=== PATIENT | male | born 1945 | race Caucasian/White ===

== ENCOUNTER 2018-10-30 06:17 | Day surgery (SDC) | payer OTHER ==
[~2018-10-30] VITALS: Ht 170.2 cm; Wt 93.9 kg
--- NOTE | ~2018-10-30 | OR ---
[facility] [address], [place] [address] Draft DATE OF OPERATION: 10/30/2018 SURGEON: Madhu Santiago MD PREOPERATIVE DIAGNOSES: 1. Diverticulosis. 2. Screening. POSTOPERATIVE DIAGNOSES: 1. Moderate diverticulosis in transverse colon, left colon, and sigmoid colon. 2. 5 mm polyp at 35 cm. 3. 8 mm polyp distal right colon/hepatic flexure (tattoo). 4. 4 mm polyp ileocecal valve. 5. 4 mm polyps x2 hepatic flexure. 6. 4 mm polyps x2 proximal transverse colon. 7. Moderate internal and external hemorrhoids. PROCEDURE PERFORMED: Colonoscopy with snare at hepatic flexure and proximal transverse colon and hot biopsies, and injection of tattoo at the distal right colon/hepatic flexure. ESTIMATED BLOOD LOSS: None. INDICATIONS: Maxime is a 72-year-old gentleman who came to us for basically a followup screening colonoscopy. He said his last colonoscopy was back in 2002. He remembers having sigmoid diverticulosis at that time. Currently, he has no lower GI complaints. There was no family history of colon cancer or polyps. I gave him a pamphlet in the office on colonoscopy. We looked at that together along with the risks and benefits. He understands there is risk including, but not limited to gas, bloating, crampy abdominal pain, bleeding, perforation, requiring surgery, and missed diagnosis. He also understands the need for IV conscious sedation. He had expressed understanding and wished to proceed. DESCRIPTION OF PROCEDURE: Maxime was taken into our endoscopy suite and placed in the left lateral decubitus position. He was given 4 mg of Versed and 100 mcg of fentanyl to cover the case. A digital rectal exam was performed. He does have moderate external hemorrhoids. He had good sphincter tone. His prostate is mildly enlarged and indurated. No dominant PATIENT NAME: MAXIME LYNN JR OPERATIVE REPORT DATE OF : 41 REPORT #: [id number] PHYSICIAN: MADHU SANTIAGO MD PCP: MADHU SANTIAGO MD REPORT IS CONFIDENTIAL AND NOT TO BE RELEASED WITHOUT AUTHORIZATION [facility] [address], [place] [address] Draft nodules. The adult colonoscope was introduced and advanced all around into the cecum under direct visualization of camera without difficulty. The scope was slowly withdrawn. We took pictures throughout for photodocumentation. We could easily see the appendiceal orifice, the Crohn's foot, and ileocecal valve. The above-mentioned polyps were removed mostly with hot biopsy forceps. We did use our snare in the distal right colon/hyperplastic flexure in the proximal transverse colon. We did place a tattoo in the distal right colon/hepatic flexure to rei that particular polyp. He does have moderate diverticulosis from the transverse colon, left colon, and the sigmoid colon. The rectum was unremarkable. Upon retroflexion of scope he does have moderate internal hemorrhoids. After this, the gas was suctioned out. The colonoscope removed. Maxime tolerated the procedure quite well. RECOMMENDATIONS: I will see Maxime back in my office in 7 to 14 days to review his results. Madhu Santiago MD ALB/MODL /[id number] cc: Patient Chart Mati Pri[facility] Madhu Santiago MD Copies: MADHU SANTIAGO MD ~ PATIENT NAME: SHANE MAXIME SMITH OPERATIVE REPORT DATE OF : 41 REPORT #: [id number] PHYSICIAN: MADHU SANTIAGO MD PCP: MADHU SANTIAGO MD REPORT IS CONFIDENTIAL AND NOT TO BE RELEASED WITHOUT AUTHORIZATION
[~2018-10-30 06:17] MED LIST: ADULT ASPIRIN R81 MG PO; COZAAR25 MG PO; FLONASE ALLERG9.9 ML NAS; HYDROCHLOROTHIA25 MG PO; ZOCOR10 MG PO
--- NOTE | 2018-10-30 08:14 | NUR ---
10/30/18 0814 Viji Jett 0811-PATIENT ARRIVED TO PACU ON 2L NC REACTIVE TO VOICE OPENING EYES DROWSY. DENIES PAIN OR NAUSEA. PASSING GAS. LAYING LEFT LATERAL. IVF INFUSING.
== END 2018-10-30 08:58 | disposition home or self-care (01) ==
LOC: OPS 06:17 → DS 06:17 → OPS 06:45
PROVIDERS: Colon & Rectal Surgery
PROC: 0DBE8ZX Excision of Large Intestine, Via Natural or Artificial Opening Endoscopic, Diagnostic (ICD-10-PCS; 2018-10-30)
PROC: 0DBL8ZX Excision of Transverse Colon, Via Natural or Artificial Opening Endoscopic, Diagnostic (ICD-10-PCS; 2018-10-30)
PROC: 0DBF8ZX Excision of Right Large Intestine, Via Natural or Artificial Opening Endoscopic, Diagnostic (ICD-10-PCS; 2018-10-30)
PROC: 3E0H8GC Introduction of Other Therapeutic Substance into Lower GI, Via Natural or Artificial Opening Endoscopic (ICD-10-PCS; 2018-10-30)
PROC: 0DBC8ZX Excision of Ileocecal Valve, Via Natural or Artificial Opening Endoscopic, Diagnostic (ICD-10-PCS; principal; 2018-10-30 06:45)
DX: Z12.11 Encounter for screening for malignant neoplasm of colon (principal); D12.0 Benign neoplasm of cecum; D12.2 Benign neoplasm of ascending colon; D12.3 Benign neoplasm of transverse colon; K51.40 Inflammatory polyps of colon without complications; K64.4 Residual hemorrhoidal skin tags; K57.30 Diverticulosis of large intestine without perforation or abscess without bleeding; I10 Essential (primary) hypertension; J45.909 Unspecified asthma, uncomplicated; Z79.899 Other long term (current) drug therapy; Z79.82 Long term (current) use of aspirin; Z87.891 Personal history of nicotine dependence
CPT/HCPCS: 99153; G0500; J2250; J3010; J7120

== ENCOUNTER 2019-08-17 13:41 | Inpatient (IN) | payer MEDICARE, OTHER ==
[~2019-08-17] VITALS: Ht 170.2 cm; Wt 65.7 kg
--- OUTSIDE RECORDS SUMMARY | ~2019-08-17 | XMS | Encounter Summary ---
Demographics + + + | Address | [address] | | | [place] [address] | + + + | Home Phone | | + + + | Preferred Language | Unknown | + + + | Marital Status | | + + + | Orthodoxy Affiliation | 1077 | + + + | Race | Unknown | + + + | Ethnic Group | Unknown | + + + Author + + + | Author | [facility] | | | and [place] | + + + | Organization | [facility] | | | and [place] | + + + | Address | Unknown | + + + | Phone | Unavailable | + + + Support + + + + + | Name | Relationship | Address | Phone | + + + + + | Amina Stewart | ECON | [address] | | | | | [facility], [place] | | | | | [address] | | + + + + + Care Team Providers + +------+ + | Care Colors Custodian Name | Role | Phone | + +------+ + | No, Physician | PCP | Unavailable | + +------+ + Reason for Visit +--------+ + | Reason | Comments | +--------+ + | Other | Labs and Imaging | +--------+ + Encounter Details +--------+ + + + + | Date | Type | Department | Care Team | Description | +--------+ + + + + | 06/02/ | Telephone | [facility] | Paul Arias MD | Other (Labs and | | 2018 | | VASCULAR SURGERY | [address] | Imaging) | | | | [address] [place] | [address] [place], [place] | | | | | [place], [place] | [address] | | | | | [address] | [phone] | | | | | [phone] | | | +--------+ + + + + Social History + +-------+ +--------+------+ | Tobacco Use | Types | Packs/Day | Years | Date | | | | | Used | | + +-------+ +--------+------+ | Former Smoker | | | | | + +-------+ +--------+------+ + +---+---+---+ | Smokeless Tobacco: | | | | | Former User | | | | + +---+---+---+ + + | Comments: quit 50 years ago | + + + + +---------+ + | Alcohol Use | Drinks/Week | oz/Week | Comments | + + +---------+ + | Not Currently | | | 90m days | + + +---------+ + + + + | Sex Assigned at | Date Recorded | | | | + + + | Not on file | | + + + + + + + | Job Start Date | Occupation | Industry | + + + + | Not on file | Not on file | Not on file | + + + + + + + + | Travel History | Travel Start | Travel End | + + + + + + | No recent travel history available. | + + documented as of this encounter Functional Status + + + + | Functional Status | Response | Date of Assessment | + + + + | Are you deaf or do you have serious | No | 05/04/2019 | | difficulty hearing? | | | + + + + | Are you blind or do you have serious | No | 05/04/2019 | | difficulty seeing, even when wearing | | | | glasses? | | | + + + + | Do you have serious difficulty walking or | No | 05/04/2019 | | climbing stairs? (5 years old or older) | | | + + + + | Do you have difficulty dressing or bathing? | No | 05/04/2019 | | (5 years old or older) | | | + + + + | Because of a physical, mental, or emotional | No | 05/04/2019 | | condition, do you have difficulty doing | | | | errands alone such as visiting a doctor's | | | | office or shopping? [15 years old or | | | | older)] | | | + + + + + + + + | Cognitive Status | Response | Date of Assessment | + + + + | Because of a physical, mental, or emotional | No | 05/04/2019 | | condition, do you have serious difficulty | | | | concentrating, remembering, or making | | | | decisions? (5 years old or older) | | | + + + + documented as of this encounter Plan of Treatment +--------+ + + + + | Date | Type | Specialty | Care Team | Description | +--------+ + + + + | 11/04/ | Appointment | Radiology | Suzi Powell DNP | | | 2019 | | | [address] | | | | | | [place] | | | | | | [address] | | | | | | | | +--------+ + + + + | 11/04/ | Office | Vascular Surgery | Suzi Powell DNP | | | 2019 | Visit | | [address] | | | | | | [place] | | | | | | [address] | | | | | | | | +--------+ + + + + documented as of this encounter Visit Diagnoses Not on filedocumented in this encounter"
--- OUTSIDE RECORDS SUMMARY | ~2019-08-17 | XMS | Encounter Summary ---
Demographics + + + | Address | [address] | | | [place] [address] | + + + | Home Phone | | + + + | Preferred Language | Unknown | + + + | Marital Status | | + + + | [employer] Affiliation | [id number] | + + + | Race | Unknown | + + + | Ethnic Group | Unknown | + + + Author + + + | Author | [facility] | | | and [place] | + + + | Organization | [facility] | | | and [place] | + + + | Address | Unknown | + + + | Phone | Unavailable | + + + Support + + + + + | Name | Relationship | Address | Phone | + + + + + | Amina Stewart | ECON | [address] | | | | | [address] [place] [address], [place] | | | | | [address] | | + + + + + Care Team Providers + +------+ + | Care Brake Repair Supervisor Name | Role | Phone | + +------+ + | No, Physician | PCP | Unavailable | + +------+ + Reason for Visit Auth/Cert +--------+--------+ + + + + | Status | Reason | Specialty | Diagnoses / | Referred By | Referred To | | | | | Procedures | Contact | Contact | +--------+--------+ + + + + | | | | Diagnoses | | | | | | | Mesenteric | | | | | | | ischemia, | | | | | | | chronic | | | | | | | ([facility]) | | | | | | | Procedures | | | | | | | REVASCULARIZ | | | | | | | ATION | | | | | | | MESENTERIC | | | +--------+--------+ + + + + Encounter Details +--------+---------+ + + + | Date | Type | Department | Care Team | Description | +--------+---------+ + + + | 04/28/ | Surgery | [facility] | Paul Arias MD | REVASCULARIZATION | | 2019 | | [facility] | [address] | MESENTERIC | | | | OPER[address] | [address] [place], [place] | | | | | [place] | [address] | | | | | [place], [place] | [phone] | | | | | [address] | | | | | | [phone] | | | +--------+---------+ + + + Social History + +-------+ [...] + + documented as of this encounter Last Filed Vital Signs + + + + + | Vital Sign | Reading | Time Taken | Comments | + + + + + | Blood Pressure | 141/66 | 05/04/2019 10:42 AM | | | | | PDT | | + + + + + | Pulse | 76 | 05/04/2019 7:57 AM | | | | | PDT | | + + + + + | Temperature | 36.9 C (98.5 F) | 05/04/2019 7:57 AM | | | | | PDT | | + + + + + | Respiratory Rate | 18 | 05/04/2019 7:57 AM | | | | | PDT | | + + + + + | Oxygen Saturation | 98% | 05/04/2019 7:57 AM | | | | | PDT | | + + + + + | Inhaled Oxygen | - | - | | | Concentration | | | | + + + + + | Weight | 78.3 kg (172 lb 9.9 | 05/04/2019 3:50 AM | | | | oz) | PDT | | + + + + + | Height | 168.9 cm (5' 6.5") | 04/28/2019 10:43 AM | | | | | PDT | | + + + + + | Body Mass Index | 27.44 | 04/28/2019 10:43 AM | | | | | PDT | | + + + + + documented in this encounter Functional Status + + + [...] + + documented as of this encounter Discharge Summaries Toney Sherman PA-C - 05/04/2019 8:36 AM PDTFormatting of this note might be different f rom the original. Physician Discharge Summary Patient ID: Zane Stewart [id number] y.o. 1945 Admit date: 04/28/2019 Discharge date and time: 05/04/2019 Admitting Physician: Paul Arias MD Discharge Physician: Toney Sherman PA-C Admission Diagnoses: Mesenteric ischemia, chronic (HCC) [K55.1] Discharge Diagnoses: Same; Status post mesenteric artery revascularization Admission Condition: poor Discharged Condition: stable Indication for Admission: Symptomatic SMA stenosis Hospital Course: Patient was admitted on 04/28/2019 and underwent open SMA endarterectomy an d patch angioplasty. Post operative course has been uneventful. Began passing flatus two day s ago and diet has been advanced. Stable for discharge home. Consults: none Treatments: surgery: SMA endart and patch angioplasty Discharge Exam: Vitals:reviewed CONSTITUTIONAL: Conversant, well developed, NAD EYES: Anicteric sclerae, no lid drag, no proptosis RESP: Normal effort, regular, even, unlabored rate CV: No peripheral edema, rate regular ABD: Appropriate tenderness. Hypoactive bowel tones SKIN: Jardine, warm, dry without rash/lesion MS: ROM not limited, no digital cyanosis, normal gait NEURO: Conversant, A&O times 3 PSYCH: appropriate affect, speech and tone, judgement and insight intact Vascular: Palpable brachial pulses bilaterally. Abdominal binder in place. [place] intact. Disposition: home Patient Instructions: Keep wound clean and dry, ice to area for comfort and remove dressing in two days. Leave open to air. Monitor for signs of infection. Discharge Medications New Medications Details docusate sodium 100 mg capsule Take 1 capsule by mouth 2 times daily. aka: COLACE HYDROcodone-acetaminophen 5-325 mg per tablet Take 1 tablet by mouth every 4 hours as needed for Pain. aka: NORCO Unchanged Medications Details ASPIRIN 81 PO Take 81 mg by mouth. CENTRUM SILVER 50+MEN PO Take by mouth. hydroCHLOROthiazide 25 mg tablet Take 25 mg by mouth Daily. losartan 50 mg tablet Take 50 mg by mouth Daily. aka: COZAAR simvastatin 10 mg tablet Take 10 mg by mouth nightly. aka: ZOCOR Plan: POD 6. Stable for discharge. Continue aspirin and statin therapy. Continue ambulation and pain management. Getting more aggressive with constipation. Patient understands to come back in with worsening abdominal pain and failure of bowel movement. Activity: activity as tolerated, ambulate in house and no lifting, Driving, or Strenuous ex ercise for 6 weeks Diet: cardiac diet Wound Care: keep wound clean and dry, ice to area for comfort and remove dressing in two da ys. Leave open to air. Monitor for signs of infection. Follow-up with Vascular clinic in 2 weeks. Signed: Toney Sherman PA-C 05/04/2019 8:36 documented in this encounter Discharge Instructions Instructions Pascale Ross RN - 05/04/2019Formatting of this note might be different fro m the original. Constipation (Adult) Constipation means that you have bowel movements that are less frequent than usual. Stools often become very hard and difficult to pass. Constipation is very common. At some point in life, it affects almost everyone. Since every one's bowel habits are different, what is constipation to one person may not be to another. Your healthcare provider may do tests to diagnose constipation. It depends on whathe or sh efinds when evaluating you. Symptoms of constipation include: Abdominal pain Bloating Vomiting Painful bowel movements Itching, swelling, bleeding, or pain around the anus Causes Constipation can have many causes. These include: Diet low in fiber Too much dairy Not drinking enough liquids Lack of exercise or physical activity (especially true for older adults) Changes in lifestyle or daily routine, including , aging, work, and travel Frequent use or misuse of laxatives Ignoring the urge to have a bowel movement or delaying it until later Medicines, such as certain prescription pain medicines, iron supplements, antacids, cert ain antidepressants, and calcium supplements Diseases like irritable bowel syndrome, bowel obstructions, stroke, diabetes, thyroid di sease, Parkinson disease, hemorrhoids, and colon cancer Complications Potential complications of constipation can include: Hemorrhoids Rectal bleeding from hemorrhoids or anal fissures(skin tears) Hernias Dependency on laxatives Chronic constipation Fecal impaction, a severe form of constipation in which a large amount of hard stool is in your rectum that you can't pass Bowel obstruction or perforation Home care All treatment should be done after talking with your healthcare provider. This is especiall y true if you have another medical problems, are taking prescription medicines, or are an ol louie adult. Treatment most often involves lifestyle changes. You may also need medicines. You r healthcare provider will tell you which will work best for you. Follow the advice below to help avoid this problem in the future. Lifestyle changes These lifestyle changes can help prevent constipation: Diet. Eat a high-fiber diet, with fresh fruit and vegetables, and reduce dairy intake, m eats, and processed foods Fluids. It's important to get enough fluids each day. Drink plenty of water when you eat more fiber. If you are on diet that limits the amount of fluid you can have, talk about thi s with your healthcare provider. Regular exercise. Check with your healthcare provider first. Medicines Take any medicines as directed. Some laxatives are safe to use only every now and then. Oth ers can be taken on a regular basis. While laxatives don't cause bowel dependence, they are treating the symptoms. So your constipation may return if you don't make other changes. Talk with your healthcare provider or pharmacist if you have questions. Prescription pain medicines can cause constipation. If you are taking this kind of medicine , ask your healthcare provider if you should also take a stool softener. Medicines you may take to treat constipation include: Fiber supplements Stool softeners Laxatives Enemas Rectal suppositories Follow-up care Follow up with your healthcare provider if symptoms don't get better in the next few days. You may need to have more tests or see a specialist. Call 911 Call 911 if any of these occur: Trouble breathing Stiff, rigid abdomen that is severely painful to touch Confusion Fainting or loss of consciousness Rapid heart rate Chest pain When to seek medical advice Call your healthcare provider right away if any of these occur: Fever of 100.4F (38C) or higher, or as directed by your healthcare provider Failure to resume normal bowel movements Pain in your abdomen or back gets worse Nausea or vomiting Swelling in your abdomen Blood in the stool Black, tarry stool Involuntary weight loss Weakness Date Last Reviewed: 01/03/[address] [employer] [place] [id number]. All righ ts reserved. This information is not intended as a substitute for professional medical care. Always follow your healthcare professional's instructions. After Open Abdominal Superior Mesenteric Artery Surgery You have hadsurgery to repair SMA stenosis. Home care Recommendations for taking care of yourself at home include the following: Avoid strenuous activity for 4 to 6 weeks after your surgery. Ask your healthcare provider how long it will be before you can return to work. Gradually increase your activity. It may take some time for you to return to your normal activity level. Don t drive for 2 weeks after surgery or while you are taking opioid pain medicine. As k someone to take you to any appointments. Check your incision every day for signs of infection (swelling, redness, drainage, or wa rmth). Keep your incision clean. Wash it gently with soap and water when you shower. Don t lift anything heavier than 5 pounds for 2 weeks after surgery. Avoid sitting or standing for long periods without moving your legs and feet. Keep your feet up when you sit in a chair. Take your medicines exactly as directed. When to call your healthcare provider Call your healthcare provider right away if you have any of the following: Redness, pain, swelling, or drainage from your incision Fever of 100.4F (38C) or higher, or as directed by your healthcare provider Sudden coldness, pain, or paleness in your leg Loss of feeling in your legs Severe or sudden pain in your stomach Fail to pass gas Bloody bowel movements Prolonged constipation Nausea or vomiting Trouble breathing Pain or heaviness in your chest or arms Date Last Reviewed: 12/04/2015 [employer]. [address] [place] [id number]. All righ ts reserved. This information is not intended as a substitute for professional medical care. Always follow your healthcare professional's instructions. documented in this encounter Medications at Time of Discharge + + + +---------+ + + | Medication | Sig | Dispensed | Refills | Start | End Date | | | | | | Date | | + + + +---------+ + + | ASPIRIN 81 PO | Take 81 mg by mouth. | | 0 | | | + + + +---------+ + + | docusate sodium | Take 1 capsule by | 30 | 0 | 05/04/ | | | (COLACE) 100 mg | mouth 2 times daily. | capsule | | 19 | | | capsule | | | | | | + + + +---------+ + + | | Take 25 mg by mouth | | 0 | | | | hydroCHLOROthiazide | Daily. | | | | | | 25 mg tablet | | | | | | + + + +---------+ + + | | Take 1 tablet by | 30 | 0 | 05/04/20 | | | HYDROcodone-acetamin | mouth every 4 hours | tablet | | 19 | | | ophen (NORCO) 5-325 | as needed for Pain. | | | | | | mg per tablet | | | | | | + + + +---------+ + + | losartan (COZAAR) | Take 50 mg by mouth | | 0 | | | | 50 mg tablet | Daily. | | | | | + + + +---------+ + + | Multiple | Take by mouth. | | 0 | | | | Vitamins-Minerals | | | | | | | (CENTRUM SILVER | | | | | | | 50+MEN PO) | | | | | | + + + +---------+ + + | simvastatin | Take 10 mg by mouth | | 0 | | | | (ZOCOR) 10 mg tablet | nightly. | | | | | + + + +---------+ + + documented as of this encounter Progress Notes Pascale Ross RN - 05/04/2019 11:37 AM PDTPatient discharged to home via private car. Ve rbal and written instructions provided to patient, all questions addressed. Rx and all belon gings gathered. IVs removed and bandages applied. Patient wheeled to car and discharged in s table condition with family. Anuj Newberry RN - 05/04/2019 6:58 AM PDTPt passing gas but still no BM. Bowel tones: normoactive to hypoact heather in upper quadrants, hypoactive in both lower quadrants. Pt declined suppository twice, stating, "If I still haven't had a BM by the morning, I might do the suppository around 8." Pt set to dc home with @ 11 (lives in [place]). Abdominal hydrocolloid dressing C/D/I, with no new drainage. Pt splints appropriately when coughing. End of shift review complete. 8: 04 AM Theresa Reynoso RN - 05/03/2019 6:31 PM PDTPt advanced to full liquids, continues to pass gas but no BM yet. Bowel tones present. Will continue to monitor. Theresa Rosales RN David Courtney MD - 05/03/2019 12:46 PM PDTVascular Surgery still with no BM. Just took 1 tab of [place]. Seems to be controlling the pain. He wants to wait till tomorrow. Discussed his care with his by phone. Questions answered about diet, climbing 13 stairs to get into one level home. will arrive by 11am with friend to help him home and into house. Wants a walker for home as well. Ok to shower. David Oreilly MD - 05/03/2019 8:46 AM PDT [facility] Service: Vascular Surgery Progress Note Hospital Day: LOS: 5 days Post-Op Day: #5 SUBJECTIVE Patient Summary: S/p SMA endarterectomy for chronic mesenteric ischemia Events Overnight: Abdominal binder in place. Passing gas, no stool. No N/V. Thirst y. Scheduled Medications aspirin 81 mg Oral Daily hydroCHLOROthiazide 25 mg Oral Daily losartan 50 mg Oral Daily pantoprazole 40 mg Intravenous Daily Continuous Infusions niCARdipine Stopped (04/28/19 1628) PRN Medications acetaminophen, bisacodyl, HYDROcodone-acetaminophen, HYDROmorphone, insulin lispro, morphin e, sodium chloride 0.9% OBJECTIVE Vital Signs: Vitals: 05/03/19 0715 BP: 155/74 Pulse: 71 Resp: 18 Temp: 36.7 C (98 F) Physical Exam Vitals:reviewed CONSTITUTIONAL: Alert/appropriate CV: No peripheral edema, rate regular ABD: Incisional tenderness only. normal bowel tones DRSNG: dry, spotty strikethru. SKIN: Jardine, warm, well hydrated LE: w/out calf tenderness. No edema. DATA Recent Results (from the past 24 hour(s)) Basic Metabolic Panel Collection Time: 05/03/19 4:17 Result Value Ref Range Na 135 135 - 145 mmol/L K 3.8 3.5 - 4.9 mmol/L Cl 102 99 - 109 mmol/L CO2 26 23 - 32 mmol/L Anion Gap 11 5 - 20 mmol/L Glucose 140 (H) 65 - 99 mg/dL BUN 8 8 - 25 mg/dL Creatinine 0.9 0.70 - 1.30 mg/dL BUN/Creatinine Ratio 9 Calcium 8.5 8.5 - 10.5 mg/dL Estimated GFR >60 >60 mL/min/1.73m2 CBC with Differential Collection Time: 05/03/19 4:17 Result Value Ref Range WBC 5.40 3.80 - 11.00 K/uL RBC 3.57 (L) 4.20 - 5.70 M/uL Hemoglobin 12.1 (L) 13.2 - 17.0 g/dL Hematocrit 34.5 (L) 39.0 - 50.0 % MCV 96.7 80.0 - 100.0 fl MCH 33.8 27.0 - 34.0 pg MCHC 35.0 32.0 - 35.5 g/dL RDW-SD 45.5 37 - 53 fl Platelet Count 158 150 - 400 K/uL MPV 7.5 fl Diff Type AUTOMATED % Neutrophils 55.42 % % Lymphocytes 36.41 % Monocyte % 6.61 % Eosinophils % 1.23 % Basophils % 0.33 % Neutrophils, Absolute 3.00 1.90 - 7.40 K/uL Absolute Lymphocytes 1.97 1.00 - 3.90 K/uL Absolute Monocytes 0.36 0.00 - 0.80 K/uL Eosinophils, Absolute 0.07 0.00 - 0.50 K/uL Basophils, Absolute 0.02 0.00 - 0.10 K/uL PROBLEM LIST Principal Problem: Mesenteric ischemia, chronic Active Problems: Hypertension Hyperlipidemia ASSESSMENT & PLAN S/p SMA endarterectomy for chronic mesenteric ischemia. POD5- ileus resolving. Will begin advance diet. Continue ambulation. Oral pain med, hold IV dilaudid. Home afternoon if tole rates diet and pain controlled. Disposition: Mata care Code Status: Full Code David Luo MD 05/03/2019 [id number] signed by Ga javier Luo MD at 05/03/2019 12:46 PM Anuj Newberry RN - 05/03/2019 6:54 AM PDTHourly rounding performed. Pt passing gas but has not had BM yet. Ambulated 1 lap ar ound unit. Cares & concerns will be passed on to dayshift RN. End of shift review complete. 7: 58 AM Pedrito Mg Driver RN - 05/02/2019 6:28 PM PDTA/O, up with supervision, passing gas t his shift, still no BM, requesting dilaudid q2, plan to transition to PO pain meds tomorrow, advanced to clear liquids today, tolerating well Chart check complete Electronically signed by: Mg Lopez RN 05/02/2019 18:30 David Oreilly MD - 05/02/2019 9:46 AM PDTFormatting of this note might be different from the [facility] Service: Vascular Surgery Progress Note Hospital Day: LOS: 4 days Post-Op Day: 3 SUBJECTIVE Patient Summary: S/p SMA endarterectomy for chronic mesenteric ischemia Events Overnight: Transferred from ICU to floor. Abdominal binder in place. Passing g as, no stool. No N/V. Thirsty. Scheduled Medications pantoprazole 40 mg Intravenous Daily Continuous Infusions dextrose 5% and sodium chloride 0.45% with KCl 20 mEq/L 125 mL/hr at 05/02/19 0219 niCARdipine Stopped (04/28/19 1628) PRN Medications acetaminophen, bisacodyl, HYDROmorphone, insulin lispro, morphine, sodium chloride 0.9% OBJECTIVE Vital Signs: Vitals: 05/02/19 0807 BP: 174/85 Pulse: 83 Resp: 18 Temp: 37.9 C (100.2 F) Physical Exam Vitals:reviewed CONSTITUTIONAL: Alert/appropriate CV: No peripheral edema, rate regular ABD: Incisional tenderness only. normal bowel tones DRSNG: dry, spotty strikethru. SKIN: Jardine, warm, well hydrated LE: w/out calf tenderness. No edema. DATA Recent Results (from the past 24 hour(s)) Basic Metabolic Panel Collection Time: 05/02/19 4:29 Result Value Ref Range Na 135 135 - 145 mmol/L K 4.0 3.5 - 4.9 mmol/L Cl 103 99 - 109 mmol/L CO2 25 23 - 32 mmol/L Anion Gap 11 5 - 20 mmol/L Glucose 140 (H) 65 - 99 mg/dL BUN 9 8 - 25 mg/dL Creatinine 0.8 0.70 - 1.30 mg/dL BUN/Creatinine Ratio 11 Calcium 8.7 8.5 - 10.5 mg/dL Estimated GFR >60 >60 mL/min/1.73m2 CBC with Differential Collection Time: 05/02/19 4:29 Result Value Ref Range WBC 5.54 3.80 - 11.00 K/uL RBC 3.72 (L) 4.20 - 5.70 M/uL Hemoglobin 12.3 (L) 13.2 - 17.0 g/dL Hematocrit 36.0 (L) 39.0 - 50.0 % MCV 96.8 80.0 - 100.0 fl MCH 33.1 27.0 - 34.0 pg MCHC 34.2 32.0 - 35.5 g/dL RDW-SD 46.8 37 - 53 fl Platelet Count 140 (L) 150 - 400 K/uL MPV 7.4 fl Diff Type AUTOMATED % Neutrophils 57.00 % % Lymphocytes 36.25 % Monocyte % 5.29 % Eosinophils % 1.03 % Basophils % 0.43 % Neutrophils, Absolute 3.16 1.90 - 7.40 K/uL Absolute Lymphocytes 2.01 1.00 - 3.90 K/uL Absolute Monocytes 0.29 0.00 - 0.80 K/uL Eosinophils, Absolute 0.06 0.00 - 0.50 K/uL Basophils, Absolute 0.02 0.00 - 0.10 K/uL PROBLEM LIST Principal Problem: Mesenteric ischemia, chronic Active Problems: Hypertension Hyperlipidemia ASSESSMENT & PLAN S/p SMA endarterectomy for chronic mesenteric ischemia. POD4- ileus resolving. Will begin clear liquids. Continue ambulation. Resume po BP meds for sBP climbing. Wait on po pain me d. Disposition: Mata care Code Status: Full Code David Luo MD 05/02/2019 [id number] signed by Ga javier Luo MD at 05/02/2019 9:52 AM Estefany Mcdonald RN - 05/01/2019 5:57 PM PDTPt transferred to [id number], report received from YULI Lott. Medicated for pain, see MAR . Pt up walking this shift with FWW. Bowel tones hypoactive, but gurgling. Chart check complete. Estefany Rizvi RN Toney Madrigal PA- C - 05/01/2019 3:56 PM PDT [facility] Service: Vascular Surgery Progress Note Hospital Day: LOS: 3 days Post-Op Day: 3 SUBJECTIVE Patient Summary: S/p SMA endarterectomy for chronic mesenteric ischemia Events Overnight: No events overnight. Abdominal binder in place. Scheduled Medications pantoprazole 40 mg Intravenous Daily Continuous Infusions dextrose 5% and sodium chloride 0.45% with KCl 20 mEq/L 125 mL/hr at 05/01/19 0819 niCARdipine Stopped (04/28/19 1628) PRN Medications acetaminophen, bisacodyl, HYDROmorphone, insulin lispro, morphine, sodium chloride 0.9% OBJECTIVE Vital Signs: Vitals: 05/01/19 1456 BP: (!) 166/91 Pulse: 81 Resp: 16 Temp: 36.8 C (98.2 F) Physical Exam Vitals:reviewed CONSTITUTIONAL: Conversant, well developed, NAD EYES: Anicteric sclerae, no lid drag, no proptosis RESP: Normal effort, regular, even, unlabored rate CV: No peripheral edema, rate regular ABD: Appropriate tenderness. Hypoactive bowel tones SKIN: Jardine, warm, dry without rash/lesion MS: ROM not limited, no digital cyanosis, normal gait NEURO: Conversant, A&O times 3 PSYCH: appropriate affect, speech and tone, judgement and insight intact Vascular: Palpable brachial pulses bilaterally. Abdominal binder in place. [place] intact. DATA Recent Results (from the past 24 hour(s)) Basic Metabolic Panel Collection Time: 05/01/19 4:23 Result Value Ref Range Na 137 135 - 145 mmol/L K 4.0 3.5 - 4.9 mmol/L Cl 104 99 - 109 mmol/L CO2 26 23 - 32 mmol/L Anion Gap 11 5 - 20 mmol/L Glucose 140 (H) 65 - 99 mg/dL BUN 8 8 - 25 mg/dL Creatinine 0.9 0.70 - 1.30 mg/dL BUN/Creatinine Ratio 9 Calcium 8.4 (L) 8.5 - 10.5 mg/dL Estimated GFR >60 >60 mL/min/1.73m2 CBC with Differential Collection Time: 05/01/19 4:23 Result Value Ref Range WBC 9.31 3.80 - 11.00 K/uL RBC 3.81 (L) 4.20 - 5.70 M/uL Hemoglobin 12.7 (L) 13.2 - 17.0 g/dL Hematocrit 37.1 (L) 39.0 - 50.0 % MCV 97.5 80.0 - 100.0 fl MCH 33.5 27.0 - 34.0 pg MCHC 34.3 32.0 - 35.5 g/dL RDW-SD 46.8 37 - 53 fl Platelet Count 162 150 - 400 K/uL MPV 7.5 fl Diff Type AUTOMATED % Neutrophils 54.94 % % Lymphocytes 39.44 % Monocyte % 4.62 % Eosinophils % 0.69 % Basophils % 0.31 % Neutrophils, Absolute 5.12 1.90 - 7.40 K/uL Absolute Lymphocytes 3.67 1.00 - 3.90 K/uL Absolute Monocytes 0.43 0.00 - 0.80 K/uL Eosinophils, Absolute 0.06 0.00 - 0.50 K/uL Basophils, Absolute 0.03 0.00 - 0.10 K/uL PROBLEM LIST Principal Problem: Mesenteric ischemia, chronic Active Problems: Hypertension Hyperlipidemia ASSESSMENT & PLAN S/p SMA endarterectomy for chronic mesenteric ischemia. POD3. Denies flatus still. Contin ue strict NPO with swabs for comfort until return of bowel function. Continue ambulation wi th PT. Disposition: Mata care Code Status: Full Code Toney Sherman PA-C 05/01/2019 Kaylie Ribeiro RN - 05/01/2019 2:51 PM PDTPt transferred to 9RP. Kaylie Ribeiro RN - 05/01/2019 2:33 PM PD TReport called to Sabina on 9RP. Will transfer pt at this time. Ariana Boyce RN - 04/30/2019 7:31 PM PDT Patient worked with PT this morning and has sat in chair the remainder of the shift. Pt c/o occasional pain, worse with ambulation, coughing, or laughing. Medicated with 1mg Dilaudid x 3 with relief. Patient made several trips to bathroom with use of 2WW and CGA. Abdominal bi nder in place per DANIA Evangelista. Pt denies passing flatus this shift, continues to be NPO. Ariana Mitchell RN Paul Connolly MD - 6:56 AM PDT [facility] Service: Vascular Surgery Progress Note Hospital Day: LOS: 2 days Post-Op Day: 2 Days Post-Op SUBJECTIVE Patient Summary: S/p SMA endarterectomy for chronic mesenteric ischemia Events Overnight: No events overnight. Pain well controlled with pain meds. Ambulat ed yesterday with assistance. Scheduled Medications pantoprazole 40 mg Intravenous Daily Continuous Infusions dextrose 5% and sodium chloride 0.45% with KCl 20 mEq/L 125 mL/hr at 04/29/19 2228 niCARdipine Stopped (04/28/19 1628) PRN Medications acetaminophen, bisacodyl, HYDROmorphone, insulin lispro, morphine, sodium chloride 0.9% OBJECTIVE Vital Signs: Vitals: 04/30/19 0421 BP: 149/80 Pulse: 63 Resp: 16 Temp: 37.2 C (99 F) Physical Exam Vitals:reviewed CONSTITUTIONAL: Conversant, well developed, NAD EYES: Anicteric sclerae, no lid drag, no proptosis RESP: Normal effort, regular, even, unlabored rate CV: No peripheral edema, rate regular ABD: Appropriate tenderness. Hypoactive bowel tones SKIN: [place], warm, dry without rash/lesion MS: ROM not limited, no digital cyanosis, normal gait NEURO: Conversant, A&O times 3 PSYCH: appropriate affect, speech and tone, judgement and insight intact Vascular: Palpable brachial pulses bilaterally. DATA Recent Results (from the past 24 hour(s)) Lactic Acid Collection Time: 04/29/19 9:09 Result Value Ref Range Lactate, Serum 1.6 0.4 - 2.0 mmol/L Basic Metabolic Panel Collection Time: 04/30/19 4:06 Result Value Ref Range Na 138 135 - 145 mmol/L K 4.4 3.5 - 4.9 mmol/L Cl 106 99 - 109 mmol/L CO2 25 23 - 32 mmol/L Anion Gap 11 5 - 20 mmol/L Glucose 144 (H) 65 - 99 mg/dL BUN 16 8 - 25 mg/dL Creatinine 0.9 0.70 - 1.30 mg/dL BUN/Creatinine Ratio 18 Calcium 8.6 8.5 - 10.5 mg/dL Estimated GFR >60 >60 mL/min/1.73m2 CBC with Differential Collection Time: 04/30/19 4:06 Result Value Ref Range WBC 10.14 3.80 - 11.00 K/uL RBC 3.79 (L) 4.20 - 5.70 M/uL Hemoglobin 12.6 (L) 13.2 - 17.0 g/dL Hematocrit 37.1 (L) 39.0 - 50.0 % MCV 97.8 80.0 - 100.0 fl MCH 33.3 27.0 - 34.0 pg MCHC 34.1 32.0 - 35.5 g/dL RDW-SD 47.3 37 - 53 fl Platelet Count 149 (L) 150 - 400 K/uL MPV 7.4 fl Diff Type AUTOMATED % Neutrophils 63.73 % % Lymphocytes 31.45 % Monocyte % 4.45 % Eosinophils % 0.24 % Basophils % 0.13 % Neutrophils, Absolute 6.46 1.90 - 7.40 K/uL Absolute Lymphocytes 3.19 1.00 - 3.90 K/uL Absolute Monocytes 0.45 0.00 - 0.80 K/uL Eosinophils, Absolute 0.02 0.00 - 0.50 K/uL Basophils, Absolute 0.01 0.00 - 0.10 K/uL PROBLEM LIST Principal Problem: Mesenteric ischemia, chronic Active Problems: Hypertension Hyperlipidemia ASSESSMENT & PLAN S/p SMA endarterectomy for chronic mesenteric ischemia. Doing well. Denies flatus. Contin ue strict NPO with swabs for comfort until return of bowel function. Continue ambulation wi th PT. Disposition: Mata care Code Status: Full Code Paul Arias MD 04/30/2019 Paul Connolly MD - 04/29/2019 9:10 AM PDT [facility] Service: Vascular Surgery Progress Note Hospital Day: LOS: 1 day Post-Op Day: 1 Day Post-Op SUBJECTIVE Patient Summary: S/p SMA endarterectomy for chronic mesenteric ischemia Events Overnight: No events overnight. Pain well controlled with pain meds. Scheduled Medications Continuous Infusions dextrose 5% and sodium chloride 0.45% with KCl 20 mEq/L 125 mL/hr at 04/29/19 0724 niCARdipine Stopped (04/28/19 1628) PRN Medications acetaminophen, aluminum & magnesium hydroxide-simethicone, bisacodyl, calcium carbonate, do cusate sodium, HYDROmorphone, insulin lispro, morphine, sodium chloride 0.9% OBJECTIVE Vital Signs: Vitals: 04/29/19 0800 BP: 128/68 Pulse: 78 Resp: 12 Temp: 37 C (98.6 F) Physical Exam Vitals:reviewed CONSTITUTIONAL: Conversant, well developed, NAD EYES: Anicteric sclerae, no lid drag, no proptosis RESP: Normal effort, regular, even, unlabored rate CV: No peripheral edema, rate regular SKIN: [place], warm, dry without rash/lesion ABD: Soft, appropriate tenderness, hypoactive bowel tones MS: ROM not limited, no digital cyanosis NEURO: Conversant, A&O times 3 PSYCH: appropriate affect, speech and tone, judgement and insight intact DATA Recent Results (from the past 24 hour(s)) Type and Screen Collection Time: 04/28/19 11:03 Result Value Ref Range ABO Rh O POSITIVE Antibody Screen NEGATIVE BB BAND [id number] BB BAND Testing performed at [facility];[address] [place] [address];[place] [address] Basic Metabolic Panel Collection Time: 04/29/19 4:40 Result Value Ref Range Na 140 135 - 145 mmol/L K 4.5 3.5 - 4.9 mmol/L Cl 107 99 - 109 mmol/L CO2 23 23 - 32 mmol/L Anion Gap 15 5 - 20 mmol/L Glucose 192 (H) 65 - 99 mg/dL BUN 17 8 - 25 mg/dL Creatinine 1.02 0.70 - 1.30 mg/dL BUN/Creatinine Ratio 17 Calcium 8.6 8.5 - 10.5 mg/dL Estimated GFR >60 >60 mL/min/1.73m2 CBC with Differential Collection Time: 04/29/19 4:40 Result Value Ref Range WBC 13.98 (H) 3.80 - 11.00 K/uL RBC 4.07 (L) 4.20 - 5.70 M/uL Hemoglobin 13.3 13.2 - 17.0 g/dL Hematocrit 39.6 39.0 - 50.0 % MCV 97.4 80.0 - 100.0 fl MCH 32.8 27.0 - 34.0 pg MCHC 33.7 32.0 - 35.5 g/dL RDW-SD 47.3 37 - 53 fl Platelet Count 185 150 - 400 K/uL MPV 7.3 fl Diff Type AUTOMATED % Neutrophils 55.68 % % Lymphocytes 39.54 % Monocyte % 4.55 % Eosinophils % 0.05 % Basophils % 0.18 % Neutrophils, Absolute 7.79 (H) 1.90 - 7.40 K/uL Absolute Lymphocytes 5.53 (H) 1.00 - 3.90 K/uL Absolute Monocytes 0.64 0.00 - 0.80 K/uL Eosinophils, Absolute 0.01 0.00 - 0.50 K/uL Basophils, Absolute 0.03 0.00 - 0.10 K/uL RBC Morphology RBC AND PLT MORPHOLOGY APPEAR NORMAL Platelet Estimate ADEQUATE Comment SLIDE SCANNED, AGREES WITH AUTOMATED RESULTS. ECG 12 lead Collection Time: 04/29/19 6:38 Result Value Ref Range INTERPRETATION TEXT Not Confirmed PROBLEM LIST Principal Problem: Mesenteric ischemia, chronic Active Problems: Hypertension Hyperlipidemia ASSESSMENT & PLAN S/p SMA endarterectomy for chronic mesenteric ischemia. Doing well. Transfer to cardiac u nit today. Up out of bed with PT and ambulate with assist. Keep NPO until return of bowel f unction. Discontinue sparks catheter today. Disposition: Mata care Code Status: Full Code Paul Arias MD 04/29/2019 Ariana Elizabeth RN - 04/28/2019 6:30 PM PDTPt received after OR procedure with Dr Arias. His main complaint wa s of abdominal pain. He was also hypertensive. Goal BP <160. Once pain was better control led, he no longer met the criteria for the nicardipene gtt. He will be NPO until he passes gas which is anticipated to be 3-4 days. No blood, restraints, protocols, or signed and held orders. Morphine given x1 per parameters with no effect. Dilaudid given x3 per parameters with moderate effect. End of shift review complete. documented in this encounter Plan of Treatment +--------+ + + + + | Date | Type | Specialty | Care Team | Description | +--------+ + + + + | 11/04/ | Appointment | Radiology | Suzi Powell DNP | | | 2019 | | | [address] | | | | | | [place] | | | | | | [phone] | | | | | | | | +--------+ + + + + | 11/04/ | Office | Vascular Surgery | Suzi Powell DNP | | | 2019 | Visit | | [address] | | | | | | [place] | | | | | | [address] | | | | | | | | +--------+ + + + + documented as of this encounter Procedures + +--------+ + + + | Procedure Name | Priori | Date/Time | Associated Diagnosis | Comments | | | ty | | | | + +--------+ + + + | CBC WITH | Routin | 05/03/2019 | | Results for this | | DIFFERENTIAL | e | 4:17 AM | | procedure are in the | | | | PDT | | results section. | + +--------+ + + + | BASIC METABOLIC | Routin | 05/03/2019 | | Results for this | | PANEL | e | 4:17 AM | | procedure are in the | | | | PDT | | results section. | + +--------+ + + + | CBC WITH | Routin | 05/02/2019 | | Results for this | | DIFFERENTIAL | e | 4:29 AM | | procedure are in the | | | | PDT | | results section. | + +--------+ + + + | BASIC METABOLIC | Routin | 05/02/2019 | | Results for this | | PANEL | e | 4:29 AM | | procedure are in the | | | | PDT | | results section. | + +--------+ + + + | CBC WITH | Routin | 05/01/2019 | | Results for this | | DIFFERENTIAL | e | 4:23 AM | | procedure are in the | | | | PDT | | results section. | + +--------+ + + + | BASIC METABOLIC | Routin | 05/01/2019 | | Results for this | | PANEL | e | 4:23 AM | | procedure are in the | | | | PDT | | results section. | + +--------+ + + + | CBC WITH | Routin | 04/30/2019 | | Results for this | | DIFFERENTIAL | e | 4:06 AM | | procedure are in the | | | | PDT | | results section. | + +--------+ + + + | BASIC METABOLIC | Routin | 04/30/2019 | | Results for this | | PANEL | e | 4:06 AM | | procedure are in the | | | | PDT | | results section. | + +--------+ + + + | LACTIC ACID | STAT | 04/29/2019 | | Results for this | | | | 9:09 AM | | procedure are in the | | | | PDT | | results section. | + +--------+ + + + | ECG 12 LEAD | Routin | 04/29/2019 | | Results for this | | | e | 5:37 AM | | procedure are in the | | | | PDT | | results section. | + +--------+ + + + | CBC WITH | Routin | 04/29/2019 | | Results for this | | DIFFERENTIAL | e | 4:40 AM | | procedure are in the | | | | PDT | | results section. | + +--------+ + + + | BASIC METABOLIC | Routin | 04/29/2019 | | Results for this | | PANEL | e | 4:40 AM | | procedure are in the | | | | PDT | | results section. | + +--------+ + + + | SURGICAL PATHOLOGY | Routin | 04/28/2019 | Mesenteric | Results for this | | EXAM | e | 1:50 PM | ischemia, chronic | procedure are in the | | | | PDT | ([facility]) | results section. | + +--------+ + + + | REVASCULARIZATION | | 04/28/2019 | Mesenteric | | | MESENTERIC | | 11:12 AM | ischemia, chronic | | | | | PDT | ([facility]) | | + +--------+ + + + | TYPE AND SCREEN | STAT | 04/28/2019 | | Results for this | | | | 11:03 AM | | procedure are in the | | | | PDT | | results section. | + +--------+ + + + documented in this encounter Results CBC with Differential (05/03/2019 4:17 AM PDT) + + + + + + | Component | Value | Ref Range | Performed | Pathologist | | | | | At | Signature | + + + + + + | WBC | 5.40 | 3.80 - 11.00 | [facility] | | | | | K/uL | LABORATORY | | + + + + + + | RBC | 3.57 (L) | 4.20 - 5.70 | [facility] | | | | | M/uL | LABORATORY | | + + + + + + | Hemoglobin | 12.1 (L) | 13.2 - 17.0 | [facility] | | | | | g/dL | LABORATORY | | + + + + + + | Hematocrit | 34.5 (L) | 39.0 - 50.0 % | [facility] | | | | | | LABORATORY | | + + + + + + | MCV | 96.7 | 80.0 - 100.0 fl | [facility] | | | | | | LABORATORY | | + + + + + + | MCH | 33.8 | 27.0 - 34.0 pg | [facility] | | | | | | LABORATORY | | + + + + + + | MCHC | 35.0 | 32.0 - 35.5 | [facility] | | | | | g/dL | LABORATORY | | + + + + + + | RDW-SD | 45.5 | 37 - 53 fl | [facility] | | | | | | LABORATORY | | + + + + + + | Platelet | 158 | 150 - 400 K/uL | [facility] | | | Count | | | LABORATORY | | + + + + + + | MPV | 7.5 | fl | [facility] | | | | | | LABORATORY | | + + + + + + | Diff Type | AUTOMATED | | [facility] | | | | | | LABORATORY | | + + + + + + | % | 55.42 | % | [facility] | | | Neutrophils | | | LABORATORY | | + + + + + + | % | 36.41 | % | [facility] | | | Lymphocytes | | | LABORATORY | | + + + + + + | Monocyte % | 6.61 | % | [facility] | | | | | | LABORATORY | | + + + + + + | Eosinophils | 1.23 | % | [facility] | | | % | | | LABORATORY | | + + + + + + | Basophils % | 0.33 | % | [facility] | | | | | | LABORATORY | | + + + + + + | Neutrophils | 3.00 | 1.90 - 7.40 | [facility] | | | , Absolute | | K/uL | LABORATORY | | + + + + + + | Absolute | 1.97 | 1.00 - 3.90 | [facility] | | | Lymphocytes | | K/uL | LABORATORY | | + + + + + + | Absolute | 0.36 | 0.00 - 0.80 | [facility] | | | Monocytes | | K/uL | LABORATORY | | + + + + + + | Eosinophils | 0.07 | 0.00 - 0.50 | [facility] | | | , Absolute | | K/uL | LABORATORY | | + + + + + + | Basophils, | 0.02Comment: Testing | 0.00 - 0.10 | [facility] | | | Absolute | performed at [facility], [address] | K/uL | LABORATORY | | | | [place], | | | | | | [place] [address] | | | | + + + + + + + + | Specimen | + + | Blood | + + + + + + + | Performing | Address | City/State/Zipcode | Phone Number | | Organization | | | | + + + + + | [facility] | [address] | [place] [address] | [phone] | + + + + + Basic Metabolic Panel (05/03/2019 4:17 AM PDT) + + + + + + | Component | Value | Ref Range | Performed | Pathologist | | | | | At | Signature | + + + + + + | Na | 135 | 135 - 145 | [facility] | | | | | mmol/L | LABORATORY | | + + + + + + | K | 3.8 | 3.5 - 4.9 | [facility] | | | | | mmol/L | LABORATORY | | + + + + + + | Cl | 102 | 99 - 109 mmol/L | [facility] | | | | | | LABORATORY | | + + + + + + | CO2 | 26 | 23 - 32 mmol/L | [facility] | | | | | | LABORATORY | | + + + + + + | Anion Gap | 11 | 5 - 20 mmol/L | [facility] | | | | | | LABORATORY | | + + + + + + | Glucose | 140 (H) | 65 - 99 mg/dL | [facility] | | | | | | LABORATORY | | + + + + + + | BUN | 8 | 8 - 25 mg/dL | [facility] | | | | | | LABORATORY | | + + + + + + | Creatinine | 0.9 | 0.70 - 1.30 | [facility] | | | | | mg/dL | LABORATORY | | + + + + + + | BUN/Creatin | 9 | | [facility] | | | ine Ratio | | | LABORATORY | | + + + + + + | Calcium | 8.5 | 8.5 - 10.5 | [facility] | | | | mg/dL | LABORATORY | | + + + + + + | Estimated | >60Comment: GFR <60: | >60 | [facility] | | | GFR | CHRONIC KIDNEY DISEASE, | mL/min/1.73m2 | LABORATORY | | | | IF FOUND OVER A 3 MONTH | | | | | | PERIOD.GFR <15: KIDNEY | | | | | | FAILURE.FOR | | | | | | AMERICANS, MULTIPLY THE | | | | | | CALCULATED GFR BY | | | | | | 1.210.This eGFR is | | | | | | calculated using the | | | | | | MDRD IDGA traceable | | | | | | equation.Testing | | | | | | performed at [facility], [address] | | | | | | [facility], | | | | | | [place] [address] | | | | + + + + + + + + | Specimen | + + | Blood | + + + + + + + | Performing | Address | City/State/Zipcode | Phone Number | | Organization | | | | + + + + + | [facility] | [address] | [place] [address] | [phone] | + + + + + CBC with Differential (05/02/2019 4:29 AM PDT) + + + + + + | Component | Value | Ref Range | Performed | Pathologist | | | | | At | Signature | + + + + + + | WBC | 5.54 | 3.80 - 11.00 | [facility] | | | | | K/uL | LABORATORY | | + + + + + + | RBC | 3.72 (L) | 4.20 - 5.70 | [facility] | | | | | M/uL | LABORATORY | | + + + + + + | Hemoglobin | 12.3 (L) | 13.2 - 17.0 | [facility] | | | | | g/dL | LABORATORY | | + + + + + + | Hematocrit | 36.0 (L) | 39.0 - 50.0 % | [facility] | | | | | | LABORATORY | | + + + + + + | MCV | 96.8 | 80.0 - 100.0 fl | [facility] | | | | | | LABORATORY | | + + + + + + | MCH | 33.1 | 27.0 - 34.0 pg | [facility] | | | | | | LABORATORY | | + + + + + + | MCHC | 34.2 | 32.0 - 35.5 | [facility] | | | | | g/dL | LABORATORY | | + + + + + + | RDW-SD | 46.8 | 37 - 53 fl | [facility] | | | | | | LABORATORY | | + + + + + + | Platelet | 140 (L) | 150 - 400 K/uL | [facility] | | | Count | | | LABORATORY | | + + + + + + | MPV | 7.4 | fl | [facility] | | | | | | LABORATORY | | + + + + + + | Diff Type | AUTOMATED | | [facility] | | | | | | LABORATORY | | + + + + + + | % | 57.00 | % | [facility] | | | Neutrophils | | | LABORATORY | | + + + + + + | % | 36.25 | % | [facility] | | | Lymphocytes | | | LABORATORY | | + + + + + + | Monocyte % | 5.29 | % | [facility] | | | | | | LABORATORY | | + + + + + + | Eosinophils | 1.03 | % | [facility] | | | % | | | LABORATORY | | + + + + + + | Basophils % | 0.43 | % | [facility] | | | | | | LABORATORY | | + + + + + + | Neutrophils | 3.16 | 1.90 - 7.40 | [facility] | | | , Absolute | | K/uL | LABORATORY | | + + + + + + | Absolute | 2.01 | 1.00 - 3.90 | [facility] | | | Lymphocytes | | K/uL | LABORATORY | | + + + + + + | Absolute | 0.29 | 0.00 - 0.80 | [facility] | | | Monocytes | | K/uL | LABORATORY | | + + + + + + | Eosinophils | 0.06 | 0.00 - 0.50 | [facility] | | | , Absolute | | K/uL | LABORATORY | | + + + + + + | Basophils, | 0.02Comment: Testing | 0.00 - 0.10 | [facility] | | | Absolute | performed at [facility], [address] | [address] | LABORATORY | | | | [facility], | | | | | | [place] [address] | | | | + + + + + + + + | Specimen | + + | Blood | + + + + + + + | Performing | Address | City/State/Zipcode | Phone Number | | Organization | | | | + + + + + | [facility] | [address] | [place] [address] | [phone] | + + + + + Basic Metabolic Panel (05/02/2019 4:29 AM PDT) + + + + + + | Component | Value | Ref Range | Performed | Pathologist | | | | | At | Signature | + + + + + + | Na | 135 | 135 - 145 | [facility] | | | | | mmol/L | LABORATORY | | + + + + + + | K | 4.0 | 3.5 - 4.9 | [facility] | | | | | mmol/L | LABORATORY | | + + + + + + | Cl | 103 | 99 - 109 mmol/L | [facility] | | | | | | LABORATORY | | + + + + + + | CO2 | 25 | 23 - 32 mmol/L | [facility] | | | | | | LABORATORY | | + + + + + + | Anion Gap | 11 | 5 - 20 mmol/L | [facility] | | | | | | LABORATORY | | + + + + + + | Glucose | 140 (H) | 65 - 99 mg/dL | [facility] | | | | | | LABORATORY | | + + + + + + | BUN | 9 | 8 - 25 mg/dL | [facility] | | | | | | LABORATORY | | + + + + + + | Creatinine | 0.8 | 0.70 - 1.30 | [facility] | | | | | mg/dL | LABORATORY | | + + + + + + | BUN/Creatin | 11 | | [facility] | | | ine Ratio | | | LABORATORY | | + + + + + + | Calcium | 8.7 | 8.5 - 10.5 | [facility] | | | | | mg/dL | LABORATORY | | + + + + + + | Estimated | >60Comment: GFR <60: | >60 | [facility] | | | GFR | CHRONIC KIDNEY DISEASE, | mL/min/1.73m2 | LABORATORY | | | | IF FOUND OVER A 3 MONTH | | | | | | PERIOD.GFR <15: KIDNEY | | | | | | FAILURE.FOR | | | | | | AMERICANS, MULTIPLY THE | | | | | | CALCULATED GFR BY | | | | | | 1.210.This eGFR is | | | | | | calculated using the | | | | | | MDRD IDMS traceable | | | | | | equation.Testing | | | | | | performed at [facility], [address] | | | | | | [facility], | | | | | | [place] [address] | | | | + + + + + + + + | Specimen | + + | Blood | + + + + + + + | Performing | Address | City/State/Zipcode | Phone Number | | Organization | | | | + + + + + | [facility] | [address] | [place] [address] | [phone] | + + + + + CBC with Differential (05/01/2019 4:23 AM PDT) + + + + + + | Component | Value | Ref Range | Performed | Pathologist | | | | | At | Signature | + + + + + + | WBC | 9.31 | 3.80 - 11.00 | [facility] | | | | | K/uL | LABORATORY | | + + + + + + | RBC | 3.81 (L) | 4.20 - 5.70 | [facility] | | | | | M/uL | LABORATORY | | + + + + + + | Hemoglobin | 12.7 (L) | 13.2 - 17.0 | [facility] | | | | | g/dL | LABORATORY | | + + + + + + | Hematocrit | 37.1 (L) | 39.0 - 50.0 % | [facility] | | | | | | LABORATORY | | + + + + + + | MCV | 97.5 | 80.0 - 100.0 fl | [facility] | | | | | | LABORATORY | | + + + + + + | MCH | 33.5 | 27.0 - 34.0 pg | [facility] | | | | | | LABORATORY | | + + + + + + | MCHC | 34.3 | 32.0 - 35.5 | [facility] | | | | | g/dL | LABORATORY | | + + + + + + | RDW-SD | 46.8 | 37 - 53 fl | [facility] | | | | | | LABORATORY | | + + + + + + | Platelet | 162 | 150 - 400 K/uL | [facility] | | | Count | | | LABORATORY | | + + + + + + | MPV | 7.5 | fl | [facility] | | | | | | LABORATORY | | + + + + + + | Diff Type | AUTOMATED | | [facility] | | | | | | LABORATORY | | + + + + + + | % | 54.94 | % | [facility] | | | Neutrophils | | | LABORATORY | | + + + + + + | % | 39.44 | % | [facility] | | | Lymphocytes | | | LABORATORY | | + + + + + + | Monocyte % | 4.62 | % | [facility] | | | | | | LABORATORY | | + + + + + + | Eosinophils | 0.69 | % | [facility] | | | % | | | LABORATORY | | + + + + + + | Basophils % | 0.31 | % | [facility] | | | | | | LABORATORY | | + + + + + + | Neutrophils | 5.12 | 1.90 - 7.40 | [facility] | | | , Absolute | | K/uL | LABORATORY | | + + + + + + | Absolute | 3.67 | 1.00 - 3.90 | [facility] | | | Lymphocytes | | K/uL | LABORATORY | | + + + + + + | Absolute | 0.43 | 0.00 - 0.80 | [facility] | | | Monocytes | | K/uL | LABORATORY | | + + + + + + | Eosinophils | 0.06 | 0.00 - 0.50 | [facility] | | | , Absolute | | K/uL | LABORATORY | | + + + + + + | Basophils, | 0.03Comment: Testing | 0.00 - 0.10 | [facility] | | | Absolute | performed at [facility], [address] | K/u[address] | LABORATORY | | | | [place], | | | | | | [place] [address] | | | | + + + + + + + + | Specimen | + + | Blood | + + + + + + + | Performing | Address | City/State/Zipcode | Phone Number | | Organization | | | | + + + + + | [facility] | [address] | [place] [address] | [phone] | + + + + + Basic Metabolic Panel (05/01/2019 4:23 AM PDT) + + + + + + | Component | Value | Ref Range | Performed | Pathologist | | | | | At | Signature | + + + + + + | Na | 137 | 135 - 145 | [facility] | | | | | mmol/L | LABORATORY | | + + + + + + | K | 4.0 | 3.5 - 4.9 | [facility] | | | | | mmol/L | LABORATORY | | + + + + + + | Cl | 104 | 99 - 109 mmol/L | [facility] | | | | | | LABORATORY | | + + + + + + | CO2 | 26 | 23 - 32 mmol/L | [facility] | | | | | | LABORATORY | | + + + + + + | Anion Gap | 11 | 5 - 20 mmol/L | [facility] | | | | | | LABORATORY | | + + + + + + | Glucose | 140 (H) | 65 - 99 mg/dL | [facility] | | | | | | LABORATORY | | + + + + + + | BUN | 8 | 8 - 25 mg/dL | [facility] | | | | | | LABORATORY | | + + + + + + | Creatinine | 0.9 | 0.70 - 1.30 | [facility] | | | | | mg/dL | LABORATORY | | + + + + + + | BUN/Creatin | 9 | | [facility] | | | ine Ratio | | | LABORATORY | | + + + + + + | Calcium | 8.4 (L) | 8.5 - 10.5 | [facility] | | | | | mg/dL | LABORATORY | | + + + + + + | Estimated | >60Comment: GFR <60: | >60 | [facility] | | | GFR | CHRONIC KIDNEY DISEASE, | mL/min/1.73m2 | LABORATORY | | | | IF FOUND OVER A 3 MONTH | | | | | | PERIOD.GFR <15: KIDNEY | | | | | | FAILURE.FOR | | | | | | AMERICANS, MULTIPLY THE | | | | | | CALCULATED GFR BY | | | | | | 1.210.This eGFR is | | | | | | calculated using the | | | | | | MDRD IDGA traceable | | | | | | equation.Testing | | | | | | performed at [facility], [address] | | | | | | [facility], | | | | | | [place] [address] | | | | + + + + + + + + | Specimen | + + | Blood | + + + + + + + | Performing | Address | City/State/Zipcode | Phone Number | | Organization | | | | + + + + + | [facility] | [address] | [place] [address] | [phone] | + + + + + CBC with Differential (04/30/2019 4:06 AM PDT) + + + + + + | Component | Value | Ref Range | Performed | Pathologist | | | | | At | Signature | + + + + + + | WBC | 10.14 | 3.80 - 11.00 | [facility] | | | | | K/uL | LABORATORY | | + + + + + + | RBC | 3.79 (L) | 4.20 - 5.70 | [facility] | | | | | M/uL | LABORATORY | | + + + + + + | Hemoglobin | 12.6 (L) | 13.2 - 17.0 | [facility] | | | | | g/dL | LABORATORY | | + + + + + + | Hematocrit | 37.1 (L) | 39.0 - 50.0 % | [facility] | | | | | | LABORATORY | | + + + + + + | MCV | 97.8 | 80.0 - 100.0 fl | [facility] | | | | | | LABORATORY | | + + + + + + | MCH | 33.3 | 27.0 - 34.0 pg | [facility] | | | | | | LABORATORY | | + + + + + + | MCHC | 34.1 | 32.0 - 35.5 | [facility] | | | | | g/dL | LABORATORY | | + + + + + + | RDW-SD | 47.3 | 37 - 53 fl | [facility] | | | | | | LABORATORY | | + + + + + + | Platelet | 149 (L) | 150 - 400 K/uL | [facility] | | | Count | | | LABORATORY | | + + + + + + | MPV | 7.4 | fl | [facility] | | | | | | LABORATORY | | + + + + + + | Diff Type | AUTOMATED | | [facility] | | | | | | LABORATORY | | + + + + + + | % | 63.73 | % | [facility] | | | Neutrophils | | | LABORATORY | | + + + + + + | % | 31.45 | % | [facility] | | | Lymphocytes | | | LABORATORY | | + + + + + + | Monocyte % | 4.45 | % | [facility] | | | | | | LABORATORY | | + + + + + + | Eosinophils | 0.24 | % | [facility] | | | % | | | LABORATORY | | + + + + + + | Basophils % | 0.13 | % | [facility] | | | | | | LABORATORY | | + + + + + + | Neutrophils | 6.46 | 1.90 - 7.40 | [facility] | | | , Absolute | | K/uL | LABORATORY | | + + + + + + | Absolute | 3.19 | 1.00 - 3.90 | [facility] | | | Lymphocytes | | K/uL | LABORATORY | | + + + + + + | Absolute | 0.45 | 0.00 - 0.80 | [facility] | | | Monocytes | | K/uL | LABORATORY | | + + + + + + | Eosinophils | 0.02 | 0.00 - 0.50 | [facility] | | | , Absolute | | K/uL | LABORATORY | | + + + + + + | Basophils, | 0.01Comment: Testing | 0.00 - 0.10 | [facility] | | | Absolute | performed at [facility], [address] | K/uL | LABORATORY | | | | [place] [address], | | | | | | [place] [address] | | | | + + + + + + + + | Specimen | + + | Blood | + + + + + + + | Performing | Address | City/State/Zipcode | Phone Number | | Organization | | | | + + + + + | [facility] | [address] | [place] [address] | [phone] | + + + + + Basic Metabolic Panel (04/30/2019 4:06 AM PDT) + + + + + + | Component | Value | Ref Range | Performed | Pathologist | | | | | At | Signature | + + + + + + | Na | 138 | 135 - 145 | [facility] | | | | | mmol/L | LABORATORY | | + + + + + + | K | 4.4 | 3.5 - 4.9 | [facility] | | | | | mmol/L | LABORATORY | | + + + + + + | Cl | 106 | 99 - 109 mmol/L | [facility] | | | | | | LABORATORY | | + + + + + + | CO2 | 25 | 23 - 32 mmol/L | [facility] | | | | | | LABORATORY | | + + + + + + | Anion Gap | 11 | 5 - 20 mmol/L | [facility] | | | | | | LABORATORY | | + + + + + + | Glucose | 144 (H) | 65 - 99 mg/dL | [facility] | | | | | | LABORATORY | | + + + + + + | BUN | 16 | 8 - 25 mg/dL | [facility] | | | | | | LABORATORY | | + + + + + + | Creatinine | 0.9 | 0.70 - 1.30 | [facility] | | | | | mg/dL | LABORATORY | | + + + + + + | BUN/Creatin | 18 | | [facility] | | | ine Ratio | | | LABORATORY | | + + + + + + | Calcium | 8.6 | 8.5 - 10.5 | [facility] | | | | | mg/dL | LABORATORY | | + + + + + + | Estimated | >60Comment: GFR <60: | >60 | [facility] | | | GFR | CHRONIC KIDNEY DISEASE, | mL/min/1.73m2 | LABORATORY | | | | IF FOUND OVER A 3 MONTH | | | | | | PERIOD.GFR <15: KIDNEY | | | | | | FAILURE.FOR | | | | | | AMERICANS, MULTIPLY THE | | | | | | CALCULATED GFR BY | | | | | | 1.210.This eGFR is | | | | | | calculated using the | | | | | | MDRD IDMS traceable | | | | | | equation.Testing | | | | | | performed at [facility], [address] | | | | | [address], | | | | | | [place] [address] | | | | + + + + + + + + | Specimen | + + | Blood | + + + + + + + | Performing | Address | City/State/Zipcode | Phone Number | | Organization | | | | + + + + + | [facility] | [address] | [place] [address] | [phone] | + + + + + Lactic Acid (04/29/2019 9:09 AM PDT) + + + + + + | Component | Value | Ref Range | Performed | Pathologist | | | | | At | Signature | + + + + + + | Lactate, | 1.6Comment: Testing | 0.4 - 2.0 | [facility] | | | Serum | performed at [facility];888 | mmol/L | LABORATORY | | | | [address];[place], [place] | | | | | | [address] | | | | + + + + + + + + | Specimen | + + | Blood | + + + + + + + | Performing | Address | City/State/Zipcode | Phone Number | | Organization | | | | + + + + + | [facility] | [address] | [place] [address] | [phone] | + + + + + ECG 12 lead (04/29/2019 5:37 AM PDT) + + + + + + | Component | Value | Ref Range | Performed | Pathologist | | | | | At | Signature | + + + + + + | VENTRICULAR | 74 | BPM | [facility] | | | RATE EKG | | | | | + + + + + + | ATRIAL RATE | 74 | BPM | [facility] | | + + + + + + | P-R | 214 | ms | [facility] | | | INTERVAL | | | | | + + + + + + | QRS | 90 | ms | [facility] | | | DURATION | | | | | + + + + + + | Q-T | 412 | ms | [facility] | | | INTERVAL | | | | | + + + + + + | Q-T | 458 | ms | [facility] | | | INTERVAL | | | | | | (CORRECTED) | | | | | + + + + + + | P WAVE AXIS | 38 | degrees | [facility] | | + + + + + + | QRS AXIS | -8 | degrees | [facility] | | + + + + + + | T AXIS | 5 | degrees | [facility] | | + + + + + + | INTERPRETAT | Sinus rhythm with 1st | | [facility] | | | ION TEXT | degree A-V blockAbnormal | | | | | | ECGWhen compared with | | | | | | ECG of 21-APR-2019 | | | | | | 09:12,No significant | | | | | | change was | | | | | | foundConfirmed by | | | | | | Cristian Shook MD | | | | | | (127) on 04/29/2019 | | | | | | 5:46:12 PM | | | | + + + + + + + + | Specimen | + + | | + + + + + | Narrative | Performed At | + + + | | | + + + + +---------+ + + | Performing | Address | City/State/Zipcode | Phone Number | | Organization | | | | + +---------+ + + | [facility] | | | | + +---------+ + + CBC with Differential (04/29/2019 4:40 AM PDT) + + + + + + | Component | Value | Ref Range | Performed | Pathologist | | | | | At | Signature | + + + + + + | WBC | 13.98 (H) | 3.80 - 11.00 | [facility] | | | | | K/uL | LABORATORY | | + + + + + + | RBC | 4.07 (L) | 4.20 - 5.70 | [facility] | | | | | M/uL | LABORATORY | | + + + + + + | Hemoglobin | 13.3 | 13.2 - 17.0 | [facility] | | | | | g/dL | LABORATORY | | + + + + + + | Hematocrit | 39.6 | 39.0 - 50.0 % | [facility] | | | | | | LABORATORY | | + + + + + + | MCV | 97.4 | 80.0 - 100.0 fl | [facility] | | | | | | LABORATORY | | + + + + + + | MCH | 32.8 | 27.0 - 34.0 pg | [facility] | | | | | | LABORATORY | | + + + + + + | MCHC | 33.7 | 32.0 - 35.5 | [facility] | | | | | g/dL | LABORATORY | | + + + + + + | RDW-SD | 47.3 | 37 - 53 fl | [facility] | | | | | | LABORATORY | | + + + + + + | Platelet | 185 | 150 - 400 K/uL | [facility] | | | Count | | | LABORATORY | | + + + + + + | MPV | 7.3 | fl | [facility] | | | | | | LABORATORY | | + + + + + + | Diff Type | AUTOMATED | | [facility] | | | | | | LABORATORY | | + + + + + + | % | 55.68 | % | [facility] | | | Neutrophils | | | LABORATORY | | + + + + + + | % | 39.54 | % | [facility] | | | Lymphocytes | | | LABORATORY | | + + + + + + | Monocyte % | 4.55 | % | [facility] | | | | | | LABORATORY | | + + + + + + | Eosinophils | 0.05 | % | [facility] | | | % | | | LABORATORY | | + + + + + + | Basophils % | 0.18 | % | [facility] | | | | | | LABORATORY | | + + + + + + | Neutrophils | 7.79 (H) | 1.90 - 7.40 | [facility] | | | , Absolute | | K/uL | LABORATORY | | + + + + + + | Absolute | 5.53 (H) | 1.00 - 3.90 | [facility] | | | Lymphocytes | | K/uL | LABORATORY | | + + + + + + | Absolute | 0.64 | 0.00 - 0.80 | [facility] | | | Monocytes | | K/uL | LABORATORY | | + + + + + + | Eosinophils | 0.01 | 0.00 - 0.50 | [facility] | | | , Absolute | | K/uL | LABORATORY | | + + + + + + | Basophils, | 0.03 | 0.00 - 0.10 | [facility] | | | Absolute | | K/uL | LABORATORY | | + + + + + + | RBC | RBC AND PLT MORPHOLOGY | | [facility] | | | Morphology | APPEAR NORMAL | | LABORATORY | | + + + + + + | Platelet | ADEQUATE | | [facility] | | | Estimate | | | LABORATORY | | + + + + + + | Comment | SLIDE SCANNED, AGREES | | [facility] | | | | WITH AUTOMATED | | LABORATORY | | | | RESULTS.Comment: Testing | | | | | | performed at [facility] | | | | | | [facility];[place], [place] | | | | | | [address] | | | | + + + + + + + + | Specimen | + + | Blood | + + + + + + + | Performing | Address | City/State/Zipcode | Phone Number | | Organization | | | | + + + + + | [facility] | [address] | [place] [address] | [phone] | + + + + + Basic Metabolic Panel (04/29/2019 4:40 AM PDT) + + + + + + | Component | Value | Ref Range | Performed | Pathologist | | | | | At | Signature | + + + + + + | Na | 140 | 135 - 145 | [facility] | | | | | mmol/L | LABORATORY | | + + + + + + | K | 4.5 | 3.5 - 4.9 | [facility] | | | | | mmol/L | LABORATORY | | + + + + + + | Cl | 107 | 99 - 109 mmol/L | [facility] | | | | | | LABORATORY | | + + + + + + | CO2 | 23 | 23 - 32 mmol/L | [facility] | | | | | | LABORATORY | | + + + + + + | Anion Gap | 15 | 5 - 20 mmol/L | [facility] | | | | | | LABORATORY | | + + + + + + | Glucose | 192 (H) | 65 - 99 mg/dL | [facility] | | | | | | LABORATORY | | + + + + + + | BUN | 17 | 8 - 25 mg/dL | [facility] | | | | | | LABORATORY | | + + + + + + | Creatinine | 1.02 | 0.70 - 1.30 | [facility] | | | | | mg/dL | LABORATORY | | + + + + + + | BUN/Creatin | 17 | | [facility] | | | ine Ratio | | | LABORATORY | | + + + + + + | Calcium | 8.6 | 8.5 - 10.5 | [facility] | | | | | mg/dL | LABORATORY | | + + + + + + | Estimated | >60Comment: GFR <60: | >60 | [facility] | | | GFR | CHRONIC KIDNEY DISEASE, | mL/min/1.73m2 | LABORATORY | | | | IF FOUND OVER A 3 MONTH | | | | | | PERIOD.GFR <15: KIDNEY | | | | | | FAILURE.FOR | | | | | | AMERICANS, MULTIPLY THE | | | | | | CALCULATED GFR BY | | | | | | 1.210.This eGFR is | | | | | | calculated using the | | | | | | MDRD [facility] traceable | | | | | | equation.Testing | | | | | | performed at [facility] | | | | | | [facility];[place], [place] | | | | | | [address] | | | | + + + + + + + + | Specimen | + + | Blood | + + + + + + + | Performing | Address | City/State/Zipcode | Phone Number | | Organization | | | | + + + + + | [facility] | [address] | [place] [address] | [phone] | + + + + + Surgical Pathology Exam (04/28/2019 1:50 PM PDT) + + | Specimen | + + | Tissue - Arterial | | part (body | | structure) | + + + + + | Narrative | Performed At | + + + | SPECIMEN(S): A | [facility] | | SUPERIOR MESENTERIC ARTERY PLAQUE SPECIMEN SOURCE:A. SUPERIOR | [facility] | | MESENTERIC ARTERY PLAQUE CLINICAL HISTORY:K55.1 (mesenteric ischemia, | | | chronic). 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 J[facility] MICROSCOPIC | | | EXAMINATION:Histologic sections of all submitted blocks are examined | | | by light microscopy. These findings, together with the gross | | | examination, support the pathologic diagnosis. GROSS DESCRIPTION:The | | | specimen, labeled "JH, superior mesenteric artery plaque," is received | | | in formalin and consists of three matthews-pink and focally calcified | | | portions of tissue ranging from 1.0-2.5 cm in greatestdimension. | | | Sectioning shows matthews-pink matthews-yellow and calcified cut surfaces with | | | no discrete lesions identified. Shrimp Trawler Captain sections are | | | submitted in cassette (A1), following decalcification inDecal Stat.AR | | | (under the direct supervision of a pathologist) The Gross Description | | | was prepared using a voice recognition system. The report was | | | reviewed for accuracy; however, sound-alike word errors, addition | | | and/or deletions may occur. If there is anyquestion about this | | | report, please contact Client Services. PERFORMING LABORATORY:The | | | technical component was performed by [facility], [address] [place] [address] | | | [place] [address] (Systems Software Specialist: Dede Bundy MD; CLIA# | | | [id number]). Professional interpretation was performed by[facility] | | | [facility], [facility] [address] | | [place] [address] (Systems Software Specialist: Destin Angel | | | Rebecca Hardy; CLIA#: [id number]). Diagnostician: Roger Richards | | | MDPathologistElectronically Signed 04/29/2019 | | |The technical component was performed by [facility], [address] [place] [address] (Systems Software Specialist: Dede Bundy MD; CLIA# [id number]). Professional interpretation w as performed by | | |[facility], [facility], [facility] [place] [address] (Systems Software Specialist: Destin Hardy M.D.; CLIA#: [id number]). | | | | | |Diagnostician: Roger Richards MD | | |Pathologist | | |Electronically Signed 04/29/2019 | | | | | | | | + + + + +---------+ + + | Performing | Address | City/State/Zipcode | Phone Number | | Organization | | | | + +---------+ + + | [facility] | | | | | [facility] | | | | + +---------+ + + Type and Screen (04/28/2019 11:03 AM PDT) + + + + + + | Component | Value | Ref Range | Performed | Pathologist | | | | | At | Signature | + + + + + + | ABO Rh | O POSITIVE | | [facility] | | | | | | LABORATORY | | + + + + + + | Antibody | NEGATIVE | | [facility] | | | Screen | | | LABORATORY | | + + + + + + | BB BAND | [id number] | | [facility] | | | | | | LABORATORY | | + + + + + + | BB BAND | Testing performed at | | [facility] | | | | [facility];[address] LABORATORY | [address];[place] [address] | | | | + + + + + + + + | Specimen | + + | Blood | + + + + + + + | Performing | Address | City/State/Zipcode | Phone Number | | Organization | | | | + + + + + | [facility] | [address] | [place] [address] | [phone] | + + + + + documented in this encounter Visit Diagnoses + + | Diagnosis | + + | Mesenteric ischemia, chronic (HCC) Chronic vascular insufficiency of intestine | + + documented in this encounter Admitting Diagnoses + + | Diagnosis | + + | Mesenteric ischemia, chronic (HCC) Chronic vascular insufficiency of intestine | + + documented in this encounter Administered Medications + +--------+ +-------+------+------+ | Medication Order | MAR | Action | Dose | Rate | Site | | | Action | Date | | | | + +--------+ +-------+------+------+ | aspirin EC tablet 81 mg 81 mg, | Given | 05/04/20 | 81 mg | | | | Oral, DAILY, First dose on Sat | | 19 8:09 | | | | | 05/02/19 at 1100 | | AM PDT | | | | + +--------+ +-------+------+------+ +-------+ +-------+---+---+ | Given | 05/03/20 | 81 mg | | | | | 19 8:29 | | | | | | AM PDT | | | | +-------+ +-------+---+---+ | Given | 05/02/20 | 81 mg | | | | | 19 10:23 | | | | | | AM PDT | | | | +-------+ +-------+---+---+ +---+---+ | | | +---+---+ + +-------+ +-------+---+---+ | bisacodyl (DULCOLAX) | Given | 05/04/20 | 10 mg | | | | suppository 10 mg 10 mg, Rectal, | | 19 8:11 | | | | | DAILY PRN, Constipation, | | AM PDT | | | | | Starting 04/28/19 at 1507, If | | | | | | | all other bowel medications | | | | | | | ineffective x 24 hours or not | | | | | | | ordered, | | | | | | + +-------+ +-------+---+---+ +---+---+ | | | +---+---+ + +-------+ +---------+---+---+ | heparin 5,000 units/mL | Given | 04/28/20 | 10,000 | | | | injection PRN, Starting Tue | | 19 12:00 | Units | | | | 04/28/19 at 1200, Intra-op | | PM PDT | | | | + +-------+ +---------+---+---+ +---+---+ | | | +---+---+ + +-------+ +-------+---+---+ | hydroCHLOROthiazide tablet 25 | Given | 05/04/20 | 25 mg | | | | mg 25 mg, Oral, DAILY, First | | 19 8:10 | | | | | dose on 05/02/19 at 1100 | | AM PDT | | | | + +-------+ +-------+---+---+ +-------+ +-------+---+---+ | Given | 05/03/20 | 25 mg | | | | | 19 8:30 | | | | | | AM PDT | | | | +-------+ +-------+---+---+ | Given | 05/02/20 | 25 mg | | | | | 19 10:23 | | | | | | AM PDT | | | | +-------+ +-------+---+---+ +---+---+ | | | +---+---+ + +-------+ +---------+---+---+ | HYDROcodone-acetaminophen | Given | 05/04/20 | 2 | | | | (NORCO) 5-325 mg per tablet 1-2 | | 19 11:14 | tablets | | | | tablet 1-2 tablet, Oral, EVERY 4 | | AM PDT | | | | | HOURS PRN, Pain, Starting Sun | | | | | | | 05/03/19 at 0843 | | | | | | + +-------+ +---------+---+---+ +-------+ +---------+---+---+ | Given | 05/04/20 | 2 | | | | | 19 7:30 | tablets | | | | | AM PDT | | | | +-------+ +---------+---+---+ | Given | 05/03/20 | 2 | | | | | 19 10:22 | tablets | | | | | PM PDT | | | | +-------+ +---------+---+---+ +---+---+ | | | +---+---+ + +-------+ +------+---+---+ | HYDROmorphone (DILAUDID) | Given | 05/03/20 | 1 mg | | | | injection 0.5-1 mg 0.5-1 mg, | | 19 8:30 | | | | | Intravenous, EVERY 1 HOUR PRN, | | AM PDT | | | | | Pain, Starting 04/28/19 at | | | | | | | 1535 | | | | | | + +-------+ +------+---+---+ +-------+ +------+---+---+ | Given | 05/03/20 | 1 mg | | | | | 19 3:35 | | | | | | AM PDT | | | | +-------+ +------+---+---+ | Given | 05/02/20 | 1 mg | | | | | 19 10:05 | | | | | | PM PDT | | | | +-------+ +------+---+---+ +---+---+ | | | +---+---+ + +-------+ +-------+---+---+ | losartan (COZAAR) tablet 50 mg | Given | 05/04/20 | 50 mg | | | | 50 mg, Oral, DAILY, First dose | | 19 8:09 | | | | | on 05/02/19 at 1100 | | AM PDT | | | | + +-------+ +-------+---+---+ +-------+ +-------+---+---+ | Given | 05/03/20 | 50 mg | | | | | 19 8:30 | | | | | | AM PDT | | | | +-------+ +-------+---+---+ | Given | 05/02/20 | 50 mg | | | | | 19 10:23 | | | | | | AM PDT | | | | +-------+ +-------+---+---+ +---+---+ | | | +---+---+ + +-------+ +------+---+---+ | morphine injection 1-2 mg 1-2 | Given | 04/28/20 | 2 mg | | | | mg, Intravenous, EVERY 1 HOUR | | 19 3:14 | | | | | PRN, Pain, Starting 04/28/19 | | PM PDT | | | | | at 1507, If oral route not an | | | | | | | option. Slow IV push, not faster | | | | | | | than 2mg/minute. First dose must | | | | | | | be lowest dose, titrate to | | | | | | | effective dose by repeat of | | | | | | | lowest dose every 30 minutes prn | | | | | | | pain, may not exceed maximum dose | | | | | | | ordered per interval. Use | | | | | | | Pasero Sedation Scale., | | | | | | + +-------+ +------+---+---+ +---+---+ | | | +---+---+ + +-------+ +-------+---+---+ | pantoprazole (PROTONIX) | Given | 05/04/20 | 40 mg | | | | injection 40 mg 40 mg, | | 19 8:10 | | | | | Intravenous, DAILY, First dose on | | AM PDT | | | | | 04/29/19 at 1100, If | | | | | | | reconstituting, mix each 40 mg | | | | | | | vial with 10 mL NS to make 4 | | | | | | | mg/mL., Indication: GERD | | | | | | + +-------+ +-------+---+---+ +-------+ +-------+---+---+ | Given | 05/03/20 | 40 mg | | | | | 19 8:30 | | | | | | AM PDT | | | | +-------+ +-------+---+---+ | Given | 05/02/20 | 40 mg | | | | | 19 8:00 | | | | | | AM PDT | | | | +-------+ +-------+---+---+ +---+---+ | | | +---+---+ + +-------+ +--------+---+ + | thrombin (recombinant) | Given | 04/28/20 | 5,000 | | Surgical | | (RECOTHROM) solution PRN, | | 19 12:00 | Units | | Site | | Starting 04/28/19 at 1200, | | PM PDT | | | | | Intra-op | | | | | | + +-------+ +--------+---+ + +---+---+ | | | +---+---+ documented in this encounter
--- OUTSIDE RECORDS SUMMARY | ~2019-08-17 | XMS | Clinical Summary ---
Demographics + + + | Address | [address] | | | [place] [address] | + + + | Home Phone | | + + + | Preferred Language | Unknown | + + + | Marital Status | Unknown | + + + | Catholic Affiliation | Unknown | + + + | Race | Unknown | + + + | Ethnic Group | Unknown | + + + Author + + + | Author | [facility] (Historical as of | | | 03-21-19) | + + + | Organization | [facility] (Historical as of | | | 03-21-19) | + + + | Address | Unknown | + + + | Phone | Unavailable | + + + Care Team Providers + +------+ + | Care Blow Mold Technician Name | Role | Phone | + +------+ + PP | Unavailable | + +------+ + Allergies Not on File Current Medications Not on file Active Problems Not on file Social History + +-------+ +--------+------+ | Tobacco Use | Types | Packs/Day | Years | Date | | | | | Used | | + +-------+ +--------+------+ | Never Assessed | | | | | + +-------+ +--------+------+ + + + | Sex Assigned at | Date Recorded | | | | + + + | Not on file | | + + + Plan of Treatment + + + + + | Health Maintenance | Due Date | Last Done | Comments | + + + + + | Vaccine: | | | | | Dtap/Tdap/Td (1 - | 3 | | | | Tdap) | | | | + + + + + | Colon Cancer | | | | | Screening | 4 | | | | (Colonoscopy) | | | | + + + + + | Vaccine: Zoster (1 | | | | | of 2) | 4 | | | + + + + + | Vaccine: | | | | | Pneumococcal 65+ | 9 | | | | Low/Medium Risk (1 | | | | | of 2 - PCV13) | | | | + + + + + | Vaccine: Influenza | | | | | (#1) | 9 | | | + + + + + Results Not on filefrom Last 3 Months Insurance + +--------+ +------+ + + | Payer | Benefi | Subscriber | Type | Phone | Address | | | t Plan | ID | | | | | | / | | | | | | | Group | | | | | + +--------+ +------+ + + | [employer] | [employer] | [id number] | | [phone] [employer] [id number] | | ADMINISTRATION | [place] | | [phone] | | | [address] | | | | [address] [place] | | | [place] | | | | [phone] | | | ON | | | | | | | GENERI | | | | | | | C | | | | | + +--------+ +------+ + + + +--------+ +--------+ + + | Guarantor Name | Accoun | Relation to | Date | Phone | Billing Address | | | t Type | Patient | of | | | | | | | | | | + +--------+ +--------+ + + | MAXIME LYNN | 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
--- OUTSIDE RECORDS SUMMARY | ~2019-08-17 | XMS | Encounter Summary ---
Demographics + + + | Address | [address] | | | [place] [address] | + + + | Home Phone | | + + + | Preferred Language | Unknown | + + + | Marital Status | | + + + | Quaker Affiliation | 1077 | + + + | Race | Unknown | + + + | Ethnic Group | Unknown | + + + Author + + + | Author | [facility] | | | and [place] | + + + | Organization | [facility] | | | and [place] | + + + | Address | Unknown | + + + | Phone | Unavailable | + + + Support + + + + + | Name | Relationship | Address | Phone | + + + + + | Amina Stewart | ECON | [address] | | | | | [place], [place] | | | | | [address] | | + + + + + Care Team Providers + +------+ + | Care Quilter Fixer Name | Role | Phone | + +------+ + PCP | Unavailable | + +------+ + Reason for Visit +---------+ + | Reason | Comments | +---------+ + | Consult | abd pain | +---------+ + Evaluate & Treat (Routine) +--------+--------+ + + + + | Status | Reason | Specialty | Diagnoses / | Referred By | Referred To | | | | | Procedures | Contact | Contact | +--------+--------+ + + + + | Closed | | | Diagnoses | [place], | Paul Arias, | | | | | Lower | Rashaun Hobbs, | [address] | | | | | abdominal | [employer] [address] | | | | | pain, | [address] | [place] [address] | | | | | unspecified | [address] | [place], [place] | | | | | | [place] | [address] | | | | | | [address] | Phone: | | | | | | Phone: | [phone] | | | | | | [phone] | Fax: | | | | | | Fax: | [phone] | | | | | | [phone] | | +--------+--------+ + + + + Encounter Details +--------+---------+ + + + | Date | Type | Department | Care Team | Description | +--------+---------+ + + + | 03/26/ | Office | [facility] | Paul Arias MD | Mesenteric ischemia, | | 2019 | Visit | VASCULAR SURGERY | [address] | chronic (HCC) | | | | [address] | [place] [facility] [place] [place] | (Primary Dx) | | | | [facility] [place] [place] | [address] | | | | | [address] | [phone] | | | | | [phone] | | | +--------+---------+ + + + Social History + +-------+ +--------+------+ | Tobacco Use | Types | Packs/Day | Years | Date | | | | | Used | | + +-------+ +--------+------+ | Former Smoker | | | | | + +-------+ +--------+------+ + +---+---+---+ | Smokeless Tobacco: | | | | | Never Used | | | | + +---+---+---+ + + | Comments: quit 50 years ago | + + + + + | Sex Assigned [...] this encounter Last Filed Vital Signs + +---------+ + + | Vital Sign | Reading | Time Taken | Comments | + +---------+ + + | Blood Pressure | 133/71 | 03/26/2019 8:53 AM | | | | | PDT | | + +---------+ + + | Pulse | 66 | 03/26/2019 8:53 AM | | | | | PDT | | + +---------+ + + | Temperature | - | - | | + +---------+ + + | Respiratory Rate | - | - | | + +---------+ + + | Oxygen Saturation | 97% | 03/26/2019 8:53 AM | | | | | PDT | | + +---------+ + + | Inhaled Oxygen | - | - | | | Concentration | | | | + +---------+ + + | Weight | - | - | | + +---------+ + + | Height | - | - | | + +---------+ + + | Body Mass Index | - | - | | + +---------+ + + documented in this encounter Progress Notes Paul Arias MD - 03/26/2019 9:00 AM PDT Subjective Subjective Mr. Stewart is a pleasant 73 y.o. male with no significant PMH who is referred to me for abd ominal pain. Patient has been describing intermittent abdominal pain that radiates across hi s abdomen to his back. Patient does not endorse any specific worsening pain associated with eating, however he does state that he has not been eating a lot. Patient has been watching h is diet and has been trying to decrease his carbohydrates. Patient has lost 24 lbs over the last 2 months. The patient had a recent CT and MRI abdomen from [facility]. [facility] ent denies any surgical intervention for this abdominal pain, however has had past abdominal surgeries. The patient indicates that his heart function is good. History reviewed. No pertinent past medical history. History reviewed. No pertinent surgical history. Social History Tobacco Use Smoking status: Former Smoker Smokeless tobacco: Never Used Tobacco comment: quit 50 years ago Substance Use Topics Alcohol use: Not on file Drug use: Not on file History reviewed. No pertinent family history. Current Outpatient Medications on File Prior to Visit Medication Sig Dispense Refill ASPIRIN 81 PO Take 81 mg by mouth. hydroCHLOROthiazide 25 mg tablet Take 25 mg by mouth Daily. losartan (COZAAR) 50 mg tablet Take 50 mg by mouth Daily. Multiple Vitamins-Minerals (CENTRUM SILVER 50+MEN PO) Take by mouth. simvastatin (ZOCOR) 10 mg tablet Take 10 mg by mouth nightly. No current facility-administered medications on file prior to visit. No Known Allergies Comprehensive ROS performed and pertinent items described in the HPI. Objective Objective Vitals:reviewed CONSTITUTIONAL: Conversant, well developed, NAD EYES: Anicteric sclerae, no lid drag, no proptosis RESP: Normal effort, regular, even, unlabored rate CV: No peripheral edema, rate regular SKIN: [place], warm, dry without rash/lesion MS: ROM not limited, no digital cyanosis, normal gait NEURO: Cranial nerves II-XII grossly intact, A&O times 3 PSYCH: appropriate affect, speech and tone, judgement and insight intact Vascular: Palpable femoral pulses Assessment Assessment and Plan CT and MRI abdomen results from [facility] reviewed and discussed with the [facility]. 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 The patient does not have classic symptoms for mesenteric ischemia, however he does have concerning symptoms nonetheless of significant jeanmarie ght loss and intermittent abdominal pain. Surgical options for treatment of the patient's me senteric artery disease have been discussed with the patient and I have discussed my recomme ndation of pursuing surgery to prevent worsening symptoms. Patient understands that this is a major surgery requiring extended hospital stay afterwards and he will be placed under gene ral anesthesia. Discussed surgical option and mechanism of superior mesenteric artery endart erectomy with the patient. We have discussed benefits and risks of this procedure, including bleeding, infection, heart attack, stroke, . Patient is understanding and agreeable to superior mesenteric artery endarterectomy, and has signed consent for surgery on 04/28/19. Mackenzie cruz was instructed not to eat or drink fluids after 11:59 PM on 04/27/19. All questions an d concerns addressed. Patient will follow up after surgery. Patient understands and is agree able. Attending Note: Documentation assistance provided by Tyler Bolaños (Scribe). Information rolf rded by the scribe has been reviewed and validated by me. I agree with its contents. Signed by: Tyler Bolaños, Saraiibe 03/26/19, 16:57 Paul Arias MD documented in this encounter Plan of Treatment +--------+ + + + + | Date | Type | Specialty | Care Team | Description | +--------+ + + + + | 11/04/ | Appointment | Radiology | Suzi Powell DNP | | | 2019 | | | [address] | | | | | | [place] | | | | | | [id number] | | | | | | | | +--------+ + + + + | 11/04/ | Office | Vascular Surgery | Suzi Powell DNP | | | 2019 | Visit | | [address] | | | | | | [place] | | | | | | [address] | | | | | | | | +--------+ + + + + + +------+--------+ + + | Name | Type | Priori | Associated Diagnoses | Order Schedule | | | | ty | | | + +------+--------+ + + | ECG 12 lead | ECG | Routin | Mesenteric | 1 Occurrences | | | | e | ischemia, chronic | starting 03/26/2019 | | | | | (HCC) | until 03/26/2020 | + +------+--------+ + + documented as of this encounter Results XR Chest PA and Lateral (04/21/2019 10:15 AM PDT) + + | Specimen | + + | | + + + + + | Narrative | Performed At | + + + | CHEST PA AND LATERAL CLINICAL INFORMATION: Pre operative | [facility] | | evaluation COMPARISON: CT ANGIOGRAPHY ABDOMEN AND PELVIS | | | (01/27/2019); FINDINGS: There is a BB in the posteromedial right | | | lower lobe, better defined on CT abdomen 01/27/2019. the lungs are | | | clear. The heart size is normal c.. Mild to moderate degenerative | | | changes of the thoracic spine IMPRESSION: No active | | | intrathoracic disease. Signed by: Rebecca Kelsey Shawn Sign | | | Date/Time: 04/21/2019 10:27 AM | | + + + + + | Procedure Note | + + | Dontae, Rad Results In - 04/21/2019 10:31 AM PDT | | CHEST PA AND LATERAL | | | | CLINICAL INFORMATION: | | Pre operative evaluation | | | | COMPARISON: | | CT ANGIOGRAPHY ABDOMEN AND PELVIS (01/27/2019); | | | | FINDINGS: | | There is a BB in the posteromedial right lower lobe, better defined on | | CT abdomen 01/27/2019. the lungs are clear. The heart size is normal | | c.. Mild to moderate degenerative changes of the thoracic spine | | | | IMPRESSION: | | No active intrathoracic disease. | | | | | | | | Signed by: Rebecca Kelsey Shawn | | Sign Date/Time: 04/21/2019 10:27 AM | + + + +---------+ + + | Performing | Address | City/State/Zipcode | Phone Number | | Organization | | | | + +---------+ + + | [facility] | | | | + +---------+ + + documented in this encounter Visit Diagnoses + + | Diagnosis | + + | Mesenteric ischemia, chronic (HCC) - Primary Chronic vascular insufficiency of | | intestine | + + documented in this encounter"
--- OUTSIDE RECORDS SUMMARY | ~2019-08-17 | XMS | Encounter Summary ---
Demographics + + + | Address | [address] | | | [place] [address] | + + + | Home Phone | | + + + | Preferred Language | Unknown | + + + | Marital Status | | + + + | Restorationist Affiliation | 1077 | + + + | Race | Unknown | + + + | Ethnic Group | Unknown | + + + Author + + + | Author | [facility] | | | and [place] | + + + | Organization | [facility] | | | and [place] | + + + | Address | Unknown | + + + | Phone | Unavailable | + + + Support + + + + + | Name | Relationship | Address | Phone | + + + + + | Amina Stewart | ECON | [address] | | | | | [place] | | | | | [address] | | + + + + + Care Team Providers + +------+ + | Care Pesticide Applicator Name | Role | Phone | + +------+ + | No, Physician | PCP | Unavailable | + +------+ + Reason for Visit + + + | Reason | Comments | + + + | Medication Refill | | + + + Encounter Details +--------+--------+ + + + | Date | Type | Department | Care Team | Description | +--------+--------+ + + + | 05/13/ | Refill | [facility] | Gisela Walsh, | Medication Refill | | 2018 | | VASCULAR SURGERY | 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
--- OUTSIDE RECORDS SUMMARY | ~2019-08-17 | XMS | Encounter Summary ---
Demographics + + + | Address | [address] | | | [place] [address] | + + + | Home Phone | | + + + | Preferred Language | Unknown | + + + | Marital Status | | + + + | Faith Affiliation | 1077 | + + + | Race | Unknown | + + + | Ethnic Group | Unknown | + + + Author + + + | Author | [facility] | | | and [place] | + + + | Organization | [facility] | | | and [place] [...] [place] | | | | | [address] | | + + + + + Care Team Providers + +------+ + | Care Service Rig Operator Name | Role | Phone | + +------+ + | No, Physician | PCP | Unavailable | + +------+ + Reason for Visit + + + | Reason | Comments | + + + | Appointment | | + + + Encounter Details +--------+ + + + + | Date | Type | Department | Care Team | Description | +--------+ + + + + | 07/20/ | Telephone | [facility] | Bethany Ramirez [place], | Appointment | | 2019 | | VASCULAR SURGERY | RN | | | | | [address] | | | | | | [place] | | | | | | [address] | | | | | | [phone] | | | +--------+ + + + [...] [place] | | | | | | [address] | | | | | | | | +--------+ + + + + | 11/04/ | Office | Vascular Surgery | Suzi Powell DNP | | | 2020 | Visit | | [address] | | | | | | [place] | | | | | | [address] | | | | | | | | +--------+ + + + + documented as of this encounter Visit Diagnoses Not on filedocumented in this encounter"
--- OUTSIDE RECORDS SUMMARY | ~2019-08-17 | XMS | Encounter Summary ---
Demographics + + + | Address | [address] | | | [place] [address] | + + + | Home Phone | | + + + | Preferred Language | Unknown | + + + | Marital Status | | + + + | Buddhism Affiliation | 1077 | + + + | Race | Unknown | + + + | Ethnic Group | Unknown | + + + Author + + + | Author | [facility] | | | and [place] | + + + | Organization | [facility] | | | and [place] [...] [place] | | | | | [address] | | + + + + + Care Team Providers + +------+ + | Care Instantizer Operator Name | Role | Phone | [...] + + | 07/20/ | Telephone | [facility] | Bethany Ramirez [place], | Appointment | | 2019 | | VASCULAR SURGERY | RN | | | | | [address] | | | | | | [place] | | | | | | [address] | | | | | | [phone] | | | +--------+ + + + [...] [place] | | | | | | [address] | | | | | | | | +--------+ + + + + | 11/04/ | Office | Vascular Surgery | Suzi Powell DNP | | | 2020 | Visit | | [address] | | | | | | [place] | | | | | | [address] | | | | | | | | +--------+ + + + + documented as of this encounter Visit Diagnoses Not on filedocumented in this encounter"
--- OUTSIDE RECORDS SUMMARY | ~2019-08-17 | XMS | Encounter Summary ---
Demographics + + + | Address | [address] | | | [place] [address] | + + + | Home Phone | | + + + | Preferred Language | Unknown | + + + | Marital Status | | + + + | Sikhism Affiliation | 1077 | + + + | Race | Unknown | + + + | Ethnic Group | Unknown | + + + Author + + + | Author | [facility] | | | and [place] | + + + | Organization | [facility] | | | and [place] | + + + | Address | Unknown | + + + | Phone | Unavailable | + + + Support + + + + + | Name | Relationship | Address | Phone | + + + + + | Amina Stewart | ECON | [address] | | | | | [facility] [place] | | | | | [address] | | + + + + + Care Team Providers + +------+ + | Care Plastics And Composites Inspector Name | Role | Phone | + +------+ + | No, Physician | PCP | Unavailable | + +------+ + Encounter Details +--------+ + + + + | Date | Type | Department | Care Team | Description | +--------+ + + + + | 07/07/ | Telephone | [facility] | Paul Arias MD | | | 2019 | | CENTER CV INTRA OP | [address] | | | | | [address] | [place] | | | | | [place] | [address] | | | | | [address] | [phone] | | | | | [phone] | | | +--------+ + + + [...] [place] | | | | | | [address] | | | | | | | | +--------+ + + + + | 11/04/ | Office | Vascular Surgery | Suzi Powell DNP | | | 2019 | Visit | | [address] | | | | | | [place] | | | | | | [address] | | | | | | | | +--------+ + + + + documented as of this encounter Visit Diagnoses Not on filedocumented in this encounter"
--- OUTSIDE RECORDS SUMMARY | ~2019-08-17 | XMS | Encounter Summary ---
Demographics + + + | Address | [address] | | | [place] [address] | + + + | Home Phone | | + + + | Preferred Language | Unknown | + + + | Marital Status | | + + + | Taoist Affiliation | 1077 | + + + | Race | Unknown | + + + | Ethnic Group | Unknown | + + + Author + + + | Author | [facility] | | | and [place] | + + + | Organization | [facility] | | | and [place] | + + + | Address | Unknown | + + + | Phone | Unavailable | + + + Support + + + + + | Name | Relationship | Address | Phone | + + + + + | Amina Stewart | ECON | [address] | | | | | [facility] [place] | | | | | [address] | | + + + + + Care Team Providers + +------+ + | Care Glass Unloading Equipment Tender Name | Role | Phone | + +------+ + | No, Physician | PCP | Unavailable | + +------+ + Reason for Visit + + + | Reason | Comments | + + + | Follow-up | | + + + | Other | speak with nurse | + + + Encounter Details +--------+ + + + + | Date | Type | Department | Care Team | Description | +--------+ + + + + | 07/13/ | Telephone | [facility] | Bethany Ramirez, | Follow-up; Other | | 2019 | | VASCULAR SURGERY | RN | (speak with nurse) | | | | [address] | | | | | | [place] | | | | | | [address] | | | | | | [phone] | | | +--------+ + + + [...] [place] | | | | | | [address] | | | | | | | | +--------+ + + + + | 11/04/ | Office | Vascular Surgery | Suzi Powell DNP | | | 2019 | Visit | | [address] | | | | | | [place] | | | | | | [address] | | | | | | | | +--------+ + + + + documented as of this encounter Visit Diagnoses Not on filedocumented in this encounter"
--- OUTSIDE RECORDS SUMMARY | ~2019-08-17 | XMS | Encounter Summary ---
Demographics + + + | Address | [address] | | | [place] [address] | + + + | Home Phone | | + + + | Preferred Language | Unknown | + + + | Marital Status | | + + + | Congregation Affiliation | 1077 | + + + | Race | Unknown | + + + | Ethnic Group | Unknown | + + + Author + + + | Author | [facility] | | | and [place] | + + + | Organization | [facility] | | | and [place] | + + + | Address | Unknown | + + + | Phone | Unavailable | + + + Support + + + + + | Name | Relationship | Address | Phone | + + + + + | Amina Stewart | ECON | [address] | | | | | [place], [place] | | | | | [address] | | + + + + + Care Team Providers + +------+ + | Care Road Boss Name | Role | Phone | + +------+ + PCP | Unavailable | + +------+ + Reason for Visit + + + | Reason | Comments | + + + | Advice Only | | + + + Encounter Details +--------+ + + + + | Date | Type | Department | Care Team | Description | +--------+ + + + + | 03/27/ | Telephone | [facility] | Paul Arias MD | Advice Only | | 2019 | | VASCULAR SURGERY | [address] | | | | | [address] [place] | [place], [place] | | | | | [place], [place] | [address] | | | | | [address] | [phone] | | | | | [phone] | | | +--------+ + + + [...] [place] | | | | | | [address] | | | | | | | | +--------+ + + + + | 11/04/ | Office | Vascular Surgery | Suzi Powell DNP | | | 2019 | Visit | | [address] | | | | | | [place] | | | | | | [address] | | | | | | | | +--------+ + + + + documented as of this encounter Visit Diagnoses Not on filedocumented in this encounter"
--- OUTSIDE RECORDS SUMMARY | ~2019-08-17 | XMS | Encounter Summary ---
Demographics + + + | Address | [address] | | | [place] [address] | + + + | Home Phone | | + + + | Preferred Language | Unknown | + + + | Marital Status | | + + + | Hindu Affiliation | 1077 | + + + | Race | Unknown | + + + | Ethnic Group | Unknown | + + + Author + + + | Author | [facility] | | | and [place] | + + + | Organization | [facility] | | | and [...] [place] | | | | | [address] | | + + + + + Care Team Providers + +------+ + | Care Multi Punch Operator Name | Role | Phone | + +------+ + | No, Physician | PCP | Unavailable | + +------+ + Reason for Visit +--------+ + | Reason | Comments | +--------+ + | Other | instructions | +--------+ + Encounter Details +--------+ + + + + | Date | Type | Department | Care Team | Description | +--------+ + + + + | 05/26/ | Telephone | [facility] | Suzi Powell DNP | Other (instructions) | | 2019 | | VASCULAR SURGERY | [address] | | | | | [address] [place] | [place], [place] | | | | | [place], [place] | [address] | | | | | [address] | | | | | | [phone] | | | +--------+ + + + [...] [place] | | | | | | [address] | | | | | | | | +--------+ + + + + | 11/04/ | Office | Vascular Surgery | Suzi Powell DNP | | | 2019 | Visit | | [address] | | | | | | [place] | | | | | | [id number] | | | | | | | | +--------+ + + + + documented as of this encounter Visit Diagnoses Not on filedocumented in this encounter"
--- OUTSIDE RECORDS SUMMARY | ~2019-08-17 | XMS | Encounter Summary ---
Demographics + + + | Address | [address] | | | [place] [address] | + + + | Home Phone | | + + + | Preferred Language | Unknown | + + + | Marital Status | | + + + | Catholic Affiliation | 1077 | + + + | Race | Unknown | + + + | Ethnic Group | Unknown | + + + Author + + + | Author | [facility] | | | and [place] | + + + | Organization | [facility] | | | and [place] | + + + | Address | Unknown | + + + | Phone | Unavailable | + + + Support + + + + + | Name | Relationship | Address | Phone | + + + + + | Amina Stewart | ECON | [address] | | | | | [facility] [place] | | | | | [address] | | + + + + + Care Team Providers + +------+ + | Care Automobile Upholsterer Name | Role | Phone | + +------+ + | No, Physician | PCP | Unavailable | + +------+ + Encounter Details +--------+ + + + + | Date | Type | Department | Care Team | Description | +--------+ + + + + | 07/07/ | Telephone | [facility] | Paul Arias MD | | | 2019 | | CENTER CV INTRA OP | [address] | | | | | [address] | [place] | | | | | [place] | [address] | | | | | [address] | [phone] | | | | | [phone] | | | +--------+ + + + [...] [place] | | | | | | [address] | | | | | | | | +--------+ + + + + | 11/04/ | Office | Vascular Surgery | Suzi Powell DNP | | | 2019 | Visit | | [address] | | | | | | [place] | | | | | | [address] | | | | | | | | +--------+ + + + + documented as of this encounter Visit Diagnoses Not on filedocumented in this encounter"
--- OUTSIDE RECORDS SUMMARY | ~2019-08-17 | XMS | Encounter Summary ---
Demographics + + + | Address | [address] | | | [place] [address] | + + + | Home Phone | | + + + | Preferred Language | Unknown | + + + | Marital Status | | + + + | Gnosticism Affiliation | 1077 | + + + | Race | Unknown | + + + | Ethnic Group | Unknown | + + + Author + + + | Author | [facility] | | | and [place] | + + + | Organization | [facility] | | | and [place] | + + + | Address | Unknown | + + + | Phone | Unavailable | + + + Support + + + + + | Name | Relationship | Address | Phone | + + + + + | Amina Stewart | ECON | [address] | | | | | [facility] [place] | | | | | [address] | | + + + + + Care Team Providers + +------+ + | Care Brim Rounder Name | Role | Phone | + [...] + + | 06/02/ | Telephone | [facility] | Paul Arias MD | Other (Labs and | | 2018 | | VASCULAR SURGERY | [address] | Imaging) | | | | [address] [place] | [place], [place] | | | | | [place], [place] | [address] | | | | | [address] | [phone] | | | | | [phone] | | | +--------+ + + + [...] [place] | | | | | | [address] | | | | | | | | +--------+ + + + + | 11/04/ | Office | Vascular Surgery | Suzi Powell DNP | | | 2019 | Visit | | [address] | | | | | | [place] | | | | | | [address] | | | | | | | | +--------+ + + + + documented as of this encounter Visit Diagnoses Not on filedocumented in this encounter"
--- OUTSIDE RECORDS SUMMARY | ~2019-08-17 | XMS | Encounter Summary ---
Demographics + + + | Address | [address] | | | [place] [address] | + + + | Home Phone | | + + + | Preferred Language | Unknown | + + + | Marital Status | | + + + | Mormon Affiliation | 1077 | + + + | Race | Unknown | + + + | Ethnic Group | Unknown | + + + Author + + + | Author | [facility] | | | and [place] | + + + | Organization | [facility] | | | and [place] [...] [place], [place] | | | | | [address] | | + + + + + Care Team Providers + +------+ + | Care Dog Breeder Name | Role | Phone | + [...] | | | | | abdominal | ONSITE CASE MANAGER [address] | | | | | pain, | [address] | [place] [address] | | | | | unspecified | [address] | [place], [place] | | | | | | [place] | [address] | | | | | | [address] | Phone: | | | | | | Phone: | [phone] | | | | | | [phone] | Fax: | | | | | | Fax: | [phone] | | | | | | [phone] | | +--------+--------+ + + + + Encounter Details +--------+---------+ + + + | Date | Type | Department | Care Team | Description | +--------+---------+ + + + | 03/26/ | Office | [facility] | Paul Arias MD | Mesenteric ischemia, | | 2019 | Visit | VASCULAR SURGERY | [address] | chronic (HCC) | | | | [address] | [place] [facility] | (Primary Dx) | | | | [facility] [place] [place] | [address] | | | | | [address] | [phone] | | | | | [phone] | | | +--------+---------+ + + + [...] a recent CT and MRI abdomen from [facility]. [facility] ent denies any surgical intervention for this [...] CV: No peripheral edema, rate regular SKIN: [place], warm, dry without rash/lesion MS: ROM not limited, no digital cyanosis, normal gait NEURO: Cranial nerves II-XII grossly intact, A&O times 3 PSYCH: appropriate affect, speech and tone, judgement and insight intact Vascular: Palpable femoral pulses Assessment Assessment and Plan CT and MRI abdomen results from [facility] reviewed and discussed with the [facility] ent. The patient's imaging is is concerning [...] [place] | | | | | | [id number] | | | | | | | | +--------+ + + + + | 11/04/ | Office | Vascular Surgery | Suzi Powell DNP | | | 2019 | Visit | | [address] | | | | | | [place] | | | | | | [address] | | | | | | | [...]
--- OUTSIDE RECORDS SUMMARY | ~2019-08-17 | XMS | Encounter Summary ---
Demographics + + + | Address | [address] | | | [place] [address] | + + + | Home Phone | | + + + | Preferred Language | Unknown | + + + | Marital Status | | + + + | Anabaptism Affiliation | 1077 | + + + | Race | Unknown | + + + | Ethnic Group | Unknown | + + + Author + + + | Author | [facility] | | | and [place] | + + + | Organization | [facility] | | | and [place] | + + + | Address | Unknown | + + + | Phone | Unavailable | + + + Support + + + + + | Name | Relationship | Address | Phone | + + + + + | Amina Stewart | ECON | [address] | | | | | [place], [place] | | | | | [address] | | + + + + + Care Team Providers + +------+ + | Care Transportation Modeler Name | Role | Phone | + +------+ + | No, Physician | PCP | Unavailable | + +------+ + Reason for Referral Diagnostic/Screening (Routine) +--------+--------+ + + + + | Status | Reason | Specialty | Diagnoses / | Referred By | Referred To | | | | | Procedures | Contact | Contact | +--------+--------+ + + + + | Closed | | Radiology | Diagnoses | Suzi Powell, | | | | | | Mesenteric | DNP [address] | | | | | | ischemia, | [address] | | | | | | chronic | [place] [address] | | | | | | ([facility] H/O | [place] | | | | | | endarterecto | [address] | | | | | | my | Phone: | | | | | | Procedures | [phone] | | | | | | VAS | Fax: | | | | | | Mesenteric | [phone] | | | | | | Arterial | | | | | | | Duplex | | | +--------+--------+ + + + + Reason for Visit + + + | Reason | Comments | + + + | Follow-up | | + + + Encounter Details +--------+---------+ + + + | Date | Type | Department | Care Team | Description | +--------+---------+ + + + | 08/06/ | Office | [facility] | Suzi Powell DNP | Mesenteric ischemia, | | 2019 | Visit | VASCULAR SURGERY | [address] | chronic (HCC) | | | | [address] [place] | [place] | (Primary Dx); H/O | | | | [place], [place] | [address] | endarterectomy; S/P | | | | [address] | | angioplasty | | | | [phone] | | | +--------+---------+ + + + [...] +---------+ + + | Blood Pressure | 126/79 | 08/06/2019 10:14 AM | | | | | PST | | + +---------+ + + | Pulse | 64 | 08/06/2019 10:14 AM | | | | | PST | | + +---------+ + + | Temperature | - | - | | + +---------+ + + | Respiratory Rate | - | - | | + +---------+ + + | Oxygen Saturation | 100% | 08/06/2019 10:14 AM | | | | | PST | | + +---------+ + + | [...] +---------+ + + documented in this encounter Functional [...] documented as of this encounter Progress Notes Suzi Powell DNP - 08/06/2019 10:30 AM [facility] [address] [place] [address] Office: [phone] DATE OF VISIT: 08/06/2019 PATIENT NAME: Zane Stewart : 1945; AGE: 73 y.o.; Sex:M PHONE NUMBER: ; PROVIDER: Suzi Powell DNP PRIMARY CARE / REFERRING PHYSICIAN: No ref. provider found / No Physician on file / p REASON FOR EVALUATION / CHIEF COMPLAINT: Vascular Surgery Postoperative Visit for SMA endarterectomy and balloon angioplasty The patient presents today for a Vascular Surgery Postoperative Visit. Mr. Stewart is a pleasant 73 y.o. [...] a recent CT and MRI abdomen from [facility]. [place] ent denies any surgical intervention for this abdominal pain, however has had past abdominal surgeries. Due to chronic mesenteric ischemia, he is status post SMA endarterectomy with zaki vine pericardial patch on 04/28/2019. Due to SMA occlusion on follow up CTA, the patient had balloon angioplasty of SMA on 07/08/2019. After angioplasty, there was still a focal area of stenosis but this was not in a good place to stent due to multiple large branches around crystal nosis. However, there was improved flow throughout SMA at end of case.The patient reports hi s weight has been stable around 150 Ibs, appetite is fair. He reports he has been feeling ga ssy and has frequent BM's. He eats cereal in the morning with added fiber. He also has hemor rhoids, which he has been applying OTC cream. His reports he is not drinking enough jade er and has been sedentary after surgery. He denies abdominal pain during or after meals. Phy sical examination revealed surgical incision is healed, right groin access site is healed. Sofiya summers has been able to ambulate without difficulty. He has chronic back pain. He is taking aspir in, plavix and statin daily. VITAL SIGNS: BP 126/79 | Pulse 64 | SpO2 100% PHYSICAL EXAM: Constitutional: Well nourished, no signs of distress Cardiovascular: Normal rate, regular rhythm. Pulmonary/Chest: No respiratory distress. No adventitious sounds. Abdominal: Soft. No abdominal distension or tenderness. Musculoskeletal: Normal range of motion. Extremities: No edema, cyanosis or clubbing. Neurological: He is alert and oriented. No muscle weakness and normal gait. VASCULAR: Palpable femoralpulses were present bilaterally with palpable bilateral popli teal pulses. Palpable pulses were present in bilateral dorsalis pedis and road contractor ior tibial artery arteries. Palpable bilateral carotid, radial, brachial pulses. Assessment & Plan: Chronic mesenteric ischemia with status post SMA endarterectomy and balloon angioplasty - C ontinue aspirin and plavix daily. I've explained to the patient that in the event he experie nces mesenteric ischemia as evidenced by post-prandial abdominal pain, appetite change, or u nintentional weight loss, the patient should contact me immediately to return to my clinic o r go to nearby emergency room right away. Recommend the patient to stop taking added fiber a nd drink more water. RN will call in 1 month to check on the patient. Follow up with me in 3 months with mesenteric arterial ultrasound. Hypertension - The patient is advised to maintain his antihypertensive medication to keep s ystolic blood pressure target level of 130-140 mm Hg and diastolic blood pressure level of 7 0-80 mm Hg. The patient is advised that uncontrolled hypertension can accelerate atheroscler otic disease progression. Dyslipidemia - The patient is advised to undergo lipid level evaluation with fasting blood test every 6 months with target LDL level of less than 70 mg/dL. The patient is advised to c ontinue taking antiplatelet daily for life to reduce the risk of myocardial infarction and p eripheral arterial disease ( He is currently on aspirin). Additionally, the patient is infor med that hyperlipidemia can accelerate atherosclerotic disease progression and negatively af fect the outcome of lower leg vascular interventions. Suzi Powell DNP documented in t his encounter Plan of Treatment +--------+ + + + + | Date | Type | Specialty | Care Team | Description | +--------+ + + + + | 11/04/ | Appointment | Radiology | Suzi Powell DNP | | 2019 | | | [address] | | | | | | [place] | | | | | | [id number] | | | | | | | | +--------+ + + + + | 11/04/ | Office | Vascular Surgery | Suzi Powell DNP | | 2019 | Visit | | [address] | | | | | | [place] | | | | | | [address] | | | | | | | | +--------+ + + + + + +---------+--------+ + + | Name | Type | Priori | Associated Diagnoses | Order Schedule | | | | ty | | | + +---------+--------+ + + | VAS Mesenteric | Imaging | Routin | Mesenteric | Expected: 11/05/2019 | | Arterial Duplex | | e | ischemia, chronic | (Approximate), | | | | | (HCC) H/O | Expires: 08/06/2020 | | | | | endarterectomy | | + +---------+--------+ + + documented as of this encounter Visit Diagnoses + + | Diagnosis | + + | Mesenteric ischemia, chronic (HCC) - Primary Chronic vascular insufficiency of | | intestine | + + | H/O endarterectomy Personal history of surgery to other organs | + + | S/P angioplasty Postsurgical percutaneous transluminal coronary angioplasty status | + + documented in this encounter"
--- OUTSIDE RECORDS SUMMARY | ~2019-08-17 | XMS | Encounter Summary ---
Demographics + + + | Address | [address] | | | [place] [address] | + + + | Home Phone | | + + + | Preferred Language | Unknown | + + + | Marital Status | | + + + | Confucianism Affiliation | 1077 | + + + | Race | Unknown | + + + | Ethnic Group | Unknown | + + + Author + + + | Author | [facility] | | | and [place] | + + + | Organization | [facility] | | | and [...] [place] | | | | | [address] | | + + + + + Care Team Providers + +------+ + | Care Director Of Agronomy Name | Role | Phone | + [...] + + | 05/13/ | Refill | [facility] | Gisela Walsh, | Medication Refill | | 2018 | | VASCULAR SURGERY | Manager Grant | | | | | [address] | | | | | | [place] | | | | | | [address] | | | | | | [phone] | | | +--------+--------+ + + + [...] [place] | | | | | | [address] | | | | | | | [...]
--- OUTSIDE RECORDS SUMMARY | ~2019-08-17 | XMS | Encounter Summary ---
Demographics + + + | Address | [address] | | | [place] [address] | + + + | Home Phone | | + + + | Preferred Language | Unknown | + + + | Marital Status | | + + + | Oriental Orthodox Affiliation | 1077 | + + + | Race | Unknown | + + + | Ethnic Group | Unknown | + + + Author + + + | Author | [facility] | | | and [place] | + + + | Organization | [facility] | | | and [place] | [...] [place], [place] | | | | | [address] | | + + + + + Care Team Providers + +------+ + | Care Remote Sensing Technician Name | Role | Phone | [...] | +--------+ + + + + | 07/09/ | Telephone | [facility] | Gisela Walsh, | Follow-up | | 2019 | | VASCULAR SURGERY | Fresh Foods Technician | | | | | [address] | | | | | | [place], [place] | | | | | | [address] | | | | | | [phone] | | | +--------+ + + + [...] [place] | | | | | | [address] | | | | | | | | +--------+ + + + + | 11/04/ | Office | Vascular Surgery | Suzi Powell DNP | | | 2020 | Visit | | [address] | | | | | | [place] | | | | | | [address] | | | | | | | | +--------+ + + + + documented as of this encounter Visit Diagnoses Not on filedocumented in this encounter"
--- OUTSIDE RECORDS SUMMARY | ~2019-08-17 | XMS | Encounter Summary ---
Demographics + + + | Address | [address] | | | [place] [address] | + + + | Home Phone | | + + + | Preferred Language | Unknown | + + + | Marital Status | | + + + | Faith Affiliation | 1077 | + + + | Race | Unknown | + + + | Ethnic Group | Unknown | + + + Author + + + | Author | [facility] | | | and [place] | + + + | Organization | [facility] | | | and [place] | + + + | Address | Unknown | + + + | Phone | Unavailable | + + + Support + + + + + | Name | Relationship | Address | Phone | + + + + + | Amina Stewart | ECON | [address] | | | | | [address] [place] [address], [place] | | | | | [address] | | + + + + + Care Team Providers + +------+ + | Care Ict Programmer Name | Role | Phone | + [...] | | | | | | | ([facility]) | | | | | | | Procedures | | | | | | | REVASCULARIZ | | | | | | | ATION | | | | | | | MESENTERIC | | | +--------+--------+ + + + + Encounter Details +--------+ + + + + | Date | Type | Department | Care Team | Description | +--------+ + + + + | 04/28/ | Anesthesia | [facility] | Prosper Woods MD | | | 2019 | [facility] | [address] | | | | | OPER[address] | [place] [address] | | | | | [address] | [phone] | | | | | [place], [place] | | | | | | [address] | Alexis Dawn MD [address] | | | | | [phone] | [address] | | | | | | [place] [address] | | +--------+ + + + + Anesthesia Record + + + + + | Procedure Name | Responsible | Anesthesia Start | Anesthesia Stop Time | | | Anesthesiologist | Time | | + + + + + | REVASCULARIZATION | Prosper Woods MD | 04/28/19 1127 | 04/28/19 1508 | | MESENTERIC (N/A | | | | | Abdomen) | | | | + + + + + +----+---+ + + | Da | T | Event | Comment | | te | i | | | | | m | | | | | e | | | +----+---+ + + | 09 | 1 | An Start | Reassessment prior to anesthesia induction/procedure. | | /2 | 1 | | | | 4/ | 2 | | | | 20 | 7 | | | | 19 | | | | +----+---+ + + | | 1 | An | | | | 1 | Induction | | | | 3 | | | | | 2 | | | +----+---+ + + | | 1 | An | | | | 1 | Intubation | | | | 3 | | | | | 5 | | | +----+---+ + + | | 1 | Anesthesia | | | | 1 | Ready | | | | 4 | | | | | 3 | | | +----+---+ + + | | 1 | First | | | | 1 | Inc/Proc St | | | | 5 | | | | | 1 | | | +----+---+ + + | | 1 | Quick Note | incision | | | 1 | | | | | 5 | | | | | 3 | | | +----+---+ + + | | 1 | [place] | | | | 1 | 43-degrees | | | | 5 | | | | | 8 | | | +----+---+ + + | | 1 | Quick Note | Surgical stop | | | 4 | | | | | 3 | | | | | 4 | | | +----+---+ + + | | 1 | Extubation/ | | | | 4 | Airway LDA | | | | 4 | Removal | | | | 6 | | | +----+---+ + + | | 1 | Quick Note | SBP 190s right now-->pressure transducer fell on floor falsely | | | 4 | | elevating pressure | | | 4 | | | | | 7 | | | +----+---+ + + | | 1 | an stop | | | | 4 | data | | | | 5 | | | | | 2 | | | +----+---+ + + | | 1 | An Stop | Patient handed off to recovery nurse. | | | 0 | | | | | 8 | | | +----+---+ + + +------+ | Meds | +------+ + + + | Name | Total | + + + | fentaNYL | 200 mcg | + + + | lidocaine 2% | 50 mg | + + + | propofol | 140 mg | + + + | rocuronium | 50 mg | + + + | dexamethasone | 4 mg | + + + | ondansetron | 4 mg | + + + | neostigmine | 4 mg | + + + | glycopyrrolate | 0.4 mg | + + + | HYDROmorphone | 2 mg | + + + | hydrALAZINE | 30 mg | + + + | remifentanil | 602.18 mcg | + + + | heparin | 6,000 Units | + + + | protamine | 30 mg | + + + | labetalol (TRANDATE) injection | 10 mg | + + + | Plasmalyte | 1,750 mL | + + + | sodium chloride 0.9% (NS) | 1,000 mL | | infusion | | + + + + + | Name | + + | N2O Flow Rate (L/Min) | + + | O2 Flow Rate (L/Min) | + + | Insp O2 | + + | Exp N2O | + + | Exp NEAL | + + | Air Flow Rate (L/Min) | + + + + | No blood administrations on file. | + + +--------+ + + + | Type | Details | Placement | Removal | +--------+ + + + | Periph | 04/28/19; 1107; Left; Anterior | 04/28/19 1107 by | 05/04/19 0821 by | | eral | (palmar), Distal; Forearm; | Linh Darling RN | Pascale Ross RN | | IV | hwrb-[id number] catheter system; | | | | | 18 gauge; site care per | | | | | policy/procedure; 05/04/19; 0821 | | | +--------+ + + + | Airway | Placement Date: 04/28/19; | 04/28/19 1135 by Alexis | 04/28/19 1446 by | | | Placement Time: 1135; Mask | Villa Dawn MD | Prosper Woods MD | | | Ventilation: EZ; Airway Grade: 4; | | | | | Successful Technique: video | | | | | scope; Laryngoscope Blade Size: | | | | | 3; Airway Type: endotracheal; | | | | | Size: 7.5; Position: Right; | | | | | Airway Tube Secured At: 23; Tube | | | | | Reference Point: lip; Removal | | | | | Date: 04/28/19; Removal Time: | | | | | 1446 | | | +--------+ + + + | Arteri | 04/28/19; 1139; Alcohol; No; | 04/28/19 1139 by Alexis | 04/29/19 0420 by | | al | Left; radial artery; 20 gauge; | Villa Dawn MD | Eduardo Clement, | | Line | continuous blood pressure | | RN | | | monitoring, frequent blood gas | | | | | measurement; catheter not patent; | | | | | 04/29/19; 0420 | | | +--------+ + + + | Urethr | 04/28/19; 1140; indicated due to | 04/28/19 1140 by | 04/29/19 1545 by | | al | specific surgical procedure; All | Vandana Tovar RN | Emeli Stephen V, | | Cathet | elements; All elements; All | | RN | | er | elements; indwelling single lumen | | | | | catheter; latex; 16; None; 1; 5; | | | | | 10; other (see comments) (Under | | | | | general anesthesia); drainage bag | | | | | to dependent drainage; 04/29/19; | | | | | 1545 | | | +--------+ + + + | Periph | 04/28/19; 1148; Right; Proximal; | 04/28/19 1148 by Alexis | 05/01/19 220 by | | eral | Forearm; [id number] catheter | Villa Dawn MD | Prasanna Cr RN | | IV | system; 18 gauge; 1; other (see | | | | | comments); infiltrated; 05/01/19; | | | | | 2200 | | | +--------+ + + + | Wound | 04/28/19; 1512; Incision; | 04/28/19 1512 by | 05/04/19 1124 by | | | abdomen; 05/04/19; 1124 | Vincent Mckeon RN | Pascale Ross RN | +--------+ + + + documented in this encounter Social History + +-------+ +--------+------+ | Tobacco [...] [place] | | | | | | [address] | | | | | | | | +--------+ + + + + | 11/04/ | Office | Vascular Surgery | Suzi Powell DNP | | | 2019 | Visit | | [address] | | | | | | [place] | | | | | | [address] | | | | | | | | +--------+ + + + + documented as of this encounter Visit Diagnoses Not on filedocumented in this encounter Administered Medications + +---------+ +------+------+------+ | Medication Order | MAR | Action | Dose | Rate | Site | | | Action | Date | | | | + +---------+ +------+------+------+ | balanced electrolytes in water | New Bag | 04/28/20 | | | | | (PLASMALYTE-148/NORMOSOL-R) | | 19 11:32 | | | | | infusion Intravenous, CONTINUOUS | | AM PDT | | | | | PRN, Starting Sat04/28/19 at | | | | | | | 1132, Anesthesia Intra-op | | | | | | + +---------+ +------+------+------+ +---+---+ | | | +---+---+ + +-------+ +------+---+---+ | dexamethasone (DECADRON) 4 | Given | 04/28/20 | 4 mg | | | | mg/mL injection Intravenous, | | 19 11:32 | | | | | PRN, Starting Sat04/28/19 at | | AM PDT | | | | | 1132, Anesthesia Intra-op | | | | | | + +-------+ +------+---+---+ +---+---+ | | | +---+---+ + +-------+ +---------+---+---+ | fentaNYL (PF) injection | Given | 04/28/20 | 100 mcg | | | | Intravenous, PRN, Starting Sat | | 19 12:02 | | | | | 04/28/19 at 1132, Anesthesia | | PM PDT | | | | | Intra-op | | | | | | + +-------+ +---------+---+---+ +-------+ +---------+---+---+ | Given | 04/28/20 | 100 mcg | | | | | 19 11:32 | | | | | | AM PDT | | | | +-------+ +---------+---+---+ +---+---+ | | | +---+---+ + +-------+ +--------+---+---+ | glycopyrrolate (ROBINUL) | Given | 04/28/20 | 0.4 mg | | | | injection Intravenous, PRN, | | 19 2:33 | | | | | Starting 04/28/19 at 1433, | | PM PDT | | | | | Anesthesia Intra-op | | | | | | + +-------+ +--------+---+---+ +---+---+ | | | +---+---+ + +-------+ +--------+---+---+ | heparin 1,000 units/mL | Given | 04/28/20 | 6,000 | | | | injection Intravenous, PRN, | | 19 1:32 | Units | | | | Starting 04/28/19 at 1332, | | PM PDT | | | | | Anesthesia Intra-op | | | | | | + +-------+ +--------+---+---+ +---+---+ | | | +---+---+ + +-------+ +-------+---+---+ | hydrALAZINE (APRESOLINE) | Given | 04/28/20 | 10 mg | | | | injection Intravenous, PRN, | | 19 2:48 | | | | | Starting 04/28/19 at 1210, | | PM PDT | | | | | Anesthesia Intra-op | | | | | | + +-------+ +-------+---+---+ +-------+ +-------+---+---+ | Given | 04/28/20 | 10 mg | | | | | 19 2:43 | | | | | | PM PDT | | | | +-------+ +-------+---+---+ | Given | 04/28/20 | 10 mg | | | | | 19 12:10 | | | | | | PM PDT | | | | +-------+ +-------+---+---+ +---+---+ | | | +---+---+ + +-------+ +------+---+---+ | HYDROmorphone (DILAUDID) 2 | Given | 04/28/20 | 1 mg | | | | mg/mL injection Intravenous, | | 19 12:07 | | | | | WINGN, Starting e 04/28/19 at | | PM PDT | | | | | 1158, Anesthesia Intra-op | | | | | | + +-------+ +------+---+---+ +-------+ +------+---+---+ | Given | 04/28/20 | 1 mg | | | | | 19 11:58 | | | | | | AM PDT | | | | +-------+ +------+---+---+ +---+---+ | | | +---+---+ + +-------+ +------+---+---+ | labetalol (TRANDATE) 5 mg/mL | Given | 04/28/20 | 5 mg | | | | injection PRN, Starting Tue | | 19 3:12 | | | | | 04/28/19 at 1502, Anesthesia | | PM PDT | | | | | Intra-op | | | | | | + +-------+ +------+---+---+ +-------+ +------+---+---+ | Given | 04/28/20 | 5 mg | | | | | 19 3:02 | | | | | | PM PDT | | | | +-------+ +------+---+---+ +---+---+ | | | +---+---+ + +-------+ +-------+---+---+ | lidocaine (PF) 2% injection | Given | 04/28/20 | 50 mg | | | | Intravenous, PRN, Starting Tue | | 19 11:32 | | | | | 04/28/19 at 1132, Anesthesia | | AM PDT | | | | | Intra-op | | | | | | + +-------+ +-------+---+---+ +---+---+ | | | +---+---+ + +-------+ +------+---+---+ | neostigmine 1 mg/mL injection | Given | 04/28/20 | 4 mg | | | | Intravenous, PRN, Starting Tue | | 19 2:33 | | | | | 04/28/19 at 1433, Anesthesia | | PM PDT | | | | | Intra-op | | | | | | + +-------+ +------+---+---+ +---+---+ | | | +---+---+ + +-------+ +------+---+---+ | ondansetron (ZOFRAN) injection | Given | 04/28/20 | 4 mg | | | | Intravenous, PRN, Starting Tue | | 19 11:32 | | | | | 04/28/19 at 1132, Anesthesia | | AM PDT | | | | | Intra-op | | | | | | + +-------+ +------+---+---+ +---+---+ | | | +---+---+ + +-------+ +--------+---+---+ | propofol (DIPRIVAN) injection | Given | 04/28/20 | 140 mg | | | | Intravenous, PRN, Starting Tue | | 19 11:32 | | | | | 04/28/19 at 1132, Anesthesia | | AM PDT | | | | | Intra-op | | | | | | + +-------+ +--------+---+---+ +---+---+ | | | +---+---+ + +-------+ +-------+---+---+ | protamine injection | Given | 04/28/20 | 30 mg | | | | Intravenous, PRN, Starting Tue | | 19 2:09 | | | | | 04/28/19 at 1409, Anesthesia | | PM PDT | | | | | Intra-op | | | | | | + +-------+ +-------+---+---+ +---+---+ | | | +---+---+ + + + + +-------+---+ | remifentanil (ULTIVA) injection | Rate/Dos | 04/28/20 | 0.075 | 0.3 | | | Intravenous, CONTINUOUS PRN, | e Change | 19 1:19 | mcg/kg/m | mL/hr | | | Starting 04/28/19 at 1229, | | PM PDT | in | | | | Anesthesia Intra-op | | | | | | + + + + +-------+---+ +---------+ + +-------+---+ | New Bag | 04/28/20 | 0.05 | 0.2 | | | | 19 12:29 | mcg/kg/m | mL/hr | | | | PM PDT | in | | | +---------+ + +-------+---+ +---+---+ | | | +---+---+ + +-------+ +-------+---+---+ | rocuronium (ZEMURON) injection | Given | 04/28/20 | 10 mg | | | | Intravenous, PRN, Starting Tue | | 19 2:17 | | | | | 04/28/19 at 1132, Anesthesia | | PM PDT | | | | | Intra-op | | | | | | + +-------+ +-------+---+---+ +-------+ +-------+---+---+ | Given | 04/28/20 | 40 mg | | | | | 19 11:32 | | | | | | AM PDT | | | | +-------+ +-------+---+---+ +---+---+ | | | +---+---+ + +---------+ +---+ +---+ | sodium chloride 0.9% (NS) | New Bag | 04/28/20 | | 30 mL/hr | | | infusion at 30 mL/hr, | | 19 11:34 | | | | | Intravenous, CONTINUOUS, Starting | | AM PDT | | | | | 04/28/19 at 1200, | | | | | | | Recovery/Phase I | | | | | | + +---------+ +---+ +---+ + + +---+---+---+ | Continued by Anesthesia | 04/28/20 | | | | | | 19 11:27 | | | | | | AM PDT | | | | + + +---+---+---+ +---+---+ | | | +---+---+ documented in this encounter"
--- OUTSIDE RECORDS SUMMARY | ~2019-08-17 | XMS | Clinical Summary ---
Demographics + + + | Address | [address] | | | [place] [address] | + + + | Home Phone | | + + + | Preferred Language | Unknown | + + + | Marital Status | | + + + | Orthodox Affiliation | 1077 | + + + | Race | Unknown | + + + | Ethnic Group | Unknown | + + + Author + + + | Author | [facility] | | | and [place] | + + + | Organization | [facility] | | | and [place] | + + + | Address | Unknown | + + + | Phone | Unavailable | + + + Support + + + + + | Name | Relationship | Address | Phone | + + + + + | Amina Stewart | ECON | [address] | | | | | [facility] [place] | | | | | [address] | | + + + + + Care Team Providers + +------+ + | Care Substance Abuse Services Director Name | Role | Phone | + +------+ + | No, Physician | PCP | Unavailable | + +------+ + Allergies No Known Allergies Medications + + + +---------+------+------+-------+ | Medication | Sig | Dispensed | Refills | Star | End | Statu | | | | | | t | Date | s | | | | | | Date | | | + + + +---------+------+------+-------+ | simvastatin | Take 10 mg by mouth | | 0 | | | Activ | | (ZOCOR) 10 mg tablet | nightly. | | | | | e | + + + +---------+------+------+-------+ | | Take 25 mg by mouth | | 0 | | | Activ | | hydroCHLOROthiazide | Daily. | | | | | e | | 25 mg tablet | | | | | | | + + + +---------+------+------+-------+ | Multiple | Take by mouth. | | 0 | | | Activ | | Vitamins-Minerals | | | | | | e | | (CENTRUM SILVER | | | | | | | | 50+MEN PO) | | | | | | | + + + +---------+------+------+-------+ | ASPIRIN 81 PO | Take 81 mg by mouth. | | 0 | | | Activ | | | | | | | | e | + + + +---------+------+------+-------+ | losartan (COZAAR) | Take 50 mg by mouth | | 0 | | | Activ | | 50 mg tablet | Daily. | | | | | e | + + + +---------+------+------+-------+ | | Take 1 tablet by | 30 | 0 | 09/3 | | Activ | | HYDROcodone-acetamin | mouth every 4 hours | tablet | | 0/20 | | e | | ophen (NORCO) 5-325 | as needed for Pain. | | | 19 | | | | mg per tablet | | | | | | | + + + +---------+------+------+-------+ | docusate sodium | Take 1 capsule by | 30 | 0 | 09/3 | | Activ | | (COLACE) 100 mg | mouth 2 times daily. | capsule | | 0/20 | | e | | capsule | | | | 19 | | | + + + +---------+------+------+-------+ | clopidogrel | Take 1 tablet by | 30 | 11 | 12/0 | | Activ | | (PLAVIX) 75 mg | mouth Daily. | tablet | | 4/20 | | e | | tablet | | | | 19 | | | + + + +---------+------+------+-------+ Active Problems + + + | Problem | Noted Date | + + + | H/O endarterectomy | 08/06/2019 | + + + | S/P angioplasty | 08/06/2019 | + + + | Hypertension | 04/28/2019 | + + + | Hyperlipidemia | 04/28/2019 | + + + | Mesenteric ischemia, chronic | 03/26/2019 | + + + + + | Overview: Added automatically from request for surgery | | [id number] | + + Resolved Problems + + + + | Problem | Noted | Resolved | | | Date | Date | + + + + | Diabetes mellitus | 04/28/20 | | | | 19 | 9 | + + + + Encounters +--------+ + + + + | Date | Type | Specialty | Care Team | Description | +--------+ + + + + | 08/17/ | Telephone | Vascular Surgery | Bethany Ramirez, | Appointment Question | | 2020 | | | RN | | +--------+ + + + + | 08/06/ | Office | Vascular Surgery | Suzi Powell DNP | Mesenteric ischemia, | | 2019 | Visit | | | chronic (HCC) | | | | | | (Primary Dx); H/O | | | | | | endarterectomy; S/P | | | | | | angioplasty | +--------+ + + + + | 07/20/ | Telephone | Vascular Surgery | Bethany Ramirez, | Appointment | | 2018 | | | RN | | +--------+ + + + + | 07/13/ | Telephone | Vascular Surgery | Bethany Ramirez, | Follow-up; Other | | 2018 | | | RN | (speak with nurse) | +--------+ + + + + | 07/09/ | Telephone | Vascular Surgery | Gisela Walsh, | Follow-up | 2018 | | | Animal Damage Control Agent | | +--------+ + + + + | 07/08/ | Hospital | | Paul Arias MD | Mesenteric ischemia, | | 2018 | Encounter | | | chronic (HCC) | +--------+ + + + + | 07/07/ | Telephone | Radiology | Paul Arias MD | | | 2018 | | | | | +--------+ + + + + | 06/22/ | Telephone | Vascular Surgery | Bethany Ramirez, | Results | | 2018 | | | RN | | +--------+ + + + + | 06/16/ | Telephone | Vascular Surgery | Suyapa Castellanos, | Diagnostic Order | | 2018 | | | RN | | +--------+ + + + + | 06/12/ | Telephone | Vascular Surgery | Suzi Powell DNP | Imaging (CT order) | | 2018 | | | | | +--------+ + + + + | 06/02/ | Telephone | Vascular Surgery | Paul Arias MD | Other (Labs and | | 2018 | | | | Imaging) | +--------+ + + + + | 05/27/ | Office | Vascular Surgery | Suzi Powell DNP | Mesenteric ischemia, | | 2018 | Visit | | | chronic (HCC) | | | | | | (Primary Dx); H/O | | | | | | endarterectomy | +--------+ + + + + | 05/27/ | Hospital | Radiology | Suzi Powell DNP | Mesenteric ischemia, | | 2018 | Encounter | | | chronic (HCC) | +--------+ + + + + | 05/26/ | Telephone | Vascular Surgery | Suzi Powell DNP | Other (instructions) | | 2018 | | | | | +--------+ + + + + from Last 3 Months Family History + + +------+ + | Medical History | Relation | Name | Comments | + + +------+ + | Lennie hyperten | Neg Hx | | | + + +------+ + Social History + +-------+ +--------+------+ | [...] recent travel history available. | + + Last Filed Vital Signs + + + + + | Vital Sign | Reading | Time Taken | Comments | + + + + + | Blood Pressure | 126/79 | 08/06/2019 10:14 AM | | | | | PST | | + + + + + | Pulse | 64 | 08/06/2019 10:14 AM | | | | | PST | | + + + + + | Temperature | 36.6 C (97.9 F) | 07/08/2019 11:27 AM | | | | | PST | | + + + + + | Respiratory Rate | 18 | 07/08/2019 11:27 AM | | | | | PST | | + + + + + | Oxygen Saturation | 100% | 08/06/2019 10:14 AM | | | | | PST | | + + + + + | Inhaled Oxygen | - | - | | | Concentration | | | | + + + + + | Weight | 79.3 kg (174 lb 13.2 | 07/08/2019 8:01 AM | | | | oz) | PST | | + + + + + | Height | 167.6 cm (5' 6") | 07/08/2019 8:01 AM | | | | | PST | | + + + + + | Body Mass Index | 28.22 | 07/08/2019 8:01 AM | | | | | PST | | + + + + + Plan of Treatment +--------+ + + + + | Date | Type | Specialty | Care Team | Description | +--------+ + + + + | 11/04/ | Appointment | Radiology | Suzi Powell DNP | | | 2019 | | | [address] | | | | | | [place] | | | | | | [address] | | | | | | | | +--------+ + + + + | 11/04/ | Office | Vascular Surgery | Suzi Powell DNP | | | 2019 | Visit | | [address] | | | | | | [place] | | | | | | [address] | | | | | | | | +--------+ + + + + + + + + + | Health Maintenance | Due Date | Last Done | Comments | + + + + + | Vaccine: | | | | | Dtap/Tdap/Td (1 - | 5 | | | | Tdap) | | | | + + + + + | Colorectal Cancer | | | | | Screening | 4 | | | | (Colonoscopy) | | | | + + + + + | AAA Screening | | | | | | 9 | | | + + + + + | Vaccine: | | | | | Pneumococcal 65+ (1 | 9 | | | | of 2 - PCV13) | | | | + + + + + | Vaccine: Zoster (2 | | 09/22/2008 | | | of 3) | 9 | | | + + + + + | Adult Annual | | | | | Wellness Visit | 9 | | | + + + + + | Vaccine: Influenza | | 06/22/2016 | | | (#1) | 9 | | | + + + + + Implants + +-------+------+ +--------+--------+--------+ | Implanted | Type | Area | Manufacture | Device | Shelf | Model | | | | | r | | Expira | / | | | | | | Identi | tion | Serial | | | | | | fier | Date | / Lot | + +-------+------+ +--------+--------+--------+ | Xgrft Vascu-Guard [facility] 0.8x8 | Graft | | VIDAL | | 10/02/ | VG-[id number] | | - SnaImplanted: Qty: 1 on | | | BIOSCIENCE | | 2023 | 8N /NA | | 04/28/2019 by Paul Arias MD | | | - JOSE ALEJANDRO | | | | | at [facility] | | | | | | /[id number] | | [facility] | | | | | | [phone] | | | | | | | | [address]20 | + +-------+------+ +--------+--------+--------+ Procedures + +--------+ + + + | Procedure Name | Priori | Date/Time | Associated Diagnosis | Comments | | | ty | | | | + +--------+ + + + | IR ANGIOGRAM | Routin | 07/08/2019 | Mesenteric | Results for this | | MESENTERIC VISCERAL | e | 10:03 AM | ischemia, chronic | procedure are in the | | | | PST | ([facility]) | results section. | + +--------+ + + + | IMAGING REPORT - | | 06/19/2019 | | Results for this | | EXTERNAL SCAN | | 12:00 AM | | procedure are in the | | | | PST | | results section. | + +--------+ + + + from Last 3 Months Results IR Angiogram Mesenteric Visceral (07/08/2019 10:03 AM PST) + + | Specimen | + + | | + + + + + | Impressions | Performed At | + + + | 1. 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 2. After angioplasty, moderate | | | angiographic results. 3. Not a good place for stent placement due | | | to multiple large branches. | | + + + + + -+ | Narrative | Performed At | + + -+ | ABDOMINAL | [facility] | | AORTOGRAM PREOPERATIVE DIAGNOSIS: Chronic mesenteric ischemia | | | POSTOPERATIVE DIAGNOSIS: Same PROCEDURE: 1. Moderate conscious | | | sedation2. Ultrasound guided access of the right common femoral | | | artery3. Aortogram4. Selective catheterization of superior mesenteric | | | artery with mesenteric arteriogram5. Superior mesenteric artery | | | angioplasty using 7 x 40 mm angioplasty balloon SURGEON: Paul Arias MD | | | STRAIGHTENING PRESS OPERATOR: None ANESTHESIA: Moderate sedation and local anesthesia | | | Informed consent was obtained from the patient. Continuous | | | cardiac monitoring was performed throughout the procedure. Conscious | | | sedation was provided by the nursing staff during the procedure under | | | my supervision. Sedation time: 60 minutes | | | Medications: 1 mg Versed IV, 50 Mcg Fentanyl IV ESTIMATED BLOOD | | | LOSS: Minimal CONTRAST: 89 mL of Omnipaque 240 INDICATIONS: See | | | preoperative history and physical FINDINGS: SMA was nearly occluded at | | | origin. After angioplasty, there was still a focal area of stenosis | | | but this was not in a good place to stent due to multiple large | | | branches around stenosis. However, there was improved flow | | | throughout SMA at end of case. DESCRIPTION OF PROCEDURE: The patient | | | was properly identified and brought to the Forest Examiner. The patient was | | | placed supine on the catheter table and patient was given moderate | | | sedation by nursing staff under my supervision. Patient's bilateral | | | groins were then prepped and draped in the usual sterile fashion. | | | Local anesthetic was given to the right groin and the right common | | | femoral artery was accessed under ultrasound guidance using a | | | micropuncture needle. A micropuncture sheath was inserted over a wire | | | and up sized to a 4 Thai sheath. A Omni flush catheter was then | | | inserted into the aorta and aortogram was then performed with the | | | findings as described above. Next, an Amplatzer wire was then inserted | | | over the catheter and the 4 Thai sheath was removed. A 6.5 Thai | | | durable sheath was then inserted over the wire with the tip of the | | | sheath being placed into the proximal SMA. A vertebral catheter was | | | inserted over the wire and the wire was then removed. A Glidewire was | | | then placed into the vertebral catheter and used to cross through the | | | SMA occlusion. Next, a 260 fix core wire was then inserted over the | | | catheter. The SMA was then angioplastied using 7 x 40 mm angioplasty | | | balloon. A final arteriogram was then performed through the sheath. | | | The steerable sheath was then removed and a Mynx closure device was | | | then used on the right common femoral artery and hemostasis was | | | ensured. The patient was then taken to the observation unit for | | | further monitoring. | | |patient was given moderate sedation by nursing staff under my supervision. | | |Patient's bilateral groins were then prepped and draped in the usual | | |sterile fashion. Local anesthetic was given to the right groin and the | | |right common femoral artery was accessed under ultrasound guidance using a | | |micropuncture needle. A micropuncture sheath was inserted over a wire and | | |up sized to a 4 Thai sheath. A Omni flush catheter was then inserted | | |into the aorta and aortogram was then performed with the findings as | | |described above. Next, an Amplatzer wire was then inserted over the | | |catheter and the 4 Thai sheath was removed. A 6.5 Thai durable sheath | | |was then inserted over the wire with the tip of the sheath being placed | | |into the proximal SMA. A vertebral catheter was inserted over the wire and | | |the wire was then removed. A Glidewire was then placed into the vertebral | | |catheter and used to cross through the SMA occlusion. Next, a 260 fix | | |core wire was then inserted over the catheter. The SMA was then | | |angioplastied using 7 x 40 mm angioplasty balloon. A final arteriogram | | |was then performed through the sheath. The steerable sheath was then | | |removed and a Mynx closure device was then used on the right common | | |femoral artery and hemostasis was ensured. The patient was then taken to | | |the observation unit for further monitoring. | | | | | + + -+ + +---------+ + + | Performing | Address | City/State/Zipcode | Phone Number | | Organization | | | | + +---------+ + + | [facility] | | | | + +---------+ + + IMAGING REPORT - EXTERNAL SCAN (06/19/2019 12:00 AM PST) + + + | Narrative | Performed At | + + + | Ordered by an | | | unspecified provider. | | + + + from Last 3 Months Insurance + +--------+ +--------+-------+---------+--------+ | Payer | Benefi | Subscriber | Effect | Phone | Address | Type | | | t Plan | ID | heather | | | | | | / | | Dates | | | | | | Group | | | | | | + +--------+ +--------+-------+---------+--------+ | [employer] [place] | [id number] | 08/05/19 | | | Indemn | | | CHOICE | | 18-Pre | | | ity | | | PC3 | | sent | | | | + +--------+ +--------+-------+---------+--------+ + +--------+ +--------+ + + | Guarantor Name | Accoun | Relation to | Date | Phone | Billing Address | | | t Type | Patient | of | | | | | | | | | | + +--------+ +--------+ + + | Zane Stewart | Person | Self | [birth year] | [address] | | | al/Johan | | 1946 | [phone] | [place] [address] | | | almas | | | 4 (Home) | | + +--------+ +--------+ + + Advance Directives + + + + + | Type | Date Recorded | Patient | Explanation | | | | Parachute Officer | | + + + + + | Power of | | | | | Supervisor Multifocal Lens | | | | + + + + + | Advance | 04/03/2019 8:41 | | no | | Directive | AM | | | + + + + + + + + + + | Code Status | Date | Date | Comments | | | Activated | Inactivated | | + + + + + | Full Code | 04/28/2019 | 05/04/2019 | | | | 3:07 PM | 1:49 PM | | + + + + +
--- OUTSIDE RECORDS SUMMARY | ~2019-08-17 | XMS | Encounter Summary ---
Demographics + + + | Address | [address] | | | [place] [address] | + + + | Home Phone | | + + + | Preferred Language | Unknown | + + + | Marital Status | | + + + | Church Affiliation | 1077 | + + + | Race | Unknown | + + + | Ethnic Group | Unknown | + + + Author + + + | Author | [facility] | | | and [place] | + + + | Organization | [facility] | | | and [place] | + + + | Address | Unknown | + + + | Phone | Unavailable | + + + Support + + + + + | Name | Relationship | Address | Phone | + + + + + | Amina Stewart | ECON | [address] | | | | | [facility] [place] | | | | | [address] | | + + + + + Care Team Providers + +------+ + | Care Nuclear Plant Construction Worker Name | Role | Phone | + +------+ + | No, Physician | PCP | Unavailable | + +------+ + Reason for Referral Diagnostic/Screening (Routine) + +--------+ + + + + | Status | Reason | Specialty | Diagnoses / | Referred By | Referred To | | | | | Procedures | Contact | Contact | + +--------+ + + + + | Authorized | | | Diagnoses | Suzi Powell, | [facility] | | | | | Mesenteric | DNP [address] | HOSPITAL | | | | | ischemia, | [address] | [address] | | | | | chronic | [place] | [address] | | | | | ([facility]) H/O | [place] | [place] | | | | | endarterecto | [address] | [address] | | | | | my | Phone: | Phone: | | | | | Procedures | [phone] | [phone] | | | | | CT Angiogram | Fax: | Fax: | | | | | Abdomen | [phone] | [phone] | | | | | Pelvis w | | | | | | | Contrast | | | + +--------+ + + + + Reason for Visit + + + | Reason | Comments | + + + | Follow-up | | + + + Encounter Details +--------+---------+ + + + | Date | Type | Department | Care Team | Description | +--------+---------+ + + + | 05/27/ | Office | [facility] | Suzi Powell, KEEGAN | Mesenteric ischemia, | | 2019 | Visit | VASCULAR SURGERY | [address] | chronic (HCC) | | | | [address] [place] | [place], [place] | (Primary Dx); H/O | | | | [place] | [address] | endarterectomy | | | | [address] | | | | | | [phone] | | | +--------+---------+ + + + [...] + + + | Blood Pressure | 141/87 | 05/27/2019 9:22 AM | | | | | PDT | | + + + + + | Pulse | 69 | 05/27/2019 9:22 AM | | | | | PDT | | + + + + + | Temperature | - | - | | + + + + + | Respiratory Rate | - | - | | + + + + + | Oxygen Saturation | 100% | 05/27/2019 9:22 AM | | | | | PDT | | + + + + + | Inhaled Oxygen | - | - | | | Concentration | | | | + + + + + | Weight | 73.5 kg (162 lb 1.6 | 05/27/2019 9:22 AM | | | | oz) | PDT | | + + + + + | Height | - | - | | + + + + + | Body Mass Index | 25.77 | 04/28/2019 10:43 AM | | | [...] encounter Progress Notes Suzi Powell DNP - 05/27/2019 10:30 AM [facility] [address] [place] [address] Office: [phone] DATE OF VISIT: 05/27/2019 PATIENT NAME: Zane Stewart : 1945; AGE: 73 y.o.; Sex:M PHONE NUMBER: ; PROVIDER: Suzi Powell DNP PRIMARY CARE / REFERRING PHYSICIAN: No ref. provider found / No Physician on file / p REASON FOR EVALUATION / CHIEF COMPLAINT: Vascular Surgery Postoperative Visit for SMA endarterectomy The patient presents today for a Vascular [...] a recent CT and MRI abdomen from [facility]. Vanessa ent denies any surgical intervention for this abdominal pain, however has had past abdominal surgeries. Due to chronic mesenteric ischemia, he is status post SMA endarterectomy with zaki vine pericardial patch on 04/28/2019. The patient reports his weight has been stable, appetit e is fair, eating more, slightly constipated. Pain is controlled with current analgesics. Me dications being used: acetaminophen. The patient denies fever, wound drainage, increasing r edness, pus, increasing pain, increasing swelling. reports he is not drinking enough wa ter and has been sedentary after surgery. Physical examination revealed surgical incision wh ich is healing well without signs of infection. He has been able to ambulate without difficu lty. He has chronic back pain. VITAL SIGNS: BP 141/87 | Pulse 69 | Wt 73.5 kg (162 lb 1.6 oz) | SpO2 100% | BMI 25.77 kg/m PHYSICAL EXAM: Constitutional: Well nourished, no signs [...] were present in bilateral dorsalis pedis and certified novell engineer ior tibial artery arteries. Palpable bilateral carotid, radial, brachial pulses. Surgical i ncision wounds are healing well without signs of infection. Assessment & Plan: Chronic mesenteric ischemia with status post SMA endarterectomy - The patient is doing well . All lázaro removed today. Wound care discussed with patient, monitor for signs of infecti on. Patient unable to tolerate abdominal ultrasound today. We will need to obtain a CTA for postop evaluation, order sent to [facility]. Continue aspirin daily. I've explained to th e patient that in the event he experiences mesenteric ischemia as evidenced by post-prandial abdominal pain, appetite change, or unintentional weight loss, the patient should contact marifer summers immediately to return to my clinic or go to nearby emergency room right away. Hypertension - The patient is advised to [...] vascular interventions. Suzi Powell DNP documented in this encounte r Plan of Treatment +--------+ + + + + | Date | Type | Specialty | Care Team | Description | +--------+ + + + + | 11/04/ | Appointment | Radiology | Suzi Powell DNP | | | 2019 | | | [address] | | | | | | [place] [facility] | | | | | | [address] | | | | | | | | +--------+ + + + + | 11/04/ | Office | Vascular Surgery | Suzi Powell DNP | | | 2019 | Visit | | [address] | | | | | | [place] | | | | | | [address] | | | | | | | | +--------+ + + + + + +---------+--------+ + + | Name | Type | Priori | Associated Diagnoses | Order Schedule | | | | ty | | | + +---------+--------+ + + | CT Angiogram Abdomen | Imaging | Routin | Mesenteric | Expected: 05/27/2019 | | Pelvis w Contrast | | e | ischemia, chronic | (Approximate), | | | | | (HCC) H/O | Expires: 05/27/2020 | | | | | endarterectomy | | + +---------+--------+ + + | Creatinine | Lab | Routin | Mesenteric | Expected: 05/27/2019 | | | | e | ischemia, chronic | (Approximate), | | | | | (HCC) H/O | Expires: 05/27/2020 | | | | | endarterectomy | | + +---------+--------+ + + documented as of this encounter Visit Diagnoses + + | Diagnosis | + + | Mesenteric ischemia, chronic (HCC) - Primary Chronic vascular insufficiency of | | intestine | + + | H/O endarterectomy Personal history of surgery to other organs | + + documented in this encounter"
--- OUTSIDE RECORDS SUMMARY | ~2019-08-17 | XMS | Encounter Summary ---
Demographics + + + | Address | [address] | | | [place] [address] | + + + | Home Phone | | + + + | Preferred Language | Unknown | + + + | Marital Status | | + + + | Uatsdin Affiliation | 1077 | + + + | Race | Unknown | + + + | Ethnic Group | Unknown | + + + Author + + + | Author | [facility] | | | and [place] | + + + | Organization | [facility] | | | and [place] [...] [place], [place] | | | | | [address] | | + + + + + Care Team Providers + +------+ + | Care Front Clerk Name | Role | Phone | + [...] E | | | | | | ([facility]) H/O | [place] | | | | | | endarterecto | [address] | | | | | | my | Phone: | | | | | | Procedures | [phone] | | | | | | VAS | Fax: | | | | | | Mesenteric | [phone] | | | | | | Arterial [...] + + | 08/06/ | Office | [facility] | Suzi Powell DNP | Mesenteric ischemia, | | 2019 | Visit | VASCULAR SURGERY | [address] | chronic (HCC) | | | | [address] [place] | [place] | (Primary Dx); H/O | | | | [place], [place] | [address] | endarterectomy; S/P | | | | [address] | | angioplasty | | | | [phone] | | | +--------+---------+ + + + [...] Suzi Powell DNP - 08/06/2019 10:30 AM [facility] Surgery [facility] [address] [place] [address] Office: [phone] DATE OF VISIT: 08/06/2019 PATIENT NAME: Zane [...] a recent CT and MRI abdomen from [facility]. Vanessa ent denies any surgical intervention for [...] were present in bilateral dorsalis pedis and traverse rod assembler ior tibial artery arteries. Palpable bilateral carotid, [...] [place] | | | | | | [id number] | | | | | | | | +--------+ + + + + | 11/04/ | Office | Vascular Surgery | Suzi Powell DNP | | 2019 | Visit | | [address] | | | | | | [place] | | | | | | [address] | | | | | | | [...]
--- OUTSIDE RECORDS SUMMARY | ~2019-08-17 | XMS | Encounter Summary ---
Demographics + + + | Address | [address] | | | [place] [address] | + + + | Home Phone | | + + + | Preferred Language | Unknown | + + + | Marital Status | | + + + | Scientologist Affiliation | 1077 | + + + | Race | Unknown | + + + | Ethnic Group | Unknown | + + + Author + + + | Author | [facility] | | | and [place] | + + + | Organization | [facility] | | | and [place] [...] [place] | | | | | [address] | | + + + + + Care Team Providers + +------+ + | Care Audio Visual Secretary Name | Role | Phone | + +------+ + | No, Physician | PCP | Unavailable | + +------+ + Reason for Visit +---------+ + | Reason | Comments | +---------+ + | Imaging | CT order | +---------+ + Encounter Details +--------+ + + + + | Date | Type | Department | Care Team | Description | +--------+ + + + + | 06/12/ | Telephone | [facility] | Suzi Powell DNP | Imaging (CT order) | | 2019 | | VASCULAR SURGERY | [address] | | | | | [address] [place] | [place], [place] | | | | | [place], [place] | [address] | | | | | [address] | | | | | | [phone] | | | +--------+ + + + [...] [place] | | | | | | [address] | | | | | | | [...]
--- OUTSIDE RECORDS SUMMARY | ~2019-08-17 | XMS | Encounter Summary ---
Demographics + + + | Address | [address] | | | [place] [address] | + + + | Home Phone | | + + + | Preferred Language | Unknown | + + + | Marital Status | | + + + | Muslim Affiliation | 1077 | + + + | Race | Unknown | + + + | Ethnic Group | Unknown | + + + Author + + + | Author | [facility] | | | and [place] | + + + | Organization | [facility] | | | and [place] | + + + | Address | Unknown | + + + | Phone | Unavailable | + + + Support + + + + + | Name | Relationship | Address | Phone | + + + + + | Amina Stewart | ECON | [address] | | | | | [place] [place] [place] | | | | | [address] | | + + + + + Care Team Providers + +------+ + | Care Quality Systems Technician Name | Role | Phone | [...] + + | 07/13/ | Telephone | [facility] | Bethany Ramirez, | Follow-up; Other | | 2019 | | VASCULAR SURGERY | RN | (speak with nurse) | | | | [address] | | | | | | [place] | | | | | | [address] | | | | | | [phone] | | | +--------+ + + + [...] [place] | | | | | | [address] | | | | | | | | +--------+ + + + + | 11/04/ | Office | Vascular Surgery | Suzi Powell DNP | | | 2019 | Visit | | [address] | | | | | | [place] | | | | | | [address] | | | | | | | | +--------+ + + + + documented as of this encounter Visit Diagnoses Not on filedocumented in this encounter"
--- OUTSIDE RECORDS SUMMARY | ~2019-08-17 | XMS | Encounter Summary ---
Demographics + + + | Address | [address] | | | [place] [address] | + + + | Home Phone | | + + + | Preferred Language | Unknown | + + + | Marital Status | | + + + | Christianity Affiliation | 1077 | + + + | Race | Unknown | + + + | Ethnic Group | Unknown | + + + Author + + + | Author | [facility] | | | and [place] | + + + | Organization | [facility] | | | and [place] [...] [place], [place] | | | | | [address] | | + + + + + Care Team Providers + +------+ + | Care Change Management Name | Role | Phone | + [...] + + | 03/27/ | Telephone | [facility] | Paul Arias MD | Advice Only | | 2019 | | VASCULAR SURGERY | [address] | | | | | [address] [place] | [place], [place] | | | | | [place], [place] | [address] | | | | | [address] | [phone] | | | | | [phone] | | | +--------+ + + + [...] [place] | | | | | | [address] | | | | | | | | +--------+ + + + + | 11/04/ | Office | Vascular Surgery | Suzi Powell DNP | | | 2019 | Visit | | [address] | | | | | | [place] | | | | | | [address] | | | | | | | | +--------+ + + + + documented as of this encounter Visit Diagnoses Not on filedocumented in this encounter"
--- OUTSIDE RECORDS SUMMARY | ~2019-08-17 | XMS | Encounter Summary ---
Demographics + + + | Address | [address] | | | [place] [address] | + + + | Home Phone [...] Organization | [facility] | | | and [place] | + + + | Address | Unknown | + + + | Phone | Unavailable | + + + Support + + + + + | Name | Relationship | Address | Phone | + + + + + | Amina Stewart | ECON | [address] | | | | | [facility] [place] | | | | | [address] | | + + + + + Care Team Providers + +------+ + | Care Top Flavor Attendant Name | Role | Phone | + [...] Closed | | Radiology | Diagnoses | Gabe | | | | | | Mesenteric | Vascular | | | | | | ischemia, | Surgery | | | | | | chronic | [address] | | | | | | ([facility]) | [address] | | | | | | Procedures | [place] | | | | | | IR Angiogram | [place], [place] | | | | | | Mesenteric | [address] | | | | | | Visceral | Phone: | | | | | | | [phone] | | | | | | | Fax: | | | | | | | [phone] | | +--------+--------+ + + + + Reason for Visit Auth/Cert +--------+--------+ + [...] | | | | | | | ([facility]) | | | | | | | Procedures | | | | | | | IR ANGIOGRAM | | | | | | | VISCERAL | | | | | | | SELECTIVE | | | +--------+--------+ + + + + Encounter Details +--------+ + + + + | Date | Type | Department | Care Team | Description | +--------+ + + + + | 07/08/ | Hospital | [facility] | Paul Arias MD | Mesenteric ischemia, | | 2019 | Encounter [facility] | [address] | chronic (HCC) | | | | CLINICAL DECISION | [place] [facility] [place] | | | | | [address] | [address] | | | | | [place] | [phone] | | | | | [address] | | | | | | [phone] | | | +--------+ + + + [...] + + + | Blood Pressure | 150/90 | 07/08/2019 1:25 PM | | | | | PST | | + + + + + | Pulse | 80 | 07/08/2019 1:25 PM | | | | | PST | | + + + + + | Temperature | 36.6 C (97.9 F) | 07/08/2019 11:27 AM | | | | | PST | | + + + + + | Respiratory Rate | 18 | 07/08/2019 11:27 AM | | | | | PST | | + + + + + | Oxygen Saturation | 97% | 07/08/2019 1:25 PM | | | | | PST | [...] + documented as of this encounter Discharge Instructions Instructions Sonia Hernandez RN - 07/08/2019Formatting of this note might be different fro m the original. Peripheral Angioplasty Peripheral angioplasty is a procedure that helps open blockages in peripheral arteries. The se vessels carry blood to your lower body, legs, and arms. Talk with your healthcare provider about the risks and complications of angioplasty. Balloon is inserted Balloon is inflated Blood flow is improved Before the procedure Recommendations of what to do include: Tell your healthcare provider about all medicines you take including gkwq-xwo-luiedon me dicines, herbal supplements, and any allergies you may have, especially to iodine. Follow any directions you re given for not eating or drinking before the procedure. Arrange for a family member or friend to drive you home. During the procedure You may get medicine through an IV (intravenous) line to relax you. An injection will nu mb the site your healthcare provider will use to perform the procedure. The site used is gen erally an artery in the groin although the wrist or arm may be used. The healthcare provider makes a tiny skin cut (incision) near an artery in your groin. Your healthcare provider puts a thin, flexible tube (catheter) through the incision. He or she then threads the catheter into the affected artery while using X-ray monitoring. Contrast dye is injected into the catheter. X-rays (angiography) are taken. A tiny balloon is pushed through the catheter to the blockage. Your healthcare provider inflates and deflates the balloon a few times. This compresses the plaque. A small metal or mesh tube (stent) may be put in the artery to help keep it open. The balloon and catheter ar e then taken out. After the procedure You ll be taken to a recovery area. Pressure is put on the insertion site for about 30 to 45 minutes. Your healthcare provider will tell you how long to lie down and keep the insert ion site still.You will go home that day or spend the night in the facility. You will be g anuj aftercare instructions for when you go home. Call your healthcare provider Call your healthcare provider right away or get immediate medical attentionif: You notice a lump or bleeding at the site where the catheter was inserted You feel increasing pain at the insertion site You become lightheaded or dizzy You have leg pain or numbness You have a leg that turns blue or feels cold You develop a fever greater than 101.5F (38.6C). You develop a skin rash You cannot urinate after the procedure You have chest pain or shortness of breath Date Last Reviewed: 12/04/201519996029-1806 [employer] [place], [place] [address]. All [facility] reserved. This information is not intended [...] + + + +---------+ + + | clopidogrel | Take 1 tablet by | 30 | 11 | 07/08/20 | | | (PLAVIX) 75 mg | mouth Daily. | tablet | | 19 | | | tablet | | | | | | + + + +---------+ + + | docusate sodium | Take 1 capsule by | 30 | 0 | 05/04/20 | | | (COLACE) 100 mg | [...] [place] | | | | | | [address] | | | | | | | | +--------+ + + + + | 11/04/ | Office | Vascular Surgery | Suzi Powell DNP | | | 2019 | Visit | | [address] | | | | | | [place] | | | | | | [address] | | | | | | | [...] the | | | | PST | ([facility]) | results section. | + +--------+ + + + documented in this encounter Results IR Angiogram Mesenteric Visceral (07/08/2019 10:03 [...] SURGEON: Paul Arias MD | | | CREOSOTING ENGINEER: None ANESTHESIA: Moderate sedation and local anesthesia [...] was properly identified and brought to the Workday Manager. The patient was | | | placed [...] | and up sized to a 4 Vatican Citizen sheath. A Omni flush catheter was then | | | inserted into the aorta and aortogram was then performed with the | | | findings as described above. Next, an Amplatzer wire was then inserted | | | over the catheter and the 4 [place] Citizen sheath was removed. A 6.5 [place] Citizen | | | durable sheath was then [...] | | |up sized to a 4 [place] Citizen sheath. A Omni flush catheter was then inserted | | |into the aorta and aortogram was then performed with the findings as | | |described above. Next, an Amplatzer wire was then inserted over the | | |catheter and the 4 [place] Citizen sheath was removed. A 6.5 [place] Citizen durable sheath | | |was then inserted [...] in this encounter Administered Medications + +--------+ +--------+------+------+ | Medication Order | MAR | Action | Dose | Rate | Site | | | Action | Date | | | | + +--------+ +--------+------+------+ | clopidogrel (PLAVIX) tablet | Given | 07/08/20 | 300 mg | | | | Oral, PRN, Starting Sat07/08/19 | | 19 9:45 | | | | | at 0945 | | AM PST | | | | + +--------+ +--------+------+------+ + +---+ | | | + +---+ | fentaNYL (PF) injection 25-100 | | | mcg 25-100 mcg, Intravenous, | | | EVERY 2 HOURS PRN, Pain, Starting | | | Sat07/08/19 at 1028 | | + +---+ | | | + +---+ + +-------+ +--------+---+---+ | fentaNYL (PF) injection | Given | 07/08/20 | 50 mcg | | | | Intravenous, PRN, Starting Wed | | 19 8:46 | | | | | 07/08/19 at 0846 | | AM PST | | | | + +-------+ +--------+---+---+ +---+---+ | | | +---+---+ + +-------+ +--------+---+---+ | heparin 1,000 units/mL | Given | 07/08/20 | 7,000 | | | | injection Intravenous, PRN, | | 19 9:13 | Units | | | | Starting 07/08/19 at 0913 | | AM PST | | | | + +-------+ +--------+---+---+ +---+---+ | | | +---+---+ + +-------+ + +---+---+ | HYDROcodone-acetaminophen | Given | 07/08/20 | 1 tablet | | | | (NORCO) 5-325 mg per tablet 1-2 | | 19 10:51 | | | | | tablet 1-2 tablet, Oral, EVERY 4 | | AM PST | | | | | HOURS PRN, Pain, Starting Wed | | | | | | | 07/08/19 at 1028 | | | | | | + +-------+ + +---+---+ +---+---+ | | | +---+---+ + +-------+ +--------+---+---+ | iohexol (OMNIPAQUE 240) 240 | Given | 07/08/20 | 89 mLs | | | | mg/mL injection Intravenous, | | 19 9:47 | | | | | PRN, Starting 07/08/19 at 0945 | | AM PST | | | | + +-------+ +--------+---+---+ +-------+ +--------+---+---+ | Given | 07/08/20 | 30 mLs | | | | | 19 9:47 | | | | | | AM PST | | | | +-------+ +--------+---+---+ | Given | 07/08/20 | 59 mLs | | | | | 19 9:45 | | | | | | AM PST | | | | +-------+ +--------+---+---+ +---+---+ | | | +---+---+ + +-------+ +--------+---+---+ | lidocaine 1% injection PRN, | Given | 07/08/20 | 10 mLs | | | | Starting 07/08/19 at 0846 | | 19 8:46 | | | | | | | AM PST | | | | + +-------+ +--------+---+---+ + +---+ | | | + +---+ | metoclopramide (REGLAN) 5 mg/mL | | | injection 10 mg 10 mg, | | | Intravenous, EVERY 4 HOURS PRN, | | | Nausea, Vomiting, Starting Wed | | | 07/08/19 at 1021, Use if | | | ondansetron and prochlorperazine | | | ineffective after 30min or not | | | ordered. Use PO option unless NPO | | | status or unable to tolerate. | | | Protect from light., | | | Post-op/Phase II | | + +---+ | | | + +---+ | metoclopramide (REGLAN) tablet | | | 10 mg 10 mg, Oral, EVERY 4 HOURS | | | PRN, Nausea, Vomiting, Starting | | | 07/08/19 at 1021, Use if | | | ondansetron and prochlorperazine | | | ineffective after 30min or not | | | ordered, Post-op/Phase II | | + +---+ | | | + +---+ + +-------+ +------+---+---+ | midazolam (VERSED) 1 mg/mL | Given | 07/08/20 | 1 mg | | | | injection Intravenous, PRN, | | 19 8:46 | | | | | Starting 07/08/19 at 0846 | | AM PST | | | | + +-------+ +------+---+---+ +---+---+ | | | +---+---+ + +-------+ +---------+---+---+ | nitroglycerin injection | Given | 07/08/20 | 300 mcg | | | | Intravenous, PRN, Starting Sat | | 19 9:25 | | | | | 07/08/19 at 0925 | | AM PST | | | | + +-------+ +---------+---+---+ +---+---+ | | | +---+---+ + +-------+ +------+---+---+ | ondansetron (ZOFRAN ODT) | Given | 07/08/20 | 4 mg | | | | disintegrating tablet 4 mg 4 mg, | | 19 12:11 | | | | | Oral, EVERY 6 HOURS PRN, Nausea, | | PM PST | | | | | Vomiting, Starting Sat07/08/19 | | | | | | | at 1021, First line agent, | | | | | | | Post-op/Phase II | | | | | | + +-------+ +------+---+---+ + +---+ | | | + +---+ | ondansetron (ZOFRAN) injection | | | 4 mg 4 mg, Intravenous, EVERY 6 | | | HOURS PRN, Nausea, Vomiting, | | | Starting 07/08/19 at 1021, | | | First line agent. Use PO option | | | unless NPO status or unable to | | | tolerate., Post-op/Phase II | | + +---+ | | | + +---+ documented in this encounter
--- OUTSIDE RECORDS SUMMARY | ~2019-08-17 | XMS | Encounter Summary ---
Demographics + + + | Address | [address] | | | [place] [address] | + + + | Home Phone | | + + + | Preferred Language | Unknown | + + + | Marital Status | | + + + | Synagogue Affiliation | 1077 | + + + | Race | Unknown | + + + | Ethnic Group | Unknown | + + + Author + + + | Author | [facility] | | | and [place] | + + + | Organization | [facility] | | | and [...] [place], [place] | | | | | [address] | | + + + + + Care Team Providers + +------+ + | Care Tile Edger Name | Role | Phone | + [...] | +--------+ + + + + | 05/06/ | Telephone | [facility] | Suzi Powell DNP | Follow-up | | 2019 | | VASCULAR SURGERY | [address] | | | | | [address] [place] | [place], [place] | | | | | [place], [place] | [address] | | | | | [address] | | | | | | [phone] | | | +--------+ + + + [...] Powell DNP | | | 2020 | | | [address] | | | | | | [place] | | | | | | [address] | | | | | | | | +--------+ + + + + | 11/04/ | Office | Vascular Surgery | Suzi Powell DNP | | | 2019 | Visit | | [address] | | | | | | [place] | | | | | | [address] | | | | | | | | +--------+ + + + + documented as of this encounter Visit Diagnoses + + | Diagnosis | + + | Mesenteric ischemia, chronic (HCC) - Primary Chronic vascular insufficiency of | | intestine | + + documented in this encounter"
--- OUTSIDE RECORDS SUMMARY | ~2019-08-17 | XMS | Encounter Summary ---
Demographics + + + | Address | [address] | | | [place] [address] | + + + | Home Phone | | + + + | Preferred Language | Unknown | + + + | Marital Status | | + + + | Jewish Affiliation | 1077 | + + + | Race | Unknown | + + + | Ethnic Group | Unknown | + + + Author + + + | Author | [facility] | | | and [place] | + + + | Organization | [facility] | [...] [place] | | | | | [address] | | + + + + + Care Team Providers + +------+ + | Care Physical Science Teacher Name | Role | Phone | + +------+ + | No, Physician | PCP | Unavailable | + +------+ + Reason for Visit + + + | Reason | Comments | + + + | Appointment Question | | + + + Encounter Details +--------+ + + + + | Date | Type | Department | Care Team | Description | +--------+ + + + + | 08/17/ | Telephone | [facility] | Bethany Ramirez Bartlett, | Appointment Question | | 2020 | | VASCULAR SURGERY | RN | | | | | [address] | | | | | | [place] | | | | | | [address] | | | | | | [phone] | | | +--------+ + + + [...] [place] | | | | | | [address] | | | | | | | | +--------+ + + + + | 11/04/ | Office | Vascular Surgery | Suzi Powell DNP | | | 2019 | Visit | | [address] | | | | | | [place] | | | | | | [id number] | | | | | | | | +--------+ + + + + documented as of this encounter Visit Diagnoses Not on filedocumented in this encounter"
--- OUTSIDE RECORDS SUMMARY | ~2019-08-17 | XMS | Clinical Summary ---
Demographics + + + | Address | [address] | | | [place] [address] | + + + | Home Phone | | + + + | Preferred Language | Unknown | + + + | Marital Status | Unknown | + + + | Bahai Affiliation | Unknown | + + + | Race | Unknown | + + + | Ethnic Group | Unknown | + + + Author + + + | Author | [employer] (Historical as of | | | 03-21-19) | + + + | Organization | [facility] [facility] (Historical as of | | | 03-21-19) | + + + | Address | Unknown | + + + | Phone | Unavailable | + + + Care Team Providers + +------+ + | Care Grain Elevator Operator Name | Role | Phone | [...] + + | [place] | [place] | [phone] | | [phone] [employer] [address] | | ADMINISTRATION | [place] | | | [phone] | | | [address] | | | | [address] [place] | | | [place] | | | | [address] | | | [place] | | | [...] | 1946 | [phone] | [place] [address] | | | Admini | | | [...]
--- OUTSIDE RECORDS SUMMARY | ~2019-08-17 | XMS | Clinical Summary ---
Demographics + + + | Address | [address] | | | [place] [address] | + + + | Home Phone | | + + + | Preferred Language | Unknown | + + + | Marital Status | | + + + | Lutheran Affiliation | 1077 | + + + | Race | Unknown | + + + | Ethnic Group | Unknown | + + + Author + + + | Author | [facility] | | | and [place] | + + + | Organization | [facility] | | | and [place] | + + + | Address | Unknown | + + + | Phone | Unavailable | + + + Support + + + + + | Name | Relationship | Address | Phone | + + + + + | Amina Stewart | ECON | [address] | | | | | [facility] [place] | | | | | [address] | | + + + + + Care Team Providers + +------+ + | Care Sed Special Education Teacher Name | Role | Phone | [...] automatically from request for surgery | | [phone] | + + Resolved Problems + + [...] | Follow-up | 2018 | | | Paster Operator | | +--------+ + + + + [...] [place] | | | | | | [address] | | | | | | | | +--------+ + + + + | 11/04/ | Office | Vascular Surgery | Suzi Powell DNP | | | 2019 | Visit | | [address] | | | | | | [place] | | | | | | [address] | | | | | | | [...] | + +-------+------+ +--------+--------+--------+ | Xgrft Vascu-Guard [facility] 0.8x8 | Graft | | VIDAL | | 10/02/ | [id number] | | - SnaImplanted: Qty: 1 on | | | BIOSCIENCE | | 2023 | 8N /NA | | 04/28/2019 by Paul Arias MD | | | - JOSE ALEJANDRO | | | | | at [facility] | | | | | | /[id number] | | [facility] | | | | | | [...] the | | | | PST | ([facility]) | results section. | + +--------+ + [...] SURGEON: Paul Arias MD | | | ANIMATION ARTIST: None ANESTHESIA: Moderate sedation and local anesthesia [...] was properly identified and brought to the Securities Research Analyst. The patient was | | | placed [...] | and up sized to a 4 Burmese sheath. A Omni flush catheter was then | | | inserted into the aorta and aortogram was then performed with the | | | findings as described above. Next, an Amplatzer wire was then inserted | | | over the catheter and the 4 Burmese sheath was removed. A 6.5 Burmese | | | durable sheath was then [...] | | |up sized to a 4 Burmese sheath. A Omni flush catheter was then inserted | | |into the aorta and aortogram was then performed with the findings as | | |described above. Next, an Amplatzer wire was then inserted over the | | |catheter and the 4 Burmese sheath was removed. A 6.5 Burmese durable sheath | | |was then inserted [...] +--------+-------+---------+--------+ | [employer] | [place] | [phone] | 08/05/19 | | | Indemn | [...] | | al/Johan | | 1946 | [phone] | [place] [address] | | | almas | | | 4 (Home) | | + +--------+ +--------+ + + Advance Directives + + + + + | Type | Date Recorded | Patient | Explanation | | | | Administrative Liaison | | + + + + + | Power of | | | | | Contracting Executive | | | | + + + [...]
--- OUTSIDE RECORDS SUMMARY | ~2019-08-17 | XMS | Encounter Summary ---
Demographics + + + | Address | [address] | | | [place] [address] | + + + | Home Phone | | + + + | Preferred Language | Unknown | + + + | Marital Status | | + + + | Scientology Affiliation | 1077 | + + + | Race | Unknown | + + + | Ethnic Group | Unknown | + + + Author + + + | Author | [facility] | | | and [place] | + + + | Organization | [facility] | | | and [place] [...] [place] | | | | | [address] | | + + + + + Care Team Providers + +------+ + | Care Pantographer Name | Role | Phone | + +------+ + | No, Physician | PCP | Unavailable | + +------+ + Reason for Visit + + + | Reason | Comments | + + + | Diagnostic Order | | + + + Encounter Details +--------+ + + + + | Date | Type | Department | Care Team | Description | +--------+ + + + + | 06/16/ | Telephone | [facility] | Jaz Castellanosallen Cueva, | Diagnostic Order | | 2018 | | VASCULAR SURGERY | RN | | | | | [address] | | | | | | [place] | | | | | | [address] | | | | | | [phone] | | | +--------+ + + + [...] [place] | | | | | | [address] | | | | | | | | +--------+ + + + + | 11/04/ | Office | Vascular Surgery | Suzi Powell DNP | | | 2020 | Visit | | [address] | | | | | | [place] | | | | | | [phone] | | | | | | | | +--------+ + + + + documented as of this encounter Visit Diagnoses Not on filedocumented in this encounter"
--- OUTSIDE RECORDS SUMMARY | ~2019-08-17 | XMS | Encounter Summary ---
Demographics + + + | Address | [address] | | | [place] [address] | + + + | Home Phone | | + + + | Preferred Language | Unknown | + + + | Marital Status | | + + + | Church Affiliation | 1077 | + + + | Race | Unknown | + + + | Ethnic Group | Unknown | + + + Author + + + | Author | [facility] | | | and [place] | + + + | Organization | [facility] | | | and [place] | [...] [place], [place] | | | | | [address] | | + + + + + Care Team Providers + +------+ + | Care Senior Trainer Name | Role | Phone | + [...] + + | 07/09/ | Telephone | [facility] | Gisela Walsh, | Follow-up | | 2019 | | VASCULAR SURGERY | Fabric Coating Supervisor | | | | | [address] | | | | | | E [place], [place] | | | | | | [address] | | | | | | [phone] | | | +--------+ + + + [...] [place] | | | | | | [address] | | | | | | | | +--------+ + + + + | 11/04/ | Office | Vascular Surgery | Suzi Powell DNP | | | 2020 | Visit | | [address] | | | | | | [place] | | | | | | [address] | | | | | | | | +--------+ + + + + documented as of this encounter Visit Diagnoses Not on filedocumented in this encounter"
--- OUTSIDE RECORDS SUMMARY | ~2019-08-17 | XMS | Encounter Summary ---
Demographics + + + | Address | [address] | | | [place] [address] | + + + | Home Phone | | + + + | Preferred Language | Unknown | + + + | Marital Status | | + + + | Restoration Affiliation | 1077 | + + + | Race | Unknown | + + + | Ethnic Group | Unknown | + + + Author + + + | Author | [facility] | | | and [place] | + + + | Organization | [facility] | | | and [place] | + + + | Address | Unknown | + + + | Phone | Unavailable | + + + Support + + + + + | Name | Relationship | Address | Phone | + + + + + | Amina Stewart | ECON | [address] | | | | | [place], [place] | | | | | [address] | | + + + + + Care Team Providers + +------+ + | Care Wind Development Director Name | Role | Phone | [...] [address] | | | | | | ([facility]) | [address] | | | | | | Procedures | [place] | | | | | | IR Angiogram | [place], [place] | | | | | | Mesenteric | [address] | | | | | | Visceral | Phone: | | | | | | | [phone] | | | | | | | Fax: | | | | | | | [phone] | | +--------+--------+ + + + + [...] | | | | | | | ([facility]) | | | | | | | [...] + + | 07/08/ | Hospital | [facility] | Paul Arias MD | Mesenteric ischemia, | | 2019 | Encounter [facility] | [address] | chronic (HCC) | | | | CLINICAL DECISION | [place] [facility] | | | | | [address] | [address] | | | | | [place] | [phone] | | | | | [address] | | | | | | [phone] | | | +--------+ + + + [...] provider about all medicines you take including zaxl-xoo-eccical me dicines, herbal supplements, and any allergies [...] or shortness of breath Date Last Reviewed: 12/04/201519994830-[address] [employer] [place], [place] [address]. All mclaren thumb regionh ts reserved. This information is not intended [...] [place] | | | | | | [address] | | | | | | | | +--------+ + + + + | 11/04/ | Office | Vascular Surgery | Suzi Powell DNP | | | 2019 | Visit | | [address] | | | | | | [place] | | | | | | [address] | | | | | | | [...] the | | | | PST | ([facility]) | results section. | + +--------+ + [...] SURGEON: Paul Arias MD | | | ACCOUNTS PAYABLE CLERK: None ANESTHESIA: Moderate sedation and local anesthesia [...] was properly identified and brought to the Staffing Operations Manager. The patient was | | | [...] | and up sized to a 4 Finnish sheath. A Omni flush catheter was then | | | inserted into the aorta and aortogram was then performed with the | | | findings as described above. Next, an Amplatzer wire was then inserted | | | over the catheter and the 4 Finnish sheath was removed. A 6.5 Finnish | | | durable sheath was then [...] | | |up sized to a 4 Finnish sheath. A Omni flush catheter was then inserted | | |into the aorta and aortogram was then performed with the findings as | | |described above. Next, an Amplatzer wire was then inserted over the | | |catheter and the 4 Finnish sheath was removed. A 6.5 Finnish durable sheath | | |was then inserted [...]
--- OUTSIDE RECORDS SUMMARY | ~2019-08-17 | XMS | Encounter Summary ---
Demographics + + + | Address | [address] | | | [place] [address] | + + + | Home Phone | | + + + | Preferred Language | Unknown | + + + | Marital Status | | + + + | Yarsani Affiliation | 1077 | + + + | Race | Unknown | + + + | Ethnic Group | Unknown | + + + Author + + + | Author | [facility] | | | and [place] | + + + | Organization | [facility] | | | and [place] | + + + | Address | Unknown | + + + | Phone | Unavailable | + + + Support + + + + + | Name | Relationship | Address | Phone | + + + + + | Amina Stewart | ECON | [address] | | | | | [address] [place] [address], [place] | | | | | [address] | | + + + + + Care Team Providers + +------+ + | Care Management Associate Name | Role | Phone | + [...] | | | | | ([facility]) | | | | | | | [...] + + | 04/28/ | Surgery | [facility] | Paul Arias MD | REVASCULARIZATION | | 2019 | | [facility] | [address] | MESENTERIC | | | | OPERATING ROOM [address] | [place], [place] | | | | | [place] [address] | [address] | | | | | [place], [place] | [phone] | | | | | [address] | | | | | | [phone] | | | +--------+---------+ + + + [...] Physician Discharge Summary Patient ID: Zane Stewart [id number] y.o. 1945 Admit date: 04/28/2019 Discharge [...] ABD: Appropriate tenderness. Hypoactive bowel tones SKIN: [place], warm, dry without rash/lesion MS: ROM not [...] weight loss Weakness Date Last Reviewed: 01/03/2018 [employer]. [address] [place] [address]. All righ ts reserved. This information is [...] chest or arms Date Last Reviewed: 12/04/2015 [employer]. [address] [place] [address]. All righ ts reserved. This information is [...] dc home with @ 11 (lives in [place]). Abdominal hydrocolloid dressing C/D/I, with no new [...] no BM. Just took 1 tab of [place]. Seems to be controlling the pain. He wants to wait till tomorrow. Discussed his care with his by phone. Questions answered about diet, climbing 13 stairs to get into one level home. will arrive by 11am with friend to help him home and into house. Wants a walker for home as well. Ok to shower. David Oreilly MD - 05/03/2019 8:46 AM PDT [facility] Service: Vascular Surgery Progress Note Hospital [...] bowel tones DRSNG: dry, spotty strikethru. SKIN: [place], warm, well hydrated LE: w/out calf tenderness. [...] Status: Full Code David Luo MD 05/03/2019 [id number] signed by Md javier Luo MD at 05/03/2019 12:46 PM [...] this note might be different from the [facility] Service: Vascular Surgery Progress Note Hospital Day: [...] bowel tones DRSNG: dry, spotty strikethru. SKIN: [place], warm, well hydrated LE: w/out calf tenderness. [...] Status: Full Code David Luo MD 05/02/2019 [id number] signed by Md javier Luo MD at 05/02/2019 9:52 AM Estefany Mcdonald RN - 05/01/2019 5:57 PM PDTPt transferred to 9114, report received from YULI Lott. Medicated for pain, see MAR . Pt up walking this shift with FWW. Bowel tones hypoactive, but gurgling. Chart check complete. Estefany Rizvi RN Toney Madrigal PA- C - 05/01/2019 3:56 PM PDT [facility] Service: Vascular Surgery Progress Note Hospital [...] ABD: Appropriate tenderness. Hypoactive bowel tones SKIN: [place], warm, dry without rash/lesion MS: ROM not limited, no digital cyanosis, normal gait NEURO: Conversant, A&O times 3 PSYCH: appropriate affect, speech and tone, judgement and insight intact Vascular: Palpable brachial pulses bilaterally. Abdominal binder in place. [place] intact. DATA Recent Results (from the past [...] Paul Connolly MD - 6:56 AM PDT [facility] Service: Vascular Surgery Progress Note Hospital [...] ABD: Appropriate tenderness. Hypoactive bowel tones SKIN: [place], warm, dry without rash/lesion MS: ROM not [...] Connolly MD - 04/29/2019 9:10 AM PDT [facility] Service: Vascular Surgery Progress Note Hospital [...] CV: No peripheral edema, rate regular SKIN: [place], warm, dry without rash/lesion ABD: Soft, appropriate tenderness, hypoactive bowel tones MS: ROM not limited, no digital cyanosis NEURO: Conversant, A&O times 3 PSYCH: appropriate affect, speech and tone, judgement and insight intact DATA Recent Results (from the past 24 hour(s)) Type and Screen Collection Time: 04/28/19 11:03 Result Value Ref Range ABO Rh O POSITIVE Antibody Screen NEGATIVE BB BAND [id number] BB BAND Testing performed at [facility] [place];[address] [place] [address];[place] [address] Basic Metabolic Panel Collection Time: 04/29/19 4:40 [...] [place] | | | | | | [id number] | | | | | | | | +--------+ + + + + | 11/04/ | Office | Vascular Surgery | Suzi Powell DNP | | | 2019 | Visit | | [address] | | | | | | [place] | | | | | | [address] | | | | | | | [...] the | | | | PDT | ([facility]) | results section. | + +--------+ + + + | REVASCULARIZATION | | 04/28/2019 | Mesenteric | | | MESENTERIC | | 11:12 AM | ischemia, chronic | | | | | PDT | ([facility]) | | + +--------+ + + + [...] | | | Absolute | performed at [facility], [address] | [address] | LABORATORY | | | | [place], | | | | | | [place] [address] | | | | + + + + + + + + | Specimen | + + | Blood | + + + + + + + | Performing | Address | City/State/Zipcode | Phone Number | | Organization | | | | + + + + + | [facility] | [address] | [place] [address] | [phone] | + + + + + Basic [...] | | | | | | MDRD IDWV traceable | | | | | | equation.Testing | | | | | | performed at [facility], [address] | | | | | | [facility], | | | | | | [place] [address] | | | | + + + + + + + + | Specimen | + + | Blood | + + + + + + + | Performing | Address | City/State/Zipcode | Phone Number | | Organization | | | | + + + + + | [facility] | [address] | [place] [address] | [phone] | + + + + + CBC [...] | | | Absolute | performed at [facility], [address] | K/uL | LABORATORY | | | | [facility], | | | | | | [place] [address] | | | | + + + + + + + + | Specimen | + + | Blood | + + + + + + + | Performing | Address | City/State/Zipcode | Phone Number | | Organization | | | | + + + + + | [facility] | [address] | [place] [address] | [phone] | + + + + + Basic [...] | >60Comment: GFR <60: | >60 | [facility] | | | GFR | CHRONIC [...] | | | | | performed at [facility], [address] | | | | | | [facility], | | | | | | [place] [address] | | | | + + + + + + + + | Specimen | + + | Blood | + + + + + + + | Performing | Address | City/State/Zipcode | Phone Number | | Organization | | | | + + + + + | [facility] | [address] | [place] [address] | [phone] | + + + + + CBC [...] | | | Absolute | performed at [facility], [address] | K/uL | LABORATORY | | | | [place], | | | | | | [place] [address] | | | | + + + + + + + + | Specimen | + + | Blood | + + + + + + + | Performing | Address | City/State/Zipcode | Phone Number | | Organization | | | | + + + + + | [facility] | [address] | [place] [address] | [phone] | + + + + + Basic [...] | | | | | | MDRD IDWV traceable | | | | | | equation.Testing | | | | | | performed at [facility], [address] | | | | | | [facility], | | | | | | [place] [address] | | | | + + + + + + + + | Specimen | + + | Blood | + + + + + + + | Performing | Address | City/State/Zipcode | Phone Number | | Organization | | | | + + + + + | [facility] | [address] | [place] [address] | [phone] | + + + + + CBC [...] | | | Absolute | performed at [facility], [address] | K/uL | LABORATORY | | | | [place], | | | | | | [place] [address] | | | | + + + + + + + + | Specimen | + + | Blood | + + + + + + + | Performing | Address | City/State/Zipcode | Phone Number | | Organization | | | | + + + + + | [facility] | [address] | [place] [address] | [phone] | + + + + + Basic [...] | | | | | [place] [address] | | | | + + + + + + + + | Specimen | + + | Blood | + + + + + + + | Performing | Address | City/State/Zipcode | Phone Number | | Organization | | | | + + + + + | [facility] | [address] | [place] [address] | [phone] | + + + + + Lactic Acid (04/29/2019 9:09 AM PDT) + + + + + + | Component | Value | Ref Range | Performed | Pathologist | | | | | At | Signature | + + + + + + | Lactate, | 1.6Comment: Testing | 0.4 - 2.0 | [facility] | | | Serum | performed at [facility] [place];[address] | mmol/L | LABORATORY | | | | [address];[place], [place] | | | | | | [address] | | | | + + + + + + + + | Specimen | + + | Blood | + + + + + + + | Performing | Address | City/State/Zipcode | Phone Number | | Organization | | | | + + + + + | [facility] | [address] | [place] [address] | [phone] | + + + + + ECG [...] | | | | | performed at [facility] [place];[facility] | | | | | | [facility];[place], [place] | | | | | | [address] | | | | + + + + + + + + | Specimen | + + | Blood | + + + + + + + | Performing | Address | City/State/Zipcode | Phone Number | | Organization | | | | + + + + + | [facility] | [address] | [place] [address] | [phone] | + + + + + Basic [...] | >60Comment: GFR <60: | >60 | [facility] | | | GFR | CHRONIC [...] | | | | | | MDRD [facility] traceable | | | | | | equation.Testing | | | | | | performed at [facility] [place];[facility] | | | | | | [facility];[place], [place] | | | | | | [address] | | | | + + + + + + + + | Specimen | + + | Blood | + + + + + + + | Performing | Address | City/State/Zipcode | Phone Number | | Organization | | | | + + + + + | [facility] | [address] | [place] [address] | [phone] | + + + + + Surgical [...] | | fibrous tissue and smooth muscle. JVR:[facility]:C2NR MICROSCOPIC | | | EXAMINATION:Histologic sections of [...] | | | no discrete lesions identified. Copyman sections are | | | submitted in [...] | | technical component was performed by [facility], [address] [place] [address] | | | [place] [address] (Vocational Technical Education Director: Dede Bundy MD; CLIA# | | | [id number]). Professional interpretation was performed [facility] | | | [facility], [facility] [address] [place] | | [place] [address] (Vocational Technical Education Director: Destin Angel | | | Rebecca Hardy; CLIA#: [id number]). Diagnostician: Roger Richards | | | MDPathologistElectronically Signed 04/29/2019 | | |The technical component was performed by [facility], [address] [place] [address] (Vocational Technical Education Director: Dede Bundy MD; CLIA# [id number]). Professional interpretation w as performed by | | |[facility], [facility], [facility] [place] [address] (Vocational Technical Education Director: Destin Hardy M.D.; CLIA#: [id number]). | | | | | |Diagnostician: Roger [...] + + + | BB BAND | [id number] | | [facility] | | | | | | LABORATORY | | + + + + + + | BB BAND | Testing performed at | | [facility] | | | | [facility] [place];[address] | LABORATORY | | | | [address];[place] [address] | | | | + + + + + + + + | Specimen | + + | Blood | + + + + + + + | Performing | Address | City/State/Zipcode | Phone Number | | Organization | | | | + + + + + | [facility] | [address] | [place] [address] | [phone] | + + + + + documented [...]
--- OUTSIDE RECORDS SUMMARY | ~2019-08-17 | XMS | Encounter Summary ---
Demographics + + + | Address | [address] | | | [place] [address] | + + + | Home Phone | | + + + | Preferred Language | Unknown | + + + | Marital Status | | + + + | Tenriism Affiliation | 1077 | + + + | Race | Unknown | + + + | Ethnic Group | Unknown | + + + Author + + + | Author | [facility] | | | and [place] | + + + | Organization | [facility] | | | and [...] [place] | | | | | [address] | | + + + + + Care Team Providers + +------+ + | Care Pl Sql Developer Name | Role | Phone | + [...] + + | 06/12/ | Telephone | [facility] | Suzi Powell DNP | Imaging (CT order) | | 2019 | | VASCULAR SURGERY | [address] | | | | | [address] [place] | [place], [place] | | | | | [place], [place] | [address] | | | | | [address] | | | | | | [phone] | | | +--------+ + + + [...] [place] | | | | | | [address] | | | | | | | [...]
--- OUTSIDE RECORDS SUMMARY | ~2019-08-17 | XMS | Encounter Summary ---
Demographics + + + | Address | [address] | | | [place] [address] | + + + | Home Phone | | + + + | Preferred Language | Unknown | + + + | Marital Status | | + + + | Anabaptism Affiliation | 1077 | + + + | Race | Unknown | + + + | Ethnic Group | Unknown | + + + Author + + + | Author | [facility] | | | and [place] | + + + | Organization | [facility] | | | and [place] | + + + | Address | Unknown | + + + | Phone | Unavailable | + + + Support + + + + + | Name | Relationship | Address | Phone | + + + + + | Amina Stewart | ECON | [address] | | | | | [facility] [place] | | | | | [address] | | + + + + + Care Team Providers + +------+ + | Care Wine Pasteurizer Name | Role | Phone | + [...] | | ischemia, | [address] | [address] | | | | | chronic | [place] | [address] | | | | | ([facility]) H/O | [place] | [place] | | | | | endarterecto | [address] | [address] | | | | | my | Phone: | Phone: | | | | | Procedures | [phone] | [phone] | | | | | CT Angiogram | Fax: | Fax: | | | | | Abdomen | [phone] | [phone] | | | | | Pelvis w [...] + + | 05/27/ | Office | [facility] | Suzi Powell, KEEGAN | Mesenteric ischemia, | | 2019 | Visit | VASCULAR SURGERY | [address] | chronic (HCC) | | | | [address] [place] | [place], [place] | (Primary Dx); H/O | | | | [place], [place] | [address] | endarterectomy | | | | [address] | | | | | | [phone] | | | +--------+---------+ + + + [...] Suzi Powell DNP - 05/27/2019 10:30 AM [facility] [address] [facility] [place] [address] Office: [phone] DATE OF VISIT: 05/27/2019 PATIENT NAME: Zane [...] a recent CT and MRI abdomen from [facility]. Vanessa ent denies any surgical [...] were present in bilateral dorsalis pedis and writer producer ior tibial artery arteries. Palpable bilateral carotid, [...] | | | | | [place] [facility] | | | | | | [address] | | | | | | | | +--------+ + + + + | 11/04/ | Office | Vascular Surgery | Suzi Powell DNP | | | 2019 | Visit | | [address] | | | | | | [place] | | | | | | [address] | | | | | | | [...]
--- OUTSIDE RECORDS SUMMARY | ~2019-08-17 | XMS | Clinical Summary ---
Demographics + + + | Address | [address] | | | [place] [address] | + + + | Home Phone | | + + + | Preferred Language | Unknown | + + + | Marital Status | | + + + | Restoration Affiliation | 1077 | + + + | Race | Unknown | + + + | Ethnic Group | Unknown | + + + Author + + + | Author | [facility] | | | and [place] | + + + | Organization | [facility] | | | and [place] | + + + | Address | Unknown | + + + | Phone | Unavailable | + + + Support + + + + + | Name | Relationship | Address | Phone | + + + + + | Amina Stewart | ECON | [address] | | | | | [address] [place] | | | | | [address] | | + + + + + Care Team Providers + +------+ + | Care Saw Sharpener Name | Role | Phone | + [...] automatically from request for surgery | | [id number] | + + Resolved Problems + + [...] | Follow-up | 2018 | | | Marine Driller | | +--------+ + + + + [...] [place] | | | | | | [address] | | | | | | | | +--------+ + + + + | 11/04/ | Office | Vascular Surgery | Suzi Powell DNP | | | 2019 | Visit | | [address] | | | | | | [place] | | | | | | [address] | | | | | | | [...] | + +-------+------+ +--------+--------+--------+ | Xgrft Vascu-Guard [facility] 0.8x8 | Graft | | VIDAL | | 10/02/ | [id number] | | - SnaImplanted: Qty: 1 on | | | BIOSCIENCE | | 2023 | 8N /NA | | 04/28/2019 by Paul Arias MD | | | - JOSE ALEJANDRO | | | | | at [facility] | | | | | | /[id number] | | [facility] | | | | | | [...] the | | | | PST | ([facility]) | results section. | + [...] SURGEON: Paul Arias MD | | | TASSEL MAKER: None ANESTHESIA: Moderate sedation and local anesthesia [...] was properly identified and brought to the Theoretical Physics Teacher. The patient was | | | placed [...] | and up sized to a 4 Irish sheath. A Omni flush catheter was then | | | inserted into the aorta and aortogram was then performed with the | | | findings as described above. Next, an Amplatzer wire was then inserted | | | over the catheter and the 4 Irish sheath was removed. A 6.5 Irish | | | durable sheath was then [...] | | |up sized to a 4 Irish sheath. A Omni flush catheter was then inserted | | |into the aorta and aortogram was then performed with the findings as | | |described above. Next, an Amplatzer wire was then inserted over the | | |catheter and the 4 Irish sheath was removed. A 6.5 Irish durable sheath | | |was then inserted [...] +--------+-------+---------+--------+ | [employer] | [place] | [phone] | 08/05/19 | | | Indemn | [...] | | al/Johan | | 1946 | [phone] | [place] [address] | | | almas | | | 4 (Home) | | + +--------+ +--------+ + + Advance Directives + + + + + | Type | Date Recorded | Patient | Explanation | | | | Mine Wedge Sawyer | | + + + + + | Power of | | | | | Shield Cleaner | | | | + + + [...]
--- OUTSIDE RECORDS SUMMARY | ~2019-08-17 | XMS | Encounter Summary ---
Demographics + + + | Address | [address] | | | [place] [address] | + + + | Home Phone | | + + + | Preferred Language | Unknown | + + + | Marital Status | | + + + | Buddhist Affiliation | 1077 | + + + | Race | Unknown | + + + | Ethnic Group | Unknown | + + + Author + + + | Author | [facility] | | | and [place] | + + + | Organization | [facility] | | | and [place] | + + + | Address | Unknown | + + + | Phone | Unavailable | + + + Support + + + + + | Name | Relationship | Address | Phone | + + + + + | Amina Stewart | ECON | [address] | | | | | [facility] [place] | | | | | [address] | | + + + + + Care Team Providers + +------+ + | Care Rate Examiner Name | Role | Phone | + [...] + + | 06/02/ | Telephone | [facility] | Paul Arias MD | Other (Labs and | | 2018 | | VASCULAR SURGERY | [address] | Imaging) | | | | [address] [place] | [place], [place] | | | | | [place], [place] | [address] | | | | | [address] | [phone] | | | | | [phone] | | | +--------+ + + + [...] [place] | | | | | | [address] | | | | | | | | +--------+ + + + + | 11/04/ | Office | Vascular Surgery | Suzi Powell DNP | | | 2019 | Visit | | [address] | | | | | | [place] | | | | | | [address] | | | | | | | | +--------+ + + + + documented as of this encounter Visit Diagnoses Not on filedocumented in this encounter"
--- OUTSIDE RECORDS SUMMARY | ~2019-08-17 | XMS | Encounter Summary ---
Demographics + + + | Address | [address] | | | [place] [address] | + + + | Home Phone | | + + + | Preferred Language | Unknown | + + + | Marital Status | | + + + | Pentecostal Affiliation | 1077 | + + + | Race | Unknown | + + + | Ethnic Group | Unknown | + + + Author + + + | Author | [facility] | | | and [place] | + + + | Organization | [facility] | | | and [place] | + + + | Address | Unknown | + + + | Phone | Unavailable | + + + Support + + + + + | Name | Relationship | Address | Phone | + + + + + | Amina Stewart | ECON | [address] | | | | | [address] [place] [address], [place] | | | | | [address] | | + + + + + Care Team Providers + +------+ + | Care Geriatric Physical Therapist Name | Role | Phone | + [...] | | | | | | | ([facility]) | | | | | | | [...] + + + + | 04/28/ | Hospital | [facility] | Paul Arias MD | Mesenteric ischemia, | | 2019 - | Encounter | [facility] | [address] | chronic (HCC); | | | | CARE FLOOR [address] | [place] | Mesenteric ischemia, | | 05/04/ | | [place] | [address] | chronic ([facility]); | | 2018 | | [place] | [phone] | Hypertension, | | | | [address] | | unspecified type | | | | [phone] | | | +--------+ + + + [...] Physician Discharge Summary Patient ID: Zane Stewart [id number] y.o. 1945 Admit date: 04/28/2019 Discharge [...] ABD: Appropriate tenderness. Hypoactive bowel tones SKIN: Essig, warm, dry without rash/lesion MS: ROM not limited, no digital cyanosis, normal gait NEURO: Conversant, A&O times 3 PSYCH: appropriate affect, speech and tone, judgement and insight intact Vascular: Palpable brachial pulses bilaterally. Abdominal binder in place. Brentwood intact. Disposition: home Patient Instructions: Keep wound [...] Involuntary weight loss Weakness Date Last Reviewed: 01/03/201819991920-3744 [employer]. [address] [place] [address]. All righ ts reserved. This information is [...] your chest or arms Date Last Reviewed: 12/04/201519992562-0312 [employer]. [address] [place] [address], [place] [address]. All righ ts reserved. This information is [...] tablet by | 30 | 0 | 05/04/ | | | HYDROcodone-acetamin | mouth every [...] no BM. Bowel tones: normoactive to hypoact hetaher in upper quadrants, hypoactive in both lower quadrants. Pt declined suppository twice, stating, "If I still haven't had a BM by the morning, I might do the suppository around 8." Pt set to dc home with @ 11 (lives in [place]). Abdominal hydrocolloid dressing C/D/I, with no new [...] no BM. Just took 1 tab of Alleman. Seems to be controlling the pain. He wants to wait till tomorrow. Discussed his care with his by phone. Questions answered about diet, climbing 13 stairs to get into one level home. will arrive by 11am with friend to help him home and into house. Wants a walker for home as well. Ok to shower. David Oreilly MD - 05/03/2019 8:[address] [facility] Service: Vascular Surgery Progress Note Hospital [...] bowel tones DRSNG: dry, spotty strikethru. SKIN: Essig, warm, well hydrated LE: w/out calf tenderness. [...] Status: Full Code David Luo MD 05/03/2019 [id number] signed by Sumaya Luo MD at 05/03/2019 12:46 PM PDTAnuj Moya, RN - 05/03/2019 6:54 AM PDTHourly rounding performed. Pt passing gas but has not had BM yet. Ambulated 1 lap ar ound unit. Cares & concerns will be passed on to daysvee RN. End of shift review complete. 7: 58 AM Mg Major RN - 05/02/2019 6:28 PM PDTA/O, up with supervision, passing gas t his shift, still no BM, requesting dilaudid q2, plan to transition to PO pain meds tomorrow, advanced to clear liquids today, tolerating well Chart check complete Electronically signed by: Mg Lopez RN 05/02/2019 18:30 David Oreilly MD - 05/02/2019 9:46 AM PDTFormatting of this note might be different from the [facility] Service: Vascular Surgery Progress Note Hospital [...] bowel tones DRSNG: dry, spotty strikethru. SKIN: Essig, warm, well hydrated LE: w/out calf tenderness. [...] Status: Full Code David Luo MD 05/02/2019 [id number] signed by Sumaya Luo MD at 05/02/2019 9:52 AM Estefany Mcdonald RN - 05/01/2019 5:57 PM PDTPt transferred to 91, report received from YULI Lott. Medicated for pain, see MAR . Pt up walking this shift with FWW. Bowel tones hypoactive, but gurgling. Chart check complete. Estefany Rizvi RN Toney Madrigal PA- C - 05/01/2019 3:[address] [facility] Service: Vascular Surgery Progress Note Hospital [...] ABD: Appropriate tenderness. Hypoactive bowel tones SKIN: Essig, warm, dry without rash/lesion MS: ROM not limited, no digital cyanosis, normal gait NEURO: Conversant, A&O times 3 PSYCH: appropriate affect, speech and tone, judgement and insight intact Vascular: Palpable brachial pulses bilaterally. Abdominal binder in place. [place]wood intact. DATA Recent Results (from the past [...] 05/01/2019 2:33 PM PD TReport [facility]. Will transfer pt at this time. riana Mitchell RN - 04/30/2019 7:31 PM PDT Patient [...] Paul Connolly MD - 6:[address] [facility] Service: Vascular Surgery Progress Note Hospital [...] ABD: Appropriate tenderness. Hypoactive bowel tones SKIN: Essig, warm, dry without rash/lesion MS: ROM not [...] Connolly MD - 04/29/2019 9:[address] [facility] Service: Vascular Surgery Progress Note Hospital [...] CV: No peripheral edema, rate regular SKIN: Essig, warm, dry without rash/lesion ABD: Soft, appropriate tenderness, hypoactive bowel tones MS: ROM not limited, no digital cyanosis NEURO: Conversant, A&O times 3 PSYCH: appropriate affect, speech and tone, judgement and insight intact DATA Recent Results (from the past 24 hour(s)) Type and Screen Collection Time: 04/28/19 11:03 Result Value Ref Range ABO Rh O POSITIVE Antibody Screen NEGATIVE BB BAND [id number] BB BAND Testing performed at [facility];[address] [place] [address];[place] [address] Basic Metabolic Panel Collection Time: 04/29/19 4:40 [...] Status: Full Code Paul Arias MD 04/29/2019 tcurtis, Ariana Maldonado RN - 04/28/2019 6:30 PM PDTPt received [...] the | | | | PDT | (HCC) | results section. | + +--------+ + + + | REVASCULARIZATION | | 04/28/2019 | Mesenteric | | | MESENTERIC | | 11:12 AM | ischemia, chronic | | | | | PDT | (HCC) | | + +--------+ + + + [...] | | | Absolute | performed at [facility], [address] | K[address]uL | LABORATORY | | | | [place] [address], | | | | | | [place] [address] | | | | + + + + + + + + | Specimen | + + | Blood | + + + + + + + | Performing | Address | City/State/Zipcode | Phone Number | | Organization | | | | + + + + + | [facility] | [address] | [place] [address] | [phone] | + + + + + Basic [...] | 8.5 | 8.5 - 10.5 | [facility] | | | | | mg/dL | LABORATORY | | + + + + + + | Estimated | >60Comment: GFR <60: | >60 | [facility] | | | GFR | CHRONIC KIDNEY [...] | | | | | performed at [facility], [address] | | | | | | [facility], | | | | | | [place] [address] | | | | + + + + + + + + | Specimen | + + | Blood | + + + + + + + | Performing | Address | City/State/Zipcode | Phone Number | | Organization | | | | + + + + + | [facility] | [address] | [place] [address] | [phone] | + + + + + CBC [...] | | | Absolute | performed at [facility], [address] | K/uL | LABORATORY | | | | [address], | | | | | | [place] [address] | | | | + + + + + + + + | Specimen | + + | Blood | + + + + + + + | Performing | Address | City/State/Zipcode | Phone Number | | Organization | | | | + + + + + | [facility] | [address] | [place] [address] | [phone] | + + + + + Basic [...] | >60Comment: GFR <60: | >60 | [facility] | | | GFR | CHRONIC KIDNEY [...] | | | | | | MDRD IDMT traceable | | | | | | equation.Testing | | | | | | performed at [facility], [address] | | | | | | [facility], | | | | | | [place] [address] | | | | + + + + + + + + | Specimen | + + | Blood | + + + + + + + | Performing | Address | City/State/Zipcode | Phone Number | | Organization | | | | + + + + + | [facility] | [address] | [place] [address] | [phone] | + + + + + CBC [...] | | | Absolute | performed at [facility], [address] | K/uL | LABORATORY | | | | [address], | | | | | | [place] [address] | | | | + + + + + + + + | Specimen | + + | Blood | + + + + + + + | Performing | Address | City/State/Zipcode | Phone Number | | Organization | | | | + + + + + | [facility] | [address] | [place] [address] | [phone] | + + + + + Basic [...] | | | | | | MDRD [facility] traceable | | | | | | equation.Testing | | | | | | performed at [facility], [address] | | | | | | [facility], | | | | | | [place] [address] | | | | + + + + + + + + | Specimen | + + | Blood | + + + + + + + | Performing | Address | City/State/Zipcode | Phone Number | | Organization | | | | + + + + + | [facility] | [address] | [place] [address] | [phone] | + + + + + CBC [...] 0.01Comment: Testing | 0.00 - 0.10 | [facility] | | | Absolute | performed at [facility], [address] | K/uL | LABORATORY | | | | [address], | | | | | | [place] [address] | | | | + + + + + + + + | Specimen | + + | Blood | + + + + + + + | Performing | Address | City/State/Zipcode | Phone Number | | Organization | | | | + + + + + | [facility] | [address] | [place] [address] | [phone] | + + + + + Basic [...] | | | | | performed at [facility], [address] | | | | | | [place], | | | | | | [place] [address] | | | | + + + + + + + + | Specimen | + + | Blood | + + + + + + + | Performing | Address | City/State/Zipcode | Phone Number | | Organization | | | | + + + + + | [facility] | [address] | [place] [address] | [phone] | + + + + + Lactic Acid (04/29/2019 9:09 AM PDT) + + + + + + | Component | Value | Ref Range | Performed | Pathologist | | | | | At | Signature | + + + + + + | Lactate, | 1.6Comment: Testing | 0.4 - 2.0 | [facility] | | | Serum | performed at [facility];[address] | mmol/L | LABORATORY | | | | [address];[place], [place] | | | | | | [address] | | | | + + + + + + + + | Specimen | + + | Blood | + + + + + + + | Performing | Address | City/State/Zipcode | Phone Number | | Organization | | | | + + + + + | [facility] | [address] | [place] [address] | [phone] | + + + + + ECG [...] | | | | | performed at [facility] | | | | | | [facility], [place] | | | | | | [address] | | | | + + + + + + + + | Specimen | + + | Blood | + + + + + + + | Performing | Address | City/State/Zipcode | Phone Number | | Organization | | | | + + + + + | [facility] | [address] | [place] [address] | [phone] | + + + + + Basic [...] | 8.6 | 8.5 - 10.5 | [facility] | [...] | | | | | | MDRD [facility] traceable | | | | | | equation.Testing | | | | | | performed at [facility] | | | | | | [employer];[place], [place] | | | | | | [address] | | | | + + + + + + + + | Specimen | + + | Blood | + + + + + + + | Performing | Address | City/State/Zipcode | Phone Number | | Organization | | | | + + + + + | [facility] | [address] | [place] [address] | [phone] | + + + + + Surgical [...] | | fibrous tissue and smooth muscle. JVR:[facility]:C2NR MICROSCOPIC | | | EXAMINATION:Histologic sections [...] | | | no discrete lesions identified. Senior Environmental Engineer sections are | | | submitted in [...] | | technical component was performed by [facility], [address] [place] [address] | | | [place] [address] (Financial Advisor: Dede Bundy MD; CLIA# | | | [id number]). Professional interpretation was performed by[facility] | | | [facility], [facility] | | [place] [address] (Financial Advisor: Destin Angel | | | Rebecca Hardy; CLIA#: [id number]). Diagnostician: Roger Richards | | | MDPathologistElectronically Signed 04/29/2019 | | |The technical component was performed by [facility], [address] [place] [address] (Financial Advisor: Dede Bundy MD; CLIA# [id number]). Professional interpretation w as performed by | | |[facility], [address] [place] [address] (Financial Advisor: Destin Hardy M.D.; CLIA#: [id number]). | | | | | |Diagnostician: Roger [...] + + + | BB BAND | [id number] | | [facility] | | | | | | LABORATORY | | + + + + + + | BB BAND | Testing performed at | | [facility] | | | | [facility];[address] | LABORAT[address] | | | | [address];[place] [address] | | | | + + + + + + + + | Specimen | + + | Blood | + + + + + + + | Performing | Address | City/State/Zipcode | Phone Number | | Organization | | | | + + + + + | [facility] | [address] | [place] [address] | [phone] | + + + + + documented in this encounter Visit Diagnoses + + | Diagnosis | + + | Mesenteric ischemia, chronic (HCC) - Primary Chronic vascular insufficiency of | | intestine | + + | Hypertension, unspecified type | + + | Hyperlipidemia Other and unspecified hyperlipidemia | + + | Diabetes mellitus (HCC) Type II or unspecified type diabetes mellitus without mention | | of complication, not stated as uncontrolled | + + documented in this encounter [...] | +---+---+ + +---------+ +---+ +---+ | balanced electrolytes in water | New Bag | 04/28/20 | | 50 mL/hr | | | (PLASMALYTE-148/NORMOSOL-R) | | 19 11:07 | | | | | infusion at 50 mL/hr, | | AM PDT | | | | | Intravenous, CONTINUOUS, Starting | | | | | | | 04/28/19 at 1115, Pre-op | | | | | | + +---------+ +---+ +---+ +---+---+ | | | +---+---+ + +-------+ [...] +---+---+ | | | +---+---+ + +---------+ +---+-------+---+ | dextrose 5% and sodium chloride | New Bag | 05/02/20 | | 125 | | | 0.45% with KCl 20 mEq/L (D5 1/2 | | 19 7:35 | | mL/hr | | | NS + KCL 20) infusion at 125 | | PM PDT | | | | | mL/hr, Intravenous, CONTINUOUS, | | | | | | | Starting e 04/28/19 at 1600 | | | | | | + +---------+ +---+-------+---+ +---------+ +---+-------+---+ | New Bag | 05/02/20 | | 125 | | | | 19 12:07 | | mL/hr | | | | PM PDT | | | | +---------+ +---+-------+---+ | New Bag | 05/02/20 | | 125 | | | | 19 2:19 | | mL/hr | | | | AM PDT | | | | +---------+ +---+-------+---+ +---+---+ | | | +---+---+ + +-------+ [...] | | +---+---+ + +-------+ +-------+---+---+ | josr (SIMON) tablet 50 mg | Given | 05/04/20 [...]
--- OUTSIDE RECORDS SUMMARY | ~2019-08-17 | XMS | Encounter Summary ---
Demographics + + + | Address | [address] | | | [place] [address] | + + + | Home Phone | | + + + | Preferred Language | Unknown | + + + | Marital Status | | + + + | Shinto Affiliation | 1077 | + + + | Race | Unknown | + + + | Ethnic Group | Unknown | + + + Author + + + | Author | [facility] | | | and [place] | + + + | Organization | [facility] | | | and [place] | + + + | Address | Unknown | + + + | Phone | Unavailable | + + + Support + + + + + | Name | Relationship | Address | Phone | + + + + + | Amina Stewart | ECON | [address] | | | | | [address] [place] [address], [place] | | | | | [address] | | + + + + + Care Team Providers + +------+ + | Care Annealing Torch Operator Name | Role | Phone | [...] | | | | | | | ([facility]) | | | | | | [...] + + | 04/28/ | Anesthesia | [facility] | Prosper Woods MD | | | 2019 | [facility] | [address] | | | | | OPER[address] RO[address] | [place] [address] | | | | | [address] | [phone] | | | | | [place], [place] | | | | | | [address] | Alexis Dawn MD [address] | | | | | [phone] | [address] | | | | | | [place] [address] | | +--------+ + + + + [...] +----+---+ + + | | 1 | [place] | | | | 1 | 43-degrees [...] Pascale Ross RN | | IV | evjh-kaa-tclors catheter system; | | | | | [...] 220 by | | eral | Forearm; ltip-xsx-rueren catheter | Villa Dawn MD | Prasanna [...] [place] | | | | | | [address] | | | | | | | | +--------+ + + + + | 11/04/ | Office | Vascular Surgery | Suzi Powell DNP | | | 2019 | Visit | | [address] | | | | | | [place] | | | | | | [address] | | | | | | | [...]
--- OUTSIDE RECORDS SUMMARY | ~2019-08-17 | XMS | Encounter Summary ---
Demographics + + + | Address | [address] | | | [place] [address] | + + + | Home Phone | | + + + | Preferred Language | Unknown | + + + | Marital Status | | + + + | Gnosticist Affiliation | 1077 | + + + | Race | Unknown | + + + | Ethnic Group | Unknown | + + + Author + + + | Author | [facility] | | | and [place] | + + + | Organization | [facility] | | | and [place] | + + + | Address | Unknown | + + + | Phone | Unavailable | + + + Support + + + + + | Name | Relationship | Address | Phone | + + + + + | Amina Stewart | ECON | [address] | | | | | [facility] [place] | | | | | [address] | | + + + + + Care Team Providers + +------+ + | Care Truck Railroad And Bus Motor Mechanic Name | Role | Phone | + [...] [address] | | | | | | ([facility]) | [address] | | | | | | Procedures | [place] | | | | | | IR Angiogram | [place] | | | | | | Mesenteric | [address] | | | | | | Visceral | Phone: | | | | | | | [phone] | | | | | | | Fax: | | | | | | | [phone] | | +--------+--------+ + + + + Reason for Visit +---------+ + | Reason | Comments | +---------+ + | Results | | +---------+ + Encounter Details +--------+ + + + + | Date | Type | Department | Care Team | Description | +--------+ + + + + | 06/22/ | Telephone | [facility] | Bethany Ramirez, | Results | | 2019 | | VASCULAR SURGERY | RN | | | | | [address] | | | | | | [place] | | | | | | [address] | | | | | | [phone] | | | +--------+ + + + [...] [place] | | | | | | [address] | | | | | | | | +--------+ + + + + | 11/04/ | Office | Vascular Surgery | Suzi Powell DNP | | | 2019 | Visit | | [address] | | | | | | [place] | | | | | | [address] | | | | | | | | +--------+ + + + + documented as of this encounter Results IR Angiogram Mesenteric Visceral [...] SURGEON: Paul Arias MD | | | SAT TUTOR: None ANESTHESIA: Moderate sedation and local anesthesia [...] was properly identified and brought to the Fiscal Services Manager. The patient was | | | [...] | and up sized to a 4 Ethiopian sheath. A Omni flush catheter was then | | | inserted into the aorta and aortogram was then performed with the | | | findings as described above. Next, an Amplatzer wire was then inserted | | | over the catheter and the 4 Ethiopian sheath was removed. A 6.5 Ethiopian | | | durable sheath was then [...] | | |up sized to a 4 Ethiopian sheath. A Omni flush catheter was then inserted | | |into the aorta and aortogram was then performed with the findings as | | |described above. Next, an Amplatzer wire was then inserted over the | | |catheter and the 4 Ethiopian sheath was removed. A 6.5 Ethiopian durable sheath | | |was then inserted [...] + + | Performing | Address | City/State[facility] | Phone Number | | Organization | [...]
--- OUTSIDE RECORDS SUMMARY | ~2019-08-17 | XMS | Encounter Summary ---
Demographics + + + | Address | [address] | | | [place] [address] | + + + | Home Phone | | + + + | Preferred Language | Unknown | + + + | Marital Status | | + + + | Zoroastrianism Affiliation | 1077 | + + + | Race | Unknown | + + + | Ethnic Group | Unknown | + + + Author + + + | Author | [facility] | | | and [place] | + + + | Organization | [facility] | | | and [place] [...] [place], [place] | | | | | [address] | | + + + + + Care Team Providers + +------+ + | Care Casino Worker Name | Role | Phone | [...] + + | 05/06/ | Telephone | [facility] | Suzi Powell DNP | Follow-up | | 2019 | | VASCULAR SURGERY | [address] | | | | | [address] [place] | [place], [place] | | | | | [place], [place] | [address] | | | | | [address] | | | | | | [phone] | | | +--------+ + + + [...] [place] | | | | | | [address] | | | | | | | | +--------+ + + + + | 11/04/ | Office | Vascular Surgery | Suzi Powell DNP | | | 2019 | Visit | | [address] | | | | | | [place] | | | | | | [address] | | | | | | | | +--------+ + + + + documented as of this encounter Visit Diagnoses + + | Diagnosis | + + | Mesenteric ischemia, chronic (HCC) - Primary Chronic vascular insufficiency of | | intestine | + + documented in this encounter"
--- OUTSIDE RECORDS SUMMARY | ~2019-08-17 | XMS | Encounter Summary ---
Demographics + + + | Address | [address] | | | [place] [address] | + + + | Home Phone | | + + + | Preferred Language | Unknown | + + + | Marital Status | | + + + | Bahai Affiliation | 1077 | + + + | Race | Unknown | + + + | Ethnic Group | Unknown | + + + Author + + + | Author | [facility] | | | and [place] | + + + | Organization | [facility] | | | and [place] | + + + | Address | Unknown | + + + | Phone | Unavailable | + + + Support + + + + + | Name | Relationship | Address | Phone | + + + + + | Amina Stewart | ECON | [address] | | | | | [place], [place] | | | | | [address] | | + + + + + Care Team Providers + +------+ + | Care Client Services Assistant Name | Role | Phone | + +------+ + | No, Physician | PCP | Unavailable | + +------+ + Encounter Details +--------+ + + + + | Date | Type | Department | Care Team | Description | +--------+ + + + + | 04/21/ | Preadmit | [facility] | Paul Arias MD | Mesenteric ischemia, | | 2019 | Visit | CENTER PREADMIT | [address] | chronic (HCC) | | | | CLINIC [address] | [place], [place] | | | | | [address] [place], [place] | [address] | | | | | [address] | [phone] | | | | | [phone] | | | +--------+ + + + [...] + + + | Blood Pressure | 122/56 | 04/21/2019 9:24 AM | | | | | PDT | | + + + + + | Pulse | 62 | 04/21/2019 9:24 AM | | | | | PDT | | + + + + + | Temperature | - | - | | + + + + + | Respiratory Rate | - | - | | + + + + + | Oxygen Saturation | 97% | 04/21/2019 9:24 AM | | | | | PDT | | + + + + + | Inhaled Oxygen | - | - | | | Concentration | | | | + + + + + | Weight | 80.6 kg (177 lb 11.1 | 04/21/2019 9:24 AM | | | | oz) | PDT | | + + + + + | Height | 167.6 cm (5' 6") | 04/21/2019 9:24 AM | | | | | PDT | | + + + + + | Body Mass Index | 28.68 | 04/21/2019 9:24 AM | | | | | PDT | | + + + + + documented in this encounter Plan of Treatment +--------+ + + + + | Date | Type | Specialty | Care Team | Description | +--------+ + + + + | 11/04/ | Appointment | Radiology | Suzi Powell DNP | | | 2019 | | | [address] | | | | | | [place] | | | | | | [address] | | | | | | | | +--------+ + + + + | 11/04/ | Office | Vascular Surgery | Suzi Powell DNP | | | 2019 | Visit | | [address] | | | | | | [place] | | | | | | [address] | | | | | | | | +--------+ + + + + documented as of this encounter Procedures + +--------+ + + + | Procedure Name | Priori | Date/Time | Associated Diagnosis | Comments | | | ty | | | | + +--------+ + + + | XR CHEST PA AND | Routin | 04/21/2019 | Mesenteric | Results for this | | LATERAL | e | 10:15 AM | ischemia, chronic | procedure are in the | | | | PDT | ([facility]) | results section. | + +--------+ + + + | TYPE AND SCREEN | ALEX | 04/21/2019 | | Results for this | | | | 9:15 AM | | procedure are in the | | | | PDT | | results section. | + +--------+ + + + | CBC WITH | Timed | 04/21/2019 | | Results for this | | DIFFERENTIAL | | 9:14 AM | | procedure are in the | | | | PDT | | results section. | + +--------+ + + + | COMPREHENSIVE | Timed | 04/21/2019 | | Results for this | | METABOLIC PANEL | | 9:14 AM | | procedure are in the | | | | PDT | | results section. | + +--------+ + + + | ECG 12 LEAD | Timed | 04/21/2019 | | Results for this | | | | 9:12 AM | | procedure are in the | | | | PDT | | results section. | + +--------+ + + + documented in this encounter Results XR Chest PA and [...] + +---------+ + + Type and Screen (04/21/2019 9:15 AM PDT) + + + + + [...] + + + + | Antibody | Testing performed at | | [facility] | | | Screen | [facility] | | LABORATORY | | | | [address];[place] [address] | | | | + + + + + + + + | Specimen | + + | Blood | + + + + + + + | Performing | Address | City/State/Zipcode | Phone Number | | Organization | | | | + + + + + | [facility] | [address] | [place] [address] | [phone] | + + + + + CBC with Differential (04/21/2019 9:14 AM PDT) + + + + + + | Component | Value | Ref Range | Performed | Pathologist | | | | | At | Signature | + + + + + + | WBC | 4.96 | 3.80 - 11.00 | [facility] | | | | | K/uL | LABORATORY | | + + + + + + | RBC | 4.20 | 4.20 - 5.70 | [facility] | | | | | M/uL | LABORATORY | | + + + + + + | Hemoglobin | 13.9 | 13.2 - 17.0 | [facility] | | | | | g/dL | LABORATORY | | + + + + + + | Hematocrit | 41.3 | 39.0 - 50.0 % | [facility] | | | | | | LABORATORY | | + + + + + + | MCV | 98.4 | 80.0 - 100.0 fl | [facility] | | | | | | LABORATORY | | + + + + + + | MCH | 33.2 | 27.0 - 34.0 pg | [facility] [...] + + + + | Platelet | 152 | 150 - 400 K/uL | [facility] | | | Count | | | LABORATORY | | + + + + + + | MPV | 8.0 | fl | [facility] | | | | | | LABORATORY | | + + + + + + | Diff Type | MANUAL | | [facility] | | | | | | LABORATORY | | + + + + + + | % Segmented | 35 | % | [facility] | | | | | | LABORATORY | | | Neutrophils | | | | | + + + + + + | % | 56 | % | [facility] | | | Lymphocytes | | | LABORATORY | | + + + + + + | % Reactive | 4 | % | [facility] | | | Lymphocytes | | | LABORATORY | | + + + + + + | % Monocytes | 5 | % | [facility] | | | | | | LABORATORY | | + + + + + + | Neutrophils | 1.74 (L) | 1.90 - 7.40 | [facility] | | | , Absolute | | K/uL | LABORATORY | | + + + + + + | Absolute | 2.77 | 1.00 - 3.90 | [facility] | | | Lymphocytes | | K/uL | LABORATORY | | + + + + + + | Absolute | 0.20 (H) | 0.00 K/uL | [facility] | | | Variant | | | LABORATORY | | | Lymphocytes | | | | | + + + + + + | Absolute | 0.25 | 0.00 - 0.80 | [facility] | | | Monocytes | | K/uL | LABORATORY | | + + + + + + | RBC | RBC AND PLT MORPHOLOGY | | [facility] | | | Morphology | APPEAR NORMALComment: | | LABORATORY | | | | Testing performed at | | | | | | [facility], [address] | | | | | | [place] | | | | | | [address] | | | | + + + + + + + + | Specimen | + + | Blood | + + + + + + + | Performing | Address | City/State/Zipcode | Phone Number | | Organization | | | | + + + + + | [facility] | [address] | [place] [address] | [phone] | + + + + + Comprehensive Metabolic Panel (04/21/2019 9:14 AM PDT) + + + + + [...] + + + + | CO2 | 28 | 23 - 32 mmol/L | [facility] | | | | | | LABORATORY | | + + + + + + | Anion Gap | 7 | 5 - 20 mmol/L | [facility] | | | | | | LABORATORY | | + + + + + + | Glucose | 104 (H) | 65 - 99 mg/dL | [facility] | | | | | | LABORATORY | | + + + + + + | BUN | 16 | 8 - 25 mg/dL | [facility] | | | | | | LABORATORY | | + + + + + + | Creatinine | 1.0 | 0.70 - 1.30 | [facility] | | | | | mg/dL | LABORATORY | | + + + + + + | BUN/Creatin | 16 | | [facility] | | | ine Ratio | | | LABORATORY | | + + + + + + | Calcium | 9.6 | 8.5 - 10.5 | [facility] | | | | | mg/dL | LABORATORY | | + + + + + + | Protein, | 7.3 | 6.3 - 8.2 g/dL | [facility] | | | Total | | | LABORATORY | | + + + + + + | Albumin | 4.1 | 3.3 - 4.8 g/dL | [facility] | | | | | | LABORATORY | | + + + + + + | Globulin | 3.2 | 1.3 - 4.9 g/dL | [facility] | | | | | | LABORATORY | | + + + + + + | A/G Ratio | 1.3 | 1.0 - 2.4 | [facility] | | | | | | LABORATORY | | + + + + + + | BILIRUBIN, | 0.5 | 0.1 - 1.5 mg/dL | [facility] | | | TOTAL | | | LABORATORY | | + + + + + + | ALK PHOS | 70 | 35 - 115 U/L | [facility] | | | | | | LABORATORY | | + + + + + + | AST | 14 | 10 - 45 U/L | [facility] | | | | | | LABORATORY | | + + + + + + | ALT | 22 | 10 - 65 U/L | [facility] | | | | | | LABORATORY [...] | | | | | | MDRD IDME traceable | | | | | | equation.Testing | | | | | | performed at [facility], [address] | | | | | [facility], | | | | | | [place] [address] | | | | + + + + + + + + | Specimen | + + | Blood | + + + + + + + | Performing | Address | City/State/Zipcode | Phone Number | | Organization | | | | + + + + + | [facility] | [address] | [place] [address] | [phone] | + + + + + ECG 12 lead (04/21/2019 9:12 AM PDT) + + + + + + | Component | Value | Ref Range | Performed | Pathologist | | | | | At | Signature | + + + + + + | VENTRICULAR | 61 | BPM | [facility] | | | RATE EKG | | | | | + + + + + + | ATRIAL RATE | 61 | BPM | [facility] | | + + + + + + | P-R | 200 | ms | [facility] | | | INTERVAL | | | | | + + + + + + | QRS | 78 | ms | [facility] | | | DURATION | | | | | + + + + + + | Q-T | 448 | ms | [facility] | | | INTERVAL | | | | | + + + + + + | Q-T | 450 | ms | [facility] | | | INTERVAL | | | | | | (CORRECTED) | | | | | + + + + + + | P WAVE AXIS | 28 | degrees | [facility] | | + + + + + + | QRS AXIS | -5 | degrees | [facility] | | + + + + + + | T AXIS | 0 | degrees | [facility] | | + + + + + + | INTERPRETAT | Normal sinus | | [facility] | | | ION TEXT | rhythmNormal ECGNo | | | | | | previous ECGs | | | | | | availableConfirmed by | | | | | | Brian Hermosillo MD | | | | | | ([id number]) on 04/21/2019 | | | | | | 8:32:02 PM | | | | + + [...]
--- OUTSIDE RECORDS SUMMARY | ~2019-08-17 | XMS | Encounter Summary ---
Demographics + + + | Address | [address] | | | [place] [address] | + + + | Home Phone | | + + + | Preferred Language | Unknown | + + + | Marital Status | | + + + | Lutheran Affiliation | 1077 | + + + | Race | Unknown | + + + | Ethnic Group | Unknown | + + + Author + + + | Author | [facility] | | | and [place] | + + + | Organization | [facility] | | | and [place] | + + + | Address | Unknown | + + + | Phone | Unavailable | + + + Support + + + + + | Name | Relationship | Address | Phone | + + + + + | Amina Stewart | ECON | [address] | | | | | [facility] [place] [place] | | | | | [address] | | + + + + + Care Team Providers + +------+ + | Care Soda Fountain Manager Name | Role | Phone | + +------+ + | No, Physician | PCP | Unavailable | + +------+ + Encounter Details +--------+ + + + + | Date | Type | Department | Care Team | Description | +--------+ + + + + | 07/07/ | Telephone | [facility] | Paul Arias MD | | | 2019 | | CENTER CV INTRA OP | [address] | | | | | [address] | [place] | | | | | [place] | [address] | | | | | [address] | [phone] | | | | | [phone] | | | +--------+ + + + [...] [place] | | | | | | [address] | | | | | | | | +--------+ + + + + | 11/04/ | Office | Vascular Surgery | Suzi Powell DNP | | | 2019 | Visit | | [address] | | | | | | [place] | | | | | | [address] | | | | | | | | +--------+ + + + + documented as of this encounter Visit Diagnoses Not on filedocumented in this encounter"
--- OUTSIDE RECORDS SUMMARY | ~2019-08-17 | XMS | Encounter Summary ---
Demographics + + + | Address | [address] | | | [place] [address] | + + + | Home Phone | | + + + | Preferred Language | Unknown | + + + | Marital Status | | + + + | Gnosticism Affiliation | 1077 | + + + | Race | Unknown | + + + | Ethnic Group | Unknown | + + + Author + + + | Author | [facility] | | | and [place] | + + + | Organization | [facility] | | [...] [place] | | | | | [address] | | + + + + + Care Team Providers + +------+ + | Care Wash And Greaser Name | Role | Phone | + [...] + + | 07/20/ | Telephone | [facility] | Bethany Ramirez Bartlett, | Appointment | | 2019 | | VASCULAR SURGERY | RN | | | | | [address] | | | | | | [place] | | | | | | [address] | | | | | | [phone] | | | +--------+ + + + [...] [place] | | | | | | [address] | | | | | | | | +--------+ + + + + | 11/04/ | Office | Vascular Surgery | Suzi Powell DNP | | | 2020 | Visit | | [address] | | | | | | [place] | | | | | | [address] | | | | | | | | +--------+ + + + + documented as of this encounter Visit Diagnoses Not on filedocumented in this encounter"
--- OUTSIDE RECORDS SUMMARY | ~2019-08-17 | XMS | Encounter Summary ---
Demographics + + + | Address | [address] | | | [place] [address] | + + + | Home Phone | | + + + | Preferred Language | Unknown | + + + | Marital Status | | + + + | Church Affiliation | 1077 | + + + | Race | Unknown | + + + | Ethnic Group | Unknown | + + + Author + + + | Author | [facility] | | | and [place] | + + + | Organization | [facility] | | | and [place] | + + + | Address | Unknown | + + + | Phone | Unavailable | + + + Support + + + + + | Name | Relationship | Address | Phone | + + + + + | Amina Stewart | ECON | [address] | | | | | [place], [place] | | | | | [address] | | + + + + + Care Team Providers + +------+ + | Care Commercial Internship Name | Role | Phone | + +------+ + | No, Physician | PCP | Unavailable | + +------+ + Encounter Details +--------+ + + + + | Date | Type | Department | Care Team | Description | +--------+ + + + + | 05/27/ | Hospital | [facility] | Suzi Powell DNP | Mesenteric ischemia, | | 2019 | Encounter | VASCULAR SURGERY | [address] | chronic (HCC) | | | | ULTRASOUND [address] | [place] | | | | | [address] | [address] | | | | | [place] | | | | | | [address] | | | | | | [phone] | | | +--------+ + + + [...] + + documented as of this encounter Medications at Time of Discharge [...] [place] | | | | | | [address] | | | | | | | | +--------+ + + + + | 11/04/ | Office | Vascular Surgery | Suzi Powell DNP | | | 2019 | Visit | | [address] | | | | | | [place] | | | | | | [address] | | | | | | | | +--------+ + + + + documented as of this encounter Visit Diagnoses + + | Diagnosis | + + | Mesenteric ischemia, chronic (HCC) Chronic vascular insufficiency of intestine | + + documented in this encounter"
--- OUTSIDE RECORDS SUMMARY | ~2019-08-17 | XMS | Encounter Summary ---
Demographics + + + | Address | [address] | | | [place] [address] | + + + | Home Phone | | + + + | Preferred Language | Unknown | + + + | Marital Status | | + + + | Sikh Affiliation | 1077 | + + + | Race | Unknown | + + + | Ethnic Group | Unknown | + + + Author + + + | Author | [facility] | | | and [place] | + + + | Organization | [facility] | | | and [place] | + + + | Address | Unknown | + + + | Phone | Unavailable | + + + Support + + + + + | Name | Relationship | Address | Phone | + + + + + | Amina Stewart | ECON | [address] | | | | | [facility] [place] | | | | | [address] | | + + + + + Care Team Providers + +------+ + | Care Welt Insole Channeler Name | Role | Phone | + [...] + + | 07/13/ | Telephone | [facility] | Bethany Ramirez, | Follow-up; Other | | 2019 | | VASCULAR SURGERY | RN | (speak with nurse) | | | | [address] | | | | | | [place] | | | | | | [address] | | | | | | [phone] | | | +--------+ + + + [...] [place] | | | | | | [address] | | | | | | | | +--------+ + + + + | 11/04/ | Office | Vascular Surgery | Suzi Powell DNP | | | 2019 | Visit | | [address] | | | | | | [place] | | | | | | [address] | | | | | | | | +--------+ + + + + documented as of this encounter Visit Diagnoses Not on filedocumented in this encounter"
--- OUTSIDE RECORDS SUMMARY | ~2019-08-17 | XMS | Encounter Summary ---
Demographics + + + | Address | [address] | | | [place] [address] | + + + | Home Phone | | + + + | Preferred Language | Unknown | + + + | Marital Status | | + + + | Rastafari Affiliation | 1077 | + + + | Race | Unknown | + + + | Ethnic Group | Unknown | + + + Author + + + | Author | [facility] | | | and [place] | + + + | Organization | [facility] | | | and [place] | + + + | Address | Unknown | + + + | Phone | Unavailable | + + + Support + + + + + | Name | Relationship | Address | Phone | + + + + + | Amina Stewart | ECON | [address] | | | | | [facility] [place] | | | | | [address] | | + + + + + Care Team Providers + +------+ + | Care Brake Adjuster Name | Role | Phone | + [...] [address] | | | | | | ([facility]) | [address] | | | | | | Procedures | [place] | | | | | | IR Angiogram | [place] | | | | | | Mesenteric | [address] | | | | | | Visceral | Phone: | | | | | | | [phone] | | | | | | | Fax: | | | | | | | [phone] | | +--------+--------+ + + + + Reason for Visit +---------+ + | Reason | Comments | +---------+ + | Results | | +---------+ + Encounter Details +--------+ + + + + | Date | Type | Department | Care Team | Description | +--------+ + + + + | 06/22/ | Telephone | [facility] | Bethany Ramirez, | Results | | 2019 | | VASCULAR SURGERY | RN | | | | | [address] | | | | | | [place] | | | | | | [address] | | | | | | [phone] | | | +--------+ + + + [...] [place] | | | | | | [address] | | | | | | | | +--------+ + + + + | 11/04/ | Office | Vascular Surgery | Suzi Powell DNP | | | 2019 | Visit | | [address] | | | | | | [place] | | | | | | [address] | | | | | | | [...] SURGEON: Paul Arias MD | | | GRAPE PRUNER: None ANESTHESIA: Moderate sedation and local anesthesia [...] was properly identified and brought to the Calibration Tester. The patient was | | | placed [...] | and up sized to a 4 Tuvaluan sheath. A Omni flush catheter was then | | | inserted into the aorta and aortogram was then performed with the | | | findings as described above. Next, an Amplatzer wire was then inserted | | | over the catheter and the 4 Tuvaluan sheath was removed. A 6.5 Tuvaluan | | | durable sheath was then [...] | | |up sized to a 4 Tuvaluan sheath. A Omni flush catheter was then inserted | | |into the aorta and aortogram was then performed with the findings as | | |described above. Next, an Amplatzer wire was then inserted over the | | |catheter and the 4 Tuvaluan sheath was removed. A 6.5 Tuvaluan durable sheath | | |was then inserted [...] + + | Performing | Address | City/State[facility] | Phone Number | | [...]
--- OUTSIDE RECORDS SUMMARY | ~2019-08-17 | XMS | Encounter Summary ---
Demographics + + + | Address | [address] | | | [place] [address] | + + + | Home Phone | | + + + | Preferred Language | Unknown | + + + | Marital Status | | + + + | Restoration Affiliation | 1077 | + + + | Race | Unknown | + + + | Ethnic Group | Unknown | + + + Author + + + | Author | [facility] | | | and [place] | + + + | Organization | [facility] | | | and [place] | + + + | Address | Unknown | + + + | Phone | Unavailable | + + + Support + + + + + | Name | Relationship | Address | Phone | + + + + + | Amina Stewart | ECON | [address] | | | | | [facility] [place] | | | | | [address] | | + + + + + Care Team Providers + +------+ + | Care Professional Driver Name | Role | Phone | + +------+ + | No, Physician | PCP | Unavailable | + +------+ + Reason for Visit Diagnostic/Screening (Routine) +--------+--------+ + + + + | Status | Reason | Specialty | Diagnoses / | Referred By | Referred To | | | | | Procedures | Contact | Contact | +--------+--------+ + + + + | Closed | | Radiology | Diagnoses | Paul Arias | Nichoc Xray | | | | | Chronic | MD [address] | [address] | | | | | vascular | [address] | [address] | | | | | disorders of | [place] | [place] | | | | | intestine | [place], [place] | [address] | | | | | ([facility]) | [address] | Phone: | | | | | Procedures | Phone: | [phone] | | | | | CHG | [phone] | Fax: | | | | | RADIOLOGIC | Fax: | [phone] | | | | | EXAM CHEST 2 | [phone] | | | | | | VIEWS [facility] | | | | | | | XRAY | | | +--------+--------+ + + + + Encounter Details +--------+ + + + + | Date | Type | Department | Care Team | Description | +--------+ + + + + | 04/21/ | Hospital | [facility] | Paul Arias MD | | | 2019 | Encounter | [facility] | [address] | | | | | [address] | [place], [place] | | | | | [place], [place] | [address] | | | | | [address] | [phone] | | | | | [phone] | | | +--------+ + + + [...] [place] | | | | | | [address] | | | | | | | | +--------+ + + + + | 11/04/ | Office | Vascular Surgery | Suzi Powell DNP | | | 2019 | Visit | | [address] | | | | | | [place] | | | | | | [address] | | | | | | | [...] the | | | | PDT | ([facility]) | results section. | + +--------+ [...] | | | | Signed by: Rebecca Kelsey, Michael | | Sign Date/Time: 04/21/2019 10:27 AM | + + + +---------+ + + | Performing | Address | City/State/Zipcode | Phone Number | | Organization | | | | + +---------+ + + | [facility] | | | | + +---------+ + + documented in this encounter Visit Diagnoses Not on filedocumented in this encounter"
--- OUTSIDE RECORDS SUMMARY | ~2019-08-17 | XMS | Encounter Summary ---
Demographics + + + | Address | [address] | | | [place] [address] | + + + | Home Phone | | + + + | Preferred Language | Unknown | + + + | Marital Status | | + + + | Worship Affiliation | 1077 | + + + | Race | Unknown | + + + | Ethnic Group | Unknown | + + + Author + + + | Author | [facility] | | | and [place] | + + + | Organization | [facility] | | | and [place] | + + + | Address | Unknown | + + + | Phone | Unavailable | + + + Support + + + + + | Name | Relationship | Address | Phone | + + + + + | Amina Stewart | ECON | [address] | | | | | [address] [place] [address], [place] | | | | | [address] | | + + + + + Care Team Providers + +------+ + | Care Tow Car Driver Name | Role | Phone | [...] | | | | | | | ([facility]) | | | | | | | [...] + + | 04/28/ | Hospital | [facility] | Paul Arias MD | Mesenteric ischemia, | | 2019 - | Encounter | [facility] | [address] | chronic (HCC); | | | | CARE FLOOR [address] | [place] | Mesenteric ischemia, | | 05/04/ | | BREEN NORMA | [address] | chronic ([facility]); | | 2018 | | [place] | [phone] | Hypertension, | | | | [address] | | unspecified type | | | | [phone] | | | +--------+ + + + [...] Physician Discharge Summary Patient ID: Zane Stewart [id number] 73 y.o. 1945 Admit date: 04/28/2019 Discharge [...] ABD: Appropriate tenderness. Hypoactive bowel tones SKIN: Amo, warm, dry without rash/lesion MS: ROM not limited, no digital cyanosis, normal gait NEURO: Conversant, A&O times 3 PSYCH: appropriate affect, speech and tone, judgement and insight intact Vascular: Palpable brachial pulses bilaterally. Abdominal binder in place. Meridian intact. Disposition: home Patient Instructions: Keep wound [...] Involuntary weight loss Weakness Date Last Reviewed: 01/03/201819993150-2804 [employer]. [address] [place] [address]. All righ ts reserved. This information is [...] your chest or arms Date Last Reviewed: 12/04/201519994516-4362 [employer]. [address] [place] [address], [place] [address]. All righ ts reserved. This information is [...] dc home with @ 9 (lives in [place]). Abdominal hydrocolloid dressing C/D/I, with no new [...] no BM. Just took 1 tab of [place]. Seems to be controlling the pain. He wants to wait till tomorrow. Discussed his care with his by phone. Questions answered about diet, climbing 13 stairs to get into one level home. will arrive by 11am with friend to help him home and into house. Wants a walker for home as well. Ok to shower. David Oreilly MD - 05/03/2019 8:46 AM PDT [facility] Service: Vascular Surgery Progress Note Hospital [...] bowel tones DRSNG: dry, spotty strikethru. SKIN: Amo, warm, well hydrated LE: w/out calf tenderness. [...] Status: Full Code David Luo MD 05/03/2019 [id number] signed by Sumaya Luo MD at 05/03/2019 [...] note might be different from the [facility] Service: Vascular Surgery Progress Note Hospital [...] bowel tones DRSNG: dry, spotty strikethru. SKIN: Amo, warm, well hydrated LE: w/out calf tenderness. [...] Status: Full Code David Luo MD 05/02/2019 [id number] signed by Sumaya Luo MD at 05/02/2019 9:52 AM Estefany Mcdonald RN - 05/01/2019 5:57 PM PDTPt transferred to 91, report received from YULI Lott. Medicated for pain, see MAR . Pt up walking this shift with FWW. Bowel tones hypoactive, but gurgling. Chart check complete. Estefany Rizvi RN Toney Madrigal PA- C - 05/01/2019 3:56 PM PDT [facility] Service: Vascular Surgery Progress Note Hospital [...] ABD: Appropriate tenderness. Hypoactive bowel tones SKIN: Amo, warm, dry without rash/lesion MS: ROM not limited, no digital cyanosis, normal gait NEURO: Conversant, A&O times 3 PSYCH: appropriate affect, speech and tone, judgement and insight intact Vascular: Palpable brachial pulses bilaterally. Abdominal binder in place. Meridian intact. DATA Recent Results (from the past [...] 05/01/2019 2:33 PM PD TReport [facility] to [facility] on 9RP. Will transfer pt at this [...] Paul Connolly MD - 6:56 AM PDT [facility] Service: Vascular Surgery Progress Note Hospital [...] ABD: Appropriate tenderness. Hypoactive bowel tones SKIN: Amo, warm, dry without rash/lesion MS: ROM not [...] Connolly MD - 04/29/2019 9:10 AM PDT [facility] Service: Vascular Surgery Progress Note Hospital [...] CV: No peripheral edema, rate regular SKIN: Amo, warm, dry without rash/lesion ABD: Soft, appropriate tenderness, hypoactive bowel tones MS: ROM not limited, no digital cyanosis NEURO: Conversant, A&O times 3 PSYCH: appropriate affect, speech and tone, judgement and insight intact DATA Recent Results (from the past 24 hour(s)) Type and Screen Collection Time: 04/28/19 11:03 Result Value Ref Range ABO Rh O POSITIVE Antibody Screen NEGATIVE BB BAND [id number] BB BAND Testing performed at [facility];[address] [place] [address];[place] [address] Basic Metabolic Panel Collection Time: 04/29/19 4:40 [...] | 11/04/ | Appointment | Radiology | uSzi Powell DNP | | | 2019 | [...] | | | Absolute | performed at [facility], [address] | [address] | LABORATORY | | | | [place], | | | | | | [place] [address] | | | | + + + + + + + + | Specimen | + + | Blood | + + + + + + + | Performing | Address | City/State/Zipcode | Phone Number | | Organization | | | | + + + + + | [facility] | [address] | [place] [address] | [phone] | + + + + + Basic [...] | 8.5 | 8.5 - 10.5 | [facility] | | | | | mg/dL | LABORATORY | | + + + + + + | Estimated | >60Comment: GFR <60: | >60 | [facility] | | | GFR | [...] W | | | | | | [facility], | | | | | | [place] [address] | | | | + + + + + + + + | Specimen | + + | Blood | + + + + + + + | Performing | Address | City/State/Zipcode | Phone Number | | Organization | | | | + + + + + | [facility] | [address] | [place] [address] | [phone] | + + + + + CBC [...] | | | Absolute | performed at [facility], [address] | [address] | LABORATORY | | | | [address], | | | | | | [place] [address] | | | | + + + + + + + + | Specimen | + + | Blood | + + + + + + + | Performing | Address | City/State/Zipcode | Phone Number | | Organization | | | | + + + + + | [facility] | [address] | [place] [address] | [phone] | + + + + + Basic [...] | >60Comment: GFR <60: | >60 | [facility] | | | GFR | [...] | | | | | | MDRD IDPA traceable | | | | | | equation.Testing | | | | | | performed at [facility], [address] | | | | | | [facility], | | | | | | [place] [address] | | | | + + + + + + + + | Specimen | + + | Blood | + + + + + + + | Performing | Address | City/State/Zipcode | Phone Number | | Organization | | | | + + + + + | [facility] | [address] | [place] [address] | [phone] | + + + + + CBC [...] | | | Absolute | performed at [facility], [address] | K/uL | LABORATORY | | | | [place], | | | | | | [place] [address] | | | | + + + + + + + + | Specimen | + + | Blood | + + + + + + + | Performing | Address | City/State/Zipcode | Phone Number | | Organization | | | | + + + + + | [facility] | [address] | [place] [address] | [phone] | + + + + + Basic [...] | | | | | | MDRD [facility] traceable | | | | | | equation.Testing | | | | | | performed at [facility], [address] | | | | | | [facility], | | | | | | [place] [address] | | | | + + + + + + + + | Specimen | + + | Blood | + + + + + + + | Performing | Address | City/State/Zipcode | Phone Number | | Organization | | | | + + + + + | [facility] | [address] | [place] [address] | [phone] | + + + + + CBC [...] 0.01Comment: Testing | 0.00 - 0.10 | [facility] | | | Absolute | performed at [facility], [address] | K/uL | LABORATORY | | | | [address], | | | | | | [place] [address] | | | | + + + + + + + + | Specimen | + + | Blood | + + + + + + + | Performing | Address | City/State/Zipcode | Phone Number | | Organization | | | | + + + + + | [facility] | [address] | [place] [address] | [phone] | + + + + + Basic [...] | | | | | performed at [facility], [address] | | | | | | [place], | | | | | | [place] [address] | | | | + + + + + + + + | Specimen | + + | Blood | + + + + + + + | Performing | Address | City/State/Zipcode | Phone Number | | Organization | | | | + + + + + | [facility] | [address] | [place] [address] | [phone] | + + + + + Lactic Acid (04/29/2019 9:09 AM PDT) + + + + + + | Component | Value | Ref Range | Performed | Pathologist | | | | | At | Signature | + + + + + + | Lactate, | 1.6Comment: Testing | 0.4 - 2.0 | [facility] | | | Serum | performed at [facility];[address] | mmol/L | LABORATORY | | | | [address];[place], [place] | | | | | | [address] | | | | + + + + + + + + | Specimen | + + | Blood | + + + + + + + | Performing | Address | City/State/Zipcode | Phone Number | | Organization | | | | + + + + + | [facility] | [address] | [place] [address] | [phone] | + + + + + ECG [...] | | | | | performed at [facility] | | | | | | [facility];[place], [place] | | | | | | [address] | | | | + + + + + + + + | Specimen | + + | Blood | + + + + + + + | Performing | Address | City/State/Zipcode | Phone Number | | Organization | | | | + + + + + | [facility] | [address] | [place] [address] | [phone] | + + + + + Basic [...] | | | | | | MDRD [facility] traceable | | | | | | equation.Testing | | | | | | performed at [facility] | | | | | | [facility];[place], [place] | | | | | | [address] | | | | + + + + + + + + | Specimen | + + | Blood | + + + + + + + | Performing | Address | City/State/Zipcode | Phone Number | | Organization | | | | + + + + + | [facility] | [address] | [place] [address] | [phone] | + + + + + Surgical [...] | | fibrous tissue and smooth muscle. JVR:[facility]:C2NR MICROSCOPIC | | | EXAMINATION:Histologic sections of [...] | | | no discrete lesions identified. Frog [employer] Oyster Farmworker sections are | | | submitted in [...] | | technical component was performed by [facility], [address] [place] [address] | | | [place] [address] (Blueprint Processor: Dede Bundy MD; CLIA# | | | [id number]). Professional interpretation was performed by[facility] | | | [facility] [place] | | [place] [address] (Blueprint Processor: Destin Angel | | | Rebceca Hardy; CLIA#: [id number]). Diagnostician: Roger Richards | | | MDPathologistElectronically Signed 04/29/2019 | | |The technical component was performed by [facility], [address] [place] [address] (Blueprint Processor: Dede Bundy MD; CLIA# [id number]). Professional interpretation w as performed by | | |[facility], [address] [place] [address] (Blueprint Processor: Destin Hardy M.D.; CLIA#: [id number]). | | | | | |Diagnostician: Roger [...] + + + | BB BAND | [id number] | | [facility] | | | | | | LABORATORY | | + + + + + + | BB BAND | Testing performed at | | [facility] | | | | [facility];[address] | LABORATORY | | | | [address];[place] [address] | | | | + + + + + + + + | Specimen | + + | Blood | + + + + + + + | Performing | Address | City/State/Zipcode | Phone Number | | Organization | | | | + + + + + | [facility] | [address] | [place] [address] | [phone] | + + + + + documented [...]
--- OUTSIDE RECORDS SUMMARY | ~2019-08-17 | XMS | Encounter Summary ---
Demographics + + + | Address | [address] | | | [place] [address] | + + + | Home Phone | | + + + | Preferred Language | Unknown | + + + | Marital Status | | + + + | Jew Affiliation | 1077 | + + + | Race | Unknown | + + + | Ethnic Group | Unknown | + + + Author + + + | Author | [facility] | | | and [place] | + + + | Organization | [facility] | | | and [place] [...] [place], [place] | | | | | [address] | | + + + + + Care Team Providers + +------+ + | Care Soda Jerker Name | Role | Phone | + [...] + + | 05/06/ | Telephone | [facility] | Suzi Powell DNP | Follow-up | | 2019 | | VASCULAR SURGERY | [address] | | | | | [address] [place] | [place], [place] | | | | | [place], [place] | [address] | | | | | [address] | | | | | | [phone] | | | +--------+ + + + [...] [place] | | | | | | [address] | | | | | | | | +--------+ + + + + | 11/04/ | Office | Vascular Surgery | Suzi Powell DNP | | | 2019 | Visit | | [address] | | | | | | [place] | | | | | | [address] | | | | | | | | +--------+ + + + + documented as of this encounter Visit Diagnoses + + | Diagnosis | + + | Mesenteric ischemia, chronic (HCC) - Primary Chronic vascular insufficiency of | | intestine | + + documented in this encounter"
--- OUTSIDE RECORDS SUMMARY | ~2019-08-17 | XMS | Encounter Summary ---
Demographics + + + | Address | [address] | | | [place] [address] | + + + | Home Phone [...] Organization | [facility] | | | and [place] | + + + | Address | Unknown | + + + | Phone | Unavailable | + + + Support + + + + + | Name | Relationship | Address | Phone | + + + + + | Amina Stewart | ECON | [address] | | | | | [address] [place] [address], [place] | | | | | [address] | | + + + + + Care Team Providers + +------+ + | Care Byproducts Pump Operator Name | Role | Phone | [...] | | | | | | | ([facility]) | | | | | | | [...] + + | 04/28/ | Surgery | [facility] | Paul Arias MD | REVASCULARIZATION | | 2019 | | [facility] | [address] | MESENTERIC | | | | OPERATING ROOM [address] | [place], [place] | | | | | [place] | [address] | | | | | [place], [place] | [phone] | | | | | [address] | | | | | | [phone] | | | +--------+---------+ + + + [...] the original. Physician Discharge Summary Patient ID: Znae Stewart [id number] y.o. 1945 Admit date: 04/28/2019 Discharge date and time: 05/04/2019 Admitting Physician: Paul Arisa MD Discharge Physician: Toney Sherman PA-C Admission [...] ABD: Appropriate tenderness. Hypoactive bowel tones SKIN: [place], warm, dry without rash/lesion MS: ROM not [...] weight loss Weakness Date Last Reviewed: 01/03/2018 [employer]. [address] [place] [address]. All righ ts reserved. This information is [...] chest or arms Date Last Reviewed: 12/04/2015 [employer]. [address] [place] [address]. All righ ts reserved. This information is [...] dc home with @ 9 (lives in [place]). Abdominal hydrocolloid dressing C/D/I, with no new [...] no BM. Just took 1 tab of [place]. Seems to be controlling the pain. He wants to wait till tomorrow. Discussed his care with his by phone. Questions answered about diet, climbing 13 stairs to get into one level home. will arrive by 11am with friend to help him home and into house. Wants a walker for home as well. Ok to shower. David Oreilly MD - 05/03/2019 8:46 AM PDT [facility] Service: Vascular Surgery Progress Note Hospital Day: [...] bowel tones DRSNG: dry, spotty strikethru. SKIN: [place], warm, well hydrated LE: w/out calf tenderness. [...] Status: Full Code David Luo MD 05/03/2019 [id number] signed by Fl javier Luo MD at 05/03/2019 12:46 PM [...] this note might be different from the [facility] Service: Vascular Surgery Progress Note Hospital Day: [...] bowel tones DRSNG: dry, spotty strikethru. SKIN: [place], warm, well hydrated LE: w/out calf tenderness. [...] Status: Full Code David Luo MD 05/02/2019 [id number] signed by Fl javier Luo MD at 05/02/2019 9:52 AM Estefany Mcdonald RN - 05/01/2019 5:57 PM PDTPt transferred to 9114, report received from YULI Lott. Medicated for pain, see MAR . Pt up walking this shift with FWW. Bowel tones hypoactive, but gurgling. Chart check complete. Estefany Rizvi RN Toney Madrigal PA- C - 05/01/2019 3:56 PM PDT [facility] Service: Vascular Surgery Progress Note Hospital Day: [...] ABD: Appropriate tenderness. Hypoactive bowel tones SKIN: [place], warm, dry without rash/lesion MS: ROM not limited, no digital cyanosis, normal gait NEURO: Conversant, A&O times 3 PSYCH: appropriate affect, speech and tone, judgement and insight intact Vascular: Palpable brachial pulses bilaterally. Abdominal binder in place. [place] intact. DATA Recent Results (from the past [...] function. Continue ambulation wi th PT. Disposition: Mtaa care Code Status: Full Code Toney Sherman [...] Paul Connolly MD - 6:56 AM PDT [facility] Service: Vascular Surgery Progress Note Hospital Day: [...] ABD: Appropriate tenderness. Hypoactive bowel tones SKIN: [place], warm, dry without rash/lesion MS: ROM not [...] Connolly MD - 04/29/2019 9:10 AM PDT [facility] Service: Vascular Surgery Progress Note Hospital Day: [...] CV: No peripheral edema, rate regular SKIN: [place], warm, dry without rash/lesion ABD: Soft, appropriate tenderness, hypoactive bowel tones MS: ROM not limited, no digital cyanosis NEURO: Conversant, A&O times 3 PSYCH: appropriate affect, speech and tone, judgement and insight intact DATA Recent Results (from the past 24 hour(s)) Type and Screen Collection Time: 04/28/19 11:03 Result Value Ref Range ABO Rh O POSITIVE Antibody Screen NEGATIVE BB BAND [id number] BB BAND Testing performed at [facility];[address] [place] [address];[place] [address] Basic Metabolic Panel Collection Time: 04/29/19 4:40 [...] [place] | | | | | | [id number] | | | | | | | | +--------+ + + + + | 11/04/ | Office | Vascular Surgery | Suzi Powell DNP | | | 2019 | Visit | | [address] | | | | | | [place] | | | | | | [address] | | | | | | | [...] the | | | | PDT | ([facility]) | results section. | + +--------+ + + + | REVASCULARIZATION | | 04/28/2019 | Mesenteric | | | MESENTERIC | | 11:12 AM | ischemia, chronic | | | | | PDT | ([facility]) | | + +--------+ + + + [...] | | | Absolute | performed at [facility], [address] | [address] | LABORATORY | | | | [place], | | | | | | [place] [address] | | | | + + + + + + + + | Specimen | + + | Blood | + + + + + + + | Performing | Address | City/State/Zipcode | Phone Number | | Organization | | | | + + + + + | [facility] | [address] | [place] [address] | [phone] | + + + + + Basic [...] | | | | | | MDRD IDOR traceable | | | | | | equation.Testing | | | | | | performed at [facility], [address] | | | | | | [facility], | | | | | | [place] [address] | | | | + + + + + + + + | Specimen | + + | Blood | + + + + + + + | Performing | Address | City/State/Zipcode | Phone Number | | Organization | | | | + + + + + | [facility] | [address] | [place] [address] | [phone] | + + + + + CBC [...] | | | Absolute | performed at [facility], [address] | K/uL | LABORATORY | | | | [facility], | | | | | | [place] [address] | | | | + + + + + + + + | Specimen | + + | Blood | + + + + + + + | Performing | Address | City/State/Zipcode | Phone Number | | Organization | | | | + + + + + | [facility] | [address] | [place] [address] | [phone] | + + + + + Basic [...] | >60Comment: GFR <60: | >60 | [facility] | | | GFR | [...] | | | | | performed at [facility], [address] | | | | | | [facility], | | | | | | [place] [address] | | | | + + + + + + + + | Specimen | + + | Blood | + + + + + + + | Performing | Address | City/State/Zipcode | Phone Number | | Organization | | | | + + + + + | [facility] | [address] | [place] [address] | [phone] | + + + + + CBC [...] | | | Absolute | performed at [facility], [address] | K/uL | LABORATORY | | | | [place], | | | | | | [place] [address] | | | | + + + + + + + + | Specimen | + + | Blood | + + + + + + + | Performing | Address | City/State/Zipcode | Phone Number | | Organization | | | | + + + + + | [facility] | [address] | [place] [address] | [phone] | + + + + + Basic [...] | | | | | | MDRD IDOR traceable | | | | | | equation.Testing | | | | | | performed at [facility], [address] | | | | | | [facility], | | | | | | [place] [address] | | | | + + + + + + + + | Specimen | + + | Blood | + + + + + + + | Performing | Address | City/State/Zipcode | Phone Number | | Organization | | | | + + + + + | [facility] | [address] | [place] [address] | [phone] | + + + + + CBC [...] | | | Absolute | performed at [facility], [address] | K/uL | LABORATORY | | | | [place], | | | | | | [place] [address] | | | | + + + + + + + + | Specimen | + + | Blood | + + + + + + + | Performing | Address | City/State/Zipcode | Phone Number | | Organization | | | | + + + + + | [facility] | [address] | [place] [address] | [phone] | + + + + + Basic [...] | | | | | | [place] [address] | | | | + + + + + + + + | Specimen | + + | Blood | + + + + + + + | Performing | Address | City/State/Zipcode | Phone Number | | Organization | | | | + + + + + | [facility] | [address] | [place] [address] | [phone] | + + + + + Lactic Acid (04/29/2019 9:09 AM PDT) + + + + + + | Component | Value | Ref Range | Performed | Pathologist | | | | | At | Signature | + + + + + + | Lactate, | 1.6Comment: Testing | 0.4 - 2.0 | [facility] | | | Serum | performed at [facility];[address] | mmol/L | LABORATORY | | | | [address];[place], [place] | | | | | | [address] | | | | + + + + + + + + | Specimen | + + | Blood | + + + + + + + | Performing | Address | City/State/Zipcode | Phone Number | | Organization | | | | + + + + + | [facility] | [address] | [place] [address] | [phone] | + + + + + ECG [...] | | | | | performed at [facility] | | | | | | [facility];[place], [place] | | | | | | [address] | | | | + + + + + + + + | Specimen | + + | Blood | + + + + + + + | Performing | Address | City/State/Zipcode | Phone Number | | Organization | | | | + + + + + | [facility] | [address] | [place] [address] | [phone] | + + + + + Basic [...] | >60Comment: GFR <60: | >60 | [facility] | | | GFR | [...] | | | | | | MDRD [facility] traceable | | | | | | equation.Testing | | | | | | performed at [facility] | | | | | | [facility];[place], [place] | | | | | | [address] | | | | + + + + + + + + | Specimen | + + | Blood | + + + + + + + | Performing | Address | City/State/Zipcode | Phone Number | | Organization | | | | + + + + + | [facility] | [address] | [place] [address] | [phone] | + + + + + Surgical [...] | | fibrous tissue and smooth muscle. JVR:cox branson:C2NR MICROSCOPIC | | | EXAMINATION:Histologic sections of [...] | | | no discrete lesions identified. Conductor [place] sections are | | | submitted in [...] | | technical component was performed by [facility], [address] [place] [address] | | | [place] [address] (Digital Content Producer: Dede Bundy MD; CLIA# | | | [id number]). Professional interpretation was performed [facility] | | | [facility], [facility] [address] | | [place] [address] (Digital Content Producer: Destin Angel | | | Rebecca Hardy; CLIA#: [id number]). Diagnostician: Roger Richards | | | MDPathologistElectronically Signed 04/29/2019 | | |The technical component was performed by [facility], [address] [place] [address] (Digital Content Producer: Dede Bundy MD; CLIA# [id number]). Professional interpretation w as performed by | | |[facility], [facility], [facility] [place] [address] (Digital Content Producer: Destin Hardy M.D.; CLIA#: [id number]). | | | | | |Diagnostician: Roger [...] + + + | BB BAND | [id number] | | [facility] | | | | | | LABORATORY | | + + + + + + | BB BAND | Testing performed at | | [facility] | | | | [facility];[address] | LABORATORY | | | | [address];[place] [address] | | | | + + + + + + + + | Specimen | + + | Blood | + + + + + + + | Performing | Address | City/State/Zipcode | Phone Number | | Organization | | | | + + + + + | [facility] | [address] | [place] [address] | [phone] | + + + + + documented [...]
--- OUTSIDE RECORDS SUMMARY | ~2019-08-17 | XMS | Encounter Summary ---
Demographics + + + | Address | [address] | | | [place] [address] | + + + | Home Phone | | + + + | Preferred Language | Unknown | + + + | Marital Status | | + + + | Tenriism Affiliation | 1077 | + + + | Race | Unknown | + + + | Ethnic Group | Unknown | + + + Author + + + | Author | [facility] | | | and [place] | + + + | Organization | [facility] | | | and [place] | + + + | Address | Unknown | + + + | Phone | Unavailable | + + + Support + + + + + | Name | Relationship | Address | Phone | + + + + + | Amina Stewart | ECON | [address] | | | | | [place], [place] | | | | | [address] | | + + + + + Care Team Providers + +------+ + | Care Warehouse Hand Name | Role | Phone | + +------+ + | No, Physician | PCP | Unavailable | + +------+ + Encounter Details +--------+ + + + + | Date | Type | Department | Care Team | Description | +--------+ + + + + | 04/21/ | Preadmit | [facility] | Paul Arias MD | Mesenteric ischemia, | | 2019 | Visit | [facility] | [address] | chronic (HCC) | | | | CLINIC [address] | [place], [place] | | | | | [place], [place] | [address] | | | | | [address] | [phone] | | | | | [phone] | | | +--------+ + + + [...] [place] | | | | | | [address] | | | | | | | | +--------+ + + + + | 11/04/ | Office | Vascular Surgery | Suzi Powell DNP | | | 2019 | Visit | | [address] | | | | | | [place] | | | | | | [address] | | | | | | | [...] the | | | | PDT | ([facility]) | results section. | + [...] Antibody | Testing performed at | | [facility] | | | Screen | [facility];[address] | | LABORATORY | | | | [address]vd;[place] [address] | | | | + + + + + + + + | Specimen | + + | Blood | + + + + + + + | Performing | Address | City/State/Zipcode | Phone Number | | Organization | | | | + + + + + | [facility] | [address] | [place] [address] | [phone] | + + + + + CBC [...] at | | | | | | [facility], [address] [facility] | | | | | | [place] | | | | | | [address] | | | | + + + + + + + + | Specimen | + + | Blood | + + + + + + + | Performing | Address | City/State/Zipcode | Phone Number | | Organization | | | | + + + + + | [facility] | [address] | [place] [address] | [phone] | + + + + + Comprehensive [...] | | | | | | MDRD IDUT traceable | | | | | | equation.Testing | | | | | | performed at [facility], [address] | | | | | | [facility], | | | | | | [place] [address] | | | | + + + + + + + + | Specimen | + + | Blood | + + + + + + + | Performing | Address | City/State/Zipcode | Phone Number | | Organization | | | | + + + + + | [facility] | [address] | [place] [address] | [phone] | + + + + + ECG [...]
--- OUTSIDE RECORDS SUMMARY | ~2019-08-17 | XMS | Encounter Summary ---
Demographics + + + | Address | [address] | | | [place] [address] | + + + | Home Phone | | + + + | Preferred Language | Unknown | + + + | Marital Status | | + + + | Latter-Day Affiliation | 1077 | + + + | Race | Unknown | + + + | Ethnic Group | Unknown | + + + Author + + + | Author | [facility] | | | and [place] | + + + | Organization | [facility] | | | and [place] [...] [place], [place] | | | | | [address] | | + + + + + Care Team Providers + +------+ + | Care Telegraph Lineman Name | Role | Phone | + +------+ + | No, Physician | PCP | Unavailable | + +------+ + Encounter Details +--------+ + + + + | Date | Type | Department | Care Team | Description | +--------+ + + + + | 05/27/ | Hospital | [facility] | Suzi Powell DNP | Mesenteric ischemia, | | 2019 | Encounter | VASCULAR SURGERY | [address] | chronic (HCC) | | | | ULTRASOUND [address] | [place] | | | | | [address] | [address] | | | | | [place] | | | | | | [address] | | | | | | [phone] | | | +--------+ + + + [...] [place] | | | | | | [address] | | | | | | | | +--------+ + + + + | 11/04/ | Office | Vascular Surgery | Suzi Powell DNP | | | 2019 | Visit | | [address] | | | | | | [place] | | | | | | [address] | | | | | | | | +--------+ + + + + documented as of this encounter Visit Diagnoses + + | Diagnosis | + + | Mesenteric ischemia, chronic (HCC) Chronic vascular insufficiency of intestine | + + documented in this encounter"
--- OUTSIDE RECORDS SUMMARY | ~2019-08-17 | XMS | Encounter Summary ---
Demographics + + + | Address | [address] | | | [place] [address] | + + + | Home Phone | | + + + | Preferred Language | Unknown | + + + | Marital Status | | + + + | Roman Catholic Affiliation | 1077 | + + + | Race | Unknown | + + + | Ethnic Group | Unknown | + + + Author + + + | Author | [facility] | | | and [place] | + + + | Organization | [facility] | | | and [place] | + + + | Address | Unknown | + + + | Phone | Unavailable | + + + Support + + + + + | Name | Relationship | Address | Phone | + + + + + | Amina Stewart | ECON | [address] | | | | | [facility] [place] | | | | | [address] | | + + + + + Care Team Providers + +------+ + | Care Automatic Lathe Operator Name | Role | Phone | [...] [address] | | | | | | ([facility]) | [address] | | | | | | Procedures | [place] | | | | | | IR Angiogram | [place] | | | | | | Mesenteric | [address] | | | | | | Visceral | Phone: | | | | | | | [phone] | | | | | | | Fax: | | | | | | | [phone] | | +--------+--------+ + + + + Reason for Visit +---------+ + | Reason | Comments | +---------+ + | Results | | +---------+ + Encounter Details +--------+ + + + + | Date | Type | Department | Care Team | Description | +--------+ + + + + | 06/22/ | Telephone | [facility] | Bethany Ramirez, | Results | | 2019 | | VASCULAR SURGERY | RN | | | | | [address] | | | | | | [place] | | | | | | [address] | | | | | | [phone] | | | +--------+ + + + [...] [place] | | | | | | [address] | | | | | | | | +--------+ + + + + | 11/04/ | Office | Vascular Surgery | Suzi Powell DNP | | | 2019 | Visit | | [address] | | | | | | [place] | | | | | | [address] | | | | | | | [...] SURGEON: Paul Arias MD | | | INDIRECT SALES EXEC: None ANESTHESIA: Moderate sedation and local anesthesia [...] was properly identified and brought to the Grapple Operator. The patient was | | | placed [...] | and up sized to a 4 [place] sheath. A Omni flush catheter was then | | | inserted into the aorta and aortogram was then performed with the | | | findings as described above. Next, an Amplatzer wire was then inserted | | | over the catheter and the 4 Australian sheath was removed. A 6.5 [place] | | | durable sheath was then [...] | | |up sized to a 4 [place] sheath. A Omni flush catheter was then inserted | | |into the aorta and aortogram was then performed with the findings as | | |described above. Next, an Amplatzer wire was then inserted over the | | |catheter and the 4 Australian sheath was removed. A 6.5 [place] durable sheath | | |was then inserted [...] + + | Performing | Address | City/State[facility] | Phone Number | | Organization [...]
--- OUTSIDE RECORDS SUMMARY | ~2019-08-17 | XMS | Encounter Summary ---
Demographics + + + | Address | [address] | | | [place] [address] | + + + | Home Phone | | + + + | Preferred Language | Unknown | + + + | Marital Status | | + + + | Rastafari Affiliation | 1077 | + + + | Race | Unknown | + + + | Ethnic Group | Unknown | + + + Author + + + | Author | [facility] | | | and [place] | + + + | Organization | [facility] | | | and [place] [...] [place], [place] | | | | | [address] | | + + + + + Care Team Providers + +------+ + | Care Quality Associate Name | Role | Phone | [...] + + | 03/27/ | Telephone | [facility] | Paul Arias MD | Advice Only | | 2019 | | VASCULAR SURGERY | [address] | | | | | [address] [place] | [place], [place] | | | | | [place], [place] | [address] | | | | | [address] | [phone] | | | | | [phone] | | | +--------+ + + + [...] [place] | | | | | | [address] | | | | | | | | +--------+ + + + + | 11/04/ | Office | Vascular Surgery | Suzi Powell DNP | | | 2019 | Visit | | [address] | | | | | | [place] | | | | | | [address] | | | | | | | | +--------+ + + + + documented as of this encounter Visit Diagnoses Not on filedocumented in this encounter"
--- OUTSIDE RECORDS SUMMARY | ~2019-08-17 | XMS | Encounter Summary ---
Demographics + + + | Address | [address] | | | [place] [address] | + + + | Home Phone | | + + + | Preferred Language | Unknown | + + + | Marital Status | | + + + | Oriental Orthodox Affiliation | 1077 | + + + | Race | Unknown | + + + | Ethnic Group | Unknown | + + + Author + + + | Author | [facility] | | | and [place] | + + + | Organization | [facility] | | | and [place] [...] [place] | | | | | [address] | | + + + + + Care Team Providers + +------+ + | Care Trailhead Construction Worker Name | Role | Phone [...] + + | 08/17/ | Telephone | [facility] | Bethany Ramirez Bartlett, | Appointment Question | | 2020 | | VASCULAR SURGERY | RN | | | | | [address] | | | | | | [place] | | | | | | [address] | | | | | | [phone] | | | +--------+ + + + [...] [place] | | | | | | [address] | | | | | | | | +--------+ + + + + | 11/04/ | Office | Vascular Surgery | Suzi Powell DNP | | | 2019 | Visit | | [address] | | | | | | [place] | | | | | | [id number] | | | | | | | | +--------+ + + + + documented as of this encounter Visit Diagnoses Not on filedocumented in this encounter"
--- OUTSIDE RECORDS SUMMARY | ~2019-08-17 | XMS | Encounter Summary ---
Demographics + + + | Address | [address] | | | [place] [address] | + + + | Home Phone | | + + + | Preferred Language | Unknown | + + + | Marital Status | | + + + | Alevism Affiliation | 1077 | + + + | Race | Unknown | + + + | Ethnic Group | Unknown | + + + Author + + + | Author | [facility] | | | and [place] | + + + | Organization | [facility] | | | and [place] | + + + | Address | Unknown | + + + | Phone | Unavailable | + + + Support + + + + + | Name | Relationship | Address | Phone | + + + + + | Amina Stewart | ECON | [address] | | | | | [place], [place] | | | | | [address] | | + + + + + Care Team Providers + +------+ + | Care Sole Edge Inker Machine Name | Role | Phone | + +------+ + | No, Physician | PCP | Unavailable | + +------+ + Encounter Details +--------+ + + + + | Date | Type | Department | Care Team | Description | +--------+ + + + + | 04/21/ | Preadmit | [facility] | Paul Arias MD | Mesenteric ischemia, | | 2019 | Visit | [facility] | [address] | chronic (HCC) | | | | CLINIC [address] | [place], [place] | | | | | [place], [place] | [address] | | | | | [address] | [phone] | | | | | [phone] | | | +--------+ + + + [...] [place] | | | | | | [address] | | | | | | | | +--------+ + + + + | 11/04/ | Office | Vascular Surgery | Suzi Powell DNP | | | 2019 | Visit | | [address] | | | | | | [place] | | | | | | [address] | | | | | | | [...] the | | | | PDT | ([facility]) | results section. | + +--------+ [...] Antibody | Testing performed at | | [facility] | | | Screen | [facility] | | LABORATORY | | | | [address];[place] [address] | | | | + + + + + + + + | Specimen | + + | Blood | + + + + + + + | Performing | Address | City/State/Zipcode | Phone Number | | Organization | | | | + + + + + | [facility] | [address] | [place] [address] | [phone] | + + + + + CBC [...] at | | | | | | [facility], [address] [facility] | | | | | | [place] | | | | | | [address] | | | | + + + + + + + + | Specimen | + + | Blood | + + + + + + + | Performing | Address | City/State/Zipcode | Phone Number | | Organization | | | | + + + + + | [facility] | [address] | [place] [address] | [phone] | + + + + + Comprehensive [...] | | | | | | MDRD IDTX traceable | | | | | | equation.Testing | | | | | | performed at [facility], [address] | | | | | | [facility], | | | | | | [place] [address] | | | | + + + + + + + + | Specimen | + + | Blood | + + + + + + + | Performing | Address | City/State/Zipcode | Phone Number | | Organization | | | | + + + + + | [facility] | [address] | [place] [address] | [phone] | + + + + + ECG [...]
--- OUTSIDE RECORDS SUMMARY | ~2019-08-17 | XMS | Encounter Summary ---
Demographics + + + | Address | [address] | | | [place] [address] | + + + | Home Phone | | + + + | Preferred Language | Unknown | + + + | Marital Status | | + + + | Lutheran Affiliation | 1077 | + + + | Race | Unknown | + + + | Ethnic Group | Unknown | + + + Author + + + | Author | [facility] | | | and [place] | + + + | Organization | [facility] | | [...] [address] | | | | | [address] [place] [place] [address], [place] | | | | | [address] | | + + + + + Care Team Providers + +------+ + | Care Machined Parts Metal Sprayer Name | Role | Phone | + [...] | | | | | ([facility]) | | | | | | | [...] + + | 04/28/ | Hospital | [facility] | Paul Arias MD | Mesenteric ischemia, | | 2019 - | Encounter | [facility] | [address] | chronic (HCC); | | | | CARE FLOOR [address] | [place] | Mesenteric ischemia, | | 05/04/ | | [place] | [address] | chronic ([facility]); | | 2018 | | [place] | [phone] | Hypertension, | | | | [address] | | unspecified type | | | | [phone] | | | +--------+ + + + [...] Physician Discharge Summary Patient ID: Zane Stewart [id number] y.o. 1945 Admit date: 04/28/2019 Discharge [...] ABD: Appropriate tenderness. Hypoactive bowel tones SKIN: [place], warm, dry without rash/lesion MS: ROM not limited, no digital cyanosis, normal gait NEURO: Conversant, A&O times 3 PSYCH: appropriate affect, speech and tone, judgement and insight intact Vascular: Palpable brachial pulses bilaterally. Abdominal binder in place. [place] intact. Disposition: home Patient Instructions: Keep wound [...] Involuntary weight loss Weakness Date Last Reviewed: 01/03/201819996483-5078 [employer]. [address] [place] [address]. All righ ts reserved. This information is [...] your chest or arms Date Last Reviewed: 12/04/201519992976-8737 [employer]. [address] [place] [address], [place] [address]. All righ ts reserved. This information is [...] dc home with @ 9 (lives in [place]). Abdominal hydrocolloid dressing C/D/I, with no new [...] no BM. Just took 1 tab of Atwood. Seems to be controlling the pain. He wants to wait till tomorrow. Discussed his care with his by phone. Questions answered about diet, climbing 13 stairs to get into one level home. will arrive by 11am with friend to help him home and into house. Wants a walker for home as well. Ok to shower. David Oreilly MD - 05/03/2019 8:46 AM PDT [facility] Service: Vascular Surgery Progress Note [...] bowel tones DRSNG: dry, spotty strikethru. SKIN: [place], warm, well hydrated LE: w/out calf tenderness. [...] Status: Full Code David Luo MD 05/03/2019 [id number] signed by Sumaya Luo MD at 05/03/2019 [...] this note might be different from the [facility] Service: Vascular Surgery Progress Note Hospital Day: [...] bowel tones DRSNG: dry, spotty strikethru. SKIN: [place], warm, well hydrated LE: w/out calf tenderness. [...] Status: Full Code David Luo MD 05/02/2019 [id number] signed by Sumaya Luo MD at 05/02/2019 9:52 AM Estefany Mcdonald RN - 05/01/2019 5:57 PM PDTPt transferred to 91, report received from YULI Lott. Medicated for pain, see MAR . Pt up walking this shift with FWW. Bowel tones hypoactive, but gurgling. Chart check complete. Estefany Rizvi RN Toney Madrigal PA- C - 05/01/2019 3:56 PM PDT [facility] Service: Vascular Surgery Progress Note [...] ABD: Appropriate tenderness. Hypoactive bowel tones SKIN: [place], warm, dry without rash/lesion MS: ROM not limited, no digital cyanosis, normal gait NEURO: Conversant, A&O times 3 PSYCH: appropriate affect, speech and tone, judgement and insight intact Vascular: Palpable brachial pulses bilaterally. Abdominal binder in place. [place] intact. DATA Recent Results (from the past [...] 05/01/2019 2:33 PM PD TReport called [facility] on 9RP. Will transfer pt at [...] Paul Connolly MD - 6:56 AM PDT [facility] Service: Vascular Surgery Progress Note [...] ABD: Appropriate tenderness. Hypoactive bowel tones SKIN: [place], warm, dry without rash/lesion MS: ROM not [...] Connolly MD - 04/29/2019 9:10 AM PDT [facility] Service: Vascular Surgery Progress Note [...] CV: No peripheral edema, rate regular SKIN: [place], warm, dry without rash/lesion ABD: Soft, appropriate tenderness, hypoactive bowel tones MS: ROM not limited, no digital cyanosis NEURO: Conversant, A&O times 3 PSYCH: appropriate affect, speech and tone, judgement and insight intact DATA Recent Results (from the past 24 hour(s)) Type and Screen Collection Time: 04/28/19 11:03 Result Value Ref Range ABO Rh O POSITIVE Antibody Screen NEGATIVE BB BAND [id number] BB BAND Testing performed at [facility];[address] [place] [address];[place] [address] Basic Metabolic Panel Collection Time: 04/29/19 4:40 [...] | | | Absolute | performed at [facility], [address] | [address] | LABORATORY | | | | [place], | | | | | | [place] [address] | | | | + + + + + + + + | Specimen | + + | Blood | + + + + + + + | Performing | Address | City/State/Zipcode | Phone Number | | Organization | | | | + + + + + | [facility] | [address] | [place] [address] | [phone] | + + + + + Basic [...] | 8.5 | 8.5 - 10.5 | [facility] | | | | | mg/dL | LABORATORY | | + + + + + + | Estimated | >60Comment: GFR <60: | >60 | [facility] | | | GFR | [...] W | | | | | | [facility], | | | | | | [place] [address] | | | | + + + + + + + + | Specimen | + + | Blood | + + + + + + + | Performing | Address | City/State/Zipcode | Phone Number | | Organization | | | | + + + + + | [facility] | [address] | [place] [address] | [phone] | + + + + + CBC [...] | | | Absolute | performed at [facility], [address] | K/u[address] | LABORATORY | | | | [place], | | | | | | [place] [address] | | | | + + + + + + + + | Specimen | + + | Blood | + + + + + + + | Performing | Address | City/State/Zipcode | Phone Number | | Organization | | | | + + + + + | [facility] | [address] | [place] [address] | [phone] | + + + + + Basic [...] | >60Comment: GFR <60: | >60 | [facility] | | | GFR | [...] | | | | | | MDRD IDRI traceable | | | | | | equation.Testing | | | | | | performed at [facility], [address] | | | | | | [facility], | | | | | | [place] [address] | | | | + + + + + + + + | Specimen | + + | Blood | + + + + + + + | Performing | Address | City/State/Zipcode | Phone Number | | Organization | | | | + + + + + | [facility] | [address] | [place] [address] | [phone] | + + + + + CBC [...] | | | Absolute | performed at [facility], [address] | K/uL | LABORATORY | | | | [place], | | | | | | [place] [address] | | | | + + + + + + + + | Specimen | + + | Blood | + + + + + + + | Performing | Address | City/State/Zipcode | Phone Number | | Organization | | | | + + + + + | [facility] | [address] | [place] [address] | [phone] | + + + + + Basic [...] | | | | | | MDRD [facility] traceable | | | | | | equation.Testing | | | | | | performed at [facility], [address] | | | | | | [facility], | | | | | | [place] [address] | | | | + + + + + + + + | Specimen | + + | Blood | + + + + + + + | Performing | Address | City/State/Zipcode | Phone Number | | Organization | | | | + + + + + | [facility] | [address] | [place] [address] | [phone] | + + + + + CBC [...] 0.01Comment: Testing | 0.00 - 0.10 | [facility] | | | Absolute | performed at [facility], [address] | K/uL | LABORATORY | | | | [place], | | | | | | [place] [address] | | | | + + + + + + + + | Specimen | + + | Blood | + + + + + + + | Performing | Address | City/State/Zipcode | Phone Number | | Organization | | | | + + + + + | [facility] | [address] | [place] [address] | [phone] | + + + + + Basic [...] | | | | | performed at [facility], [address] | | | | | | [place], | | | | | | [place] [address] | | | | + + + + + + + + | Specimen | + + | Blood | + + + + + + + | Performing | Address | City/State/Zipcode | Phone Number | | Organization | | | | + + + + + | [facility] | [address] | [place] [address] | [phone] | + + + + + Lactic Acid (04/29/2019 9:09 AM PDT) + + + + + + | Component | Value | Ref Range | Performed | Pathologist | | | | | At | Signature | + + + + + + | Lactate, | 1.6Comment: Testing | 0.4 - 2.0 | [facility] | | | Serum | performed at [facility];[address] | mmol/L | LABORATORY | | | | [address];[place], [place] | | | | | | [address] | | | | + + + + + + + + | Specimen | + + | Blood | + + + + + + + | Performing | Address | City/State/Zipcode | Phone Number | | Organization | | | | + + + + + | [facility] | [address] | [place] [address] | [phone] | + + + + + ECG [...] | | | | | performed at [facility] | | | | | | [facility];[place], [place] | | | | | | [address] | | | | + + + + + + + + | Specimen | + + | Blood | + + + + + + + | Performing | Address | City/State/Zipcode | Phone Number | | Organization | | | | + + + + + | [facility] | [address] | [place] [address] | [phone] | + + + + + Basic [...] | | | | | | MDRD [facility] traceable | | | | | | equation.Testing | | | | | | performed at [facility] | | | | | | [facility];[place], [place] | | | | | | [address] | | | | + + + + + + + + | Specimen | + + | Blood | + + + + + + + | Performing | Address | City/State/Zipcode | Phone Number | | Organization | | | | + + + + + | [facility] | [address] | [place] [address] | [phone] | + + + + + Surgical [...] | | fibrous tissue and smooth muscle. JVR:[facility]:C2NR MICROSCOPIC | | | EXAMINATION:Histologic sections [...] | | | no discrete lesions identified. Health Program Specialist sections are | | | submitted in [...] | | technical component was performed by [facility], [address] [place] [address] | | | [place] [address] (Senior Mechanical Estimator: Dede Bundy MD; CLIA# | | | [id number]). Professional interpretation was performed by[facility] | | | [facility] | | [place] [address] (Senior Mechanical Estimator: Destin Angel | | | Rebecca Hardy; CLIA#: [id number]). Diagnostician: Roger Richards | | | MDPathologistElectronically Signed 04/29/2019 | | |The technical component was performed by [facility], [address] [place] [address] (Senior Mechanical Estimator: Dede Bundy MD; CLIA# [id number]). Professional interpretation w as performed by | | |[facility], [address] [place] [address] (Senior Mechanical Estimator: Destin Hardy M.D.; CLIA#: [id number]). | | | | | |Diagnostician: Roger [...] + + + | BB BAND | [id number] | | [facility] | | | | | | LABORATORY | | + + + + + + | BB BAND | Testing performed at | | [facility] | | | | [facility] | | LABORATORY | | | | [address];[place] [address] | | | | + + + + + + + + | Specimen | + + | Blood | + + + + + + + | Performing | Address | City/State/Zipcode | Phone Number | | Organization | | | | + + + + + | [facility] | [address] | [place] [address] | [phone] | + + + + + documented [...]
--- OUTSIDE RECORDS SUMMARY | ~2019-08-17 | XMS | Encounter Summary ---
Demographics + + + | Address | [address] | | | [place] [address] | + + + | Home Phone [...] | Organization | [facility] | [...] | | | | | [facility] [place] | | | | | [address] | | + + + + + Care Team Providers + +------+ + | Care Securities Clerk Name | Role | Phone | [...] | | | | | intestine | [place], [place] | [address] | | | | | ([facility]) | [address] | Phone: | | | | | Procedures | Phone: | [phone] | | | | | CHG | [phone] | Fax: | | | | | RADIOLOGIC | Fax: | [phone] | | | | | EXAM CHEST 2 | [phone] | | | | | | VIEWS [facility] | | | | | | | XRAY | | | +--------+--------+ + + + + Encounter Details +--------+ + + + + | Date | Type | Department | Care Team | Description | +--------+ + + + + | 04/21/ | Hospital | [facility] | Paul Arias MD | | | 2019 | Encounter | [facility] | [address] | | | | | [address] | [place], [place] | | | | | [place], [place] | [address] | | | | | [address] | [phone] | | | | | [phone] | | | +--------+ + + + [...] [place] | | | | | | [address] | | | | | | | | +--------+ + + + + | 11/04/ | Office | Vascular Surgery | Suzi Powell DNP | | | 2019 | Visit | | [address] | | | | | | [place] | | | | | | [address] | | | | | | | [...] the | | | | PDT | ([facility]) | results section. | + [...]
--- OUTSIDE RECORDS SUMMARY | ~2019-08-17 | XMS | Encounter Summary ---
Demographics + + + | Address | [address] | | | [place] [address] | + + + | Home Phone | | + + + | Preferred Language | Unknown | + + + | Marital Status | | + + + | Orthodoxy Affiliation | 1077 | + + + | Race | Unknown | + + + | Ethnic Group | Unknown | + + + Author + + + | Author | [facility] | | | and [place] | + + + | Organization | [facility] | | | and [place] [...] [place], [place] | | | | | [address] | | + + + + + Care Team Providers + +------+ + | Care Quality Officer Name | Role | Phone | + [...] | | | | | abdominal | CYTOMETRY TECHNOLOGIST [address] | | | | | pain, | [address] | [place] | | | | | unspecified | [address] | [place], [place] | | | | | | [place] | [address] | | | | | | [address] | Phone: | | | | | | Phone: | [phone] | | | | | | [phone] | Fax: | | | | | | Fax: | [phone] | | | | | | [phone] | | +--------+--------+ + + + + Encounter Details +--------+---------+ + + + | Date | Type | Department | Care Team | Description | +--------+---------+ + + + | 03/26/ | Office | [facility] | Paul Arias MD | Mesenteric ischemia, | | 2019 | Visit | VASCULAR SURGERY | [address] | chronic (HCC) | | | | [address] | [place] [facility] [place] | (Primary Dx) | | | | [facility] [place] | [address] | | | | | [address] | [phone] | | | | | [phone] | | | +--------+---------+ + + + [...] a recent CT and MRI abdomen from [facility]. [facility] ent denies any surgical intervention for [...] CV: No peripheral edema, rate regular SKIN: [place], warm, dry without rash/lesion MS: ROM not limited, no digital cyanosis, normal gait NEURO: Cranial nerves II-XII grossly intact, A&O times 3 PSYCH: appropriate affect, speech and tone, judgement and insight intact Vascular: Palpable femoral pulses Assessment Assessment and Plan CT and MRI abdomen results from [facility] reviewed and discussed with the [facility] ent. The patient's imaging is is concerning [...] [place] | | | | | | [id number] | | | | | | | | +--------+ + + + + | 11/04/ | Office | Vascular Surgery | Suzi Powell DNP | | | 2019 | Visit | | [address] | | | | | | [place] | | | | | | [address] | | | | | | | [...]
--- OUTSIDE RECORDS SUMMARY | ~2019-08-17 | XMS | Encounter Summary ---
Demographics + + + | Address | [address] | | | [place] [address] | + + + | Home Phone [...] | Organization | [facility] | | | and [...] [place], [place] | | | | | [address] | | + + + + + Care Team Providers + +------+ + | Care Wood Heel Fitter Machine Name | Role | Phone | [...] E | | | | | | ([facility]) H/O | [place] | | | | | | endarterecto | [address] | | | | | | my | Phone: | | | | | | Procedures | [phone] | | | | | | VAS | Fax: | | | | | | Mesenteric | [phone] | | | | | | Arterial [...] + + | 08/06/ | Office | [facility] | Suzi Powell DNP | Mesenteric ischemia, | | 2019 | Visit | VASCULAR SURGERY | [address] | chronic (HCC) | | | | [address] [place] | [place] | (Primary Dx); H/O | | | | [place] | [address] | endarterectomy; S/P | | | | [address] | | angioplasty | | | | [phone] | | | +--------+---------+ + + + [...] Suzi Powell DNP - 08/06/2019 10:30 AM [facility] [address] [place] [address] Office: [phone] DATE OF VISIT: 08/06/2019 PATIENT NAME: Zane [...] a [facility]. [place]essa ent denies any [...] were present in bilateral dorsalis pedis and foreign language professor ior tibial artery arteries. Palpable bilateral carotid, [...] [place] | | | | | | [id number] | | | | | | | | +--------+ + + + + | 11/04/ | Office | Vascular Surgery | Suzi Powell DNP | | 2019 | Visit | | [address] | | | | | | [place] | | | | | | [address] | | | | | | | [...]
--- OUTSIDE RECORDS SUMMARY | ~2019-08-17 | XMS | Encounter Summary ---
Demographics + + + | Address | [address] | | | [place] [address] | + + + | Home Phone | | + + + | Preferred Language | Unknown | + + + | Marital Status | | + + + | Adventist Affiliation | 1077 | + + + | Race | Unknown | + + + | Ethnic Group | Unknown | + + + Author + + + | Author | [facility] | | | and [place] | + + + | Organization | [facility] | | | and [...] [place] | | | | | [address] | | + + + + + Care Team Providers + +------+ + | Care Assistant General Manager Name | Role | Phone | [...] + + | 06/16/ | Telephone | [facility] | Jaz Castellanosallen Cueva, | Diagnostic Order | | 2018 | | VASCULAR SURGERY | RN | | | | | [address] | | | | | | [place] | | | | | | [address] | | | | | | [phone] | | | +--------+ + + + [...] [place] | | | | | | [address] | | | | | | | | +--------+ + + + + | 11/04/ | Office | Vascular Surgery | Suzi Powell DNP | | | 2020 | Visit | | [address] | | | | | | [place] | | | | | | [id number] | | | | | | | | +--------+ + + + + documented as of this encounter Visit Diagnoses Not on filedocumented in this encounter"
--- OUTSIDE RECORDS SUMMARY | ~2019-08-17 | XMS | Clinical Summary ---
Demographics + + + | Address | [address] | | | [place] [address] | + + + | Home Phone | | + + + | Preferred Language | Unknown | + + + | Marital Status | Unknown | + + + | Mormonism Affiliation | Unknown | + + + | Race | Unknown | + + + | Ethnic Group | Unknown | + + + Author + + + | Author | [employer] (Historical as of | | | 03-21-19) | + + + | Organization | [employer] [facility] [employer] (Historical as of | | | 03-21-19) | + + + | Address | Unknown | + + + | Phone | Unavailable | + + + Care Team Providers + +------+ + | Care Manager Competitive Intelligence Name | Role | Phone | + [...] + + | [place] | [place] | [phone] | | [phone] [employer] [phone] | | ADMINISTRATION | [place] | | | [phone] | | | [address] | | | | [address] [place] | | | [place] | | | | [address] | | | ON | | | [...] | 1946 | [phone] | [place] [address] | | | Admini | | | [...]
--- OUTSIDE RECORDS SUMMARY | ~2019-08-17 | XMS | Encounter Summary ---
Demographics + + + | Address | [address] | | | [place] [address] | + + + | Home Phone | | + + + | Preferred Language | Unknown | + + + | Marital Status | | + + + | Pentecostalism Affiliation | 1077 | + + + | Race | Unknown | + + + | Ethnic Group | Unknown | + + + Author + + + | Author | [facility] | | | and [place] | + + + | Organization | [facility] | | | and [place] | + + + | Address | Unknown | + + + | Phone | Unavailable | + + + Support + + + + + | Name | Relationship | Address | Phone | + + + + + | Amina Stewart | ECON | [address] | | | | | [place] | | | | | [address] | | + + + + + Care Team Providers + +------+ + | Care Cream Tester Name | Role | Phone | + +------+ + PCP | Unavailable | + +------+ + Encounter Details +--------+ + + + + | Date | Type | Department | Care Team | Description | +--------+ + + + + | 07/03/ | Orders Only | [facility] | Andrea Shearer | | | 2016 | | CONVERSION [address] | [address] | | | | | [address] | [address] | | | | | [place] | [place] | | | | | [address] | [address] | | | | | [phone] | [phone] | | | | | | | [...] [place] | | | | | | [address] | | | | | | | | +--------+ + + + + | 11/04/ | Office | Vascular Surgery | Suzi Powell DNP | | | 2019 | Visit | | [address] | | | | | | [place] | | | | | | [address] | | | | | | | | +--------+ + + + + documented as of this encounter Procedures + +--------+ + + + | Procedure Name | Priori | Date/Time | Associated Diagnosis | Comments | | | ty | | | | + +--------+ + + + | ECHO INTERPRETATION | Routin | 07/03/2016 | | Results for this | | OF OUTSIDE FILMS | e | 9:32 AM | | procedure are in the | | | | PST | | results section. | + +--------+ + + + documented in this encounter Results ECHO Interpretation of Outside Films (07/03/2016 9:32 AM PST) + + | Specimen | + + | | + + + + + | Impressions | Performed At | + + + | 1. The left ventricle is normal in size, mild increase in wall | | | thickness and hyperdynamic systolic function EF>70%. 2. The diastolic | | | filling pattern indicates impaired relaxation consistent with mild | | | dysfunction (Grade I). 3. The right ventricle is normal in size and | | | function. 4. Trace tricuspid regurgitation with no pulmonary | | | hypertension. 5. Mild degenerative changes in the aortic and mitral | | | valve. 6. There is no pericardial effusion. | | + + + + + + | Narrative | Performed At | + + + | Patient Name: Zane Stewart Date of : 1945 | | | Performing Physician: Cristian Raya MD | | | | | | INDICATIONS Murmur CONCLUSIONS 1. The | | | left ventricle is normal in size, mild increase in wall thickness and | | | hyperdynamic systolic function EF>70%. 2. The diastolic filling | | | pattern indicates impaired relaxation consistent with mild dysfunction | | | (Grade I). 3. The right ventricle is normal in size and function. | | | 4. Trace tricuspid regurgitation with no pulmonary hypertension. 5. | | | Mild degenerative changes in the aortic and mitral valve. 6. There is | | | no pericardial effusion. FINDINGS -------- ECG rhythm: Sinus | | | rhythm. Study: A 2-dimensional transthoracic echocardiogram with | | | m-mode, spectral and color flow Doppler was perfomed. Study: This was | | | a technically adequate study. Left Ventricle: Left ventricular | | | systolic function is hyperdynamic with an estimated EF of >70%. Left | | | Ventricle: The left ventricle cavity size is normal. Left Ventricle: | | | There is mild concentric left ventricular hypertrophy. Left | | | Ventricle: No regional wall motion abnormalities. Left Ventricle: The | | | diastolic filling pattern indicates impaired relaxation consistent | | | with mild dysfunction (Grade I). Right Ventricle: The right ventricle | | | is normal in size and function. Left Atrium: The left atrium is | | | normal in size. Right Atrium: The right atrium is normal in size. | | | Aortic Valve: The aortic valve is mildly calcified. Aortic Valve: | | | There is no evidence of aortic stenosis. Mitral Valve: No mitral | | | regurgitation. Mitral Valve: Mild mitral annular calcification | | | present. Tricuspid Valve: The tricuspid valve appears structurally | | | normal. Tricuspid Valve: Trace tricuspid regurgitation present. | | | Tricuspid Valve: The right ventricular systolic pressure (pulmonary | | | artery systolic pressure), as measured by Doppler, is 12.26mmHg. | | | Pulmonic Valve: The pulmonic valve was not well visualized. Pulmonic | | | Valve: Mild degenerative changes in the aortic and mitral valve. | | | Pericardium: There is no pericardial effusion. Pericardium: No | | | pleural effusion seen. IVC/Hepatic Veins: The IVC is small (<1.5cm) | | | and collapses with sniff, consistent with central venous pressures of | | | 0-5mmHg. Aorta: The aortic root, ascending aorta and aortic arch are | | | normal. MEASUREMENTS Ao asc: 3.48 cm IVC: | | | 1.36 cm LA Major: 5.02 cm EDV(Teich): 82.80 ml IVSd: 1.2 | | | cm LVIDd: 4.29 cm LVPWd: 1.1 cm LVOT Area: 3.09 cm2 LVOT | | | Diam: 1.98 cm %FS: 38.10 % EF(Teich): 68.61 % ESV(Teich): | | | 25.98 ml LVIDs: 2.65 cm SV(Teich): 56.81 ml RA Major: | | | 4.99 cm RV Major: 5.66 cm RVIDd: 2.37 cm LVEF MOD A2C: | | | 69.91 % SV MOD A2C: 52.88 ml LVEF MOD A4C: 70.34 % SV MOD | | | A4C: 57.70 ml EF Biplane: 70.25 % LVEDV MOD BP: 80.73 ml | | | LVESV MOD BP: 24.01 ml LVEDV MOD A2C: 75.63 ml LVLd A2C: | | | 7.56 cm LVEDV MOD A4C: 82.03 ml LVLd A4C: 7.97 cm LVESV MOD | | | A2C: 22.75 ml LVLs A2C: 6.43 cm LVESV MOD A4C: 24.33 ml | | | LVLs A4C: 6.05 cm LAESV(A-L): 43.21 ml LAESV Index (A-L): | | | 21.39 ml/m2 LAAs A2C: 15.21 cm2 LAESV A-L A2C: 41.14 ml LALs | | | A2C: 4.77 cm LAAs A4C: 15.98 cm2 LAESV A-L A4C: 42.14 ml | | | LALs A4C: 5.14 cm RAAs: 10.97 cm2 RAESV A-L: 19.03 ml | | | RAESV MOD: 18.53 ml RALs: 5.37 cm Ao Diam: 3.47 cm LA | | | Diam: 3.82 cm LA/Ao: 1.10 AV maxP.35 mmHg AV meanPG: | | | 4.59 mmHg AV Vmax: 1.35 m/s AV Vmean: 1.01 m/s AV VTI: | | | 31.29 cm CHHAYA Vmax: 2.49 cm2 CHHAYA (VTI): 2.22 cm2 AVAI Vmax: | | | 0.00 cm2/m2 AVAI (VTI): 0.00 cm2/m2 LVOT maxP.79 mmHg | | | LVOT meanP.41 mmHg LVSI Dopp: 34.51 ml/m2 LVSV Dopp: | | | 69.71 ml LVOT Vmax: 1.09 m/s LVOT Vmean: 0.71 m/s LVOT VTI: | | | 22.54 cm MV A Narinder: 0.96 m/s MV DecT: 282.18 ms MV E Narinder: | | | 1.11 m/s MV E/A Ratio: 1.14 MV PHT: 81.83 ms MVA By PHT: | | | 2.68 cm2 Septal e': 0.06 m/s Septal E/e': 16.53 Lateral | | | e': 0.07 m/s Lateral E/e': 14.35 RAP: 5 mmHg RVSP: | | | 12.25 mmHg TR maxP.25 mmHg TR Vmax: 1.34 m/s | | | Trench Pipe Layer: ULYSSES Authenticated by: Cristian Raya MD Report | | | Date/Time: -- | | + + + + + | Procedure Note | + + | Donald Diggs Conversion - 03/26/2019 10:39 PM PDT Patient Name: John Stewart | | : 1945 Performing Physician: Cristian Raya | | MD INDICATIONS M | | urmur CONCLUSIONS 1. The left ventricle is normal in size, mild increase in | | wall thickness and hyperdynamic systolic function EF>70%.2. The diastolic filling | | pattern indicates impaired relaxation consistent with mild dysfunction (Grade I).3. The | | right ventricle is normal in size and function.4. Trace tricuspid regurgitation with no | | pulmonary hypertension.5. Mild degenerative changes in the aortic and mitral valve.6. | | There is no pericardial effusion. FINDINGS--------ECG rhythm: Sinus rhythm.Study: A | | 2-dimensional transthoracic echocardiogram with m-mode, spectral and color flow Doppler | | was perfomed.Study: This was a technically adequate study.Left Ventricle: Left | | ventricular systolic function is hyperdynamic with an estimated EF of >70%.Left | | Ventricle: The left ventricle cavity size is normal.Left Ventricle: There is mild | | concentric left ventricular hypertrophy.Left Ventricle: No regional wall motion | | abnormalities.Left Ventricle: The diastolic filling pattern indicates impaired | | relaxation consistent with mild dysfunction (Grade I).Right Ventricle: The right | | ventricle is normal in size and function.Left Atrium: The left atrium is normal in | | size.Right Atrium: The right atrium is normal in size.Aortic Valve: The aortic valve is | | mildly calcified.Aortic Valve: There is no evidence of aortic stenosis.Mitral Valve: No | | mitral regurgitation.Mitral Valve: Mild mitral annular calcification present.Tricuspid | | Valve: The tricuspid valve appears structurally normal.Tricuspid Valve: Trace tricuspid | | regurgitation present.Tricuspid Valve: The right ventricular systolic pressure | | (pulmonary artery systolic pressure), as measured by Doppler, is 12.26mmHg.Pulmonic | | Valve: The pulmonic valve was not well visualized.Pulmonic Valve: Mild degenerative | | changes in the aortic and mitral valve.Pericardium: There is no pericardial | | effusion.Pericardium: No pleural effusion seen.IVC/Hepatic Veins: The IVC is small | | (<1.5cm) and collapses with sniff, consistent with central venous pressures of | | 0-5mmHg.Aorta: The aortic root, ascending aorta and aortic arch are normal. | | MEASUREMENTS Ao asc: 3.48 cmIVC: 1.36 cmLA Major: 5.02 cmEDV(Teich): | | 82.80 mlIVSd: 1.2 cmLVIDd: 4.29 cmLVPWd: 1.1 cmLVOT Area: 3.09 cm7DQWY Diam: | | 1.98 cm%FS: 38.10 %EF(Teich): 68.61 %ESV(Teich): 25.98 mlLVIDs: 2.65 | | cmSV(Teich): 56.81 mlRA Major: 4.99 cmRV Major: 5.66 cmRVIDd: 2.37 cmLVEF MOD | | A2C: 69.91 %SV MOD A2C: 52.88 mlLVEF MOD A4C: 70.34 %SV MOD A4C: 57.70 mlEF | | Biplane: 70.25 %LVEDV MOD BP: 80.73 mlLVESV MOD BP: 24.01 mlLVEDV MOD A2C: 75.63 | | mlLVLd A2C: 7.56 cmLVEDV MOD A4C: 82.03 mlLVLd A4C: 7.97 cmLVESV MOD A2C: 22.75 | | mlLVLs A2C: 6.43 cmLVESV MOD A4C: 24.33 mlLVLs A4C: 6.05 cmLAESV(A-L): 43.21 | | mlLAESV Index (A-L): 21.39 ml/m2LAAs A2C: 15.21 [id number] A-L A2C: 41.14 mlLALs | | A2C: 4.77 cmLAAs A4C: 15.98 [id number] A-L A4C: 42.14 mlLALs A4C: 5.14 cmRAAs: | | 10.97 [id number] A-L: 19.03 mlRAESV MOD: 18.53 mlRALs: 5.37 cmAo Diam: 3.47 cmLA | | Diam: 3.82 cmLA/Ao: 1.10AV maxP.35 mmHgAV meanP.59 mmHgAV Vmax: 1.35 | | m/Earl Vmean: 1.01 m/Earl VTI: 31.29 cmAVA Vmax: 2.49 cm2AVA (VTI): 2.22 [id number] | | Vmax: 0.00 cm2/m2AVAI (VTI): 0.00 cm2/m2LVOT maxP.79 mmHgLVOT meanP.41 | | mmHgLVSI Dopp: 34.51 ml/m2LVSV Dopp: 69.71 mlLVOT Vmax: 1.09 m/sLVOT Vmean: 0.71 | | m/sLVOT VTI: 22.54 cmMV A Narinder: 0.96 m/sMV DecT: 282.18 msMV E Narinder: 1.11 m/sMV | | E/A Ratio: 1.14MV PHT: 81.83 msMVA By PHT: 2.68 fs6Mvpqpc e': 0.06 m/sSeptal | | E/e': 16.53Lateral e': 0.07 m/sLateral E/e': 14.35RAP: 5 mmHgRVSP: 12.25 | | mmHgTR maxP.25 mmHgTR Vmax: 1.34 m/s Trench Pipe Layer: ANGELINAuthenticated by: Elver, | | [facility] Date/Time: -- IMPRESSION: 1. The left ventricle is normal in size, | | mild increase in wall thickness and hyperdynamic systolic function EF>70%.2. The | | diastolic filling pattern indicates impaired relaxation consistent with mild dysfunction | | (Grade I).3. The right ventricle is normal in size and function.4. Trace tricuspid | | regurgitation with no pulmonary hypertension.5. Mild degenerative changes in the aortic | | and mitral valve.6. There is no pericardial effusion. | |EDV(Teich): 82.80 ml | |IVSd: 1.2 cm | |LVIDd: 4.29 cm | |LVPWd: 1.1 cm | |LVOT Area: 3.09 cm2 | |LVOT Diam: 1.98 cm | |%FS: 38.10 % | |EF(Teich): 68.61 % | |ESV(Teich): 25.98 ml | |LVIDs: 2.65 cm | |SV(Teich): 56.81 ml | |RA Major: 4.99 cm | |RV Major: 5.66 cm | |RVIDd: 2.37 cm | |LVEF MOD A2C: 69.91 % | |SV MOD A2C: 52.88 ml | |LVEF MOD A4C: 70.34 % | |SV MOD A4C: 57.70 ml | |EF Biplane: 70.25 % | |LVEDV MOD BP: 80.73 ml | |LVESV MOD BP: 24.01 ml | |LVEDV MOD A2C: 75.63 ml | |LVLd A2C: 7.56 cm | |LVEDV MOD A4C: 82.03 ml | |LVLd A4C: 7.97 cm | |LVESV MOD A2C: 22.75 ml | |LVLs A2C: 6.43 cm | |LVESV MOD A4C: 24.33 ml | |LVLs A4C: 6.05 cm | |LAESV(A-L): 43.21 ml | |LAESV Index (A-L): 21.39 ml/m2 | |LAAs A2C: 15.21 cm2 | |LAESV A-L A2C: 41.14 ml | |LALs A2C: 4.77 cm | |LAAs A4C: 15.98 cm2 | |LAESV A-L A4C: 42.14 ml | |LALs A4C: 5.14 cm | |RAAs: 10.97 cm2 | |RAESV A-L: 19.03 ml | |RAESV MOD: 18.53 ml | |RALs: 5.37 cm | |Ao Diam: 3.47 cm | |LA Diam: 3.82 cm | |LA/Ao: 1.10 | |AV maxP.35 mmHg | |AV meanP.59 mmHg | |AV Vmax: 1.35 m/s | |AV Vmean: 1.01 m/s | |AV VTI: 31.29 cm | |CHHAYA Vmax: 2.49 cm2 | |CHHAYA (VTI): 2.22 cm2 | |AVAI Vmax: 0.00 cm2/m2 | |AVAI (VTI): 0.00 cm2/m2 | |LVOT maxP.79 mmHg | |LVOT meanP.41 mmHg | |LVSI Dopp: 34.51 ml/m2 | |LVSV Dopp: 69.71 ml | |LVOT Vmax: 1.09 m/s | |LVOT Vmean: 0.71 m/s | |LVOT VTI: 22.54 cm | |MV A Narinder: 0.96 m/s | |MV DecT: 282.18 ms | |MV E Narinder: 1.11 m/s | |MV E/A Ratio: 1.14 | |MV PHT: 81.83 ms | |MVA By PHT: 2.68 cm2 | |Septal e': 0.06 m/s | |Septal E/e': 16.53 | |Lateral e': 0.07 m/s | |Lateral E/e': 14.35 | |RAP: 5 mmHg | |RVSP: 12.25 mmHg | |TR maxP.25 mmHg | |TR Vmax: 1.34 m/s | | | |Trench Pipe Layer: | |Authenticated by: Cristian Raya MD | |Report Date/Time: -- | | | |IMPRESSION: | |1. The left ventricle is normal in size, mild increase in wall thickness and hyperdynamic s ystolic function EF>70%. | |2. The diastolic filling pattern indicates impaired relaxation consistent with mild dysfunc tion (Grade I). | |3. The right ventricle is normal in size and function. | |4. Trace tricuspid regurgitation with no pulmonary hypertension. | |5. Mild degenerative changes in the aortic and mitral valve. | |6. There is no pericardial effusion. | + + documented in this encounter Visit Diagnoses Not on filedocumented in this encounter"
--- OUTSIDE RECORDS SUMMARY | ~2019-08-17 | XMS | Encounter Summary ---
Demographics + + + | Address | [address] | | | [place] [address] | + + + | Home Phone | | + + + | Preferred Language | Unknown | + + + | Marital Status | | + + + | Cheondoism Affiliation | 1077 | + + + | Race | Unknown | + + + | Ethnic Group | Unknown | + + + Author + + + | Author | [facility] | | | and [place] | + + + | Organization | [facility] | | | and [place] | + + + | Address | Unknown | + + + | Phone | Unavailable | + + + Support + + + + + | Name | Relationship | Address | Phone | + + + + + | Amina Stewart | ECON | [address] | | | | | [facility] [place] | | | | | [address] | | + + + + + Care Team Providers + +------+ + | Care Lav Crewman Name | Role | Phone | + [...] | | ischemia, | [address] | [address] | | | | | chronic | [place] | [address] | | | | | ([facility]) H/O | [place] | [place] | | | | | endarterecto | [address] | [address] | | | | | my | Phone: | Phone: | | | | | Procedures | [phone] | [phone] | | | | | CT Angiogram | Fax: | Fax: | | | | | Abdomen | [phone] | [phone] | | | | | Pelvis w [...] + + | 05/27/ | Office | [facility] | Suzi Powell, KEEGAN | Mesenteric ischemia, | | 2019 | Visit | VASCULAR SURGERY | [address] | chronic (HCC) | | | | [address] [place] | [place], [place] | (Primary Dx); H/O | | | | [place], [place] | [address] | endarterectomy | | | | [address] | | | | | | [phone] | | | +--------+---------+ + + + [...] [facility] [address] [place] [address] Office: [phone] DATE OF VISIT: 05/27/2019 PATIENT NAME: Zane [...] CT and MRI abdomen from [facility]. Vanessa ent denies any surgical [...] were present in bilateral dorsalis pedis and garage attendant ior tibial artery arteries. Palpable bilateral carotid, [...] | | | | | | [place] [facility] | | | | | | [address] | | | | | | | | +--------+ + + + + | 11/04/ | Office | Vascular Surgery | Suzi Powell DNP | | | 2019 | Visit | | [address] | | | | | | [place] | | | | | | [address] | | | | | | | [...]
--- OUTSIDE RECORDS SUMMARY | ~2019-08-17 | XMS | Encounter Summary ---
Demographics + + + | Address | [address] | | | [place] [address] | + + + | Home Phone [...] | Organization | [facility] | | | and [...] [place] | | | | | [address] | | + + + + + Care Team Providers + +------+ + | Care Felt Hat Steamer Name | Role | Phone | + [...] + + | 08/17/ | Telephone | [facility] | Bethany Ramirez Bartlett, | Appointment Question | | 2020 | | VASCULAR SURGERY | RN | | | | | [address] | | | | | | [place] | | | | | | [address] | | | | | | [phone] | | | +--------+ + + + [...] [place] | | | | | | [address] | | | | | | | | +--------+ + + + + | 11/04/ | Office | Vascular Surgery | Suzi Powell DNP | | | 2019 | Visit | | [address] | | | | | | [place] | | | | | | [id number] | | | | | | | | +--------+ + + + + documented as of this encounter Visit Diagnoses Not on filedocumented in this encounter"
--- OUTSIDE RECORDS SUMMARY | ~2019-08-17 | XMS | Encounter Summary ---
Demographics + + + | Address | [address] | | | [place] [address] | + + + | Home Phone | | + + + | Preferred Language | Unknown | + + + | Marital Status | | + + + | Rastafarian Affiliation | 1077 | + + + | Race | Unknown | + + + | Ethnic Group | Unknown | + + + Author + + + | Author | [facility] | | | and [place] | + + + | Organization | [facility] | | | and [place] | + + + | Address | Unknown | + + + | Phone | Unavailable | + + + Support + + + + + | Name | Relationship | Address | Phone | + + + + + | Amina Stewart | ECON | [address] | | | | | [address] [place] [address], [place] | | | | | [address] | | + + + + + Care Team Providers + +------+ + | Care Geochemical Manager Name | Role | Phone | [...] | | | | | ([facility]) | | | | | | | [...] + + | 04/28/ | Anesthesia | [facility] | Prosper Woods MD | | | 2019 | [facility] | [address] | | | | | [address]PER[address] | [place] [address] | | | | | [address] | [phone] | | | | | [place], [place] | | | | | | [address] | Alexis Dawn MD [address] | | | | | [phone] | [address] | | | | | | [place] [address] | | +--------+ + + + + [...] +----+---+ + + | | 1 | [place] | | | | 1 | 43-degrees [...] Pascale Ross RN | | IV | xedt-umn-qryene catheter system; | | | | | [...] [address] | | eral | Forearm; thze-zjk-fxlsvr catheter | [place] Dawn MD | Prasanna [...] [place] | | | | | | [address] | | | | | | | | +--------+ + + + + | 11/04/ | Office | Vascular Surgery | Suzi Powell DNP | | | 2019 | Visit | | [address] | | | | | | [place] | | | | | | [address] | | | | | | | [...]
--- OUTSIDE RECORDS SUMMARY | ~2019-08-17 | XMS | Encounter Summary ---
Demographics + + + | Address | [address] | | | [place] [address] | + + + | Home Phone [...] Organization | [facility] | | | and [...] [place] | | | | | [address] | | + + + + + Care Team Providers + +------+ + | Care Sponge Press Operator Name | Role | Phone | [...] + + | 05/13/ | Refill | [facility] | Gisela Walsh, | Medication Refill | | 2018 | | VASCULAR SURGERY | Senior Logistics Manager | | | | | [address] | | | | | | [place] | | | | | | [address] | | | | | | [phone] | | | +--------+--------+ + + + [...] [place] | | | | | | [address] | | | | | | | [...]
--- OUTSIDE RECORDS SUMMARY | ~2019-08-17 | XMS | Encounter Summary ---
Demographics + + + | Address | [address] | | | [place] [address] | + + + | Home Phone | | + + + | Preferred Language | Unknown | + + + | Marital Status | | + + + | Church Affiliation | 1077 | + + + | Race | Unknown | + + + | Ethnic Group | Unknown | + + + Author + + + | Author | [facility] | | | and [place] | + + + | Organization | [facility] | | | and [...] [place], [place] | | | | | [address] | | + + + + + Care Team Providers + +------+ + | Care Web Applications Architect Name | Role | Phone | + [...] + + | 07/09/ | Telephone | [facility] | Gisela Walsh, | Follow-up | | 2019 | | VASCULAR SURGERY | Generation Manager | | | | | [address] | | | | | | [place], [place] | | | | | | [address] | | | | | | [phone] | | | +--------+ + + + [...] [place] | | | | | | [address] | | | | | | | | +--------+ + + + + | 11/04/ | Office | Vascular Surgery | Suzi Powell DNP | | | 2020 | Visit | | [address] | | | | | | [place] | | | | | | [address] | | | | | | | | +--------+ + + + + documented as of this encounter Visit Diagnoses Not on filedocumented in this encounter"
--- OUTSIDE RECORDS SUMMARY | ~2019-08-17 | XMS | Encounter Summary ---
Demographics + + + | Address | [address] | | | [place] [address] | + + + | Home Phone | | + + + | Preferred Language | Unknown | + + + | Marital Status | | + + + | Amish Affiliation | 1077 | + + + | Race | Unknown | + + + | Ethnic Group | Unknown | + + + Author + + + | Author | [facility] | | | and [place] | + + + | Organization | [facility] | | | and [place] [...] [place] | | | | | [address] | | + + + + + Care Team Providers + +------+ + | Care Patient Support Assistant Name | Role | Phone | [...] + + | 06/16/ | Telephone | [facility] | Jaz Castellanosallen Cueva, | Diagnostic Order | | 2018 | | VASCULAR SURGERY | RN | | | | | [address] | | | | | | [place] | | | | | | [address] | | | | | | [phone] | | | +--------+ + + + [...] [place] | | | | | | [address] | | | | | | | | +--------+ + + + + | 11/04/ | Office | Vascular Surgery | Suzi Powell DNP | | | 2020 | Visit | | [address] | | | | | | [place] | | | | | | [phone] | | | | | | | | +--------+ + + + + documented as of this encounter Visit Diagnoses Not on filedocumented in this encounter"
--- OUTSIDE RECORDS SUMMARY | ~2019-08-17 | XMS | Encounter Summary ---
Demographics + + + | Address | [address] | | | [place] [address] | + + + | Home Phone [...] | Organization | [facility] | [...] [place] | | | | | [address] | | + + + + + Care Team Providers + +------+ + | Care Head Housekeeper Name | Role | Phone | + +------+ + | No, Physician | PCP | Unavailable | + +------+ + Encounter Details +--------+ + + + + | Date | Type | Department | Care Team | Description | +--------+ + + + + | 05/27/ | Hospital | [facility] | Suzi Powell DNP | Mesenteric ischemia, | | 2019 | Encounter | VASCULAR SURGERY | [address] | chronic (HCC) | | | | ULTRASOUND [address] | [place] | | | | | [address] | [address] | | | | | [place] | | | | | | [address] | | | | | | [phone] | | | +--------+ + + + [...] [place] | | | | | | [address] | | | | | | | | +--------+ + + + + | 11/04/ | Office | Vascular Surgery | Suzi Powell DNP | | | 2019 | Visit | | [address] | | | | | | [place] | | | | | | [address] | | | | | | | | +--------+ + + + + documented as of this encounter Visit Diagnoses + + | Diagnosis | + + | Mesenteric ischemia, chronic (HCC) Chronic vascular insufficiency of intestine | + + documented in this encounter"
--- OUTSIDE RECORDS SUMMARY | ~2019-08-17 | XMS | Encounter Summary ---
Demographics + + + | Address | [address] | | | [place] [address] | + + + | Home Phone | | + + + | Preferred Language | Unknown | + + + | Marital Status | | + + + | Taoism Affiliation | 1077 | + + + | Race | Unknown | + + + | Ethnic Group | Unknown | + + + Author + + + | Author | [facility] | | | and Francana | + + + | Organization | [facility] | | | and [...] [place] | | | | | [address] | | + + + + + Care Team Providers + +------+ + | Care Rn Neonatal Name | Role | Phone | + [...] + + | 05/26/ | Telephone | [facility] | Suzi Powell DNP | Other (instructions) | | 2019 | | VASCULAR SURGERY | [address] | | | | | [address] [place] | [place], [place] | | | | | [place], [place] | [address] | | | | | [address] | | | | | | [phone] | | | +--------+ + + + [...] [place] | | | | | | [address] | | | | | | | | +--------+ + + + + | 11/04/ | Office | Vascular Surgery | Suzi Powell DNP | | | 2019 | Visit | | [address] | | | | | | [place] | | | | | | [id number] | | | | | | | | +--------+ + + + + documented as of this encounter Visit Diagnoses Not on filedocumented in this encounter"
--- OUTSIDE RECORDS SUMMARY | ~2019-08-17 | XMS | Encounter Summary ---
Demographics + + + | Address | [address] | | | [place] [address] | + + + | Home Phone | | + + + | Preferred Language | Unknown | + + + | Marital Status | | + + + | Mu-Ism Affiliation | 1077 | + + + | Race | Unknown | + + + | Ethnic Group | Unknown | + + + Author + + + | Author | [facility] | | | and Francana | + + + | Organization | [facility] [...] [place] | | | | | [address] | | + + + + + Care Team Providers + +------+ + | Care Popcorn Candy Maker Name | Role | Phone | + [...] [place] | | | | | [address] | [address] | | | | | [phone] | [phone] | | | | | | | [...] [place] | | | | | | [address] | | | | | | | | +--------+ + + + + | 11/04/ | Office | Vascular Surgery | Suzi Powell DNP | | | 2019 | Visit | | [address] | | | | | | [place] | | | | | | [address] | | | | | | | [...] TR Vmax: 1.34 m/s | | | Equestrian Trainer: ULYSSES Authenticated by: Cristian Raya MD Report [...] cmLVIDd: 4.29 cmLVPWd: 1.1 cmLVOT Area: 3.09 [id number] Diam: | | 1.98 cm%FS: 38.10 %EF(Teich): [...] mlLAESV Index (A-L): 21.39 ml/m2LAAs A2C: 15.21 [id number] A-L A2C: 41.14 mlLALs | | A2C: 4.77 cmLAAs A4C: 15.98 [id number] A-L A4C: 42.14 mlLALs A4C: 5.14 cmRAAs: | | 10.97 [id number] A-L: 19.03 mlRAESV MOD: 18.53 mlRALs: 5.37 cmAo Diam: 3.47 cmLA | | Diam: 3.82 cmLA/Ao: 1.10AV maxP.35 mmHgAV meanP.59 mmHgAV Vmax: 1.35 | | m/Earl Vmean: 1.01 m/Earl VTI: 31.29 cmAVA Vmax: 2.49 cm2AVA (VTI): 2.22 lm6FOPU | | Vmax: 0.00 cm2/m2AVAI (VTI): 0.00 cm2/m2LVOT maxP.79 mmHgLVOT meanP.41 | | mmHgLVSI Dopp: 34.51 ml/m2LVSV Dopp: 69.71 mlLVOT Vmax: 1.09 m/sLVOT Vmean: 0.71 | | m/sLVOT VTI: 22.54 cmMV A Narinder: 0.96 m/sMV DecT: 282.18 msMV E Narinder: 1.11 m/sMV | | E/A Ratio: 1.14MV PHT: 81.83 msMVA By PHT: 2.68 am2Pdqbts e': 0.06 m/sSeptal | | E/e': 16.53Lateral e': 0.07 m/sLateral E/e': 14.35RAP: 5 mmHgRVSP: 12.25 | | mmHgTR maxP.25 mmHgTR Vmax: 1.34 m/s Equestrian Trainer: ANGELINAuthenticated by: Elver, | | [facility] Date/Time: -- IMPRESSION: 1. The left ventricle [...] |TR Vmax: 1.34 m/s | | | |Equestrian Trainer: | |Authenticated by: Cristian Raya MD | [...]
--- OUTSIDE RECORDS SUMMARY | ~2019-08-17 | XMS | Encounter Summary ---
Demographics + + + | Address | [address] | | | [place] [address] | + + + | Home Phone [...] + | Organization | [facility] | [...] [place] | | | | | [address] | | + + + + + Care Team Providers + +------+ + | Care Able Bodied Tankerman Name | Role | Phone | + [...] + + | 05/26/ | Telephone | [facility] | Suzi Powell DNP | Other (instructions) | | 2019 | | VASCULAR SURGERY | [address] | | | | | [address] [place] | [place] | | | | | E | [address] | | | | | [address] | | | | | | [phone] | | | +--------+ + + + [...] [place] | | | | | | [address] | | | | | | | | +--------+ + + + + | 11/04/ | Office | Vascular Surgery | Suzi Powell DNP | | | 2019 | Visit | | [address] | | | | | | [place] | | | | | | [id number] | | | | | | | | +--------+ + + + + documented as of this encounter Visit Diagnoses Not on filedocumented in this encounter"
--- OUTSIDE RECORDS SUMMARY | ~2019-08-17 | XMS | Encounter Summary ---
Demographics + + + | Address | [address] | | | [place] [address] | + + + | Home Phone | | + + + | Preferred Language | Unknown | + + + | Marital Status | | + + + | Mandaen Affiliation | 1077 | + + + | Race | Unknown | + + + | Ethnic Group | Unknown | + + + Author + + + | Author | [facility] | | | and Francana | + + + | Organization | [facility] | | | and [place] [...] [place] | | | | | [address] | | + + + + + Care Team Providers + +------+ + | Care Brim Stitcher Name | Role | Phone | + +------+ + PCP | Unavailable | + +------+ + Encounter Details +--------+ + + + + | Date | Type | Department | Care Team | Description | +--------+ + + + + | 07/03/ | Orders Only | [facility] | Adnrea Shearer | | | 2016 | | [address] | [address] | | | | | [address] | [address] | | | | | [place] | [place] | | | | | [address] | [address] | | | | | [phone] | [phone] | | | | | | | [...] [place] | | | | | | [address] | | | | | | | | +--------+ + + + + | 11/04/ | Office | Vascular Surgery | Suzi Powell DNP | | | 2019 | Visit | | [address] | | | | | | [place] | | | | | | [address] | | | | | | | [...] TR Vmax: 1.34 m/s | | | Merchandise Planning Manager: ULYSSES Authenticated by: Cristian Raya MD Report [...] cmLVIDd: 4.29 cmLVPWd: 1.1 cmLVOT Area: 3.09 [id number] Diam: | | 1.98 cm%FS: 38.10 %EF(Teich): [...] mlLAESV Index (A-L): 21.39 ml/m2LAAs A2C: 15.21 [id number] A-L A2C: 41.14 mlLALs | | A2C: 4.77 cmLAAs A4C: 15.98 [id number] A-L A4C: 42.14 mlLALs A4C: 5.14 cmRAAs: | | 10.97 [id number] A-L: 19.03 mlRAESV MOD: 18.53 mlRALs: 5.37 cmAo Diam: 3.47 cmLA | | Diam: 3.82 cmLA/Ao: 1.10AV maxP.35 mmHgAV meanP.59 mmHgAV Vmax: 1.35 | | m/Earl Vmean: 1.01 m/Earl VTI: 31.29 cmAVA Vmax: 2.49 cm2AVA (VTI): 2.22 [id number] | | Vmax: 0.00 cm2/m2AVAI (VTI): 0.00 cm2/m2LVOT maxP.79 mmHgLVOT meanP.41 | | mmHgLVSI Dopp: 34.51 ml/m2LVSV Dopp: 69.71 mlLVOT Vmax: 1.09 m/sLVOT Vmean: 0.71 | | m/sLVOT VTI: 22.54 cmMV A Narinder: 0.96 m/sMV DecT: 282.18 msMV E Narinder: 1.11 m/sMV | | E/A Ratio: 1.14MV PHT: 81.83 msMVA By PHT: 2.68 yo1Eugxrv e': 0.06 m/sSeptal | | E/e': 16.53Lateral e': 0.07 m/sLateral E/e': 14.35RAP: 5 mmHgRVSP: 12.25 | | mmHgTR maxP.25 mmHgTR Vmax: 1.34 m/s Merchandise Planning Manager: ANGELINAuthenticated by: Elver, | | [facility] Date/Time: -- IMPRESSION: 1. The left [...] |TR Vmax: 1.34 m/s | | | |Merchandise Planning Manager: | |Authenticated by: Cristian Raya MD | [...]
--- OUTSIDE RECORDS SUMMARY | ~2019-08-17 | XMS | Encounter Summary ---
Demographics + + + | Address | [address] | | | [place] [address] | + + + | Home Phone | | + + + | Preferred Language | Unknown | + + + | Marital Status | | + + + | Advent Affiliation | 1077 | + + + | Race | Unknown | + + + | Ethnic Group | Unknown | + + + Author + + + | Author | [facility] | | | and Francana | + + + | Organization | [facility] [...] [address] | | | | | [facility] [place] | | | | | [address] | | + + + + + Care Team Providers + +------+ + | Care Mellowing Machine Operator Name | Role | Phone | [...] | | | | | intestine | [place] | [address] | | | | | ([facility]) | [address] | Phone: | | | | | Procedures | Phone: | [phone] | | | | | CHG | [phone] | Fax: | | | | | RADIOLOGIC | Fax: | [phone] | | | | | EXAM CHEST 2 | [phone] | | | | | | VIEWS [facility] | | | | | | | XRAY | | | +--------+--------+ + + + + Encounter Details +--------+ + + + + | Date | Type | Department | Care Team | Description | +--------+ + + + + | 04/21/ | Hospital | [facility] | Paul Arias MD | | | 2019 | Encounter | [facility] | [address] | | | | | [address] | [place] [address] [place], [place] | | | | | [place], [place] | [address] | | | | | [address] | [phone] | | | | | [phone] | | | +--------+ + + + [...] [place] | | | | | | [address] | | | | | | | | +--------+ + + + + | 11/04/ | Office | Vascular Surgery | Suzi Powell DNP | | | 2019 | Visit | | [address] | | | | | | [place] | | | | | | [address] | | | | | | | [...] | | | PDT | ([facility]) | results section. | + [...]
--- OUTSIDE RECORDS SUMMARY | ~2019-08-17 | XMS | Encounter Summary ---
Demographics + + + | Address | [address] | | | [place] [address] | + + + | Home Phone [...] | Author | [facility] | | | and Francana | + + + | Organization | [facility] | | | and [place] [...] [place] | | | | | [address] | | + + + + + Care Team Providers + +------+ + | Care Sawmill Equipment Operator Name | Role | Phone | [...] + + | 06/12/ | Telephone | [facility] | Suzi Poewll DNP | Imaging (CT order) | | 2019 | | VASCULAR SURGERY | [address] | | | | | [address] [place] | [place], [place] | | | | | [place], [place] | [address] | | | | | [address] | | | | | | [phone] | | | +--------+ + + + [...] [place] | | | | | | [address] | | | | | | | [...]
--- OUTSIDE RECORDS SUMMARY | ~2019-08-17 | XMS | Encounter Summary ---
Demographics + + + | Address | [address] | | | [place] [address] | + + + | Home Phone | | + + + | Preferred Language | Unknown | + + + | Marital Status | | + + + | Latter Day Affiliation | 1077 | + + + | Race | Unknown | + + + | Ethnic Group | Unknown | + + + Author + + + | Author | [facility] | | | and [place] | + + + | Organization | [facility] | | | and [place] | + + + | Address | Unknown | + + + | Phone | Unavailable | + + + Support + + + + + | Name | Relationship | Address | Phone | + + + + + | Amina Stewart | ECON | [address] | | | | | [facility] [place] | | | | | [address] | | + + + + + Care Team Providers + +------+ + | Care Middle [employer] Humanities Teacher Name | Role | Phone | [...] [address] | | | | | | ([facility]) | [address] | | | | | | Procedures | [place] | | | | | | IR Angiogram | [place], [place] | | | | | | Mesenteric | [address] | | | | | | Visceral | Phone: | | | | | | | [phone] | | | | | | | Fax: | | | | | | | [phone] | | +--------+--------+ + + + + [...] | | | | | | | ([facility]) | | | | | | [...] + + | 07/08/ | Hospital | [facility] | Paul Arias MD | Mesenteric ischemia, | | 2019 | Encounter [facility] | [address] | chronic (HCC) | | | | CLINICAL DECISION | [place] [facility] [place] | | | | | [address] | [address] | | | | | [place] | [phone] | | | | | [address] | | | | | | [phone] | | | +--------+ + + + [...] provider about all medicines you take including lkda-exs-oifnbfz me dicines, herbal supplements, and any allergies [...] or shortness of breath Date Last Reviewed: 12/04/201519999103-[address] [employer] [place], [place] [address]. All [facility] ts reserved. This information is not [...] [place] | | | | | | [address] | | | | | | | | +--------+ + + + + | 11/04/ | Office | Vascular Surgery | Suzi Powell DNP | | | 2019 | Visit | | [address] | | | | | | [place] | | | | | | [address] | | | | | | | [...] the | | | | PST | ([facility]) | results section. | + +--------+ [...] SURGEON: Paul Arias MD | | | BRAKE COUPLER DINKEY: None ANESTHESIA: Moderate sedation and local anesthesia [...] was properly identified and brought to the It Programmer. The patient was | | | placed [...] | and up sized to a 4 St Helenian sheath. A Omni flush catheter was then | | | inserted into the aorta and aortogram was then performed with the | | | findings as described above. Next, an Amplatzer wire was then inserted | | | over the catheter and the 4 St Helenian sheath was removed. A 6.5 St Helenian | | | durable sheath was then [...] | | |up sized to a 4 St Helenian sheath. A Omni flush catheter was then inserted | | |into the aorta and aortogram was then performed with the findings as | | |described above. Next, an Amplatzer wire was then inserted over the | | |catheter and the 4 St Helenian sheath was removed. A 6.5 St Helenian durable sheath | | |was then inserted [...]
[2019-08-17] MEDS ORDERED: CLOPIDOGREL75 MG PO (14:47)
--- NOTE | 2019-08-17 22:55 | NUR ---
PT UP TO BR WITH SBA, GAIT STEADY. PT BACK TO BED, LADAN WELL. NO C/O DIZZINESS OR BEING LIGHT HEADED. ASSESSMENT COMPLETE. MEDICATED WITH PRN FOR 6/10 ABD PAIN. IVF INFUSING. PT ORIENTED TO ROOM AND NURSE CALL LIGHT. NO QUESTIONS OR CONCERNS AT THIS TIME. CALL LIGHT IN REACH.
--- NOTE | 2019-08-17 23:54 | NUR ---
PT ADMITTED TO ROOM 119 FROM ED, A/O, ROOM AIR, ABLE TO SELF TRANSFER FROM STRETCHER TO BED. PLEASANT, AWARE OF WHY HE IS HERE, HAPPY THAT HE WASN'T "TRANSFERED" OUT. REQUESTED FOOD. IS FROM HOME WITH HIS .
--- NOTE | 2019-08-17 23:59 | NUR ---
PT MEDICATAED WITH PRN FOR 6/10 ABD PAIN. ICE PACK GIVEN PER PT REQUEST.
--- NOTE | 2019-08-18 00:47 | NUR ---
PT WITH EYES CLOSED, HEARING AIDE, OUT AND ON TABLE. REMOVED WATER PT IS NPO. RESP EVEN AND UNLABORED.
--- NOTE | 2019-08-18 01:20 | NUR ---
CALL LIGHT ANSWERED. PT UP TO BR INDEPENDENTLY, GAIT STEADY. BACK TO BED, LADAN WELL. CALL LIGHT IN REACH.
--- NOTE | 2019-08-18 03:30 | NUR ---
CALL LIGHT ANSWERED. PT REQUESTING ICE PACK FOR ABD PAIN. UP TO BR INDEPENDENTLY, GAIT STEADY. BACK TO BED, LADAN WELL. PRN GIVEN FOR ABD PAIN. PT REMAINS NPO. CALL LIGHT IN REACH.
--- NOTE | 2019-08-18 05:13 | NUR ---
PT RESTED WELL. ALERT AND ORIENTED, USES CALL LIGHT. INDEPENDENT IN ROOM. ABD PAIN CONTROLLED WITH PRN MORPHINE AND ICE. IVF AND IV ABX. NPO. DENIES NAUSEA.
--- NOTE | 2019-08-18 05:44 | NUR ---
IV ABX INFUSING. PT RESTING IN BED, DENIES NEEDS. CALL LIGHT IN REACH.
--- NOTE | 2019-08-18 07:20 | NUR ---
Report received, orders acknowledged. Patient laying in bed, rouses to voice. Patient denies pain or nausea. LR running at 125 mls/hr. Ambulated to toilet independently. No further needs at this time, call light within reach.
--- NOTE | 2019-08-18 07:45 | NUR ---
PATIENT RESTING IN BED. PATIENT SAYS THAT MAYBE HE WILL TAKE A SHOWER TODAY BUT NO NOW. CALL LIGHT WITHIN REACH. NO OTHER NEEDS AT THIS TIME
--- NOTE | 2019-08-18 09:25 | NUR ---
TALKED TO IN PACU, IN REGARDS TO PT WITH ER BRIDGE ORDERS DISCONTINUED INCLUDING PAIN MEDICATIONS AND MAINTAINCE FLUIDS. SAID HE WOULD PUT IN ORDERS.
--- NOTE | 2019-08-18 09:29 | NUR ---
PATIENT RESTING IN BED. RN IN ROOM. VITAL SIGNS AND I&O DONE. CALL LIGHT WITHIN REACH. NO OTHER NEEDS AT THIS TIME
--- NOTE | 2019-08-18 10:00 | NUR ---
AM medications given, assessment complete. Patient laying in bed watching tv, denies further needs at this time. Call light within reach.
[2019-08-18] MEDS ORDERED: CENTRUM SILVER1 EAC6 PO (10:58)
[2019-08-18] MEDS ORDERED: DOK100 MG PO (11:00)
--- NOTE | 2019-08-18 11:03 | NUR ---
MED REC COMPLETED. PT [facility].
--- NOTE | 2019-08-18 12:00 | NUR ---
Dr. Patterson in room discussing POC with patient
--- NOTE | 2019-08-18 13:10 | NUR ---
PATIENT RESTING IN BED. VITAL SIGNS AND I&O DONE. CALL LIGHT WITHIN REACH. NO OTHER NEEDS AT THIS TIME
--- NOTE | 2019-08-18 14:15 | NUR ---
Patient laying in bed watching tv, at bedside. Denies pain or nausea. Discussed POC with patient. IV abx given. No further needs at this time, call light within reach.
--- NOTE | 2019-08-18 14:45 | NUR ---
Patient removed IV site in right arm, new IV started in right chest. LR running at 75 mls/hr. BS of 155, 1 unit of insulin given. Warm blanket provided. Patient educated on importance of leaving IVs in place. Pillows placed to reposition patient for comfort. Call light within reach.
--- NOTE | 2019-08-18 16:55 | NUR ---
Met with Zane and his . 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 Pt is jaundiced. States he is awaiting Dr. Rodriguez to find out what the plan is. Would like to dc to home on dc. Has 13 steps to get into his home. Rails are in place. Denies any problems with navigating steps.
--- NOTE | 2019-08-18 17:02 | NUR ---
TALKED WITH THE PT ABOUT HIS DX OF JAUNDICE, PT STATED THAT DR PRINCE HAD BEEN IN AND EXPLAINED TO HIM THAT HE WAS ORDERING A MRI AND PENDING THOSE RESULTS HE MAY BE GOING TO SURGERY TO HAVE A LOOK-PT SAYS. PT STATED UNDERSTANDING OF HIS EDUCATION. WILL FOLLOW UP WITH HIM LATER.
--- NOTE | 2019-08-18 17:30 | NUR ---
PATIENT RESTING IN BED. VITAL SIGNS AND I&O DONE. CALL LIGHT WITHIN REACH. NO OTHER NEEDS AT THIS TIME
--- NOTE | 2019-08-18 19:22 | NUR ---
IN ROOM FOR REPORT, PT IS AWAKE IN BED. HE DENIES NEEDS AT THIS TIME. CALL LIGHT IS WITHIN REACH.
--- NOTE | 2019-08-18 21:49 | NUR ---
VS and I&Os complete. Pt does not need anything further at this time.
--- NOTE | 2019-08-18 22:35 | NUR ---
ADMINISTERED MEDICATIONS AND ASSESSED PT. HE REPORTS ABD PAIN WHICH HE DESCRIBES A SORENESS IN HIS SKIN. HE HAS LOTION AT THE BEDSIDE THAT HE APPLIED EARLIER AND AN ICEPACK IN PLACE. HE WOULD LIKE THE TORADOL WHEN IT IS DUE IF HE IS AWAKE. MRI SCREENING COMPLETED FOR MORNING. HE DENIES FURTHER NEEDS AT THIS TIME. CALL LIGHT IS CLOSE.
--- NOTE | 2019-08-18 23:33 | NUR ---
PT CALLED REQUESTING TORADOL FOR PAIN. PT DENIES FURTHER NEEDS AND HE DRANK THE LAST OF HIS WATER AND IS NPO AT MIDNIGHT. HE DENIES FURTHER NEEDS AT THIS TIME. CALL LIGHT IS WITHIN REACH.
--- NOTE | 2019-08-19 01:12 | NUR ---
PT IS AWAKE IN BED, HE DENIES NEEDS AT THIS TIME. CALL LIGHT IS CLOSE.
--- NOTE | 2019-08-19 03:19 | NUR ---
PT IS AWAKE IN BED STATING HIS BACK IS HURTING. OFFERED PT A HEAT PACK. HE DENIES FURTHER NEEDS AT THIS TIME. CALL LIGHT IS WITHIN REACH.
--- NOTE | 2019-08-19 06:06 | NUR ---
PT HAD A DIFFICULT TIME SLEEPING LAST NIGHT. HE IS SCHEDULED FOR AN MRI THIS MORNING. HE IS NPO SINCE MIDNIGHT. HE AMBULATES INDEPENDENTLY IN THE ROOM. LR IS INFUSING AT 100MLS/HR. HE COMPLAINS OF ABDOMINAL PAIN BEING SORENESS IN HIS SKIN.
--- NOTE | 2019-08-19 06:23 | NUR ---
IN ROOM TO ADMINISTER ANCEF, PT DENIES FURTHER NEEDS AT THIS TIME. HE WILL BE GOING FOR AN MRI SOON.
--- NOTE | 2019-08-19 06:32 | NUR ---
SL PT'S IV FOR MRI. SHE WILL RETURN SHORTLY TO TAKE HIM FOR MRI.
--- NOTE | 2019-08-19 06:49 | NUR ---
PT WAS JUST TAKEN TO MRI.
--- NOTE | 2019-08-19 07:00 | NUR ---
Report received, orders acknowledged. Patient in imaging.
--- NOTE | 2019-08-19 08:00 | NUR ---
[facility]ed to contact [facility] for information on benefit. They are in a meeting and will be available after 10:00.
--- NOTE | 2019-08-19 08:39 | NUR ---
Patient reports pain of 8/10, prn pain medication given (see MAR)
--- NOTE | 2019-08-19 09:08 | NUR ---
K pad applied to patients lower back for pain. Set for 20 minutes at 95 degrees F. Denies further needs, call light within reach.
--- NOTE | 2019-08-19 09:49 | NUR ---
Patient laying in bed visiting with at bedside. AM medications given, POC discussed. Supplies for shower set up, patient states "I'll take one in a little it and have my help me." Denies further needs at this time, call light within reach.
--- NOTE | 2019-08-19 10:00 | NUR ---
In and spoke with pt. Had an MRI this AM. Awaiting results from Dr. Patterson. C/o of some back pain.
--- NOTE | 2019-08-19 10:48 | NUR ---
Called and spoke with Rose. She states pt.is 30% Service related. She states the [facility] was [facility] so he does qualify for services. He would not have service for payment for intermediate. Home Health would be covered. She also state if the patient has cancer would need to contact his PCP Ramona Rashid NP. Will need order for [facility] and they will provide information and resources to the patient. [phone] ask for Ramona Henderson NP.
--- NOTE | 2019-08-19 11:00 | NUR ---
In and spoke with Zane. States he is awaiting Dr. Rodriguez. Denies any needs. MRI completed this am.
--- NOTE | 2019-08-19 11:15 | NUR ---
Dr. Patterson in room to discuss POC with patient
--- NOTE | 2019-08-19 12:08 | HP ---
[facility] [address], [place] [address] Signed ADMISSION DATE: 08/18/2019 REASON FOR ADMISSION: This 73-year-old white man is known to me from the distant past and presented to the emergency room with complaints of orange urine, vague feelings of unwellness, and clinical jaundice. He was evaluated for nearly 8 hours in the emergency room under the direction of Dr. Slaughter. Ultimately, culminating a CT scan which showed a markedly hydropic gallbladder with intrahepatic ductal dilatation, a double duct sign (dilated common duct and pancreatic duct), and significant clinical jaundice and a bilirubin of 8.5 with a direct component of 5.3. Alkaline phosphatase was 481. Lipase normal at 21. His creatinine was elevated at 1.34. The patient has a prior complex past history of vascular surgery by Dr. Arias at [facility]. 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 He subsequently underwent catheter-based therapy of angioplasty for a plaque had elevated. The patient has had mild upper abdominal pain, but not much. No nausea or vomiting and no fever or chills. The patient remains on Plavix 75 mg daily, antihypertensive medication losartan-hydrochlorothiazide, dyslipidemic agent simvastatin, and aspirin 81 mg daily. Attempts by the emergency room personnel to transfer the patient to [facility] or elsewhere were unsuccessful. A snowstorm had initiated during the course of the day and I was called to assist with his management. The patient since admission has had no nausea or vomiting. He is jaundiced but is essentially pain free he says. PAST MEDICAL HISTORY: Includes formally daily smoker. He does not use alcohol and no illicit drug noted. SOCIAL HISTORY: He is . He lives in [place]. REVIEW OF SYSTEMS: He denies any shortness of breath or chest pain. He has had no extremity pain. Pain in the upper abdomen is rather vague and somewhat characterized as bloating. He has no dysphagia. No hematemesis. No blood per rectum. Electronically Signed By: BRUCE PRINCE MD 08/19/19 1208 PATIENT NAME: MAXIME LYNN JR HISTORY AND PHYSICAL DATE OF : 41 REPORT #: [id number] PHYSICIAN: BRUCE PRINCE MD PCP: Suzi Powell DNP, ARNP REPORT IS CONFIDENTIAL AND NOT TO BE RELEASED WITHOUT AUTHORIZATION [facility] [address], [place] [address] Signed PHYSICAL EXAMINATION: GENERAL: A jaundiced, white man who does not look to be uncomfortable or septic in any way. VITAL SIGNS: Presentation vital signs showed blood pressure 119/67 and pulse 65. Subsequent and more recent vital signs show temperature 98.5, pulse of 70, blood pressure 136/76, and room air saturation 100%. NECK: Shows no thyromegaly or cervical adenopathy. I detect no carotid bruit. His skin is jaundiced. His sclerae are icteric. CHEST: Clear. HEART: Regular without murmur. ABDOMEN: Flat and scaphoid and rather thin. He is said to have a 20-pound weight loss over the past month or two. He shows no palpable epigastric mass. There is no ascites. Abdominal palpation shows no focal tenderness. Abdomen shows a well-healed midline incision. EXTREMITIES: Show no clubbing, cyanosis, or edema. Dorsalis pedis pulse on the right and left side is 3/3. ASSESSMENT: The patient has had relatively recent vascular operation to include aortic endarterectomy related to the superior mesenteric artery with subsequent angioplasty for a small flap that was noted. He does not appear to have thrombotic phenomenon at this time. He has worrisome findings of painless jaundice with a double duct sign (dilated pancreatic and common duct structures). Since his admission, he has been maintained on antibiotic Ancef and n.p.o. status. He underwent an ultrasound under my direction, which showed considerable amount of sludge within the dilated and elongated gallbladder. No clear evidence of stones proper. If this obstructive jaundice is related to biliary disease, clear and straightforward approach could include laparoscopic cholecystectomy and laparoscopic common duct exploration and clearance of the duct or even open procedure for the same. My additional concern, however, is that of pancreatic head neoplasm. The surrounding soft tissue in the pancreas looks soft and spongy and somewhat edematous. There is no dense mass. There are two lesions of the liver which cannot be better characterized; possible metastasis versus hemangiomas. I have reviewed imaging options with Dr. Roche, the radiologist, in detail. She does not feel an MRCP would be particularly diagnostic in this situation. An MRI may be of benefit, however, to better characterize the head of the pancreas. Electronically Signed By: BRUCE PRINCE MD 08/19/19 1202 PATIENT NAME: MAXIME LYNN HISTORY AND PHYSICAL DATE OF : 41 REPORT #: [id number] PHYSICIAN: BRUCE PRINCE MD PCP: Suzi Powell DNP,CATTLE INSPECTOR REPORT IS CONFIDENTIAL AND NOT TO BE RELEASED WITHOUT AUTHORIZATION [address] [address] Signed At this point, we will order for an MRI to be performed tomorrow. He may have liquids for the time being. There is no urgency to operation. If he does have what appears to be an obstructing neoplasm of the pancreatic head or the ampulla, there may still be a possibility of resectional therapy for attempted care. I have discussed this in detail with the patient. MD ESME Echeverria/FRITZ /[id number] cc: Dr. Arias Department of Vascular Surgery [facility] Copies: ~ Electronically Signed By: BRUCE PRINCE MD 08/19/19 1208 PATIENT NAME: MAXIME LYNN HISTORY AND PHYSICAL DATE OF : 41 REPORT #: [id number] PHYSICIAN: BRUCE PRINCE MD PCP: Suzi Powell DNP, ARNP REPORT IS CONFIDENTIAL AND NOT TO BE RELEASED WITHOUT AUTHORIZATION
--- NOTE | 2019-08-19 13:12 | NUR ---
HAVE TRIED SEVERAL TIMES TO CONNECT WITH PT TODAY. IN [place], OR IN THE MIDDLE OF SHAVING. WILL TRY AGAIN
--- NOTE | 2019-08-19 14:35 | NUR ---
Discharge instructions given, all questions and concerns answered. Patient verbalized understanding of follow up appointment. IV sites D/C'd, vital signs taken. All personal belongings collected. Patient leaves unit independently with nursing staff.
--- NOTE | 2019-08-20 14:16 | DS ---
[facility] [address] [facility] [place], [place] [address] Signed ADMISSION DATE: 08/18/2019 DISCHARGE DATE: 08/19/2019 REASON FOR ADMISSION: This 73-year-old white man is known to me from the distant past, who presented to the emergency room with orange urine and vague feelings of unwellness and clinical jaundice. He was evaluated by Dr. Slaughter for nearly 8 hours in the emergency room, culminating a CT scan, which showed a markedly hydropic gallbladder with sludge, intrahepatic ductal dilatation, a double duct sign regarding pancreatic duct, but no clear evidence of neoplasm in the head of the pancreas. His bilirubin was noted to be 8.5, indirect component of 5.3 with an alkaline phosphatase of 481, lipase normal at 21, creatinine slightly elevated at 1.34. On the day of his admission, a significant snowstorm began and he was admitted for further evaluation and care to my service. Notably, the patient remains on Plavix 75 mg a day as well as losartan and hydrochlorothiazide and simvastatin and aspirin 81 mg a day. Notably in the past several months, the patient underwent endarterectomy of the proximal aorta in relation to the superior mesenteric artery, subsequent angioplasty for a slight plaque. He has no severe abdominal pain and there was no evidence of ischemic disease on CT scan findings. The patient was formally a daily smoker, does not use alcohol or smoke at this time. SOCIAL HISTORY: He is . 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 He is a [employer] and receives some of his care and essentially all of his insurance coverage through the [facility]. HOSPITAL COURSE: He was admitted and given intravenous antibiotic Ancef on the possibility of biliary disease as the underlying problem, uncertain if his obstructive jaundice was related to biliary stones or sludge or neoplasm. He admittedly was feeling reasonably well without severe pain and certainly, no clinical evidence of acute cholecystitis. He was deeply jaundiced and liver enzymes and bilirubin were unchanged on followup exam. An ultrasound of the gallbladder was undertaken, which did confirm layering sludge. There were no stones, however. There was no visualization of stones within the common bile duct, though it was markedly Electronically Signed By: BRUCE PRINCE MD 08/20/19 1416 PATIENT NAME: MAXIME LYNN JR DISCHARGE SUMMARY DATE OF : 41 REPORT #: [id number] PHYSICIAN: BRUCE PRINCE MD PCP: Suzi Powell DNP, ARNP REPORT IS CONFIDENTIAL AND NOT TO BE RELEASED WITHOUT AUTHORIZATION [facility] [address] [place], [place] [address] Signed dilated as was the pancreatic duct. On that basis, an MRI was performed on August 19, 2019, which confirmed no sign of actual neoplasm of head of the pancreas or ampulla. It did show thickening of the pancreas and some concern for possible pancreatic lymphoma. Options of management were reviewed, which included open operation including cholecystectomy, common duct exploration, placement of T-tube, intrabiliary brushings and biopsy of ampulla as well as some potential choledochoenterostomy either choledochoduodenostomy or Shawna-en-Y choledochoenterostomy. Mindful of a more contemporary approach to include ERCP with stenting and pancreatic brush biopsy of the ampulla and bile duct, particularly if neoplasm is actually identified and is resectable. Plans were made for arrangement for outpatient ERCP. Attempts at scheduling at [facility] locally determined that they no longer do ERCP procedures. Discussion with Dr. Benjamín Johnson, parts delivery driver in [place] confirmed the ability to do ERCP, biopsy and stenting, but no ability for endoscopic ultrasound, which he felt the patient would benefit from. Ultimately, I had called [facility], put in touch with nurse with [facility] assisting in arrangement for outpatient endoscopic ultrasound and ERCP, stenting and biopsy by Dr. Berumen. Final plans for arrangement of date for this referral were pending. However, the referral center does have his phone number and they will be contacting back as well. At this point, the patient feels reasonably well, would like to go home if possible, awaiting his personal own vehicle to travel to [place] for further evaluation of his obstructive jaundice, likely related to neoplastic disease. He understands that benign disease may still be the cause, though I think it less likely under the circumstances of his slowly progressive obstructive jaundice, the painless nature of the jaundice, and a double duct sign on imaging studies. Of note, there were 2 small liver lesions, which are not better characterized that have been noted on CT scan and MRI, but do not currently have an appearance of hemangioma and may well represent metastatic neoplastic disease. We discussed all this. DISCHARGE MEDICATIONS: Include: 1. His usual hydrochlorothiazide 25 mg p.o. daily. 2. Losartan 25 mg tablets two tablets p.o. daily. 3. Simvastatin 10 mg p.o. bedtime. 4. Multivitamin Centrum Silver men's one p.o. daily and DSS 100 mg p.o. b.i.d. I have asked him to discontinue for the time being, aspirin 81 mg a day and Plavix 75 mg Electronically Signed By: BRUCE PRINCE MD 08/20/19 1416 PATIENT NAME: MAXIME LYNN DISCHARGE SUMMARY DATE OF : 41 REPORT #: [id number] PHYSICIAN: BRUCE PRINCE MD PCP: Suzi Powell DNP, ARNP REPORT IS CONFIDENTIAL AND NOT TO BE RELEASED WITHOUT AUTHORIZATION [facility] [address] [facility], [place] [address] Signed a day pending instructions from his parts delivery driver who will be anticipating ERCP, papillotomy stenting soon. We are mindful of his endarterectomy and apparent angioplasty following that and the hazards of thrombosis, but the risks of bleeding with ERCP intervention is not small under the circumstances. DISCHARGE DIAGNOSES: 1. Progressive development of obstructive jaundice with double duct sign on CT scan. 2. Biliary sludge. 3. 20-pound weight loss in past 2 months. 4. Decreased appetite. 5. History of transaortic endarterectomy of superior mesenteric artery with subsequent limited angioplasty. 6. Distant history of smoking. 7. Hypertension. 8. Dyslipidemia. MD ESME Echeverria/COLTL /[id number] cc: MD Dr. Sukhjinder Fox [facility] Copies: APRIL BERUMEN MD ~ Electronically Signed By: BRUCE PRINCE MD 08/20/19 1416 PATIENT NAME: MAXIME LYNN JR DISCHARGE SUMMARY DATE OF : 41 REPORT #: [id number] PHYSICIAN: BRUCE PRINCE MD PCP: Suzi Powell DNP, ARNP REPORT IS CONFIDENTIAL AND NOT TO BE RELEASED WITHOUT AUTHORIZATION
== END 2019-08-19 14:35 | disposition home or self-care (01) | DRG 446 ==
LOC: ED 13:41 → MS 13:43
PROVIDERS: ADMIT Surgery
DX: K83.1 Obstruction of bile duct (principal); K82.8 Other specified diseases of gallbladder; R63.4 Abnormal weight loss; R63.0 Anorexia; I10 Essential (primary) hypertension; E78.5 Hyperlipidemia, unspecified; Z87.891 Personal history of nicotine dependence; Z79.02 Long term (current) use of antithrombotics/antiplatelets; Z79.82 Long term (current) use of aspirin; Z79.899 Other long term (current) drug therapy
CPT/HCPCS: 36415; 74177; 74183; 76705; 80053; 81001; 82248; 83690; 85002; 85025; 85610; A9579; J0690; J1644; J1885; J2270; J7121

== ENCOUNTER 2019-09-17 04:17 | Inpatient (IN) | payer MEDICARE ==
[~2019-09-17] VITALS: Ht 170.2 cm; Wt 61.2 kg
[~2019-09-17 04:17] MED LIST changes: +CENTRUM SILVER1 EAC4 PO; +CLOPIDOGREL75 MG PO; +DOK100 MG PO
--- OUTSIDE RECORDS SUMMARY | 2019-09-17 04:20 | XMS ---
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 [place] VISIT COUNT (12 MO.) 1 [facility] [address] [place] [address] TOTAL 3 NOTE: Visits indicate total known visits. ED/UCC VISIT TRACKING (12 MO.) 09/17/2019 04:17 [facility] [place] TYPE: Emergency COMPLAINT: - SEIZURE 09/04/2019 10:40 [facility] [place] TYPE: Emergency DIAGNOSES: - EMS WEAKNESS - Other specified diseases of pancreas 08/17/2019 13:42 [facility] [place] TYPE: Emergency COMPLAINT: - TURNING YELLOW INPATIENT VISIT TRACKING (12 MO.) 09/04/2019 10:40 [facility] [place] TYPE: Medical Surgical DIAGNOSES: - Malignant (primary) neoplasm, unspecified - Other specified diseases of pancreas - Malignant neoplasm of head of pancreas - Obstruction of bile duct 08/18/2019 09:39 [facility] [place] TYPE: Medical Surgical COMPLAINT: - JAUNDICE DIAGNOSES: - 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
[2019-09-17] MEDS ORDERED: OXYCODONE HCL5 MG PO (04:55)
--- NOTE | 2019-09-17 11:26 | NUR ---
PATIENT ARRIVED TO ROOM 116, MOVED TO BED WITH STAFF LIFT. NGT TO SUCTION.
--- NOTE | 2019-09-17 11:38 | NUR ---
DR. SANTIAGO IN TO SEE PATIENT, DR. JUAN TO CONSULT.
--- NOTE | 2019-09-17 12:30 | NUR ---
DR SANTIAGO REQUESTED THE POLST FORM. WE DO NOT HAVE IT ON FILE HERE. HIS PCP DOES NOT HAVE ONE ON FILE EITHER. I CALLED TANIYA HARMAN. PT WILL NEED A POLST FORM.
--- NOTE | 2019-09-17 12:44 | NUR ---
PT RESTING IN SEMIFOWLERS POSITION IN BED ALERT AND ORIENTED. NG TO RIGHT NARE IS HOOKED UP TO LIWS AND DRAINGING GREEN ANTHONY CLEAR FLUIDS. CALL LIGHT IN REACH. NO NEEDS OR CONCERNS VOICED.
--- NOTE | 2019-09-17 14:05 | NUR ---
STOPPED TO CHECK ON PT-HE WAS ASLEEP CHOSE NOT TO WAKE HIM. WILL RETURN AAIN
--- NOTE | 2019-09-17 16:07 | NUR ---
PT ALERT AND ORIENTED. REQEUSTED AND RECEIVED PRN CEPICAL LOZENGE. WARM BLANKETS AND SOME MOISTENED TOOTHETTES ALSO PROVIED PER COMFORT. PT DECLINES AMBULATING AT THIS TIME. NO FURTHER NEEDS OR CONCERNS VOICED.
--- NOTE | 2019-09-17 18:06 | NUR ---
Pt reports sore throat, prn cepical lozenge administered per pt request. Call light and h2o in reach. Pt denies further needs or concerns. Pt has tolerated ng to liws with prn lozenges well. Pt remains alert and oriented with maintenance fluids infusing. NG has had 200mls of clear green fluid out this shift. Pt is jaundiced. Voiding more than quantity sufficient concentrated urine in urinal. pt repositions himself independantly on bed but declines ambulation states "I'm too weak today". encourage deep breathing and coughing. PT a/o x4.
--- NOTE | 2019-09-17 19:31 | NUR ---
PATIENT VISITING IN THE ROOM WITH FAMILY. ABD PAIN 10. WILL BE BACK TO MEDICATE SHORTLY. CALL LIGHT IN REACH.
--- NOTE | 2019-09-17 20:15 | NUR ---
VITALS AND I&OS DONE AND CHARTED. 2 WARM BLANKETS GIVEN. BEDSIDE TABLE AND CALL LIGHTS IN REACH. PT NEEDS NOTHING MORE AT THIS TIME.
--- NOTE | 2019-09-17 21:43 | NUR ---
PATIENT RESTING QUIETLY NOW, EYES CLOSED AND RESPIRATIONS REGULAR AND EVEN, NG TUBE DRAINING CLEAR AND BROWNISH DRAINAGE. CALL LIGHT IN REACH.
--- NOTE | 2019-09-17 22:38 | NUR ---
2 WARM BLANKETS GIVEN PER PT REQUEST. PT NEEDS NOTHING MORE AT THIS TIME.
--- NOTE | 2019-09-17 23:10 | NUR ---
PATIENT RESTING QUIETLY IN SEMI-FOWLERS POSITION, NG TO LIWS, EYES ARE CLOSED AND RESPIRATIONS REGULAR AND EVEN. CALL LIGHT IN REACH.
--- NOTE | 2019-09-18 00:47 | NUR ---
PATIENT HAVING 5/10 PAIN AGAIN AND GIVEN 1MG IV DILAUDID AND A CEPACOL LOZENGE, VOIDED 400MLS IN URINAL. PATIENT WANTS TO SLEEP SO I+O AND VS DONE AT THIS TIME AND PATIENT GOING BACK TO SLEEP. CALL LIGHT IN REACH.
--- NOTE | 2019-09-18 03:41 | NUR ---
PATIENT JUST GIVEN ANOTHER CEPACOL LOZANGE FOR HIS THROAT AND 1MG IV DILAUDID FOR 4/10 ABD PAIN. PATIENT GOING TO TRY AND GET SOME MORE SLEEP. CALL LIGHT IN REACH.
--- NOTE | 2019-09-18 05:24 | NUR ---
PATIENT FEELS THAT HIS PAIN WAS CONTROLLED WELL THROUGHT THE NIGHT AND JUST GOT ANOTHER 1MG IV DILAUDID FOR ABD PAIN 4/10 AND A CEPACOL DROP FOR HIS THROAT. PATIENT ALSO FELS LIKE HE GOT A FAIR AMOUNT OF REST. MOTH SWABS REMAIN AT BEDSIDE PATIENT REMAINS NPO AND NG-TUBE STILL TO SUCTION. CALL LIGHT IN REACH.
--- NOTE | 2019-09-18 05:34 | CONS ---
[facility] [place] [facility] [address], [place] [address] Signed DATE OF CONSULTATION: 09/17/2019 CHIEF COMPLAINT: Nausea, vomiting, abdominal distention. HISTORY OF PRESENT ILLNESS: Maxime is a 73-year-old gentleman I have known for quite a few years. He had undergone a repeat colonoscopy with us early last year. He then had an open aortic endarterectomy with Dr. Arias at [facility] in April 2019. He then came back with painless jaundice and has pancreatic cancer with what looks like mets to the liver. It looks like it is involving the SMA and so forth. He went down to [facility] for his stents on September 03, 2019. They had to come through the liver to access the bile duct into the duodenum and then come from below to bring up the endo-biliary stent or both remain in place. He has been discharged back to [place] over the last 10 days. The hope was he gain some weight, maybe undergo some chemotherapy. He is also under the impression that he might have surgery for his cancer. In the meantime, he has actually dropped from around 207 pounds down to 135 pounds. He is actually on the edge of cachexia. He came into the emergency room earlier today with some abdominal distention, nausea, vomiting. His white count is normal and the abdominal exam is benign other than some mild distention. CT scan shows the tumor in the head of the pancreas and the stents and it also shows significant amount of fluid and debris in the stomach, which suggests he has at least a high-grade gastric outlet obstruction, but he also has contrast in the colon from a CT scan several days ago and then the jejunum and ileum appear to be dilated and fluid-filled with a transition point somewhere in the left high pelvis. Consequently, an NG tube was placed and I was asked to admit him as a general surgeon on-call. We also could see that his sodium and potassium are quite low. ALLERGIES: None. MEDICATIONS: Hydrochlorothiazide 25 mg p.o. daily, losartan 25 mg p.o. daily, simvastatin 10 mg p.o. at bedtime, multivitamin one p.o. daily, docusate, and oxycodone. PAST MEDICAL HISTORY: Sinusitis, hypertension, prediabetic, asthma, thrombosed hemorrhoids in 2006, BPH, hyperlipidemia, arthritis, and pancreatic cancer. PAST SURGICAL HISTORY: Includes a negative colonoscopy in 2002 at age 56 and a colonoscopy last year showing diverticulosis. He has had a tonsillectomy and adenoidectomy. He has had an incision of a thrombosed hemorrhoid in 2006. He had his open aortic endarterectomy with Dr. Arias Electronically Signed By: MADHU SANTIAGO MD 09/18/19 0534 PATIENT NAME: MAXIME LYNN JR CONSULTATION DATE OF : 41 REPORT #: [id number] PHYSICIAN: MADHU SANTIAGO MD PCP: Suzi Powell DNP, ARNP REPORT IS CONFIDENTIAL AND NOT TO BE RELEASED WITHOUT AUTHORIZATION [address] [address] [address] [facility] in April 2019 and on 09/03/2019, he had the percutaneous and the endo-biliary stent placed for his common bile duct. SOCIAL HISTORY: He does drink some coffee. He had quit smoking back in 1968. He quit drinking in January of 2019. He was drinking up to three shots of scotch each day. He does use some edible marijuana. He had chewed one can of snuff, but quit way back in 1968. He is . 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 He has three children. His son is currently over [facility] and unfortunately, a stepdaughter is undergoing bilateral mastectomies. He goes to the [facility] in [place], [place] and his nurse is Amina Kelsey. Occasionally, he does go to the [facility] as well. He prefers the [facility] here in [place], [place]. He had continued to drive up until recently. FAMILY HISTORY: Mother had a heart attack. No family history of colon cancer or polyps. No reactions to anesthetics. REVIEW OF SYSTEMS: He had 10 systems reviewed. Of course, he wears glasses and has hearing aids and some tinnitus. We talked about high blood pressure, his recent diagnosis of pancreatic cancer and then the vascular surgery from last fall. PHYSICAL EXAMINATION: VITAL SIGNS: Blood pressure is 94/52, pulse 66, respiratory rate 14, temperature is 98.3, and 100% on room air. He is 5 feet 7 inches at 61 kg (135 pounds), previously 207 pounds. GENERAL: Maxime is a 73-year-old gentleman who is lying supine semi-recumbent in his hospital bed. Our nurse is at the bedside. He is still jaundiced, although I was told his bilirubin was originally over 20 and it is now down to 6.4. He is quite thin on the edge of cachexia, although his albumin is 3.5. He is cooperative. He is alert, awake and interactive, seems to have good memory of most of the details. LUNGS: Clear to auscultation. HEART: Regular rate and rhythm without murmur. ABDOMEN: Mildly distended, generally a little full, but soft. He has a long periumbilical midline incision that is healing well. No evidence of any hernias. He has a percutaneous drain taped in place along the right chest wall. RECTAL: Exam is not performed today. LABORATORY DATA: His white blood cell count is 9.4, hemoglobin 9.8 with a mean cell volume 100, neutrophils are 46, platelets 293. His sodium is 124 with a potassium of 2.6. His BUN is 21, creatinine 1.13, glucose 137, total bilirubin is down to 6.4 from over 20. AST Electronically Signed By: MADHU SANTIAGO MD 09/18/19 0534 PATIENT NAME: MAXIME LYNN JR CONSULTATION DATE OF : 41 REPORT #: [id number] PHYSICIAN: MADHU SANTIAGO MD PCP: Suzi Powell DNP, ARNP REPORT IS CONFIDENTIAL AND NOT TO BE RELEASED WITHOUT AUTHORIZATION [facility] [address], [place] [address] Signed 122, ALT 119, alkaline phosphatase is 351, albumin 3.5, lipase 58. RADIOGRAPHIC STUDIES: A CT scan is reviewed including the report and the images. I can clearly see the percutaneous stent coming through the liver into the bile duct and the endo-biliary stent coming from below. His pancreatic head has an amorphous mass. It looks like the SMA and other structures are involved. His stomach is very dilated with fluid and food debris. His jejunum and ileum are also dilated and fluid-filled. There is probably a transition point in the left pelvis. It looks like he has several mets in the liver. He has a small right pleural effusion. ASSESSMENT AND PLAN: Maxiem is a 73-year-old gentleman who presents with what appears to be unresectable metastatic pancreatic cancer. Unfortunately, he may have a gastric outlet obstruction and a small bowel obstruction in the left pelvis as well. At this point, we are going to admit him for conservative measures with an NG tube decompression and replace the sodium and potassium. We are going to track down his records from [facility] as well as the [facility] with respect to the above. We will also have time to talk to his and his children and will proceed from there. In the meantime, we will get our Medical Service to see him as well. Maxime expressed understanding and agrees above plan. Madhu Santiago MD ALB/MODL /[id number] cc: Mati Prieto [facility] Madhu Santiago MD Copies: MADHU SANTIAGO MD Electronically Signed By: MADHU SANTIAGO MD 09/18/19 0534 PATIENT NAME: MAXIME LYNN CONSULTATION DATE OF : 41 REPORT #: [id number] PHYSICIAN: MADHU SANTIAGO MD PCP: Suzi Powell DNP, ARNP REPORT IS CONFIDENTIAL AND NOT TO BE RELEASED WITHOUT AUTHORIZATION [facility] [address], [place] [address] Signed ~ Electronically Signed By: MADHU SANTIAGO MD 09/18/19 0534 PATIENT NAME: MAXIME LYNN JR CONSULTATION DATE OF : 41 REPORT #: [id number] PHYSICIAN: MADHU SANTIAGO MD PCP: Suzi Powell DNP, ARNP REPORT IS CONFIDENTIAL AND NOT TO BE RELEASED WITHOUT AUTHORIZATION
--- NOTE | 2019-09-18 07:40 | NUR ---
pt resting in bed alert and oriented, reports he dhas had small amount of flatus, only 40cc of drainagfe from ngt over night.
--- NOTE | 2019-09-18 09:30 | NUR ---
Med rec completed. Patient's med P.O.A (Lin Cunningham) phone number [phone].
--- NOTE | 2019-09-18 11:58 | NUR ---
pt request pain medication for 01/12, difficult time attempting to establish second iv site
--- NOTE | 2019-09-18 13:05 | NUR ---
pt resting in bed eyes closed rr even 16 bpm no distress noted. pt appears to be sleeping
--- NOTE | 2019-09-18 13:58 | NUR ---
PT REPORTS PAIN IS OK, 40CC FLUSH TO NGT AND 30CC OF AIR TO AIR VENT. MORE DRAINAGE NOTED TO COME OUT, 150CC
--- NOTE | 2019-09-18 14:11 | NUR ---
PT REQUESTED PAIN MED AFTER REPOSITIONING IN BED. HE REQUEST CEPACOL EREN. HOURLY.
--- NOTE | 2019-09-18 17:22 | NUR ---
PT WAS INTIALLY NOT WANTING AN ULTRASOUND IV PLACED HE WAS WANTING "SOMETHING MORE PERMANENT". DR. SANTIAGO NOTIFIED AND STATES AN ULTRASOUND IV IS APPROPRIATE AT THIS TIME. PT UPDATED AND AGREEABLE TO RECEIVE AN ULTRASOUND IV. ULTRASOUND GUIDED IV PLACED PROXIMAL TO THE RIGHT AC WITH LIDOCAINE 1%. PT TOLERATED WELL. IV SITE DRAWS BLOOD AND FLUSHES EASILY. PT'S RN NOTIFIED.
--- NOTE | 2019-09-18 17:58 | NUR ---
suppository placed, pain medication administered. ngt flushed and patent at this time
--- NOTE | 2019-09-18 18:10 | NUR ---
PT HAS REQUESTED PAIN MEDICATIONS EVERY 2 HOURS, NGT FLUSHED EVERY 3-4 HOURS FOR PATENCY, NEW IV STARTED IN RIGHT AC VIA ULTRASOUND LACED BY KASH MATHEW RN PT HAS ACTIVE BT Q4 QUADRANTS. SUPPOSITRY PLACED FLEETS ENEMA IS NOT EFFECTIVE. CEPACOL EREN. EVERY HOUR.
--- NOTE | 2019-09-18 18:48 | NUR ---
pt up to bedside commode, emeterio changed, pt verbalized he feels comfortable sitting up and wants to give it sometime to try to have bm.
--- NOTE | 2019-09-18 20:00 | NUR ---
PRINTED CIRCUIT BOARD REWORKER ROUNDING NOTE. PT RESTING IN BED. PRIMARY RN AT BEDSIDE FOR ENEMA ADMINISTRATION. THIS WRTIER ASSISTS. PT TOLERATED WELL. PT DENIES QUESTIONS OR CONCERNS AT THIS TIME. CALL LIGHT IN REACH. PRIMARY RN REMAINS AT BEDSIDE. WHITE BOARD UPDDATED.
--- NOTE | 2019-09-18 20:15 | NUR ---
PATIENT WAS UP ON THE COMMODE AND VOIDED BUT NO RESULT FROM DAYSHIFT SUPPOSITORY SO ENEMA JUST GIVEN AND PATIENT CURRENTLY BACK IN BED HOLDING IT IN. PATIENT HAS CALL LIGHT AND WILL CALL WHEN ENEMA IS RELEASED AND NEEDS CLEANED UP.
--- NOTE | 2019-09-18 22:08 | NUR ---
PATIENT HAD A MEDICUM BM FROM ENEMA, CLEANED UP, 3/10 PAIN AND ANOTHER 1MG IV DILAUDID GIVEN AND A CEPACOL LOZENGE. PATIENT POSITIONED TO COMFORT AND CALL LIGHT IN REACH.
--- NOTE | 2019-09-18 22:59 | NUR ---
PATIENT RESTING QIETLY, RESPIRATIONS REGULAR AND EVEN, EYES CLOSED, CALL LIGHT IN REACH.
--- NOTE | 2019-09-19 00:42 | NUR ---
PATIENT HAVING 3/10 ABD PAIN AND GIVEN, 1MG DILAUDID AND CEPACOL AND A WARM BLANKET AND PULLED UP IN BED. CALL LIGHT IN REACH.
--- NOTE | 2019-09-19 01:36 | NUR ---
Helped boost pt up in bed, bedding was wet and discolored, changed bedding and gown, set pt up to use urinal, tucked pt in bed when done.
--- NOTE | 2019-09-19 03:10 | NUR ---
PATIENT RESTING QUIETLY, RESPIRATIONS REGULAR AND EVEN, CALL LIGHT IN REACH, EYES CLOSED.
--- NOTE | 2019-09-19 04:02 | NUR ---
PATIENT RESTING QUIETLY, EYES CLOSED, RESPIRATIONS REGULAR AND EVEN, CALL LIGHT IN REACH.
--- NOTE | 2019-09-19 05:38 | NUR ---
PATIENT HAS RESTED FAIRLY WELL THROUGH THE NIGHT WITH DILAUDID EVERY 2 TO 3 HOURS,CEPACOL LOZANGES THROUGH THE NIGHT. NG DRAINED 300MLS. PATIENT HAD A MEDIUM BM AFTER ENEMA AT THE BEGINING OF THE SHIFT. CALL LIGHT IN REACH.
--- NOTE | 2019-09-19 07:38 | NUR ---
0700: Report received from Sunil ROLDAN. Pt resting in his bed and states his pain is acceptable at a 3 at this time. Call salmeron within reach.
--- NOTE | 2019-09-19 08:14 | NUR ---
PT STATES HIS PAIN IS A 3/10 WHICH HE STATES IS ACCEPTABLE TO HIM. NG TUBE FLUSHED WITH 30 ML OF TAP WATER AND IS DRAINING GREEN COLORED DRAINAGE. PT JAUNDICE WITHOUT DIFFICULTY. PT DID STATE HE HAS SOME SORENESS IN HIS THROAT AND WAS GIVEN A CEPACOL HE REQUESTED. WILL CONTINUE TO MONITOR. CALL FIGUEROA WITHIN REACH.
--- NOTE | 2019-09-19 09:03 | NUR ---
WASHED PATIENT'S FACE AND CLEANED HIS GLASSES. HE DID ORAL CARE. GOT HIM 2 WARM BLANKETS. CHANGED HIS ATTENDS. I GETTING READY TO WALK OUT AND HE SAID HE NEEDED TO USE THE URINAL. NOW PATIENT IS TUCKED IN AND WATCHING TV.
--- NOTE | 2019-09-19 10:00 | NUR ---
Pt states his largest concern to know what channel the car races are on, which was looked up for him.
--- NOTE | 2019-09-19 11:18 | NUR ---
PT NOW STATES HIS PAIN IS A /10.
--- NOTE | 2019-09-19 13:08 | NUR ---
PT STATES HIS ABD PAIN IS A 2 AT THIS TIME. HE IS SPEAKING WITH HIS VISITORS AND DENIES ANY NEW PROBLEMS. THE DRESSING TO HIS LEFT ABD WAS CHANGED IT WAS SOAKED. NO NOTED S/S OF INFECTION, WILL CONTINUE TO MONITOR.
--- NOTE | 2019-09-19 13:52 | NUR ---
Pt sleeping resp rate reguar.
--- NOTE | 2019-09-19 14:54 | NUR ---
Pt given an IS and instructed in it's use which he is using at this time. Pt assisted up to the chair at this time. Temp is 97.8.
--- NOTE | 2019-09-19 16:46 | NUR ---
PT SLEEPING IN HIS CHAIR AT THIS TIME.
--- NOTE | 2019-09-19 17:06 | NUR ---
DID PATIENT'S BED BATH ALSO SHAMPOOED HIS HAIR. PATIENT IS SITTING UP IN CHAIR. ALSO A NEW GOWN.
--- NOTE | 2019-09-19 17:32 | NUR ---
Pt assisted back to bed from his chair. NGT remains to low intermit wall suction and was flushed with 30 ml of tap water and is functioning well. SCD's on and running. Call salmeron and personal items within reach.
--- NOTE | 2019-09-19 17:42 | NUR ---
Dressing soaked with yellow colored drainage to the left abd. This was the forth time this dressing was changed this shift. Pt now visiting with his friend.
--- NOTE | 2019-09-19 19:13 | NUR ---
RECEIVED REPORT FROM YULI PURDY. pt RESTING IN BED. CALL LIGHT WITHIN REACH.
--- NOTE | 2019-09-19 20:05 | NUR ---
FEDERAL AID COORDINATOR ROUNDING NOTE. PT REPORTS PAIN 5/10 TO ABD AND BACK. PT ALSO REQUESTING PRN CEPACOL LOZENGE. DILAUDID AND CEPACOL PROVIDED. NG TUBE FLUSHED WITH 10 ML TAP WATER PER PT REQUEST. NG TUBE TO LIWS, DRAINING GREENISH YELLOW FLUID. PT DENIES FURTHER NEEDS AT THIS TIME. WOULD LIKE LIGHTS LEFT ON. AGREES TO CALL FOR NEEDS. WHITE BOARD UDPATED. CALL LIGHT IN REACH.
--- NOTE | 2019-09-19 21:02 | NUR ---
IN TO DO ASSESSMENT. pt COMPLAINED ABOUT MEDICATIONS ALL QUESTIONS ANSWERED. ASSESSMENT DONE. DRESSING CHANGED. VITALS DONE. LIGHTS OFF FOR COMFORT. CALL LIGHT WITHIN REACH.
--- NOTE | 2019-09-19 22:32 | NUR ---
pt CALLED. REQUESTED PRN PAIN MEDICATION FOR 2/10 PAIN AND ANOTHER LOZENGE. EDUCATED ON PAIN MANAGEMENT. MEDICATIONS GIVEN (SEE MAR). NO FURTHER REQUESTS AT THIS TIME. CALL LIGHT WITHIN REACH.
--- NOTE | 2019-09-19 23:36 | NUR ---
ROUNDED ON pt. RESTING WITH EYES CLOSED, RESPIRATIONS REGULAR AND UNLABORED. CALL LIGHT WITHIN REACH.
--- NOTE | 2019-09-20 00:11 | NUR ---
pt CALLED FOR PAIN MEDS. DISCUSSED MEDICATIONS AND PAIN MANAGEMENT. pt REQUESTED THAT THIS RN GIVE PAIN MEDICATION Q2H. WILL TRY AND CONTINUE TO MONITOR PAIN. CALL LIGHT WITHIN REACH.
--- NOTE | 2019-09-20 01:30 | NUR ---
PRN PAIN MED GIVEN FOR 3/10 PAIN. NG TUBE FLUSHED. ASSISTED pt WITH URINAL. WARM BLANKETS PROVIDED. CALL LIGHT WITHIN REACH.
--- NOTE | 2019-09-20 01:58 | NUR ---
IV PUMP BEEPING, ERROR RESOLVED. CALL LIGHT WITHIN REACH.
--- NOTE | 2019-09-20 02:35 | NUR ---
PRN PAIN MED GIVEN (SEE OCT) FOR 10/12. ASSESSMENT DONE. NG TUBE FLUSHED. OUTPUT THICK. NO FURTHER REQUESTS AT THIS TIME. CALL LIGHT WITHIN REACH.
--- NOTE | 2019-09-20 03:42 | NUR ---
IV PUMP BEEPING, ERROR RESOLVED. pt REPORTED 3/10 PAIN AT THIS TIME. WILL RETURN WHEN IT IS TIME FOR NEXT DOSE, pt AGREEABLE. CALL LIGHT WITHIN REACH.
--- NOTE | 2019-09-20 04:40 | NUR ---
PRN PAIN MEDS GIVEN FOR 3/10 PAIN. NG TUBE FLUSHED. PROVIDED FRESH SWABS. NO FURTHER REQUESTS AT THIS TIME. CALL LIGHT WITHIN REACH.
--- NOTE | 2019-09-20 06:30 | NUR ---
PRN PAIN MED GIVEN FOR 3/10 PAIN. VITALS AND I&O RECORDED. NG TUBE FLUSHED, CANNISTER EMPTIED. NO FURTHER REQUESTS AT THIS TIME. CALL LIGHT WITHIN REACH.
--- NOTE | 2019-09-20 07:35 | NUR ---
Report received, orders acknowledged.
--- NOTE | 2019-09-20 09:30 | NUR ---
Patient laying in bed watching tv. NG in place on LIWS. AM medications given, fluids running at 125 mls/hr. Patient reports pain of 4/10, prn pain medication given (see MAR). Denies needs at this time, call light within reach.
--- NOTE | 2019-09-20 10:29 | NUR ---
Dr. Ruiz in room to discuss POC with patient
--- NOTE | 2019-09-20 11:30 | NUR ---
Patient reports pain of 3/10, prn pain medication given
--- NOTE | 2019-09-20 13:30 | NUR ---
Patient reports pain of 4/10, prn pain medication given
--- NOTE | 2019-09-20 14:32 | NUR ---
CALLED IN TO PLACE ON ULTRASOUND IV. ATTEMPTED TO PLACE ON ULTRASOUND IV INTO THE PT'S LEFT UPPER ARM. THIS ATTEMPT WAS UNSUCCESSFUL. SECOND ATTEMPT WITHOUT THE ULTRASOUND WAS SUCCESSFUL. THE IV DRAWS BLOOD AND FLUSHES EASILY. PT REPORTS NO PAIN AT THE SITE. FLUIDS STARTED AND INFUSING EASILY. PT'S RN, BREANNA LAGUNA.
--- NOTE | 2019-09-20 15:15 | NUR ---
Patient laying in bed, alert and oriented. 50 mls of barium inserted into NG tube, waited several minutes and inserted an additional 50 mls. NG capped. Imaging called and will be to room at 1545. Patient denies pain or nausea with instillation. Call light within reach.
--- NOTE | 2019-09-20 15:30 | NUR ---
Patient reports pain of 4/10, prn pain medication given
--- NOTE | 2019-09-20 15:45 | NUR ---
Imaging in room to take xray
--- NOTE | 2019-09-20 18:00 | NUR ---
Patient laying in bed, rouses to voice. Vital signs taken. Patient denies nausea or pain. No needs at this time, call light within reach.
--- NOTE | 2019-09-20 19:20 | NUR ---
BEDSIDE REPORT RECEIVED FROM OFFGOING YULI CARLOS.
--- NOTE | 2019-09-20 20:57 | NUR ---
PT ASSESSMENT COMPLETE. PT RATES PAIN 4/10 TO ABDOMEN, BACK, AND THROAT. PRN PAIN MEDICATION ADMINISTERED. CEPACOL LOZENGES PROVIDED. ABDOMEN WITH DISTENSION, TENDER TO PALPATION. BT'S ACTIVE. NG TUBE TO LIWS SUCTION. FLUSHED WITH 25 ML OF TAP WATER. DRAINAGE TO WALL CANISTER GREEN/YELLOW IN COLOR WITH WHITE CONTRAST PRESENT IN TUBE WELL. PT ASSISTED TO USE THE URNIAL. WARM BLANKETS AND FRESH ICE CHIPS PROVIDED. PT DENIES FURTHER NEEDS AT THIS TIME. CALL LIGHT IN REACH.
--- NOTE | 2019-09-21 | NUR ---
PT UTLIZES CALL LIGHT TO USE THE BATHROOM. PT WOULD LIKE TO GET TO BSC. ASSSITED TO BSC AND BACK TO BED WITH 2PA. PT RATES PAIN /10. PRN DIALUDID ADMINISTERED. NG TUBE FLUSHED WITH 50 ML TAP WATER. PT DENIES FURTHER NEEDS AT THIS TIME. WARM BLANKETS AND ICE CHIPS PROVIDED. CALL LIGHT IN REACH.
--- NOTE | 2019-09-21 01:58 | NUR ---
PT RESTING IN BED WATCHING TV. PT ASKS ELECTRODE CLEANER TO CHECK NG TUBE. NG TUBE PATENT, DRAINING YELLOW AND WHITE DRAINAGE. PT ABLE TO SCOOT HIMSELF UP IN BED. PT DENIES FURTHER NEEDS AT THIS TIME. CALL LIGHT IN REACH.
--- NOTE | 2019-09-21 04:06 | NUR ---
PT ASSESSMENT COMPLETE. PT RATES PAIN 4/10, PRN DILAUDID ADMINISTERED. PT DENIES SOB OR NASUEA. NG TUBE TO LIWS WITH YLW DRAINAGE PRESENT IN TUBE. BT'S ACTIVE. PT DENIES ABD TENDERNESS. PT DENIES FURTHER NEEDS AT THIS TIME. CALL LIGHT IN REACH.
--- NOTE | 2019-09-21 05:23 | NUR ---
PT AWAKE UNTIL AROUND 0400. PRN DILAUDID ADMINISTERED ~ Q 3 HOURS. PT DENIES NAUSEA OR SOB. NG TO LIWS, GREEN/YLW DRAINAGE. PORT TO R FLANK WITH DRESSING IN PLACE. PT UP TO BSC X 1 WITH 2PA. OTHERWISE USES URINAL IN BED WITH ASSISTANCE. PT VERY WEAK. MAINTENANCE FLUIDS INFUSING.
--- NOTE | 2019-09-21 07:50 | NUR ---
PT CALLED FOR ASSISTANCE AND STATED "I NEED HELP GETTING RID OF THIS ENEMA, THERE ARE THREE OF THEM IN ME NOW AND IT NEEDS TO COME OUT." PT AGREEABLE TO TRANSFER TO BSC TO ATTEMPT BM. PT BECAME VERY ANXIOUS, SHAKING, RR INCREASED STATED "HELP ME, HELP ME!" ASKING STAFF TO "JUST DO IT ALL, JUST LIFT ME UP." ALSO CRIES OUT "HELP ME GOD". PT 2P TRANSFER TO BSC. HAD MEDIUM SOFT, DARK BROWN BM. 2PA BACK TO BED. TOMER CARE PROVIDED AND CLEAN ATTENDS APPLIED. PT GIVEN WARM BLANKETS AND ASSISTED TO POSITION OF COMFORT. PT STATED MULTIPLE TIMES THAT HE WOULD LIKE PAIN MEDS " SOON POSSIBLE". RATES PAIN /10. CALL LIGHT WITHIN REACH.
--- NOTE | 2019-09-21 08:31 | NUR ---
PATIENT RESTING IN BED. PATIENT'S HANDS AND FACE CLEANED. ONE PERSON ASSISTING. CALL LIGHT WITHIN REACH. NO OTHER NEEDS AT THIS TIME
--- NOTE | 2019-09-21 08:53 | NUR ---
PT SITTING IN BED CALMLY, WATCHING TV. FLAT AFFECT. PT RATES PAIN 7/10 "ALL OVER ABDOMEN, LOWER BACK, AND HIPS". MEDICATED WITH PRN DILAUDID. AM MEDS ADMINISTERED AND ASSESSMENT COMPLETED. PT DENIES NAUSEA. NGT TO LIWS PUTTING OUT MODERATE AMOUNT OF YELLOW OUTPUT. IV IN RIGHT AC INFUSING WNL, NO REDNESS OR INFLAMMATION NOTED. STENT DRESSING TO RIGHT FLANK CDI. PT ALERT AND ORIENTED TO ALL. CALL LIGHT WITHIN REACH.
--- NOTE | 2019-09-21 09:09 | NUR ---
called back pt per message. updated her pt night night and current status awake rn at bedside at this time. she said she would be up to see him about noon and that said he would be at the hospital around noon as well and plan to have a little meeting in patient room to discuss ongoing plan of care
--- NOTE | 2019-09-21 09:28 | NUR ---
PATIENT SITTING UP IN BED. VITAL SIGNS AND I&O DONE. HIGH TEMP. RN NOTIFIED. CALL LIGHT WITHIN REACH. NO OTHER NEEDS AT THIS TIME
--- NOTE | 2019-09-21 09:45 | NUR ---
Spoke with [place], son is in the room. Pt is trying to decide if he will transfer to [place] for workup and possible further surgery or stay in [facility]. States he has alot of things he heeds to finish. Asked if he has a poa and he states he has his daughter in law for medical and for financial. I asked him what his biggest concerns are and he states his . Daughter in law in the room and states Dr. Ruiz will be here at noon for a meeting with the family and patient. Let them know I will return for this meeting.
--- NOTE | 2019-09-21 11:15 | NUR ---
PT HELD FINAL ORDERED ENEMA FOR SHORT AMOUNT OF TIME. 2PA TRANSFER TO BSC. HAD MODERTAE AMOUNT OF MIX OF LIQUID AND VERY HARD STOOL. ASSISTED BACK TO BED. ASSISTED TO POSITION OF COMFORT. PERSONAL ITEMS AND CALL LIGHT WITHIN REACH. 3 VISITORS IN ROOM AT THIS TIME.
--- NOTE | 2019-09-21 11:25 | NUR ---
PRN DILAUDID ADMINISTERED PER PT REQUEST FOR 7 ABD PAIN. PT HAD MANY OTHER SMALL REQUESTS FOR ICE CHIPS, MOUTH SWABS, PILLOW ADJUSTMENTS, WARM BLANKETS, PLUG PHONE INTO FOLDER AND NOTCHER ETC, COMPLETED AT THIS TIME. CALL LIGHT WITHIN REACH.
--- NOTE | 2019-09-21 11:30 | NUR ---
Call from floor nurse, Dr. Ruiz is in the room speaking with family. Into room and Dr. Ruiz is giving options of transfer to [facility] in [place] for possible surgery, SNF, Assisted livings, or Home with Hospice. becomes upset and cries during the meeting. After discussion is completed, daughter in law asks if we can speak in private. Spoke daughter in law and she states concern, Trenton is not fully understanding his options. She is concerned he will go to [place] and the DrCesar will not do the surgery. Reviewed options with her. She would like this Rn to discuss with Amina. Amina to my office and states she is very concerned Trenton is making decisions as he is concerned about her. She wants him to make decisions which are in his best interest. She requests daughter in law and my self speak with Trenton and give him his options and let him know to make choices in his best interest. She would like all family members to leave for this discussion. Daughter in law and I in with . Other family members have arrived and she requests all go for coffee. In and spoke with Trenton. Again reviewed options of going to [place] for possible further surgery. This could make him feel better as he could possible get his NG out. If he does not have surgery, he will require NG which is difficult correction. If no NG will more than likely vomit due to sbo. Reviewed hospice in assisted living, SNF, or moving to [place] so he and Amina can live with daughter in law. Discussed 's concern he is making decisions based on her need instead of his. He states he thinks it's best if he goes to [place]. If this plans fails he will return on Hospice. He requests I call [facility] and get him on a waiting list as they are currently full. Understanding stated and I will notify Dr. Ruiz to begin transfer.
--- NOTE | 2019-09-21 12:17 | NUR ---
PT ALERT, OREINTED AND SITNG UP IN BED WITH NG TUBE IN AND SIPPING SOMETHING TO DRINK. FREEDOM AND OTHER VISITORS IN. PT REQUESTED I COME IN FOLLOWING CARE CONF WITH DR SANTIAGO. WILL FOLLOW NEEDED. YULI ESTEVEZ ALSO EXPRESSED CONCERN FOR PT AND FAMILY WITH PTS' RECENT DIAGNOSIS. GAVE BLESSING, WILL FOLLOW NEEDED
--- NOTE | 2019-09-21 13:15 | NUR ---
Faxed transfer papers to Dr. Ruiz after updating him by phone. He will call me when he speaks with the accepting physician.
--- NOTE | 2019-09-21 13:35 | NUR ---
PT SITTING UP IN BED SMILING, LAUGHING AND CHATTING WITH VISITORS/FAMILY. PT REQUESTING PAIN MEDICATION FOR REPORTS OF 7/10 ABD PAIN. DAUGHTER IN LAW CATA REITERATES OFTEN THAT PT SHOULD BE RECIEVING PAIN MEDICATION OFTEN ORDER ALLOWS. PT NOTED TO BE MUCH LESS ANXIOUS FROM THIS AM. DENIES NAUSEA. NGT FLUSHED. PUTTING OUT BRIGHT YELLOW OUTPUT. CALL LIGHT WITHIN REACH.
--- NOTE | 2019-09-21 13:59 | NUR ---
PATIENT RESTING IN BED. VISITORS IN ROOM. VITAL SIGNS AND I&O DONE. CALL LIGHT WITHIN REACH. NO OTHER NEEDS AT THIS TIME
--- NOTE | 2019-09-21 14:00 | NUR ---
Received call from [facility] (Polly Bender) will accept pt. Pt can go to surgical or floor bed. Called transfer center at [facility] in [place]. They will check with Dr. Bender, but do not think there are any beds available. Will call me back.
--- NOTE | 2019-09-21 14:20 | NUR ---
Received call from [facility] they do not have any beds. Called transfer center at [facility]. Information given for transfer and they will call back.
--- NOTE | 2019-09-21 14:29 | NUR ---
Call from [facility], requesting face sheet to be faxed.
--- NOTE | 2019-09-21 14:36 | NUR ---
PT REQUESTED I CHECK BACK AFTER CARE CONF WITH DR SANTIAGO. AND FAMILY HAVE LEFT, VISITOR IN WITH PT. PT THANKED ME FOR STOPPING, I COULD TELL HE WAS ENGAGED IN CONVERSATION WITH VISITOR. GAVE BLESSING AND LET HIM KNOW I AM PRAYING FOR HIM. HE THANKED ME, WILL BE TRANSFERRED TO ANOTHER FACILITY FOR SURGERY. WILL FOLLOW NEEDED
--- NOTE | 2019-09-21 15:01 | NUR ---
Face sheet faxed to Betty at [facility]. [phone].
--- NOTE | 2019-09-21 15:30 | NUR ---
Call from Betty at [facility]. Room confirmed on . nurses to call [phone] for report. Transport crew to go to ER and check in at Desk. Notify desk pt is a direct admit.
--- NOTE | 2019-09-21 15:39 | NUR ---
Called [facility] and requested crew for transport later this afternoon. They will work on it. Will call when I hear from [facility] for room.
--- NOTE | 2019-09-21 15:45 | NUR ---
PT GIVEN FRESH ICE AND WARM BLANKETS. MANY VISITORS AT BEDSIDE. PT DENIES NEEDS OR CONCERNS AT THIS TIME. AWAITING TRANSFER TO [place].
--- NOTE | 2019-09-21 16:20 | NUR ---
NA RN ADMINISTERD PRN DILAUDID TO PT AT 1604 PER PT AND FAMILY REQUEST. DRESSING TO BILIARY STENT SITE NEAR RIGHT FLANK AREA CHANGED AT THIS TIME. DRESSING SATUATED WITH BRIGHT YELLOW FLUID. REDRESSED WITH GAUZE, ABD AND FOAM TAPE. STENT SITE WITHOUT REDNESS OR INFLAMMATION, SUTURES IN PLACE. PT ASSISTED TO VOID USING URINAL. SMEAR OF BM NOTED IN ATTENDS, TOMER CARE PROVIDED AND CLEAN ATTENDS APPLIED. NGT FLUSHED WITH 10ML OF TAP WATER. NGT CONT TO PUT OUT BRIGHT YELLOW OUTPUT. PT NOW AWAITING ARRIVAL OF EMS FOR TRANSFER TO [place]. CALL LIGHT WITHIN REACH.
--- NOTE | 2019-09-21 16:23 | NUR ---
PATIENT RESTING IN BED. FAMILY IN ROOM. FINAL VITAL SIGNS WERE OBTAINED PRIOR TO DISCHARGE FROM THE UNIT
--- NOTE | 2019-09-21 16:30 | NUR ---
Notified by [facility], they will arrive for transport in 5-10 minutes. Charge nurse Lolis notified, pt and family notified.
--- NOTE | 2019-09-21 17:00 | NUR ---
[facility] ARRIVED AT 1640. PT FULL ASSIST SLIDE TRANSFER TO [facility]. NGT CLAMPED. IVF RUNNING IN RIGHT AC AND SENT WITH EMS PER ORDERS. REPORT GIVEN. PERSONAL ITEMS WITH FAMILY. EMS LEFT WITH PT AT 1650.
--- NOTE | 2019-09-21 17:10 | NUR ---
REPORT CALLED TO FELISA MAYO AT 1708. SPOKE TO DOMINICK ROLDAN.
== END 2019-09-21 16:50 | disposition short-term general hospital (02) | DRG 388 ==
LOC: ED 04:17 → MS 10:32
PROVIDERS: ADMIT Colon & Rectal Surgery
DX: K56.609 Unspecified intestinal obstruction, unspecified as to partial versus complete obstruction (principal); K83.1 Obstruction of bile duct; C25.0 Malignant neoplasm of head of pancreas; C78.7 Secondary malignant neoplasm of liver and intrahepatic bile duct; E46 Unspecified protein-calorie malnutrition; E87.1 Hypo-osmolality and hyponatremia; I10 Essential (primary) hypertension; R73.03 Prediabetes; J45.909 Unspecified asthma, uncomplicated; N40.0 Benign prostatic hyperplasia without lower urinary tract symptoms; E78.5 Hyperlipidemia, unspecified; M19.90 Unspecified osteoarthritis, unspecified site; E83.51 Hypocalcemia; E83.42 Hypomagnesemia; I25.10 Atherosclerotic heart disease of native coronary artery without angina pectoris; E87.6 Hypokalemia; T50.2X5A Adverse effect of carbonic-anhydrase inhibitors, benzothiadiazides and other diuretics, initial encounter; Z66 Do not resuscitate; Z87.891 Personal history of nicotine dependence; Z79.891 Long term (current) use of opiate analgesic; Z79.899 Other long term (current) drug therapy; Z68.21 Body mass index [BMI] 21.0-21.9, adult
CPT/HCPCS: 36415; 74177; 74250; 80048; 80053; 81001; 83690; 83735; 84100; 84134; 85025; 96361; 96365; 96366; 96375; 96376; 99285-25; C9113; J0610; J1170; J1644; J2405; J3010; J3411; J3475; J3480; J7030; J7042; J7060; J7121; Q9967